=== PATIENT | male | born 1935 | race Caucasian/White ===

== ENCOUNTER → 2016-04-07 | Outpatient (CLI) | payer MEDICARE, OTHER ==
[~2016-04-07] MED LIST: AMIO200T50 PO; AMLO5TAB2 PO; ASCO500C14 PO; ASCO500T75 PO; ASP81CT; ASP81TEC PO; ASPI-983 PO; ASPI325T4; C250T; CALC-9 PO; CARV6.252 PO; CLOP75TA28 PO; CYAN100088 PO; DABI150C2 PO; DIGO125T PO; DILT180C PO; DILT240C53 PO; DOXA1TAB PO; ENOX100D4 SC; FOLI1TAB9 PO; GABA-486 PO; GLUC1CAP37 PO; GLUCO/CHON; HYDR-3583 PO; HYDR200T46 PO; HYDR25TA4 PO; IBP200T PO; IBUP-15 PO; IBUP1TAB9 PO; LYSI600T PO; LYSINE; MECL25TA56 PO; METOPROLOL; MTC10T; MTP25TSR; MULT-608 PO; MULT1TAB63; NFCORC1000; OM-31CAP3 PO; OMEP-10; OMEP20CA12 PO; OMG1KC; OMG1KC PO; OXB5T; PNT40TEC; PNT40TEC PO; PRED2.5T4 PO; PROP60CA17 PO; RIVA20TA; SMV10T; SULF1TAB38 PO; TERI202.4P SQ; TMSL.4C; TRAM50TA2 PO; WARF10TA PO
[2016-04-07 10:20] LABS: ALANINE AMINOTRANSFERASE 15 U/L (0-55); ALBUMIN 3.9 G/DL (3.2-4.5); ANION GAP 8 MMOL/L (5-14); ASPARTATE AMINO TRANSFERASE 17 U/L (5-34); BILIRUBIN,TOTAL 0.7 MG/DL (0.1-1.0); BLOOD UREA NITROGEN 21 MG/DL (7-18); BUN/CREATININE RATIO 20; CALCIUM 9.3 MG/DL (8.5-10.1); CARBON DIOXIDE 25 MMOL/L (21-32); CHLORIDE 103 MMOL/L (98-107); CREATININE SERUM 1.05 MG/DL (0.60-1.30); GFR ESTIMATED > 60; GLUCOSE 161 MG/DL (70-105); POTASSIUM 4.4 MMOL/L (3.6-5.0); SODIUM 136 MMOL/L (135-145)
[2016-04-07 10:30] LABS: DIGOXIN 0.37 NG/ML (0.80-2.00)
== END ==
LOC: CARD 09:34
PROVIDERS: ATTEND Nurse Practitioner Family
DX: I49.8 Other specified cardiac arrhythmias (principal)
CPT/HCPCS: 36415; 80053; 80162; 93005

== ENCOUNTER → 2016-04-21 | Outpatient (CLI) | payer MEDICARE, OTHER ==
--- OUTSIDE RECORDS SUMMARY | 2016-04-21 10:35 | XMS REPORT | Continuity of Care Document ---
Author Author [facility] Organization [facility] Address Unknown Phone Unavailable Allergies Active Description Code Type Severity Reaction Onset Reported/Identified Relationship to Patient Clinical Status Yes Beta-Blockers (Beta-Adrenergic Bloc [id number] Drug Allergy Unknown N/A 04/21/2012 Medications Problems Date Dx Coded Attending Type Code Diagnosis Diagnosed By 01/27/2011 Ot 250.00 DIAB CHRISTAL WO COMPL, TYPE II OR UNSPEC TY 01/27/2011 Ot 401.9 HYPERTENSION NOS 01/27/2011 Ot 412 OLD MYOCARDIAL INFARCT 01/27/2011 Ot 414.00 CORON ATHEROSCLER NOS TYPE VESSEL, NATIV 01/27/2011 Ot 427.31 ATRIAL FIBRILLATION 01/27/2011 Ot 785.1 PALPITATIONS 01/27/2011 Ot V45.82 PERCUTANEOUS TRANSLUM CORON ANGIOPLASTY 01/27/2011 Ot V58.65 LONG-TERM(CURRENT)USE OF STEROIDS 01/27/2011 Ot V58.66 LONG-TERM (CURRENT) USE OF ASPIRIN 01/27/2011 Ot V58.69 OTH MED,LT,CURRENT USE 02/03/2011 Ot 249.00 SEC DIABETES MELLITUS W/OUT MENTION COMP 02/03/2011 Ot 272.4 HYPERLIPIDEMIA NEC/NOS 02/03/2011 Ot 327.23 OBSTRUCTIVE SLEEP APNEA (ADULT) (PEDIATR 02/03/2011 Ot 401.9 HYPERTENSION NOS 02/03/2011 Ot 412 OLD MYOCARDIAL INFARCT 02/03/2011 Ot 414.01 CORONARY ATHEROSCLEROSIS OF [place] CORON 02/03/2011 Ot 427.31 ATRIAL FIBRILLATION 02/03/2011 Ot 496 CHR AIRWAY OBSTRUCT NEC 02/03/2011 Ot 715.90 OSTEOARTHROS NOS-UNSPEC 02/03/2011 Ot V45.82 PERCUTANEOUS TRANSLUM CORON ANGIOPLASTY 03/10/2011 Ot 785.6 ENLARGEMENT LYMPH NODES 03/10/2011 Ot V58.69 OTH MED,LT,CURRENT USE 04/25/2011 Ot 787.91 DIARRHEA 01/29/2012 Ot 427.31 ATRIAL FIBRILLATION 04/21/2012 Ot 682.6 CELLULITIS OF LEG 04/21/2012 Ot 729.81 SWELLING OF LIMB 04/21/2012 Ot 782.3 EDEMA 04/21/2012 Ot V12.51 HX-VENOUS THROMBOSIS EMBOLISM 04/21/2012 Ot V58.69 OTH MED,LT,CURRENT USE 06/11/2012 Ot 780.79 OTH MALAISE FATIGUE 06/11/2012 Ot 786.2 COUGH 06/11/2012 Ot 787.3 FLATUL/ERUCTAT/GAS PAIN 02/07/2014 Ot 785.6 02/07/2014 Ot 785.6 02/07/2014 Ot V58.69 02/07/2014 Ot V72.63 02/07/2014 Ot V74.8 02/07/2014 Ot 787.91 02/07/2014 Ot 786.7 02/07/2014 Ot 401.9 02/07/2014 Ot 427.31 02/07/2014 Ot 787.02 02/07/2014 Ot V58.69 02/07/2014 Ot 250.00 02/07/2014 Ot 272.4 02/07/2014 Ot 401.9 02/07/2014 Ot V58.69 02/07/2014 Ot 427.31 02/07/2014 Ot 289.89 02/07/2014 Ot 356.9 02/07/2014 Ot 787.20 02/07/2014 Ot 401.9 02/07/2014 Ot V58.69 02/07/2014 Ot 780.79 02/07/2014 Ot 786.2 02/07/2014 Ot 787.3 02/07/2014 NAVA WADDELL, RON Prieto Ot 250.00 02/07/2014 NAVA WADDELL, RON Prieto Ot 401.9 02/07/2014 NAVA WADEDLL, RON Prieto Ot V58.69 02/07/2014 NAVA WADDELL, RON Prieto Ot 356.9 02/07/2014 MAURO WADDELL, SENTHIL Shell Ot 433.10 03/11/2014 NAVA WADDELL, RON Prieto Ot 250.00 03/11/2014 NAVA WADDELL, RON Prieto Ot 272.4 03/11/2014 NAVA WADDELL, RON Prieto Ot 401.9 03/11/2014 NAVA WADDELL, RON Prieto Ot V58.69 03/11/2014 NAVA WADDELL, RON Prieto Ot V72.62 06/06/2014 Ot 733.00 07/10/2014 Ot 354.0 07/10/2014 Ot V72.81 07/10/2014 Ot V74.8 07/10/2014 Ot 787.4 07/10/2014 Ot 786.7 07/10/2014 Ot 530.81 07/10/2014 Ot 530.89 07/10/2014 Ot 785.6 07/10/2014 Ot 785.6 07/10/2014 Ot V58.69 07/10/2014 Ot V72.63 07/10/2014 Ot V74.8 07/10/2014 Ot 787.91 07/10/2014 Ot 786.7 07/10/2014 Ot 401.9 07/10/2014 Ot 427.31 07/10/2014 Ot 787.02 07/10/2014 Ot V58.69 07/10/2014 Ot 250.00 07/10/2014 Ot 272.4 07/10/2014 Ot 401.9 07/10/2014 Ot V58.69 07/10/2014 Ot 427.31 07/10/2014 Ot 289.89 07/10/2014 Ot 356.9 07/10/2014 Ot 787.20 07/10/2014 Ot 401.9 07/10/2014 Ot V58.69 07/10/2014 Ot 780.79 07/10/2014 Ot 786.2 07/10/2014 Ot 787.3 07/10/2014 NAVA WADDELL, RON A Ot 250.00 07/10/2014 NAVA WADDELL, RON A Ot 401.9 07/10/2014 NAVA WADDELL, RON A Ot V58.69 07/10/2014 NAVA WADDELL, RON A Ot 356.9 07/10/2014 NAVA WADDELL, RON A Ot 729.5 07/10/2014 MAURO WADDELL, SENTHIL R Ot 433.10 07/10/2014 NAVA WADDELL, RON Prieto Ot 780.4 07/10/2014 NAVA WADDELL, RON A Ot 250.00 07/10/2014 NAVA WADDELL, RON A Ot 272.4 07/10/2014 NAVA WADDELL, RON A Ot 401.9 07/10/2014 NAVA WADDELL, RON Prieto Ot V58.69 07/10/2014 NAVA WADDELL, RON Prieto Ot V72.62 07/10/2014 Ot 733.00 07/14/2014 MAURO WADDELL, SERENEOPHER R Ot 250.00 07/14/2014 MAURO WADDELL, SERENEOPHER R Ot 401.9 07/14/2014 MAURO WADDELL, SERENEOPHER R Ot 414.00 07/14/2014 MAURO WADDELL, CATHIER R Ot 427.31 07/14/2014 MAURO WADDELL, CATHIER R Ot 433.10 07/14/2014 MAURO WADDELL, SERENEOPHER R Ot 433.30 08/04/2014 MAURO WADDELL, SERENEOPHER R Ot 250.00 08/04/2014 MAURO WADDELL, CATHIER R Ot 401.9 08/04/2014 MAURO WADDELL, SERENEOPHER R Ot 414.00 08/04/2014 MAURO WADDELL, SERENEOPHER R Ot 427.31 08/04/2014 MAURO WADDELL, CATHIER R Ot 433.10 08/04/2014 MAURO WADDELL, CATHIER R Ot 433.30 09/01/2014 NAVA WADDELL, RON Prieto Ot 786.52 04/29/2015 Ot 733.00 05/18/2015 Ot 787.4 05/18/2015 Ot 786.7 05/18/2015 Ot 530.81 05/18/2015 Ot 530.89 05/18/2015 Ot 785.6 05/18/2015 Ot 785.6 05/18/2015 Ot V58.69 05/18/2015 Ot V72.63 05/18/2015 Ot V74.8 05/18/2015 Ot 787.91 05/18/2015 Ot 786.7 05/18/2015 Ot 401.9 05/18/2015 Ot 427.31 05/18/2015 Ot 787.02 05/18/2015 Ot V58.69 05/18/2015 Ot 250.00 05/18/2015 Ot 272.4 05/18/2015 Ot 401.9 05/18/2015 Ot V58.69 05/18/2015 Ot 427.31 05/18/2015 Ot 289.89 05/18/2015 Ot 356.9 05/18/2015 Ot 787.20 05/18/2015 Ot 401.9 05/18/2015 Ot V58.69 05/18/2015 Ot 780.79 05/18/2015 Ot 786.2 05/18/2015 Ot 787.3 05/18/2015 NAVA WADDELL, RON A Ot 250.00 05/18/2015 NAVA WADDELL, RON A Ot 401.9 05/18/2015 NAVA WADDELL, RON A Ot V58.69 05/18/2015 NAVA WADDELL, RON A Ot 356.9 05/18/2015 NAVA WADDELL, RON A Ot 729.5 05/18/2015 MAURO WADDELL, CHRISTOPHER R Ot 433.10 05/18/2015 NAVA WADDELL, RON A Ot 780.4 05/18/2015 NAVA WADDELL, RON A Ot 250.00 05/18/2015 NAVA WADDELL, RON A Ot 272.4 05/18/2015 ANVA WADDELL, RON A Ot 401.9 05/18/2015 NAVA WADDELL, RON A Ot V58.69 05/18/2015 NAVA WADDELL, RON A Ot V72.62 05/18/2015 Ot 733.00 05/18/2015 MAURO WADDELL, CHRISTOPHER R Ot 250.00 05/18/2015 MAURO WADDELL, CHRISTOPHER R Ot 401.9 05/18/2015 MAURO WADDELL, CHRISTOPHER R Ot 414.00 05/18/2015 MAURO WADDELL, CHRISTOPHER R Ot 427.31 05/18/2015 MAURO WADDELL, CHRISTOPHER R Ot 433.10 05/18/2015 MAURO WADDELL, CHRISTOPHER R Ot 433.30 05/18/2015 NAVA WADDELL, RON A Ot 786.52 05/22/2015 SHALOM ENG ROCK CRUSHER Ot M81.0 05/24/2015 SHALOM ENG ROCK CRUSHER Ot M81.0 06/09/2015 SHALOM ENG ROCK CRUSHER Ot M81.0 02/19/2016 Ot 530.81 ESOPHAGEAL REFLUX 02/19/2016 Ot 530.89 ESOPHAGUS DISORDERS NEC 02/19/2016 Ot 785.6 ENLARGEMENT LYMPH NODES 02/19/2016 Ot 785.6 ENLARGEMENT LYMPH NODES 02/19/2016 Ot V58.69 OT MED,LT,CURRENT USE 02/19/2016 Ot V72.63 PRE-PROCEDURAL LABORATORY EXAMINATION 02/19/2016 Ot V74.8 SCREEN-BACTERIAL DIS NEC 02/19/2016 Ot 787.91 DIARRHEA 02/19/2016 Ot 786.7 ABNORMAL CHEST SOUNDS 02/19/2016 Ot 401.9 HYPERTENSION NOS 02/19/2016 Ot 427.31 ATRIAL FIBRILLATION 02/19/2016 Ot 787.02 NAUSEA ALONE 02/19/2016 Ot V58.69 OTH MED,LT,CURRENT USE 02/19/2016 Ot 250.00 DIAB CHRISTAL WO COMPL, TYPE II OR UNSPEC TY 02/19/2016 Ot 272.4 HYPERLIPIDEMIA NEC/NOS 02/19/2016 Ot 401.9 HYPERTENSION NOS 02/19/2016 Ot V58.69 OTH MED,LT,CURRENT USE 02/19/2016 Ot 427.31 ATRIAL FIBRILLATION 02/19/2016 Ot 289.89 OTH SPECIFIED DIS OF BLOOD AND BLOOD-FOR 02/19/2016 Ot 356.9 IDIO PERIPH NEURPTHY NOS 02/19/2016 Ot 787.20 DYSPHAGIA, UNSPECIFIED 02/19/2016 Ot 401.9 HYPERTENSION NOS 02/19/2016 Ot V58.69 OTH MED,LT,CURRENT USE 02/19/2016 Ot 780.79 OTH MALAISE FATIGUE 02/19/2016 Ot 786.2 COUGH 02/19/2016 Ot 787.3 FLATUL/ERUCTAT/GAS PAIN 02/19/2016 RON VICK MD Ot 250.00 DIAB CHRISTAL WO COMPL, TYPE II OR UNSPEC TY 02/19/2016 RON VICK MD Ot 401.9 HYPERTENSION NOS 02/19/2016 RON VICK MD Ot V58.69 OTH MED,LT,CURRENT USE 02/19/2016 RON VICK MD Ot 356.9 IDIO PERIPH NEURPTHY NOS 02/19/2016 RON VICK MD Ot 729.5 PAIN IN LIMB 02/19/2016 MAURO WADDELL, SENTHIL Shell Ot 433.10 CAROTID ARTERY OCCLUSION W O CEREBRAL IN 02/19/2016 RON VICK MD Ot 780.4 DIZZINESS AND GIDDINESS 02/19/2016 RON VICK MD Ot 250.00 DIAB CHRISTAL WO COMPL, TYPE II OR UNSPEC TY 02/19/2016 RON VICK MD Ot 272.4 HYPERLIPIDEMIA NEC/NOS 02/19/2016 RON VICK MD Ot 401.9 HYPERTENSION NOS 02/19/2016 NAVA WADDELL, RON Prieto Ot V58.69 OTH MED,LT,CURRENT USE 02/19/2016 RON VICK MD Ot V72.62 LAB EXAM ORDERED PART OF A ROUTINE GE 02/19/2016 Ot 733.00 OSTEOPOROSIS NOS 02/19/2016 MAURO WADDELL, SENTHIL R Ot 250.00 DIAB CHRISTAL WO COMPL, TYPE II OR UNSPEC TY 02/19/2016 MAURO WADDELL, SENTHIL R Ot 401.9 HYPERTENSION NOS 02/19/2016 MAURO WADDELL, SENTHIL R Ot 414.00 CORON ATHEROSCLER NOS TYPE VESSEL, NATIV 02/19/2016 MAURO WADDELL, SENTHIL R Ot 427.31 ATRIAL FIBRILLATION 02/19/2016 MAURO WADDELL, SENTHIL Shell Ot 433.10 CAROTID ARTERY OCCLUSION W O CEREBRAL IN 02/19/2016 SENTHIL WADE MD Ot 433.30 MULT BILTRAL ARTERY OCCLUSION WO CEREBRA 02/19/2016 NAVA WADDELL, RON Prieto Ot 786.52 PAINFUL RESPIRATION 02/19/2016 SHALOM ENG APRN Ot M81.0 AGE-RELATED OSTEOPOROSIS W/O CURRENT PAT 03/14/2016 CARROL SAHU Ot I10 ESSENTIAL (PRIMARY) HYPERTENSION 03/14/2016 CARROL SAHU Ot I48.91 UNSPECIFIED ATRIAL FIBRILLATION 04/08/2016 SHALOM ENG APRN Ot I49.8 OTHER SPECIFIED CARDIAC ARRHYTHMIAS 04/08/2016 SHALOM ENG APRN Ot I49.8 OTHER SPECIFIED CARDIAC ARRHYTHMIAS Procedures Code Description Performed By Performed On 99.62 HEART COUNTERSHOCK [facility] 02/02/2011 Results Test Result Range Complete blood count (CBC) with automated white blood cell (WBC) differential - 02/19/16 11:24 Blood leukocytes automated count (number/volume) 9.4 10*3/ uL 4.3-11.0 Blood erythrocytes automated count (number/volume) 4.50 10*6 /uL 4.35-5.85 Venous blood hemoglobin measurement (mass/volume) 14.9 g/dL 13.3-17.7 Blood hematocrit (volume fraction) 45 % 40-54 Automated erythrocyte mean corpuscular volume 101 [foz_us] 80-99 Automated erythrocyte mean corpuscular hemoglobin (mass per erythrocyte) 33 pg 25-34 Automated erythrocyte mean corpuscular hemoglobin concentration measurement ( mass/volume) 33 g/dL 32-36 Automated erythrocyte distribution width ratio 12.5 % 10.0-14.5 Automated blood platelet count (count/volume) 221 10*3/uL 130-400 Automated blood platelet mean volume measurement 10.6 [foz_ us] 7.4-10.4 Automated blood neutrophils/100 leukocytes 64 % 42-75 Automated blood lymphocytes/100 leukocytes 19 % 12-44 Blood monocytes/100 leukocytes 12 % 0-12 Automated blood eosinophils/100 leukocytes 4 % 0-10 Automated blood basophils/100 leukocytes 1 % 0-10 Blood neutrophils automated count (number/volume) 6.0 10*3 1.8-7.8 Blood lymphocytes automated count (number/volume) 1.8 10*3 1.0-4.0 Blood monocytes automated count (number/volume) 1.2 10*3 0.0-1.0 Automated eosinophil count 0.4 10*3/uL 0.0-0.3 Automated blood basophil count (count/volume) 0.1 10*3/uL 0.0-0.1 Comprehensive metabolic panel - 02/19/16 11:24 Serum or plasma sodium measurement (moles/volume) 138 mmol/ L 135-145 Serum or plasma potassium measurement (moles/volume) 4.4 mmol/L 3.6-5.0 Serum or plasma chloride measurement (moles/volume) 104 mmol /L 98-107 Carbon dioxide 28 mmol/L 21-32 Serum or plasma anion gap determination (moles/volume) 6 mmol/L 5-14 Serum or plasma urea nitrogen measurement (mass/volume) 22 mg/dL 7-18 Serum or plasma creatinine measurement (mass/volume) 1.03 mg /dL 0.60-1.30 Serum or plasma urea nitrogen/creatinine mass ratio 21 NRG Serum or plasma creatinine measurement with calculation of estimated glomerular filtration rate > NRG Serum or plasma glucose measurement (mass/volume) 91 mg/dL 70-105 Serum or plasma calcium measurement (mass/volume) 9.6 mg/dL 8.5-10.1 Serum or plasma total bilirubin measurement (mass/volume) 0.5 mg/dL 0.1-1.0 Serum or plasma alkaline phosphatase measurement (enzymatic activity/volume) 48 U/L 40-136 Serum or plasma aspartate aminotransferase measurement (enzymatic activity/ volume) 20 U/L 5-34 Serum or plasma alanine aminotransferase measurement (enzymatic activity/volume ) 19 U/L 0-55 Serum or plasma protein measurement (mass/volume) 7.1 g/dL 6.4-8.2 Serum or plasma albumin measurement (mass/volume) 4.0 g/dL 3.2-4.5 Digoxin - 02/19/16 11:24 Digoxin 0.55 ng/mL 0.80-2.00 Comprehensive metabolic panel - 04/07/16 09:54 Serum or plasma sodium measurement (moles/volume) 136 mmol/ L 135-145 Serum or plasma potassium measurement (moles/volume) 4.4 mmol/L 3.6-5.0 Serum or plasma chloride measurement (moles/volume) 103 mmol /L 98-107 Carbon dioxide 25 mmol/L 21-32 Serum or plasma anion gap determination (moles/volume) 8 mmol/L 5-14 Serum or plasma urea nitrogen measurement (mass/volume) 21 mg/dL 7-18 Serum or plasma creatinine measurement (mass/volume) 1.05 mg /dL 0.60-1.30 Serum or plasma urea nitrogen/creatinine mass ratio 20 NRG Serum or plasma creatinine measurement with calculation of estimated glomerular filtration rate > NRG Serum or plasma glucose measurement (mass/volume) 161 mg/dL 70-105 Serum or plasma calcium measurement (mass/volume) 9.3 mg/dL 8.5-10.1 Serum or plasma total bilirubin measurement (mass/volume) 0.7 mg/dL 0.1-1.0 Serum or plasma alkaline phosphatase measurement (enzymatic activity/volume) 50 U/L 40-136 Serum or plasma aspartate aminotransferase measurement (enzymatic activity/ volume) 17 U/L 5-34 Serum or plasma alanine aminotransferase measurement (enzymatic activity/volume ) 15 U/L 0-55 Serum or plasma protein measurement (mass/volume) 7.0 g/dL 6.4-8.2 Serum or plasma albumin measurement (mass/volume) 3.9 g/dL 3.2-4.5 Digoxin - 04/07/16 09:54 Digoxin 0.37 ng/mL 0.80-2.00 Encounters ACCT No. Visit Date/Time Discharge Status Pt. Type Provider Facility Loc./Unit Complaint [id number] 08/13/2014 10:28:00 2014 23:59:59 CLS Outpatient RON VICK MD [facility] RAD CHEST WALL PAIN [id number] 07/10/2014 14:48:00 2014 23:59:59 CLS Outpatient SENTHIL WADE MD [facility] RAD CAD [id number] 02/07/2014 08:10:00 2013 23:59:59 CLS Outpatient RON VICK MD [facility] LAB HTN,HYPERLIPIDEMIA,POLITICAL SCIENCE RESEARCH ASSISTANT MED USE [id number] 05/02/2013 13:20:00 2013 23:59:59 CLS Outpatient RON VICK MD [facility] RAD VERTIGO [id number] 01/15/2013 08:28:00 2012 23:59:59 CLS Outpatient SENTHIL WADE MD [facility] RAD CAROTID STENOSIS [id number] 10/15/2012 14:42:00 2012 23:59:59 CLS Outpatient RON VICK MD [facility] RAD PAIN HEAD OF 5 METATASERL L [id number] 09/26/2012 08:15:00 2012 23:59:59 CLS Outpatient RON VICK MD [facility] LAB PERIPHERAL NEURYPATHY [id number] 07/17/2012 07:58:00 2012 23:59:59 CLS Outpatient RON VICK MD [facility] LAB HTN,NIDDM,ALF MED UASGE [id number] 04/07/2016 09:34:00 ACT Outpatient SHLAOM ENG APRN [facility] CARD ARRHYTHMIA [id number] 02/19/2016 10:58:00 ACT Outpatient CARROL SAHU [facility] LAB HTN,HX AFIB [id number] 05/18/2015 12:48:00 ACT Outpatient SHALOM ENG APRN [facility] SDC OSTEOPOROSIS [id number] 07/10/2014 14:48:00 Document Registration [id number] 07/10/2014 14:48:00 Document Registration [id number] 07/10/2014 14:48:00 Document Registration [id number] 07/10/2014 14:48:00 Document Registration [id number] 07/10/2014 14:48:00 Document Registration [id number] 07/10/2014 14:48:00 Document Registration [id number] 07/10/2014 14:48:00 Document Registration [id number] 05/15/2014 12:52:00 Document Registration [id number] 06/12/2012 00:00:00 Document Registration [id number] 04/30/2012 10:12:00 Document Registration [id number] 04/30/2012 10:05:00 Document Registration [id number] 04/21/2012 21:14:00 Document Registration [id number] 03/19/2012 13:54:00 Document Registration [id number] 03/14/2012 10:29:00 Document Registration [id number] 01/30/2012 08:30:00 Document Registration [id number] 11/24/2011 08:17:00 Document Registration [id number] 10/31/2011 08:45:00 Document Registration [id number] 07/22/2011 08:03:00 Document Registration [id number] 07/08/2011 08:52:00 Document Registration [id number] 04/26/2011 00:00:00 Document Registration [id number] 03/10/2011 05:43:00 Document Registration [id number] 03/08/2011 13:36:00 Document Registration [id number] 02/15/2011 10:21:00 Document Registration [id number] 01/31/2011 11:30:00 Document Registration [id number] 01/31/2011 07:33:00 Document Registration [id number] 01/27/2011 17:11:00 Document Registration
--- NOTE | 2016-04-25 10:30 | ECHOCARDIOGRAPHY REPORT ---
PROCEDURE PHYSICIAN: SP BISHOP DATE OF PROCEDURE: 04/21/2016 TWO DIMENSIONAL ECHOCARDIOGRAM REPORT PRIMARY PHYSICIAN: OTHER PHYSICIAN: REFERRING PHYSICIAN: Dr. Burkett ORDERING PHYSICIAN: INDICATION FOR THE PROCEDURE: 1. Atrial fibrillation. 2. Coronary artery disease. MEASUREMENTS DERIVED VALUES LV DIAMETER (LAX) NORMALS NORMALS Diastolic 4.9 (3.6-5.2) Eject. Fract. 60% (60%+/-6%) Systolic (2.3-3.9) Diastolic Vol. % Shortening (0.22-0.42) Systolic Vol. Aortic Root IVS THICKNESS Diastolic 1.3 (0.6-1.1) LVPW THICKNESS Diastolic 1.3 (0.6-1.1) LA DIAMETER Systolic 5.7 (2.1-3.7) FINDINGS: 1. Technical quality is good. 2. The left ventricle is normal in size with moderate to severe left ventricular hypertrophy noted diffusely. Systolic function appeared to be normal. The patient is in atrial fibrillation. Estimated ejection fraction 60%. 3. The left atrium is dilated. No clot or thrombus were seen within the left atrium. 4. The right atrium and right ventricle are prominent. No clot or thrombus were seen within the right heart chambers. 5. Mitral valve is calcified with mild mitral regurgitation noted by color Doppler flow. No mitral valve prolapse. No mitral valve stenosis. 6. Aortic valve is trileaflet with normal opening and closing pattern. No significant aortic valve stenosis was noted. Mild aortic regurgitation noted by color Doppler flow. 7. Tricuspid valve is normal in morphology with mild tricuspid regurgitation noted by color Doppler flow. Doppler across tricuspid valve estimated pulmonary artery pressure of 29+ right atrial pressure. 8. Pulmonic valve is functioning normally. 9. No pericardial effusion. IN CONCLUSION: 1. Moderate to severe left ventricular hypertrophy. Systolic function is normal. Estimated ejection fraction 60%. The patient is in atrial fibrillation. 2. Left atrial dilatation. 3. Prominent right heart chambers. 4. Mild mitral regurgitation. Mild tricuspid regurgitation. Mild aortic regurgitation. 5. Estimated pulmonary artery pressure of 35 mmHg. Job ID: [id number] Dictated Date: 04/25/2016 07:48:03 Roaster Helper Date: 04/25/2016 10:26:18 / tbreba
== END ==
LOC: CARD 10:30
PROVIDERS: ATTEND Internal Medicine Cardiovascular Disease
DX: I48.91 Unspecified atrial fibrillation (principal); I25.10 Atherosclerotic heart disease of native coronary artery without angina pectoris; I51.7 Cardiomegaly
CPT/HCPCS: 93306

== ENCOUNTER → 2016-05-16 | Outpatient (CLI) | payer MEDICARE, OTHER ==
[~2016-05-16] VITALS: Ht 172.7 cm; Wt 98.4 kg
[~2016-05-16] MED LIST changes: +CATHETER FLUSH 10 ML SYR IV PRN; +EPTIFIBATIDE BOLUS 20 ML IV ONE; +HEParin 1000 UNIT/ML (10ML VIAL) FOR BOLUS ONE; +REGADENOSON 0.4 MG/5 ML SYR (LEXISCAN) IV ONE
--- OUTSIDE RECORDS SUMMARY | 2016-05-16 07:15 | XMS REPORT | Continuity of Care Document ---
Author Author [facility] Organization [facility] Address Unknown Phone Unavailable Allergies Active Description Code Type Severity Reaction Onset Reported/Identified Relationship to Patient Clinical Status Yes Beta-Blockers (Beta-Adrenergic Bloc [id number] Drug Allergy Unknown N/A 04/21/2012 Medications Problems [...] INFARCT 02/03/2011 Ot 414.01 CORONARY ATHEROSCLEROSIS OF [place] CORON 02/03/2011 Ot 427.31 ATRIAL FIBRILLATION 02/03/2011 [...] WADDELL, RON Prieto Ot 401.9 02/07/2014 NAVA WADDELL, RON Prieto Ot V58.69 02/07/2014 NAVA WADDELL, RON Prieto Ot 356.9 02/07/2014 MAURO WADDELL, SETNHIL Shell Ot 433.10 03/11/2014 NAVA WADDELL, RON [...] NAVA WADDELL, RON A Ot 272.4 05/18/2015 NAVA WADDELL, RON A Ot 401.9 [...] RON A Ot 786.52 05/22/2015 SHALOM ENG DESIZING MACHINE OPERATOR HEAD END Ot M81.0 05/24/2015 SHALOM ENG DESIZING MACHINE OPERATOR HEAD END Ot M81.0 06/09/2015 SHALOM ENG DESIZING MACHINE OPERATOR HEAD END Ot M81.0 02/19/2016 Ot 530.81 ESOPHAGEAL REFLUX [...] 733.00 OSTEOPOROSIS NOS 02/19/2016 MAURO WADDELL, SENTHIL Shell Ot 250.00 DIAB CHRISTAL WO COMPL, TYPE II OR UNSPEC TY 02/19/2016 MAURO WADDELL, SENTHIL R Ot 401.9 HYPERTENSION NOS 02/19/2016 MAURO WADDELL, SENTHIL R Ot 414.00 CORON ATHEROSCLER NOS TYPE VESSEL, NATIV 02/19/2016 MAURO WADDELL, SENTHIL R Ot 427.31 ATRIAL FIBRILLATION 02/19/2016 SENTHIL WADE MD Ot 433.10 CAROTID ARTERY OCCLUSION W O [...] APRN Ot I49.8 OTHER SPECIFIED CARDIAC ARRHYTHMIAS 04/22/2016 SP BISHOP MD Ot I25.10 ATHSCL HEART DISEASE OF [place] CORONARY 04/22/2016 SP BISHOP MD Ot I48.91 UNSPECIFIED ATRIAL FIBRILLATION 04/22/2016 SP BISHOP MD Ot 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 Type Provider Facility Loc./Unit Complaint [id number] 08/13/2014 10:28:00 2014 23:59:59 CLS Outpatient RON VICK MD [facility] RAD CHEST WALL PAIN [id number] 07/10/2014 14:48:00 2014 23:59:59 CLS Outpatient SENTHIL WADE MD [facility] RAD CAD [id number] 02/07/2014 08:10:00 2013 23:59:59 CLS Outpatient RON VICK MD [facility] LAB HTN,HYPERLIPIDEMIA,GARLAND MAKER MED USE [id number] 05/02/2013 13:20:00 2013 23:59:59 CLS Outpatient RON VICK MD [facility] RAD VERTIGO [id number] 01/15/2013 08:28:00 2012 23:59:59 CLS Outpatient SENTHIL WADE MD [facility] RAD CAROTID STENOSIS [id number] 10/15/2012 14:42:00 2012 23:59:59 CLS Outpatient RON VICK MD [facility] RAD PAIN HEAD OF 5 METATASERL L [id number] 09/26/2012 08:15:00 2012 23:59:59 CLS Outpatient RON VICK MD [facility] LAB PERIPHERAL NEURYPATHY [id number] 07/17/2012 07:58:00 2012 23:59:59 CLS Outpatient RON VICK MD [facility] LAB HTN,NIDDM,GARLAND MAKER MED UASGE [id number] 05/16/2016 07:11:00 ACT Outpatient EDNA WADDELL, SP Dillon [facility] CARD AF,CAD,CAROTID ARTERY STENOSIS [id number] 04/21/2016 10:30:00 ACT Outpatient PS BISHOP MD [facility] CARD AF,CAD,CAROTID ARTERY STENOSIS [id number] 04/07/2016 09:34:00 ACT Outpatient SHALOM ENG APRN [facility] CARD ARRHYTHMIA [id number] 02/19/2016 10:58:00 ACT Outpatient CARROL SAHU [facility] LAB HTN,HX AFIB [id number] 05/18/2015 12:48:00 ACT Outpatient SHALOM ENG APRN [facility] SDC OSTEOPOROSIS [id number] 07/10/2014 14:48:00 Document Registration [id number] 07/10/2014 14:48:00 Document Registration [id number] 07/10/2014 14:48:00 Document Registration [id number] 07/10/2014 14:48:00 Document Registration [id number] 07/10/2014 14:48:00 Document Registration [id number] 07/10/2014 14:48:00 Document Registration [id number] 07/10/2014 14:48:00 Document Registration [id number] 05/15/2014 12:52:00 Document Registration [id number] 06/12/2012 00:00:00 Document Registration [id number] 04/30/2012 10:12:00 Document Registration [id number] 04/30/2012 10:05:00 Document Registration [id number] 04/21/2012 21:14:00 Document Registration [id number] 03/19/2012 13:54:00 Document Registration [id number] 03/14/2012 10:29:00 Document Registration [id number] 01/30/2012 08:30:00 Document Registration [id number] 11/24/2011 08:17:00 Document Registration [id number] 10/31/2011 08:45:00 Document Registration [id number] 07/22/2011 08:03:00 Document Registration [id number] 07/08/2011 08:52:00 Document Registration [id number] 04/26/2011 00:00:00 Document Registration [id number] 03/10/2011 05:43:00 Document Registration [id number] 03/08/2011 13:36:00 Document Registration [id number] 02/15/2011 10:21:00 Document Registration [id number] 01/31/2011 11:30:00 Document Registration [id number] 01/31/2011 07:33:00 Document Registration [id number] 01/27/2011 17:11:00 Document Registration
[2016-05-16 09:11] VITALS: BP 144/76
[2016-05-16 09:23] VITALS: BP 139/83
--- NOTE | 2016-05-17 11:17 | STRESS TEST ---
PROCEDURE PHYSICIAN: SP BISHOP DATE OF PROCEDURE: 05/16/2016 LEXISCAN MYOVIEW STRESS TEST REPORT: REFERRING PHYSICIAN: Dr. Burkett. INDICATION: Coronary artery disease. BASELINE HEART RATE: 86 BASELINE BLOOD PRESSURE: 139/81 BASELINE EKG: Atrial fibrillation with no ischemic changes. IN SUMMARY: The patient was injected with 10.78 mCi of technetium 99 Myoview and the resting images were obtained. Then the patient received 0.4 mg of Lexiscan followed by 28 mCi of technetium 99 Myoview. Throughout the test, there were no EKG changes. The resting and stress images were reviewed and compared in the short axis, horizontal long axis, and vertical long axis views. Review of the images showed diaphragmatic attenuation. There is mild decreased uptake at the anteroapical segment and anterolateral wall with mild reversibility. SSS is 6, SDS 5. TID value 1.01. On the gated images, the left ventricle appeared to be normal size with normal contractility. Calculated ejection fraction 59%. IN CONCLUSION: 1. The patient tolerated Lexiscan well. 2. Mild ischemia involving the anterior lateral wall and anteroapical segment of the left ventricle. 3. Normal left ventricular size with normal contractility. Calculated ejection fraction 59%, underlying rhythm is atrial fibrillation, which could affect at the evaluation of the left ventricular contractility. Job ID: [id number] Dictated Date: 05/16/2016 17:21:11 Wet Finisher Date: 05/17/2016 11:14:28 / [email or web address]
== END ==
LOC: CARD 07:11
PROVIDERS: ATTEND Internal Medicine Cardiovascular Disease
DX: I48.91 Unspecified atrial fibrillation (principal); I25.10 Atherosclerotic heart disease of native coronary artery without angina pectoris; I51.7 Cardiomegaly
CPT/HCPCS: 78452; 93017

== ENCOUNTER 2016-05-19 08:22 | Emergency (ER) | payer MEDICARE, OTHER ==
[~2016-05-19] VITALS: Ht 172.7 cm; Wt 98.4 kg
[~2016-05-19 08:22] MED LIST changes: -ASCO500T75 PO; -ASPI-983 PO; -CARV6.252 PO; -CATHETER FLUSH 10 ML SYR IV PRN; -CLOP75TA28 PO; -CYAN100088 PO; -DILT240C53 PO; -ENOX100D4 SC; -EPTIFIBATIDE BOLUS 20 ML IV ONE; -FOLI1TAB9 PO; -HEParin 1000 UNIT/ML (10ML VIAL) FOR BOLUS ONE; -HYDR25TA4 PO; -OM-31CAP3 PO; -OMEP20CA12 PO; -REGADENOSON 0.4 MG/5 ML SYR (LEXISCAN) IV ONE; -RIVA20TA; -TRAM50TA2 PO; -WARF10TA PO
--- OUTSIDE RECORDS SUMMARY | 2016-05-19 08:28 | XMS REPORT | Continuity of Care Document ---
Author Author [facility] Organization [facility] Address Unknown Phone Unavailable Allergies Active Description Code Type Severity Reaction Onset Reported/Identified Relationship to Patient Clinical Status Yes Beta-Blockers (Beta-Adrenergic Bloc [id number] Drug Allergy Unknown N/A 04/21/2012 Medications Problems [...] INFARCT 02/03/2011 Ot 414.01 CORONARY ATHEROSCLEROSIS OF [place] CORON 02/03/2011 Ot 427.31 ATRIAL FIBRILLATION 02/03/2011 [...] Prieto Ot V58.69 03/11/2014 NAVA WADDELL, RON Pireto Ot V72.62 06/06/2014 Ot 733.00 07/10/2014 Ot [...] RON A Ot 786.52 05/22/2015 SHALOM ENG MEDICAL LAB DIRECTOR Ot M81.0 05/24/2015 SHALOM ENG MEDICAL LAB DIRECTOR Ot M81.0 06/09/2015 SHALOM ENG MEDICAL LAB DIRECTOR Ot M81.0 02/19/2016 Ot 530.81 ESOPHAGEAL REFLUX [...] Ot 401.9 HYPERTENSION NOS 02/19/2016 MAURO WADDELL, CATHIER R Ot 414.00 CORON ATHEROSCLER NOS TYPE VESSEL, NATIV 02/19/2016 MAURO WADDELL, SENTHIL R Ot 427.31 ATRIAL FIBRILLATION 02/19/2016 MAURO WADDELL, SENTHIL R Ot 433.10 CAROTID ARTERY OCCLUSION W O CEREBRAL IN 02/19/2016 SENTHIL WADE MD Ot 433.30 MULT BILTRAL ARTERY OCCLUSION WO CEREBRA 02/19/2016 NAVA WADDELL, RON Prieto Ot 786.52 PAINFUL RESPIRATION 02/19/2016 SHALOM ENG MEDICAL LAB DIRECTOR Ot M81.0 AGE-RELATED OSTEOPOROSIS W/O CURRENT PAT 03/14/2016 CARROL SAHU EMBOSSER OPERATOR Ot I10 ESSENTIAL (PRIMARY) HYPERTENSION 03/14/2016 CARROL SAHU Ot I48.91 UNSPECIFIED ATRIAL FIBRILLATION 04/08/2016 SHALOM ENG APRN Ot I49.8 OTHER SPECIFIED CARDIAC ARRHYTHMIAS 04/08/2016 SHALOM ENG APRN Ot I49.8 OTHER SPECIFIED CARDIAC ARRHYTHMIAS 04/22/2016 SP BISHOP MD Ot I25.10 ATHSCL HEART DISEASE OF [place] CORONARY 04/22/2016 SP BISHOP MD Ot I48.91 UNSPECIFIED ATRIAL FIBRILLATION 04/22/2016 SP BISHOP MD Ot I51.7 CARDIOMEGALY 04/28/2016 SHALOM ENG APRN Ot I49.8 OTHER SPECIFIED CARDIAC ARRHYTHMIAS 05/16/2016 SP BISHOP MD Ot I48.91 UNSPECIFIED ATRIAL FIBRILLATION 05/17/2016 SP BISHOP MD Ot I25.10 ATHSCL HEART DISEASE OF [place] CORONARY 05/17/2016 SP BISHOP MD Ot I48.91 UNSPECIFIED ATRIAL FIBRILLATION 05/17/2016 EDNA WADDELL, SP Dillon Ot I51.7 CARDIOMEGALY Procedures Code Description Performed By Performed On 99.[address] [facility] 02/02/2011 Results Test Result Range Complete blood [...] mmol /L 98-107 Carbon dioxide 25 mmol/L -32 Serum or plasma anion gap determination (moles/volume) [...] Status Pt. Type Provider Facility Loc./Unit Complaint [id number] 08/13/2014 10:28:00 2014 23:59:59 CLS Outpatient RON VICK MD [facility] RAD CHEST WALL PAIN [id number] 07/10/2014 14:48:00 2014 23:59:59 CLS Outpatient SENTHIL WADE MD [facility] RAD CAD [id number] 02/07/2014 08:10:00 2013 23:59:59 CLS Outpatient RON VICK MD [facility] LAB HTN,HYPERLIPIDEMIA,CUSTODIAL MED USE [id number] 05/02/2013 13:20:00 2013 23:59:59 CLS Outpatient RON VICK MD [facility] RAD VERTIGO [id number] 01/15/2013 08:28:00 2012 23:59:59 CLS Outpatient SENTHIL WADE MD [facility] RAD CAROTID STENOSIS [id number] 10/15/2012 14:42:00 2012 23:59:59 CLS Outpatient RON VICK MD [facility] RAD PAIN HEAD OF 5 METATASERL L [id number] 09/26/2012 08:15:00 2012 23:59:59 CLS Outpatient RON VICK MD [facility] LAB PERIPHERAL NEURYPATHY [id number] 07/17/2012 07:58:00 2012 23:59:59 CLS Outpatient NAVA WADDELL, RON Prieto [facility] LAB HTN,NIDDM,CUSTODIAL MED UASGE [id number] 05/19/2016 08:24:00 ACT Emergency MOISES WADDELL , ELISA Gary [facility] ER LEFT ARM PAIN [id number] 05/16/2016 07:11:00 ACT Outpatient SP BISHOP MD [facility] CARD AF,CAD,CAROTID ARTERY STENOSIS [id number] 04/21/2016 10:30:00 ACT Outpatient SP BISHOP MD [facility] AF,CAD,CAROTID ARTERY STENOSIS [id number] 04/07/2016 09:34:00 ACT Outpatient SHALOM ENG APRN [facility] CARD ARRHYTHMIA [id number] 02/19/2016 10:58:00 ACT Outpatient CARROL SAHU [facility] LAB HTN,HX AFIB [id number] 05/18/2015 12:48:00 ACT Outpatient SHALOM ENG APRN [facility] SDC OSTEOPOROSIS [id number] 07/10/2014 14:48:00 Document Registration [id number] 07/10/2014 14:48:00 Document Registration [id number] 07/10/2014 14:48:00 Document Registration [id number] 07/10/2014 14:48:00 Document Registration [id number] 07/10/2014 14:48:00 Document Registration [id number] 07/10/2014 14:48:00 Document Registration [id number] 07/10/2014 14:48:00 Document Registration [id number] 05/15/2014 12:52:00 Document Registration [id number] 06/12/2012 00:00:00 Document Registration [id number] 04/30/2012 10:12:00 Document Registration [id number] 04/30/2012 10:05:00 Document Registration [id number] 04/21/2012 21:14:00 Document Registration [id number] 03/19/2012 13:54:00 Document Registration [id number] 03/14/2012 10:29:00 Document Registration [id number] 01/30/2012 08:30:00 Document Registration [id number] 11/24/2011 08:17:00 Document Registration [id number] 10/31/2011 08:45:00 Document Registration [id number] 07/22/2011 08:03:00 Document Registration [id number] 07/08/2011 08:52:00 Document Registration [id number] 04/26/2011 00:00:00 Document Registration [id number] 03/10/2011 05:43:00 Document Registration [id number] 03/08/2011 13:36:00 Document Registration [id number] 02/15/2011 10:21:00 Document Registration [id number] 01/31/2011 11:30:00 Document Registration [id number] 01/31/2011 07:33:00 Document Registration [id number] 01/27/2011 17:11:00 Document Registration
[2016-05-19 08:42] LABS: BASOPHILS % (AUTO) 0 % (0-10); EOSINOPHILS # (AUTO) 0.2 10^3/uL (0.0-0.3); EOSINOPHILS % (AUTO) 1 % (0-10); LYMPHOCYTES # (AUTO) 1.8 X 10^3 (1.0-4.0); LYMPHOCYTES % (AUTO) 13 % (12-44); MEAN CORPUSCULAR HEMOGLOBIN 33 PG (25-34); MEAN CORPUSCULAR HGB CONC 34 G/DL (32-36); MEAN CORPUSCULAR VOLUME 99 FL (80-99); MEAN PLATELET VOLUME 10.5 FL (7.4-10.4); MONOCYTES # (AUTO) 1.5 X 10^3 (0.0-1.0); MONOCYTES % (AUTO) 12 % (0-12); NEUTROPHILS # (AUTO) 9.9 X 10^3 (1.8-7.8); NEUTROPHILS % (AUTO) 74 % (42-75); PLATELET COUNT 250 10^3/uL (130-400); RED BLOOD COUNT 4.62 10^6/uL (4.35-5.85); RED CELL DISTRIBUTION WIDTH 12.8 % (10.0-14.5); WHITE BLOOD COUNT 13.4 10^3/uL (4.3-11.0)
[2016-05-19 08:53] LABS: PROTHROMBIN TIME PATIENT 22.3 SEC (12.2-14.7)
[2016-05-19 09:04] LABS: ALANINE AMINOTRANSFERASE 19 U/L (0-55); ALBUMIN 4.1 G/DL (3.2-4.5); ANION GAP 11 MMOL/L (5-14); ASPARTATE AMINO TRANSFERASE 18 U/L (5-34); BILIRUBIN,TOTAL 0.6 MG/DL (0.1-1.0); BLOOD UREA NITROGEN 21 MG/DL (7-18); BUN/CREATININE RATIO 18; CALCIUM 9.4 MG/DL (8.5-10.1); CARBON DIOXIDE 25 MMOL/L (21-32); CHLORIDE 102 MMOL/L (98-107); GFR ESTIMATED 58; GLUCOSE 162 MG/DL (70-105); MAGNESIUM 1.9 MG/DL (1.8-2.4); POTASSIUM 4.1 MMOL/L (3.6-5.0); SODIUM 138 MMOL/L (135-145); TOTAL PROTEIN 7.7 G/DL (6.4-8.2)
[2016-05-19 09:12] LABS: MYOGLOBIN SERUM 66.9 NG/ML (10.0-92.0)
--- NOTE | 2016-05-19 09:38 | Diagnostic Imaging Report ---
CLINICAL INDICATION: Patient with history of A-fib. Patient woke up with cold legs. Patient slept on left side and woke up with left arm and left shoulder pain. EXAM: Portable chest x-ray upright view. COMPARISONS: Chest x-ray dated 08/13/2014. FINDINGS: Lungs/pleura: Lungs are clear. There is no pneumothorax. There is no pleural effusion. Mediastinum: Unremarkable. Pulmonary vasculature: Unremarkable. Heart: Unremarkable. Bones/extrathoracic soft tissue: Stable old right rib bony deformities. There are hypertrophic spurs seen throughout the thoracic spine. IMPRESSION: Stable chest x-ray exam with no interval radiographic evidence of acute cardiopulmonary process. Dictated by: Dictated on workstation # [id number]
[2016-05-19] MEDS ORDERED: DILT240C53 PO (09:49)
[2016-05-19] MEDS ORDERED: RIVA20TA (09:49)
[2016-05-19] MEDS ORDERED: CYAN100088 PO (09:49)
[2016-05-19] MEDS ORDERED: HYDR25TA4 PO (09:49)
[2016-05-19] MEDS ORDERED: CARV6.252 PO (09:49)
[2016-05-19] MEDS ORDERED: OMEP20CA12 PO (09:49)
[2016-05-19 10:11] LABS: BILIRUBIN,URINE NEGATIVE (NEGATIVE); KETONES,URINE NEGATIVE (NEGATIVE); LEUKOCYTE ESTERASE ,URINE NEGATIVE (NEGATIVE); NITRITE,URINE NEGATIVE (NEGATIVE); PH,URINE 6 (5-9); PROTEIN,URINE 1+ (NEGATIVE); UROBILINOGEN,URINE 1 MG/DL (NORMAL)
[2016-05-19 10:25] LABS: SQUAMOUS EPITHELIAL CELL,UR RARE /HPF
--- NOTE | 2016-05-19 11:00 | ED Cardiac General ---
History of Present Illness General Chief Complaint: Cardiac/General Problems Stated Complaint: LEFT ARM PAIN Nursing Triage Note: HX OF AFIB. WOKE UP W/ COLD LEGS. SLEPT ON L-SIDE THEN WOKE UP W/ L-ARM ET SHOULDER PAIN. DENIES C/P. DR. DE LEON IN TO SEE PT. PT. APPEARS CALM. VISITORS AT [facility]. Source: patient, family, old records Exam Limitations: no limitations History of Present Illness Time seen by provider: 08:25 Initial Comments This 80-year-old gentleman presents to emergency room with complaints of irregular heart rate this morning that would not register on his monitor cuff at home. Had a stress test earlier this week which showed some possible mild ischemia. He has an appointment with Dr. Shine this afternoon. He also has some left arm pain that seems to be mechanical in nature as it worsens with movement of the shoulder. Symptoms started around 06:30 this morning. He also reports legs felt cool last night which was unusual for him. Patient does have a history of coronary artery disease with MS and cardiac stents. Patient has history of atrial fibrillation and is anticoagulated on Xarelto. Allergies and Home Medications Allergies Coded Allergies: Beta-Blockers (Beta-Adrenergic Bloc (Verified Allergy, Unknown, 04/21/12) Home Medications Ascorbic Acid 500 Mg Capsule.sa 500 MG PO DAILY (Reported) Carvedilol 6.25 Mg Tablet #180 (Reported) Cyanocobalamin (Vitamin B-12) 1,000 Mcg Tablet 1,000 MCG PO DAILY (Reported) Digoxin 125 Mcg Tablet 1 EACH PO DAILY (Reported) Diltiazem HCl 240 Mg Cap.er.24h #90 (Reported) Diltiazem Hcl 180 Mg Cap.sr.24h 1 EACH PO BID (Reported) Doxazosin Mesylate 1 Mg Tablet 1 EACH PO HS (Reported) Gabapentin 100 Mg Capsule 100 MG PO BID (Reported) Hydrochlorothiazide 25 Mg Tablet #30 (Reported) Hydroxychloroquine Sulfate 200 Mg Tab 200 MG PO DAILY (Reported) Multivitamins 1 Tab Tablet 1 TAB PO DAILY (Reported) [place] 3 Polyunsat Fatty Acids 1,000 Mg Cap 1,000 MG PO DAILY (Reported) Omeprazole 20 Mg Capsule.dr 20 MG PO DAILY (Reported) Propranolol Hcl 60 Mg Cap.sa.24h 60 MG PO (Reported) Rivaroxaban 20 Mg Tablet #30 (Reported) Review of Systems Constitutional: no symptoms reported EENTM: No Symptoms Reported Respiratory: No Symptoms Reported Cardiovascular: See HPI Gastrointestinal: No Symptoms Reported Genitourinary: No Symptoms Reported Musculoskeletal: see HPI Skin: no symptoms reported Psychiatric/Neurological: No Symptoms Reported Endocrine: No Symptoms Reported Hematologic/Lymphatic: No Symptoms Reported Past Bydsrnh-Ptnfev-Tttsgd Hx Patient Social History Alcohol Use: Denies Use Recreational Drug Use: No Smoking Status: Never a Smoker Recent Foreign Travel: No Contact w/Someone Who Travel: No Recent Infectious Disease Expo: No Recent Hopitalizations: No Immunizations Up To Date Date of Pneumonia Vaccine: Dec 04, 2008 Date of Influenza Vaccine: Nov 05, 2015 Surgeries HX Surgeries: Yes Surgeries: Coronary Stent, Orthopedic (sacral plasty) Respiratory Hx Respiratory Disorders: Yes Respiratory Disorders: Sleep Apnea Cardiovascular Hx Cardiac Disorders: Yes Cardiac Disorders: Atrial Fibrillation, Coronary Artery Disease, Hypertension Neurological Hx Neurological Disorders: No Reproductive System Hx Reproductive Disorders: No Sexually Transmitted Disease: No HIV/AIDS: No Genitourinary Hx Genitourinary Disorders: No Gastrointestinal Hx Gastrointestinal Disorders: Yes Gastrointestinal Disorders: Hiatal Hernia Musculoskeletal Hx Musculoskeletal Disorders: Yes (BACK SURGERY IN 2011) Musculoskeletal Disorders: Osteoporosis, Back Injury Endocrine Hx Endocrine Disorders: No HEENT HX ENT Disorders: Yes (CATARACTS REMOVED BILAT, DRY EYES) Cancer Hx Cancer: No Psychosocial Hx Psychiatric Problems: No Integumentary HX Skin/Integumentary Disorder: No Blood Transfusions Hx Blood Disorders: No Physical Exam Vital Signs Vital Sign - Last 12Hours 05/19/16 08:41 Temp 98.5 Pulse 86 Resp 20 Pulse Ox 95 O2 Delivery Room Air Capillary Refill : Less Than 3 Seconds General Appearance: No Apparent Distress WD/WN HEENT: PERRL/EOMI Normal ENT Inspection Pharynx Normal Neck: Normal Inspection Respiratory: Lungs Clear Normal Breath Sounds No Accessory Muscle Use No Respiratory Distress Cardiovascular: No Murmur Irregularly Irregular Other (mild to moderate lower extremity edema) Gastrointestinal: Normal Bowel Sounds Non Tender Soft Extremity: Swelling (all the moderate lower extremity edema equal bilaterally with no tenderness. 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 Norm as Tested Skin: Normal Color Warm/Dry Focused Exam Lactic Acid Level Laboratory Tests Test 05/19/16 08:32 Alanine Aminotransferase (ALT/SGPT) 19U/L (0-55) Albumin 4.1G/DL (3.2-4.5) Alkaline Phosphatase 61U/L (40-136) Anion Gap 11MMOL/L (5-14) Aspartate Amino Transf (AST/SGOT) 18U/L (5-34) BUN/Creatinine Ratio 18 Blood Urea Nitrogen 21MG/DL (7-18) H C-Reactive Protein High Sensitivity 2.71MG/DL (0.00-0.50) H Calcium Level 9.4MG/DL (8.5-10.1) Carbon Dioxide Level 25MMOL/L (21-32) Chloride Level 102MMOL/L (98-107) Creatinine 1.20MG/DL (0.60-1.30) Estimat Glomerular Filtration Rate 58 Glucose Level 162MG/DL (70-105) H Magnesium Level 1.9MG/DL (1.8-2.4) Myoglobin 66.9NG/ML (10.0-92.0) Potassium Level 4.1MMOL/L (3.6-5.0) Sodium Level 138MMOL/L (135-145) Total Bilirubin 0.6MG/DL (0.1-1.0) Total Protein 7.7G/DL (6.4-8.2) Troponin I < 0.30NG/ML (<0.30) Progress/Results/Core Measures Results/Orders Lab Results Laboratory Tests Test 05/19/16 08:32 05/19/16 10:05 Range/Units Activated Partial Thromboplast Time 43 H 24-35 SEC Alanine Aminotransferase (ALT/SGPT) 19 0-55 U/L Albumin 4.1 3.2-4.5 G/DL Alkaline Phosphatase 61 40-136 U/L Anion Gap 11 5-14 MMOL/L Aspartate Amino Transf (AST/SGOT) 18 5-34 U/L BUN/Creatinine Ratio 18 Basophils # (Auto) 0.0 0.0-0.1 10^3/uL Basophils (%) (Auto) 0 0-10 % Blood Urea Nitrogen 21 H 7-18 MG/DL C-Reactive Protein High Sensitivity 2.71 H 0.00-0.50 MG/DL Calcium Level 9.4 8.5-10.1 MG/DL Carbon Dioxide Level 25 21-32 MMOL/L Chloride Level 102 98-107 MMOL/L Creatinine 1.20 0.60-1.30 MG/DL Digoxin Level 0.51 L 0.80-2.00 NG/ML Eosinophils # (Auto) 0.2 0.0-0.3 10^3/uL Eosinophils (%) (Auto) 1 0-10 % Estimat Glomerular Filtration Rate 58 Glucose Level 162 H 70-105 MG/DL Hematocrit 46 40-54 % Hemoglobin 15.3 13.3-17.7 G/DL INR Comment 2.0 H 0.8-1.4 Lymphocytes # (Auto) 1.8 1.0-4.0 X 10^3 Lymphocytes (%) (Auto) 13 12-44 % Magnesium Level 1.9 1.8-2.4 MG/DL Mean Corpuscular Hemoglobin 33 25-34 PG Mean Corpuscular Hemoglobin Concent 34 32-36 G/DL Mean Corpuscular Volume 99 80-99 FL Mean Platelet Volume 10.5 H 7.4-10.4 FL Monocytes # (Auto) 1.5 H 0.0-1.0 X 10^3 Monocytes (%) (Auto) 12 0-12 % Myoglobin 66.9 10.0-92.0 NG/ML Neutrophils # (Auto) 9.9 H 1.8-7.8 X 10^3 Neutrophils (%) (Auto) 74 42-75 % Platelet Count 250 130-400 10^3/uL Potassium Level 4.1 3.6-5.0 MMOL/L Prothrombin Time 22.3 H 12.2-14.7 SEC Red Blood Count 4.62 4.35-5.85 10^6/uL Red Cell Distribution Width 12.8 10.0-14.5 % Sodium Level 138 135-145 MMOL/L Total Bilirubin 0.6 0.1-1.0 MG/DL Total Protein 7.7 6.4-8.2 G/DL Troponin I < 0.30 <0.30 NG/ML White Blood Count 13.4 H 4.3-11.0 10^3/uL Urine Bacteria NEGATIVE /HPF Urine Bilirubin NEGATIVE NEGATIVE Urine Casts NONE /LPF Urine Clarity CLEAR Urine Color YELLOW Urine Crystals NONE /LPF Urine Culture Indicated NO Urine Glucose (UA) NEGATIVE NEGATIVE Urine Ketones NEGATIVE NEGATIVE Urine Leukocyte Esterase NEGATIVE NEGATIVE Urine Mucus SMALL H /LPF Urine Nitrite NEGATIVE NEGATIVE Urine Protein 1+ H NEGATIVE Urine RBC NONE /HPF Urine RBC (Auto) NEGATIVE NEGATIVE Urine Specific [place] 1.020 1.016-1.022 Urine Squamous Epithelial Cells RARE /HPF Urine Urobilinogen 1 NORMAL MG/DL Urine WBC NONE /HPF Urine pH 6 5-9 My Orders Orders-ELISA DE LEON MD Cbc With Automated Diff (05/19/16 08:33) Magnesium (05/19/16 08:33) Chest 1 View, Ap/Pa Only (05/19/16 08:33) Ekg Tracing (05/19/16 08:33) Cardiac Profile 1 (05/19/16 08:33) Comprehensive Metabolic Panel (05/19/16 08:33) Myoglobin Serum (05/19/16 08:33) Protime With Inr (05/19/16 08:33) Partial Thromboplastin Time (05/19/16 08:33) O2 (05/19/16 08:33) Monitor-Rhythm Ecg Trace Only (05/19/16 08:33) Lipid Panel (05/20/16 06:00) Saline Lock/Iv-Start (05/19/16 08:33) Digoxin (05/19/16 08:35) Hs C Reactive Protein (05/19/16 10:01) Ua Culture If Indicated (05/19/16 10:01) Vital Signs/I&O Vital Sign - Last 12Hours 05/19/16 08:41 Temp 98.5 Pulse 86 Resp 20 B/P Pulse Ox 95 O2 Delivery Room Air Progress Note : Progress Note Cardiac workup is essentially unremarkable except for the chronic atrial fibrillation. Heart rate was 111 on EKG and has remained stable throughout his ER stay. Patient's left shoulder pain was felt to be mechanical as it worsened with movement of the arm. Leukocytosis was pursued with further workup including chest x-ray and UA. Both were negative. Case was reviewed with Dr. Shine who advised patient keep his scheduled appointment this afternoon. ECG Initial ECG Impression Date: May 19, 2016 Initial ECG Impression Time: 08:28 Initial ECG Rate: 111 Initial ECG Rhythm: A Fib/Flutter Comment Atrial fibrillation with no acute ST elevation or depression. No significant abnormal intervals or axis deviation. Diagnostic Imaging Diagonstic Imaging: Xray Plain Films/CT/US/NM/MRI: chest Comments Chest x-ray viewed by me and report reviewed. See report below: NAME: NABILA DINERO [facility] REC#: [id number] PT STATUS: REG ER : 1935 PHYSICIAN: ELSIA DE LEON MD ADMIT DATE: 05/19/16/ER Draft Date of Exam:05/19/16 CHEST 1 VIEW, AP/PA ONLY CLINICAL INDICATION: Patient with history of A-fib. Patient woke up with cold legs. Patient slept on left side and woke up with left arm and left shoulder pain. EXAM: Portable chest x-ray upright view. COMPARISONS: Chest x-ray dated 08/13/2014. FINDINGS: Lungs/pleura: Lungs are clear. There is no pneumothorax. There is no pleural effusion. Mediastinum: Unremarkable. Pulmonary vasculature: Unremarkable. Heart: Unremarkable. Bones/extrathoracic soft tissue: Stable old right rib bony deformities. There are hypertrophic spurs seen throughout the thoracic spine. IMPRESSION: Stable chest x-ray exam with no interval radiographic evidence of acute cardiopulmonary process. Dictated on workstation # [id number] Dict: 05/19/16 0932 Trans: 05/19/16 0937 [id number] Interpreted by: JASEN TAYLOR MD Departure Impression Impression: Primary Impression: Atrial fibrillation Qualified Code: I48.2 - Chronic atrial fibrillation Additional Impressions: Palpitations Left shoulder pain Qualified Code: M25.512 - Pain in left shoulder Leukocytosis Qualified Code: D72.829 - Elevated white blood cell count, unspecified Disposition: 01 HOME, SELF-CARE Condition: Improved Departure-Patient Inst. Decision time for Depature: 10:57 Referrals: RON VICK MD (PCP/Family) Primary Care Physician Patient Instructions: Atrial Fibrillation Add. Discharge Instructions: Keep your regularly scheduled appointment with Dr. Shine this afternoon. Continue your medications as previously prescribed. Return to the ER symptoms worsen. All discharge instructions reviewed with patient and/or family. Voiced understanding. Copy Copies To 1: RON VICK MD Copies To 2: SP SHINE MD, JOSHUA T MD May 19, 2016 11:00
[2016-05-19 11:05] VITALS: BP 134/86
[2016-05-20] MEDS ORDERED: OM-31CAP3 PO (13:24)
[2016-05-20] MEDS ORDERED: ASCO500T75 PO (13:24)
[2016-05-20] MEDS ORDERED: FOLI1TAB9 PO (13:24)
[2016-05-20] MEDS ORDERED: TRAM50TA2 PO (13:24)
[2016-05-20] MEDS ORDERED: GABA-486 PO (13:39)
== END 2016-05-19 11:05 | disposition home or self-care (01) ==
LOC: EDUNIT# 08:22 → ER 08:24
DX: M25.512 Pain in left shoulder (principal); I48.2 Chronic atrial fibrillation; R00.2 Palpitations; D72.829 Elevated white blood cell count, unspecified; I10 Essential (primary) hypertension; I25.10 Atherosclerotic heart disease of native coronary artery without angina pectoris; I25.2 Old myocardial infarction; Z79.01 Long term (current) use of anticoagulants; Z79.899 Other long term (current) drug therapy; Z95.5 Presence of coronary angioplasty implant and graft
CPT/HCPCS: 36415; 71010; 80053; 80162; 81000; 83735; 83874; 84484; 85025; 85610; 85730; 86141; 93005; 93041

== ENCOUNTER 2016-05-20 12:45 | Day surgery (SDC) | payer MEDICARE, OTHER ==
[2016-05-20] VITALS (14 sets, daily range): BP systolic 128–156; BP diastolic 71–95
[~2016-05-20] VITALS: Ht 172.7 cm; Wt 98.4 kg
[~2016-05-20 12:45] MED LIST changes: +CARV6.252 PO; +CYAN100088 PO; +DILT240C53 PO; +HYDR25TA4 PO; +OMEP20CA12 PO; +RIVA20TA
--- OUTSIDE RECORDS SUMMARY | 2016-05-20 12:51 | XMS REPORT | Continuity of Care Document ---
Author Author [facility] Organization [facility] Address Unknown Phone Unavailable Allergies Active Description Code Type Severity Reaction Onset Reported/Identified Relationship to Patient Clinical Status Yes Beta-Blockers (Beta-Adrenergic Bloc [id number] Drug Allergy Unknown N/A 04/21/2012 Medications Problems [...] INFARCT 02/03/2011 Ot 414.01 CORONARY ATHEROSCLEROSIS OF [place] CORON 02/03/2011 Ot 427.31 ATRIAL FIBRILLATION 02/03/2011 [...] Prieto Ot 401.9 03/11/2014 NAVA WADDELL, RON Priteo Ot V58.69 03/11/2014 NAVA WADDELL, RON Prieto [...] WADDELL, RON A Ot 250.00 07/10/2014 NAVA WADDLEL, RON A Ot 401.9 07/10/2014 NAVA WADDELL, [...] Prieto Ot V58.69 07/10/2014 NAVA WADDELL, RON Pireto Ot V72.62 07/10/2014 Ot 733.00 07/14/2014 MAURO [...] RON A Ot 786.52 05/22/2015 SHALOM ENG FRONT TENDER Ot M81.0 05/24/2015 SHALOM ENG FRONT TENDER Ot M81.0 06/09/2015 SHALOM ENG FRONT TENDER Ot M81.0 02/19/2016 Ot 530.81 ESOPHAGEAL REFLUX [...] Ot 786.52 PAINFUL RESPIRATION 02/19/2016 SHALOM ENG FRONT TENDER Ot M81.0 AGE-RELATED OSTEOPOROSIS W/O CURRENT PAT 03/14/2016 CARROL SAHU TIMBER TREATING TANK OPERATOR Ot I10 ESSENTIAL (PRIMARY) HYPERTENSION 03/14/2016 CARROL SAHU Ot I48.91 UNSPECIFIED ATRIAL FIBRILLATION 04/08/2016 SHALOM ENG APRN Ot I49.8 OTHER SPECIFIED CARDIAC ARRHYTHMIAS 04/08/2016 SHALOM ENG APRN Ot I49.8 OTHER SPECIFIED CARDIAC ARRHYTHMIAS 04/22/2016 SP BISHOP MD Ot I25.10 ATHSCL HEART DISEASE OF [place] CORONARY 04/22/2016 SP BISHOP MD Ot I48.91 UNSPECIFIED ATRIAL FIBRILLATION 04/22/2016 SP BISHOP MD Ot I51.7 CARDIOMEGALY 04/28/2016 SHALOM ENG APRN Ot I49.8 OTHER SPECIFIED CARDIAC ARRHYTHMIAS 05/16/2016 SP BISHOP MD Ot I48.91 UNSPECIFIED ATRIAL FIBRILLATION 05/17/2016 SP BISHOP MD Ot I25.10 ATHSCL HEART DISEASE OF [place] CORONARY 05/17/2016 SP BISHOP MD Ot I48.91 UNSPECIFIED ATRIAL FIBRILLATION 05/17/2016 EDNA WADDELL, SP Dillon Ot I51.7 CARDIOMEGALY 05/20/2016 ELISA DE LEON MD, Ot D72.829 ELEVATED WHITE BLOOD CELL COUNT, UNSPECI 05/20/2016 ELISA DE LEON MD, Ot I10 ESSENTIAL (PRIMARY) HYPERTENSION 05/20/2016 ELISA DE LEON MD, Ot I25.10 ATHSCL HEART DISEASE OF [place] CORONARY 05/20/2016 ELISA DE LEON MD, Ot I25.2 OLD MYOCARDIAL INFARCTION 05/20/2016 ELISA DE LEON MD, Ot I48.2 CHRONIC ATRIAL FIBRILLATION 05/20/2016 ELISA DE LEON MD, Ot M25.512 PAIN IN LEFT SHOULDER 05/20/2016 ELISA DE LEON MD, Ot R00.2 PALPITATIONS 05/20/2016 ELISA DE LEON MD, Ot Z79.01 [facility] (CURRENT) USE OF ANTICOAGULANT 05/20/2016 ELISA DE LEON MD, Ot Z79.899 OTHER HEAD OF CONSERVATION (CURRENT) DRUG THERAPY 05/20/2016 ELISA DE LEON MD, Ot Z95.5 PRESENCE OF CORONARY ANGIOPLASTY IMPLANT Procedures Code Description Performed By Performed On 99.62 HEART [facility] [place] 02/02/2011 Results Test Result Range Complete blood [...] - 04/07/16 09:54 Digoxin 0.37 ng/mL 0.80-2.00 Complete blood count (CBC) with automated white blood cell (WBC) differential - 05/19/16 08:32 Blood leukocytes automated count (number/volume) 13.4 10*3/ uL 4.3-11.0 Blood erythrocytes automated count (number/volume) 4.62 10*6 /uL 4.35-5.85 Venous blood hemoglobin measurement (mass/volume) 15.3 g/dL 13.3-17.7 Blood hematocrit (volume fraction) 46 % 40-54 Automated erythrocyte mean corpuscular volume 99 [foz_us] 80-99 Automated erythrocyte mean corpuscular hemoglobin (mass per erythrocyte) 33 pg 25-34 Automated erythrocyte mean corpuscular hemoglobin concentration measurement ( mass/volume) 34 g/dL 32-36 Automated erythrocyte distribution width ratio 12.8 % 10.0-14.5 Automated blood platelet count (count/volume) 250 10*3/uL 130-400 Automated blood platelet mean volume measurement 10.5 [foz_ us] 7.4-10.4 Automated blood neutrophils/100 leukocytes 74 % 42-75 Automated blood lymphocytes/100 leukocytes 13 % 12-44 Blood monocytes/100 leukocytes 12 % 0-12 Automated blood eosinophils/100 leukocytes 1 % 0-10 Automated blood basophils/100 leukocytes 0 % 0-10 Blood neutrophils automated count (number/volume) 9.9 10*3 1.8-7.8 Blood lymphocytes automated count (number/volume) 1.8 10*3 1.0-4.0 Blood monocytes automated count (number/volume) 1.5 10*3 0.0-1.0 Automated eosinophil count 0.2 10*3/uL 0.0-0.3 Automated blood basophil count (count/volume) 0.0 10*3/uL 0.0-0.1 PT panel in platelet poor plasma by coagulation assay - 05/19/16 08:32 Prothrombin time (PT) in platelet poor plasma by coagulation assay 22.3 s 12.2-14.7 INR in platelet poor plasma or blood by coagulation assay 2.0 0.8-1.4 Activated partial thromboplastin time (aPTT) in platelet poor plasma bycoagulation assay - 05/19/16 08:32 Activated partial thromboplastin time (aPTT) in platelet poor plasma bycoagulation assay 43 s 24-35 Comprehensive metabolic panel - 05/19/16 08:32 Serum or plasma sodium measurement (moles/volume) 138 mmol/ L 135-145 Serum or plasma potassium measurement (moles/volume) 4.1 mmol/L 3.6-5.0 Serum or plasma chloride measurement (moles/volume) 102 mmol /L 98-107 Carbon dioxide 25 mmol/L 21-32 Serum or plasma anion gap determination (moles/volume) 11 mmol/L 5-14 Serum or plasma urea nitrogen measurement (mass/volume) 21 mg/dL 7-18 Serum or plasma creatinine measurement (mass/volume) 1.20 mg /dL 0.60-1.30 Serum or plasma urea nitrogen/creatinine mass ratio 18 NRG Serum or plasma creatinine measurement with calculation of estimated glomerular filtration rate 58 NRG Serum or plasma glucose measurement (mass/volume) 162 mg/dL 70-105 Serum or plasma calcium measurement (mass/volume) 9.4 mg/dL 8.5-10.1 Serum or plasma total bilirubin measurement (mass/volume) 0.6 mg/dL 0.1-1.0 Serum or plasma alkaline phosphatase measurement (enzymatic activity/volume) 61 U/L 40-136 Serum or plasma aspartate aminotransferase measurement (enzymatic activity/ volume) 18 U/L 5-34 Serum or plasma alanine aminotransferase measurement (enzymatic activity/volume ) 19 U/L 0-55 Serum or plasma protein measurement (mass/volume) 7.7 g/dL 6.4-8.2 Serum or plasma albumin measurement (mass/volume) 4.1 g/dL 3.2-4.5 Magnesium - 05/19/16 08:32 Magnesium 1.9 mg/dL 1.8-2.4 Digoxin - 05/19/16 08:32 Digoxin 0.51 ng/mL 0.80-2.00 Serum or plasma troponin i.cardiac measurement (mass/volume) - 05/19/16 08:32 Serum or plasma troponin i.cardiac measurement (mass/volume) < ng/mL <0.30 Myoglobin, serum - 05/19/16 08:32 Myoglobin, serum 66.9 ng/mL 10.0-92.0 Serum or plasma C reactive protein measurement (mass/volume) - 05/19/16 08:32 Serum or plasma C reactive protein measurement (mass/volume) 2.71 mg/dL 0.00-0.50 Complete urinalysis with reflex to culture - 05/19/16 10:05 Urine color determination YELLOW NRG Urine clarity determination CLEAR NRG Urine pH measurement by test strip 6 5- 9 Specific gravity of urine by test strip 1.020 1.016-1.022 Urine protein assay by test strip, semi-quantitative 1+ NEGATIVE Urine glucose detection by automated test strip NEGATIVE NEGATIVE Erythrocytes detection in urine sediment by light microscopy NEGATIVE NEGATIVE Urine ketones detection by automated test strip NEGATIVE NEGATIVE Urine nitrite detection by test strip NEGATIVE NEGATIVE Urine total bilirubin detection by test strip NEGATIVE NEGATIVE Urine urobilinogen measurement by automated test strip (mass/volume) 1 mg/dL NORMAL Urine leukocyte esterase detection by dipstick NEGATIVE NEGATIVE Automated urine sediment erythrocyte count by microscopy (number/high power field) NONE NRG Automated urine sediment leukocyte count by microscopy (number/high power field ) NONE NRG Bacteria detection in urine sediment by light microscopy NEGATIVE NRG Squamous epithelial cells detection in urine sediment by light microscopy RARE NRG Crystals detection in urine sediment by light microscopy NONE NRG Casts detection in urine sediment by light microscopy NONE NRG Mucus detection in urine sediment by light microscopy SMALL NRG Complete urinalysis with reflex to culture NO NRG Encounters ACCT No. Visit Date/Time Discharge Status Pt. Type Provider Facility Loc./Unit Complaint [id number] 05/19/2016 08:24:00 2016 11:05:00 DIS Outpatient MOISES WADDELL, ELISA Gary [facility] ER LEFT ARM PAIN [id number] 08/13/2014 10:28:00 2014 23:59:59 CLS Outpatient RON VICK MD [facility] RAD CHEST WALL PAIN [id number] 07/10/2014 14:48:00 2014 23:59:59 CLS Outpatient SENTHIL WADE MD [facility] RAD CAD [id number] 02/07/2014 08:10:00 2013 23:59:59 CLS Outpatient RON VICK MD [facility] LAB HTN,HYPERLIPIDEMIA,HEAD OF CONSERVATION MED USE [id number] 05/02/2013 13:20:00 2013 23:59:59 CLS Outpatient RON VICK MD [facility] RAD VERTIGO [id number] 01/15/2013 08:28:00 2012 23:59:59 CLS Outpatient SENTHIL WADE MD [facility] RAD CAROTID STENOSIS [id number] 10/15/2012 14:42:00 2012 23:59:59 CLS Outpatient RON VICK MD [facility] RAD PAIN HEAD OF 5 METATASERL L [id number] 09/26/2012 08:15:00 2012 23:59:59 CLS Outpatient RON VICK MD [facility] LAB PERIPHERAL NEURYPATHY [id number] 07/17/2012 07:58:00 2012 23:59:59 CLS Outpatient RON VICK MD [facility] LAB HTN,NIDDM,HEAD OF CONSERVATION MED UASGE [id number] 05/20/2016 12:45:00 ACT Outpatient SP BISHOP MD [facility] CATH ABN STRESS TEST,AFIB,CAD,HTN [id number] 05/16/2016 07:11:00 ACT Outpatient SP BISHOP MD [facility] CARD AF,CAD,CAROTID ARTERY STENOSIS [id number] 04/21/2016 10:30:00 ACT Outpatient SP BISHOP MD [facility] CARD AF,CAD,CAROTID ARTERY STENOSIS [id number] 04/07/2016 09:34:00 ACT Outpatient SHALOM ENG APRN [facility] CARD ARRHYTHMIA [id number] 02/19/2016 10:58:00 ACT Outpatient CARROL SAHU [facility] LAB HTN,HX AFIB [id number] 05/18/2015 12:48:00 ACT Outpatient SHALOM ENG APRN [facility] SDC OSTEOPOROSIS [id number] 07/10/2014 14:48:00 Document Registration [id number] 07/10/2014 14:48:00 Document Registration [id number] 07/10/2014 14:48:00 Document Registration [id number] 07/10/2014 14:48:00 Document Registration [id number] 07/10/2014 14:48:00 Document Registration [id number] 07/10/2014 14:48:00 Document Registration [id number] 07/10/2014 14:48:00 Document Registration [id number] 05/15/2014 12:52:00 Document Registration [id number] 06/12/2012 00:00:00 Document Registration [id number] 04/30/2012 10:12:00 Document Registration [id number] 04/30/2012 10:05:00 Document Registration [id number] 04/21/2012 21:14:00 Document Registration [id number] 03/19/2012 13:54:00 Document Registration [id number] 03/14/2012 10:29:00 Document Registration [id number] 01/30/2012 08:30:00 Document Registration [id number] 11/24/2011 08:17:00 Document Registration [id number] 10/31/2011 08:45:00 Document Registration [id number] 07/22/2011 08:03:00 Document Registration [id number] 07/08/2011 08:52:00 Document Registration [id number] 04/26/2011 00:00:00 Document Registration [id number] 03/10/2011 05:43:00 Document Registration [id number] 03/08/2011 13:36:00 Document Registration [id number] 02/15/2011 10:21:00 Document Registration [id number] 01/31/2011 11:30:00 Document Registration [id number] 01/31/2011 07:33:00 Document Registration [id number] 01/27/2011 17:11:00 Document Registration
--- OUTSIDE RECORDS SUMMARY | 2016-05-20 12:52 | XMS REPORT | Continuity of Care Document ---
Author Author [facility] Organization [facility] Address Unknown Phone Unavailable Allergies Active Description Code Type Severity Reaction Onset Reported/Identified Relationship to Patient Clinical Status Yes Beta-Blockers (Beta-Adrenergic Bloc [id number] Drug Allergy Unknown N/A 04/21/2012 Medications Problems [...] INFARCT 02/03/2011 Ot 414.01 CORONARY ATHEROSCLEROSIS OF [place] CORON 02/03/2011 Ot 427.31 ATRIAL FIBRILLATION 02/03/2011 [...] RON A Ot 786.52 05/22/2015 SHALOM ENG PIER HAND Ot M81.0 05/24/2015 SHALOM ENG PIER HAND Ot M81.0 06/09/2015 SHALOM ENG PIER HAND Ot M81.0 02/19/2016 Ot 530.81 ESOPHAGEAL REFLUX [...] Ot 786.52 PAINFUL RESPIRATION 02/19/2016 SHALOM ENG PIER HAND Ot M81.0 AGE-RELATED OSTEOPOROSIS W/O CURRENT PAT 03/14/2016 CARROL SAHU [employer]ANCIAL INTERNSHIP Ot I10 ESSENTIAL (PRIMARY) HYPERTENSION 03/14/2016 CARROL SAHU Ot I48.91 UNSPECIFIED ATRIAL FIBRILLATION 04/08/2016 SHALOM ENG APRN Ot I49.8 OTHER SPECIFIED CARDIAC ARRHYTHMIAS 04/08/2016 SHALOM ENG APRN Ot I49.8 OTHER SPECIFIED CARDIAC ARRHYTHMIAS 04/22/2016 SP BISHOP MD Ot I25.10 ATHSCL HEART DISEASE OF [place] CORONARY 04/22/2016 SP BISHOP MD Ot I48.91 UNSPECIFIED ATRIAL FIBRILLATION 04/22/2016 SP BISHOP MD Ot I51.7 CARDIOMEGALY 04/28/2016 SHALOM NEG APRN Ot I49.8 OTHER SPECIFIED CARDIAC ARRHYTHMIAS 05/16/2016 SP BISHOP MD Ot I48.91 UNSPECIFIED ATRIAL FIBRILLATION 05/17/2016 SP BISHOP MD Ot I25.10 ATHSCL HEART DISEASE OF [place] CORONARY 05/17/2016 SP BISHOP MD Ot I48.91 UNSPECIFIED ATRIAL FIBRILLATION 05/17/2016 EDNA WADDELL, SP Dillon Ot I51.7 CARDIOMEGALY 05/20/2016 ELISA DE LEON MD, Ot D72.829 ELEVATED WHITE BLOOD CELL COUNT, UNSPECI 05/20/2016 ELISA DE LEON MD, Ot I10 ESSENTIAL (PRIMARY) HYPERTENSION 05/20/2016 ELISA DE LEON MD, Ot I25.10 ATHSCL HEART DISEASE OF [place] CORONARY 05/20/2016 ELISA DE LEON MD, Ot I25.2 OLD MYOCARDIAL INFARCTION 05/20/2016 ELISA DE LEON MD, Ot I48.2 CHRONIC ATRIAL FIBRILLATION 05/20/2016 ELISA DE LEON MD, Ot M25.512 PAIN IN LEFT SHOULDER 05/20/2016 ELISA DE LEON MD, Ot R00.2 PALPITATIONS 05/20/2016 ELISA DE LEON MD, Ot Z79.01 [facility] (CURRENT) USE OF ANTICOAGULANT 05/20/2016 ELISA DE LEON MD, Ot Z79.899 OTHER FILM ARCHIVIST (CURRENT) DRUG THERAPY 05/20/2016 ELISA DE LEON MD, Ot Z95.5 PRESENCE OF CORONARY ANGIOPLASTY IMPLANT Procedures Code Description Performed By Performed On 99.62 HEART [facility]SHOCK [facility] 02/02/2011 Results Test Result Range Complete [...] Status Pt. Type Provider Facility Loc./Unit Complaint [id number] 05/19/2016 08:24:00 2016 11:05:00 DIS Outpatient MOISES WADDELL, ELISA Gary [facility] ER LEFT ARM PAIN [id number] 08/13/2014 10:28:00 2014 23:59:59 CLS Outpatient RON VICK MD [facility] RAD CHEST WALL PAIN [id number] 07/10/2014 14:48:00 2014 23:59:59 CLS Outpatient SENTHIL WADE MD [facility] RAD CAD [id number] 02/07/2014 08:10:00 2013 23:59:59 CLS Outpatient RON VICK MD [facility] LAB HTN,HYPERLIPIDEMIA,FILM ARCHIVIST MED USE [id number] 05/02/2013 13:20:00 2013 23:59:59 CLS Outpatient RON VICK MD [facility] RAD VERTIGO [id number] 01/15/2013 08:28:00 2012 23:59:59 CLS Outpatient SENTHIL WADE MD [facility] RAD CAROTID STENOSIS [id number] 10/15/2012 14:42:00 2012 23:59:59 CLS Outpatient RON VICK MD [facility] RAD PAIN HEAD OF 5 METATASERL L [id number] 09/26/2012 08:15:00 2012 23:59:59 CLS Outpatient RON VICK MD [facility] LAB PERIPHERAL NEURYPATHY [id number] 07/17/2012 07:58:00 2012 23:59:59 CLS Outpatient RON VICK MD [facility] LAB HTN,NIDDM,FILM ARCHIVIST MED UASGE [id number] 05/20/2016 12:45:00 ACT Outpatient SP BISHOP MD [facility] CATH ABN STRESS TEST,AFIB,CAD,HTN [id number] 05/16/2016 07:11:00 ACT Outpatient SP BISHOP MD [facility] CARD AF,CAD,CAROTID ARTERY STENOSIS [id number] 04/21/2016 10:30:00 ACT Outpatient SP BISHOP MD [facility] CARD AF,CAD,CAROTID ARTERY STENOSIS [id number] 04/07/2016 09:34:00 ACT Outpatient SHALOM ENG APRN [facility] CARD ARRHYTHMIA [id number] 02/19/2016 10:58:00 ACT Outpatient CARROL SAHU [facility] LAB HTN,HX AFIB [id number] 05/18/2015 12:48:00 ACT Outpatient SHALOM ENG APRN [facility] SDC OSTEOPOROSIS [id number] 07/10/2014 14:48:00 Document Registration [id number] 07/10/2014 14:48:00 Document Registration [id number] 07/10/2014 14:48:00 Document Registration [id number] 07/10/2014 14:48:00 Document Registration [id number] 07/10/2014 14:48:00 Document Registration [id number] 07/10/2014 14:48:00 Document Registration [id number] 07/10/2014 14:48:00 Document Registration [id number] 05/15/2014 12:52:00 Document Registration [id number] 06/12/2012 00:00:00 Document Registration [id number] 04/30/2012 10:12:00 Document Registration [id number] 04/30/2012 10:05:00 Document Registration [id number] 04/21/2012 21:14:00 Document Registration [id number] 03/19/2012 13:54:00 Document Registration [id number] 03/14/2012 10:29:00 Document Registration [id number] 01/30/2012 08:30:00 Document Registration [id number] 11/24/2011 08:17:00 Document Registration [id number] 10/31/2011 08:45:00 Document Registration [id number] 07/22/2011 08:03:00 Document Registration [id number] 07/08/2011 08:52:00 Document Registration [id number] 04/26/2011 00:00:00 Document Registration [id number] 03/10/2011 05:43:00 Document Registration [id number] 03/08/2011 13:36:00 Document Registration [id number] 02/15/2011 10:21:00 Document Registration [id number] 01/31/2011 11:30:00 Document Registration [id number] 01/31/2011 07:33:00 Document Registration [id number] 01/27/2011 17:11:00 Document Registration
[2016-05-20] MEDS ORDERED: NS IV 1000 ML 1,000 ML ONE (12:53)
[2016-05-20] MEDS ORDERED: LIDOCAINE 1% INJ 20 ML (XYLOCAINE) VIAL ONE (12:53)
[2016-05-20] MEDS ORDERED: HEParin (CATH LAB) 2,000 ML IV ONE (12:53)
[2016-05-20] MEDS ORDERED: NS IV 1000 ML 1,000 ML IV SCH (13:02)
[2016-05-20] MEDS ORDERED: ASCO500T75 PO (13:24)
[2016-05-20] MEDS ORDERED: FOLI1TAB9 PO (13:24)
[2016-05-20] MEDS ORDERED: OM-31CAP3 PO (13:24)
[2016-05-20] MEDS ORDERED: TRAM50TA2 PO (13:24)
[2016-05-20 13:29] LABS: MEAN PLATELET VOLUME 10.3 FL (7.4-10.4); RED BLOOD COUNT 4.44 10^6/uL (4.35-5.85); RED CELL DISTRIBUTION WIDTH 12.8 % (10.0-14.5); WHITE BLOOD COUNT 13.8 10^3/uL (4.3-11.0)
[2016-05-20 13:39] LABS: INR 1.2 (0.8-1.4); PROTHROMBIN TIME PATIENT 14.4 SEC (12.2-14.7)
[2016-05-20] MEDS ORDERED: GABA-486 PO (13:39)
[2016-05-20 13:50] LABS: ALANINE AMINOTRANSFERASE 18 U/L (0-55); ALBUMIN 3.9 G/DL (3.2-4.5); ANION GAP 9 MMOL/L (5-14); ASPARTATE AMINO TRANSFERASE 15 U/L (5-34); BILIRUBIN,TOTAL 0.9 MG/DL (0.1-1.0); BLOOD UREA NITROGEN 16 MG/DL (7-18); BUN/CREATININE RATIO 16; CALCIUM 9.3 MG/DL (8.5-10.1); CARBON DIOXIDE 25 MMOL/L (21-32); CHLORIDE 102 MMOL/L (98-107); CHOLESTEROL 137 MG/DL (< 200); CREATININE SERUM 1.01 MG/DL (0.60-1.30); DIRECT LDL 73 MG/DL (1-129); GFR ESTIMATED > 60; GLUCOSE 103 MG/DL (70-105); POTASSIUM 3.8 MMOL/L (3.6-5.0); SODIUM 136 MMOL/L (135-145); TOTAL PROTEIN 7.2 G/DL (6.4-8.2); TRIGLYCERIDES 76 MG/DL (<150); VLDL CHOLESTEROL 15 MG/DL (5-40)
[2016-05-20] MEDS ORDERED: MIDAZOLAM 5 MG/5 ML (VERSED) VIAL ONE (14:29)
[2016-05-20] MEDS ORDERED: fentaNYL INJECTION 100 MCG/2 ML AMP ONE (14:30)
--- NOTE | 2016-05-20 14:53 | Cardiac Procedure Note-CS/ASA ---
Pre-Procedure Note Pre-Op Procedure Note H&P Reviewed The H&P was reviewed, patient examined and no changes noted. Date H&P Reviewed: May 20, 2016 Time H&P Reviewed: 14:53 Conscious Sedation Pre-Proced Time Reviewed: 14:53 ASA Class: 3 Airway Mallampati Classification: ([place] appropriate class) I. II. III, IV Lungs Heart ASA score ASA 1: a normal healthy patient ASA 2: a patient with a mild systemic disease (mid diabetes, controlled hypertension, obesity x ASA 3: a patient with a severe systemic disease that limits activity (angina , COPD, prior Myocardial infarction) ASA 4: a patient with an incapacitating disease that is a constant threat to life (CHF, renal failure) ASA 5: a moribund patient not expected to survive 24 hrs. (ruptured aneurysm) ASA 6: a declared brain patient whose organs are being harvested. For emergent operations, add the letter E after the classification Grade 3 Sedation Plan: Analgesia, Amnesia, Plan communicated to team members, Discussed options with patient/fam, Discussed risks with patient/fam Note The patient is an appropriate candidate to undergo the planned procedure, sedation, and anesthesia. The patient immediately re-assessed prior to indication. SP BISHOP MD May 20, 2016 14:53
[2016-05-20] MEDS ORDERED: NITROGLYCERIN DRIP 25 MG/D5W 250 ML IV ONE (15:25)
[2016-05-20] MEDS ORDERED: CLOPIDOGREL 300 MG (PLAVIX) TABLET PO ONE (15:30)
[2016-05-20] MEDS ORDERED: ASPIRIN 325 MG (5 GR) TABLET ONE (15:30)
[2016-05-20] MEDS: NS IV 1000 ML 1,000 ML IV SCH ×2 (15:38→19:22)
[2016-05-20] MEDS ORDERED: PATIENT MAY USE OWN MEDS, ALL PO SCH (15:45)
[2016-05-20] MEDS: DILTIAZEM 240 MG (CARDIZEM CD) CAP PO SCH (20:43)
[2016-05-20] MEDS: CARVEDILOL 6.25 MG (COREG) TAB PO SCH (20:44)
[2016-05-20] MEDS: GABAPENTIN 100 MG (NEURONTIN) CAP PO SCH (20:45)
[2016-05-20] MEDS ORDERED: GABAPENTIN 100 MG (NEURONTIN) CAP PO SCH (21:00)
[2016-05-20] MEDS ORDERED: THERA TEARS PO SCH (21:00)
[2016-05-20] MEDS ORDERED: OMEGA PO SCH (21:00)
[2016-05-20] MEDS ORDERED: ENOXAPARIN 100 MG/1 ML (LOVENOX) SYR SC NR (22:00)
[2016-05-21] VITALS (12 sets, daily range): BP systolic 107–133; BP diastolic 65–116
[2016-05-21] MEDS ORDERED: KETOROLAC 30 MG/ML VIAL ONE (00:01)
[2016-05-21] MEDS ORDERED: KETOROLAC 30 MG/ML VIAL IV ONE (00:15)
[2016-05-21 04:31] LABS: MEAN PLATELET VOLUME 10.8 FL (7.4-10.4); RED BLOOD COUNT 3.94 10^6/uL (4.35-5.85); RED CELL DISTRIBUTION WIDTH 12.6 % (10.0-14.5); WHITE BLOOD COUNT 9.7 10^3/uL (4.3-11.0)
[2016-05-21 04:51] LABS: ANION GAP 9 MMOL/L (5-14); BLOOD UREA NITROGEN 17 MG/DL (7-18); BUN/CREATININE RATIO 19; CALCIUM 8.3 MG/DL (8.5-10.1); CARBON DIOXIDE 22 MMOL/L (21-32); CHLORIDE 105 MMOL/L (98-107); GFR ESTIMATED > 60; GLUCOSE 108 MG/DL (70-105); POTASSIUM 4.4 MMOL/L (3.6-5.0); SODIUM 136 MMOL/L (135-145)
[2016-05-21] MEDS ORDERED: PANTOPRAZOLE 20 MG TABLET (PROTONIX) PO SCH (07:00)
[2016-05-21] MEDS: NS IV 1000 ML 1,000 ML IV SCH (07:36)
--- NOTE | 2016-05-21 07:45 | Diagnostic Imaging Report ---
INDICATION: Pain. Two views were obtained. FINDINGS: There are degenerative changes of the acromioclavicular joint and glenohumeral joint. There is no fracture or dislocation. Soft tissues are unremarkable. IMPRESSION: Degenerative changes, otherwise unremarkable. Dictated by: Dictated on workstation # [id number]
[2016-05-21] MEDS ORDERED: HYDROXYCHLOROQUINE 200 MG (PLAQUENIL) TAB PO SCH (08:00)
--- NOTE | 2016-05-21 08:05 | Cardiac Procedure Note-CS/ASA ---
Pre-Procedure Note Pre-Op Procedure Note H&P Reviewed The H&P was reviewed, patient examined and no changes noted. Date H&P Reviewed: May 21, 2016 Time H&P Reviewed: 08:05 Conscious Sedation Pre-Proced Time Reviewed: 08:05 ASA Class: 3 Airway Mallampati Classification: ([place] appropriate class) I. II. III, IV Lungs Heart ASA score ASA 1: a normal healthy patient ASA 2: a patient with a mild systemic disease (mid diabetes, controlled hypertension, obesity x ASA 3: a patient with a severe systemic disease that limits activity (angina , COPD, prior Myocardial infarction) ASA 4: a patient with an incapacitating disease that is a constant threat to life (CHF, renal failure) ASA 5: a moribund patient not expected to survive 24 hrs. (ruptured aneurysm) ASA 6: a declared brain patient whose organs are being harvested. For emergent operations, add the letter E after the classification Grade 3 Sedation Plan: Analgesia, Amnesia, Plan communicated to team members, Discussed options with patient/fam, Discussed risks with patient/fam Note The patient is an appropriate candidate to undergo the planned procedure, sedation, and anesthesia. The patient immediately re-assessed prior to indication. SP BISHOP MD May 21, 2016 08:05
--- NOTE | 2016-05-21 08:05 | Cardiology Progress Note ---
Subjective Subjective/Events-last exam patient is laying down in bed, feeling well, groin is healing well. Denied any chest pain. Review of Systems General: No Chills, No Night Sweats, No Fatigue, No Malaise, No Appetite, No Other HEENT: No Head Aches, No Visual Changes, No Eye Pain, No Ear Pain, No Dysphasia , No Sinus Congestion, No Post Nasal Drip, No Sore Throat, No Other Pulmonary: DyspneaNo Cough, No Pleuritic Chest Pain, No Other Cardiovascular: No: Chest Pain, Edema, Lt Headedness, Orthopnea, Other, Palpitations, Paroxysmal Noc. Dyspnea Objective-Cardiology Exam Last Set of Vital Signs Vital Signs 05/21/16 05/21/16 00:28 06:00 Temp 97.8 Pulse 117 Resp 10 B/P 132/109 Pulse Ox 95 O2 Delivery Room Air Capillary Refill : Less Than 3 Seconds I&O Intake and Output 05/21/16 00:00 Intake Total 1480 ml Output Total 700 ml Balance 780 ml Intake Oral 480 ml IV Total 1000 ml Output Urine Total 700 ml # Voids 2 General: Alert, Oriented X3, Cooperative HEENT: Atraumatic, PERRLA Neck: Supple, No JVD, No Thyromegaly Lungs: Clear to Auscultation, Normal Air Movement Heart: Normal S1, Normal S2, No Murmurs, Other (atrial fibrillation) Abdomen: Normal Bowel Sounds, Soft, No Tenderness, No Hepatosplenomegaly, No Masses Extremities: No Clubbing, No Cyanosis, No Edema, Normal Pulses, No Tenderness/ Swelling Skin: No Rashes, No Breakdown, No Significant Lesion Neuro: Normal Gait, Normal Speech, Strength at 5/5 X4 Ext, Normal Tone, Sensation Intact Psych/Mental Status: Mental Status NL, Mood NL Results Lab Laboratory Tests 05/20/16 13:23 05/21/16 03:55 A/P-Cardiology Admission Diagnosis coronary artery disease Paroxysmal atrial fibrillation Hypertension Hyperlipidemia Assessment/Plan coronary artery disease, status post complex intervention with stenting to the right coronary artery, patent stents in the circumflex artery, moderate disease in the OM and LAD. Continue on aspirin and Brilinta. Atrial fibrillation, paroxysmal, has been on Xarelto which was held for 2 days. I am planning to proceed with SARAH and electrical cardioversion, he was given Lovenox 100 mg last night. I will start on Coumadin in addition to the aspirin and Brilinta if needed. Hypertension, controlled, continue current medication. Hyperlipidemia, continue on current medication and monitor lipids SP BISHOP MD May 21, 2016 08:05
[2016-05-21] MEDS ORDERED: proPOfol 200 MG/20 ML (DIPRIVAN) VIAL IV ONE (08:45)
[2016-05-21] MEDS ORDERED: LIDOCAINE 2% VISCOUS 15 ML UDC ONE (08:56)
[2016-05-21] MEDS ORDERED: OMEPRAZOLE 20 MG (PriLOSEC) CAP NON-FORMULARY PO SCH (09:00)
[2016-05-21] MEDS ORDERED: HYDROCHLOROTHIAZIDE 25 MG (HCTZ) TAB PO SCH (09:00)
[2016-05-21] MEDS ORDERED: ASPIRIN E.C. 81 MG (ECOTRIN) TAB PO SCH (09:00)
[2016-05-21] MEDS ORDERED: CLOPIDOGREL 75 MG (PLAVIX) TABLET PO SCH (09:00)
[2016-05-21] MEDS ORDERED: DIGOXIN 0.125 MG (LANOXIN) TAB PO SCH (09:00)
[2016-05-21] MEDS ORDERED: meTOprolol 5 MG/5 ML (LOPRESSOR) VIAL IV ONE (09:45)
--- NOTE | 2016-05-21 09:45 | Anesthesia-Procedure Note ---
Procedure Start/Stop Time Date of Procedure: May 21, 2016 Start Time: 09:35 Stop Time: 09:42 Procedures/Interventions Procedures Asked to sedate patient for SARAH/Cardioversion. Chart was reviewed and discussed sedation with patient. A total of 90 mg propofol was given IV. Cardioversion was not performed. Patient tolerated well. Vital signs were monitored during procedure, see nurses notes. Patient was awake and stable. Care returned to MANAGER PAPER. MARLEEN BUREKTT CRNA May 21, 2016 09:45
[2016-05-21] MEDS ORDERED: WARF10TA PO (09:56)
[2016-05-21] MEDS ORDERED: CLOP75TA28 PO (09:56)
[2016-05-21] MEDS ORDERED: ASPI-983 PO (09:56)
[2016-05-21] MEDS ORDERED: ENOX100D4 SC (09:56)
--- NOTE | 2016-05-21 09:57 | Clinic Account Progress/Dx ---
Clinic Account Progress/Dx DIAGNOSIS: Diagnosis CAD Atrial Fibrillation HTN Hyperlipidemia SP BISHOP MD May 21, 2016 09:57
[2016-05-21] MEDS ORDERED: ENOXAPARIN 100 MG/1 ML (LOVENOX) SYR SC SCH (10:00)
--- NOTE | 2016-05-21 10:02 | Discharge Inst-Post CATH ---
Discharge Inst-CATH Post Cardiac Cath D/C Inst Follow Up/Plan Appointment with Dr Shine's office in 2-4 weeks CARDIAC CATH DISCHARGE INSTRUCTIONS *Hold Metformin for 48 hours post heart cath. ACTIVITY * Go Home directly and rest. * Limit activity of the leg (or wrist if it was used) for 7 days including aerobics, swimming, jogging, bicycling, etc. * Restrict stair-climbing for 7 days if possible, if not, climb up with your non -cath leg, then bring together on the same step. * Avoid lifting, pushing, pulling or excessive movement of the affected extremity for 7 days. * Customary sexual activity may be resumed after 2 days-use caution not to use a position that strains or causes pain to the affected extremity. * No driving for 24 hours. * NO SMOKING. * Avoid straining for bowel movements for 7 days. * Gentle walking on level ground is allowed. * Returning to work will depend on the type of procedure and the results. Your doctor will discuss this with you. CALL YOUR DOCTOR FOR ANY OF THE FOLLOWING: *If bleeding from the puncture site occurs- Apply gentle pressure to site with clean cloth and call your doctor or EMS. * If a knot or lump forms under the skin, increases in size, or causes pain. * If bruising appears to be worsening or moving further down your leg instead of disappearing. * Temperature above 101 F. CARE OF YOUR GROIN INCISION; * Bruising or purple discoloration of the skin near the puncture site is common. * You may shower only, no bathtub bathing for 5 days. Be careful to avoid slipping as your leg may feel stiff. * If a closure device was used on your femoral artery, please see the attached guide regarding care of the device and your leg. * REMOVE the dressing from your groin the next day after your procedure in the shower. CARE OF YOUR WRIST INCISION; * Bruising or purple discoloration of the skin near the puncture site is common. * You may shower. * DO NOT submerge wrist. * Remove dressing in 24 hours. SP SHINE MD May 21, 2016 10:02 am
[2016-05-21] MEDS: CARVEDILOL 6.25 MG (COREG) TAB PO SCH (10:52)
[2016-05-21] MEDS: DILTIAZEM 240 MG (CARDIZEM CD) CAP PO SCH (10:53)
[2016-05-21] MEDS: GABAPENTIN 100 MG (NEURONTIN) CAP PO SCH (10:53)
[2016-05-21] MEDS ORDERED: GABAPENTIN 100 MG (NEURONTIN) CAP PO SCH (12:00)
[2016-05-21] MEDS ORDERED: warFARin 10 MG (COUMADIN) TAB PO SCH (18:00)
--- NOTE | 2016-05-21 23:25 | TEE REPORT ---
DATE OF PROCEDURE: 05/21/2016 TRANSESOPHAGEAL ECHOCARDIOGRAPHY REPORT: BRIEF HISTORY: Mr. Moreno was admitted for cardiac catheterization, underwent procedure yesterday with a stent to the right coronary artery with excellent results. Overnight, he was monitored. He is in atrial fibrillation. I was planning to proceed with SARAH cardioversion today. PROCEDURE NOTE: After explaining the procedure to the patient, all pros and cons were explained. All questions were answered. The patient signed consent, then he was placed in the left lateral decubitus position. Oral pharynx was anesthetized using Cetacaine spray. Conscious sedation achieved with the assistance of anesthesia. Omniplane probe was introduced through the mouth to the esophagus and then into the stomach. Multiple views were obtained. At the end of the procedure, the probe was removed. No complication noted. FINDINGS: 1. The left ventricle is normal in size with moderate left ventricular hypertrophy. Systolic function is preserved. Estimated ejection fraction 45 to 50%. 2. The left atrium left atrial appendage are dilated. Smoke in the left atrium left atrial appendage with questionable small area of echogenic density suggestive of a small thrombus in the left atrial appendage. 3. The right atrium is dilated. Right ventricle is prominent. No clot or thrombus were seen. 4. Mitral valve is calcified with mild to moderate mitral regurgitation. No mitral valve prolapse or stenosis. 5. Aortic valve is trileaflet with normal opening and closing pattern. No significant aortic stenosis or regurgitation was seen. 6. Tricuspid valve and pulmonic valve are normal in morphology. Doppler across the left atrial appendage showed low velocity. 7. A portion of the descending aorta, aortic arch and descending aorta were evaluated and appeared normal except for some sessile plaques. IN CONCLUSION: 1. Enlarge left atrium left atrial appendage with low velocity by Doppler, smoke in the left atrium left atrial appendage with small echogenic density at the left atrial appendage with questionable thrombus. 2. Moderate left ventricular hypertrophy preserved systolic function. Estimated ejection fraction 45 to 50%. 3. Calcified mitral valve with mild to moderate mitral regurgitation. 4. Aortic valve sclerosis. No aortic stenosis. DISCUSSION AND RECOMMENDATION: I decided to abort the cardioversion due to questionable thrombus. The patient will be treated with Coumadin aspirin and Plavix. I will arrange for referral for electrophysiology evaluation. Job ID: [id number] Dictated Date: 05/21/2016 10:01:03 Pyrometer Temperature Regulator Date: 05/21/2016 23:20:34/tbk
--- NOTE | 2016-05-21 23:28 | DISCHARGE SUMMARY ---
BRIEF HISTORY: Mr. Moreno was admitted for cardiac catheterization, underwent procedure yesterday with a stent to the right coronary artery with excellent results. Overnight, he was monitored. He is in atrial fibrillation. I was planning to proceed with SARAH cardioversion today. PROCEDURE NOTE: After explaining the procedure to the patient, all pros and cons were explained. All questions were answered. The patient signed consent, then he was placed in the left lateral decubitus position. Oral pharynx was anesthetized using Cetacaine spray. Conscious sedation achieved with the assistance of anesthesia. Omniplane probe was introduced through the mouth to the esophagus and then into the stomach. Multiple views were obtained. At the end of the procedure, the probe was removed. No complication noted. FINDINGS: 1. The left ventricle is normal in size with moderate left ventricular hypertrophy. Systolic function is preserved. Estimated ejection fraction 45 to 50%. 2. The left atrium left atrial appendage are dilated. Smoke in the left atrium left atrial appendage with questionable small area of echogenic density suggestive of a small thrombus in the left atrial appendage. 3. The right atrium is dilated. Right ventricle is prominent. No clot or thrombus were seen. 4. Mitral valve is calcified with mild to moderate mitral regurgitation. No mitral valve prolapse or stenosis. 5. Aortic valve is trileaflet with normal opening and closing pattern. No significant aortic stenosis or regurgitation was seen. 6. Tricuspid valve and pulmonic valve are normal in morphology. Doppler across the left atrial appendage showed low velocity. 7. A portion of the descending aorta, aortic arch and descending aorta were evaluated and appeared normal except for some sessile plaques. IN CONCLUSION: 1. Enlarge left atrium left atrial appendage with low velocity by Doppler, smoke in the left atrium left atrial appendage with small echogenic density at the left atrial appendage with questionable thrombus. 2. Moderate left ventricular hypertrophy preserved systolic function. Estimated ejection fraction 45 to 50%. 3. Calcified mitral valve with mild to moderate mitral regurgitation. 4. Aortic valve sclerosis. No aortic stenosis. DISCUSSION AND RECOMMENDATION: I decided to abort the cardioversion due to questionable thrombus. The patient will be treated with Coumadin aspirin and Plavix. I will arrange for referral for electrophysiology evaluation. FINAL DIAGNOSES: 1. Coronary artery disease. 2. Paroxysmal atrial fibrillation. 3. Hypertension. 4. Hyperlipidemia. Job ID: [id number] Dictated Date: 05/21/2016 10:01:03 Extraction Supervisor Date: 05/21/2016 23:26:06/[email or web address]
--- NOTE | 2016-05-21 23:41 | CARDIAC CATHETERIZATION ---
PROCEDURE PHYSICIAN: SP BISHOP DATE OF PROCEDURE: 05/20/2016 CARDIAC CATHETERIZATION REPORT: REFERRING PHYSICIAN: Dr. Burkett BRIEF HISTORY: Mr. Moreno is a 80-year-old gentleman with history of coronary artery disease. He had a stent in 2000. He had an abnormal stress test. He was scheduled for left heart catheterization, possible PTCA. PROCEDURE NOTE: After explaining the procedure to the patient, all pros and cons were explained. All questions were answered. The patient signed consent and then he was placed on the cardiac catheterization laboratory. The right groin was prepped in a sterile fashion. Local anesthesia applied to right groin. 6-Occitan sheath was placed in the right femoral artery. Combination of right and left Baldomero catheters were used to access the right and left coronary system. Multiple views were obtained. Pigtail catheter advanced to the left ventricular cavity. Pressure was measured. Pullback LV to aorta was done. At the end of the procedure, I decided to proceed with intervention on the right coronary artery. The patient was noted to have 90% ostial right coronary artery stenosis 70 to 80% proximal stenosis. I gave the patient heparin and Integrilin boluses. FR guide was used to access the right coronary artery. I had difficulty placement of the guide against the ostium. We continued advancing the wire in the right coronary artery. After advancing the wire to the proximal right coronary artery, I was able to advance the tip of the balloon in the right coronary artery and I could not advance it beyond the proximal portion. I inflated the balloon in the proximal right coronary artery and advanced the wire while the balloon was inflated, was able to parked it distally, secure it. Reattempt to advance the balloon was unsuccessful. I just dilated the ostium of the right coronary artery with a 3-0 balloon. Then I proceeded with 3 x 23 Xience Alpine stent. I had difficulty advancing it but was able to advance it across the proximal portion and the ostium, expanded to 3.25. Angiogram showed excellent results, no residual stenosis. At the end of the procedure, sheath was removed. Mynx device deployed. Hemostasis achieved. FINDINGS: HEMODYNAMICS: LV pressure 122/15, end-diastolic pressure of 15. Aortic pressure 130/59, mean of 71. ANATOMY: 1. Left main coronary artery is bifurcating to left anterior descending and left circumflex artery with no obstructive disease. 2. Left anterior descending artery is moderate in size, has 50% stenosis at the midportion, nonobstructive disease. 3. Left circumflex artery has a patent stent proximally. First obtuse marginal branch has 50% stenosis at the ostium. 4. Right coronary artery is a dominant artery with 90% stenosis at the ostium. 70 to 80% stenosis proximally. Successful complex intervention with stent deployment involving the ostium of the right coronary artery using 3 x 23 mm Xience Alpine stent, expanded to 3.1 mm with excellent results. No residual stenosis. 5. Normal left ventricular end diastolic pressure. No left ventriculogram was done. IN CONCLUSION: 1. Severe ostial and proximal right coronary artery stenosis. Complex intervention with deployment of 3 x 23 mm Xience Alpine stent to the ostium and proximal right coronary artery with excellent result. No residual stenosis. Mild disease distally. 2. Patent stent in the proximal circumflex artery with 50% stenosis of the ostium of the first obtuse marginal branch. 3. Mild to moderate disease in the mid LAD, small vessel disease. 4. Normal left ventricular end-diastolic pressure. DISCUSSION AND RECOMMENDATION: I will continue maximizing medical therapy. Job ID: [id number] Dictated Date: 05/20/2016 15:48:32 Flight Attendant/Inflight Supervisor Date: 05/21/2016 23:31:05 / [email or web address]
== END 2016-05-21 12:10 | disposition home or self-care (01) ==
LOC: CATH 12:45 → ICU 16:00 → CATH 05-21 12:10
PROVIDERS: ATTEND Internal Medicine Cardiovascular Disease
DX: I48.0 Paroxysmal atrial fibrillation (principal); I34.0 Nonrheumatic mitral (valve) insufficiency; R94.39 Abnormal result of other cardiovascular function study; I10 Essential (primary) hypertension; E78.5 Hyperlipidemia, unspecified; I25.10 Atherosclerotic heart disease of native coronary artery without angina pectoris; Z95.5 Presence of coronary angioplasty implant and graft; J44.9 Chronic obstructive pulmonary disease, unspecified; G47.33 Obstructive sleep apnea (adult) (pediatric); M35.3 Polymyalgia rheumatica; Z79.01 Long term (current) use of anticoagulants; Z79.899 Other long term (current) drug therapy
CPT/HCPCS: 36415; 73030; 80048; 80053; 80061; 85027; 85347; 85610; 85730; 87081; 93005; 93458

== ENCOUNTER 2016-05-27 06:49 | Outpatient (RCR) | payer MEDICARE, OTHER ==
[~2016-05-27 06:49] MED LIST changes: +ASCO500T75 PO; +ASPI-983 PO; +CLOP75TA28 PO; +ENOX100D4 SC; +FOLI1TAB9 PO; +OM-31CAP3 PO; +TRAM50TA2 PO; +WARF10TA PO
[2016-05-27 07:13] LABS: INR 2.3 (0.8-1.4); PROTHROMBIN TIME PATIENT 24.8 SEC (12.2-14.7)
== END 2016-08-11 10:26 | disposition home or self-care (01) ==
LOC: LAB 06:49
PROVIDERS: ATTEND Internal Medicine Cardiovascular Disease
DX: Z51.81 Encounter for therapeutic drug level monitoring (principal); Z79.01 Long term (current) use of anticoagulants
CPT/HCPCS: 36415; 85610

== ENCOUNTER 2016-08-11 10:25 | Outpatient (RCR) | payer MEDICARE, OTHER ==
--- OUTSIDE RECORDS SUMMARY | 2016-05-23 10:35 | XMS REPORT | Continuity of Care Document ---
Author Author [facility] Organization [facility] Address Unknown Phone Unavailable Care Team Providers Care Roller Stainer Name Role Phone RON VICK MD PCP Insurance Providers Payer Name Policy Number Subscriber Name Relationship Wps [employer] [id number] Good Dinero 18 Self / Same As Patient Comm Crossover Enter Ins Name [id number] Good Dinero 18 Self / Same As Patient Advance Directives Directive Response Recorded Date/Time Advance Directives Yes 05/20/16 12:58pm Health Care Power of Roadway Engineer Daniel AXEL DINERO 05/20/16 12:58pm Organ Donor No 05/20/16 12:58pm Resuscitation Status Full Code 05/20/16 12:58pm Problems Active Problems Medical Problem Onset Date Status Atrial fibrillation Unknown Acute Left shoulder pain Unknown Acute Leukocytosis Unknown Acute Palpitations Unknown Acute Medications Current Home Medications Medication Dose Units Route Directions Days/Qty Instructions Start Date Digoxin (Lanoxin) 125 Mcg 125 Mcg Oral Daily 02/03/11 Hydroxychloroquine Sulfate 200 Mg 200 Mg Oral Daily 04/21/12 Gabapentin 100 Mg 200 Mg Oral Twice A Day TAKES 2 (100MG) CAPSULES 02/17 Hydrochlorothiazide 25 Mg 25 Mg Oral Daily 05/19/16 Carvedilol 6.25 Mg 6.25 Mg Oral Twice A Day 05/19/16 Diltiazem Hcl 240 Mg 240 Mg Oral Twice A Day 05/19/16 Omeprazole 20 Mg 20 Mg Oral Daily 05/19/16 Cyanocobalamin (Vitamin B-12) 1,000 Mcg 1,000 Mcg Oral Daily Ascorbic Acid 500 Mg 500 Mg Oral Daily 05/20/16 Om-3/Epa/Dha/Fish Oil/Flax/E 1 Each 3 Cap Oral Bedtime 05/20/16 Folic Acid/Mv,Fe,Other Min 1 Each 1 Tab.chew Oral Daily 05/20/16 Tramadol Hcl 50 Mg 50 Mg Oral Three Times A Day as needed for Pain 05/20/16 Gabapentin 100 Mg 100 Mg Oral 1200 05/20/16 Enoxaparin Sodium 100 Mg/1 Ml 100 Mg Subcutaneously Every 12 Hours 10 05/21/16 Warfarin Sodium 10 Mg 5 Mg Oral Daily@1800 60 Take 2 tabs daily for 3 days then take 1 tab daily 05/21/16 Aspirin 81 Mg 81 Mg Oral Daily 100 05/21/16 Clopidogrel Bisulfate 75 Mg 75 Mg Oral Daily 30 05/21/16 Past Home Medications Medication Directions Ordered Status Aspirin 81 Mg Chew, 12/13/07 Discontinued Fish Oil 1,000 Mg Cap, 12/13/07 Discontinued Multivitamins 1 Ea Tablet, 12/13/07 Discontinued Glucosamine/Chondroitin 1 Ea Tab, 12/13/07 Discontinued Ascorbic Acid 250 Mg Tab, 12/13/07 Discontinued Calcium 1,000 Mg Capsule, 12/13/07 Discontinued Oxybutynin Chloride 5 Mg Tab, 12/13/07 Discontinued Metoprolol Succinate (Metoprolol Er 25MG) 25 Mg Tab, 12/13/07 Discontinued Simvastatin 10 Mg Tab, 12/13/07 Discontinued Pantoprazole Sodium 40 Mg Tab, 12/13/07 Discontinued Omeprazole 20 Mg Capsule., 12/13/07 Discontinued Metoclopramide Hcl 10 Mg Tablet, 12/13/07 Discontinued Calcium Carbonate/Vitamin D3 1 Each Tablet, 600 Mg Oral Daily 05/12/09 Discontinued [Metoprolol] , 05/12/09 Discontinued Aspirin 325 Mg Tablet, 05/12/09 Discontinued Multivitamins 1 Tab Tablet, 1 Tab Oral Daily 05/12/09 Discontinued Glucosa Bear 2KCL/Chondroitin Bear 1 Each Capsule, 1 Tab Oral Daily 05/12/09 Discontinued Ascorbic Acid 500 Mg Capsule.sa, 500 Mg Oral Daily 05/12/09 Discontinued Fish Oil 1,000 Mg Cap, 3000 Mg Oral Bedtime 05/12/09 Discontinued [Lysine] , 01/27/11 Discontinued Aspirin 81 Mg Tabec, 81 Mg Oral Daily 01/27/11 Discontinued Amlodipine Besylate (Norvasc 5 Mg) 5 Mg Tablet, 5 Mg Oral Daily 01/27/11 Discontinued Prednisone 2.5 Mg Tablet, 2.5 Mg Oral Twice A Day 01/27/11 Discontinued Ibuprofen 200 Mg Tablet, 1 Each Oral Daily 01/31/11 Discontinued Ibuprofen 200 Mg Tab, 200 Mg Oral Daily At Noon 01/31/11 Discontinued Ibuprofen/Diphenhydramine 1 Each Tablet, 1 Each Oral Bedtime 01/31/11 Discontinued Diltiazem Hcl (Cardizem Cd) 180 Mg Cap.sr.24h, 1 Each Oral Twice A Day Discontinued Prednisone 2.5 Mg Tablet, 2.5 Mg Oral Daily 02/03/11 Discontinued Amiodarone Hcl 200 Mg Tab, 200 Mg Oral Daily 02/03/11 Discontinued Amiodarone Hcl 200 Mg Tab, 200 Mg Oral Daily 02/03/11 Discontinued Dabigatran Etexilate Mesylate 150 Mg Capsule, 150 Mg Oral Twice A Day Discontinued Pantoprazole Sodium 40 Mg Tablet.dr, 1 Tab Oral Daily 02/03/11 Discontinued Acetaminophen/Hydrocodone Bitart 1 Tab Tab, 1 - 2 Ea Oral Q4hr Prn 03/10/11 Discontinued Teriparatide 2.4 Ml Pen.injctr, 2.4 Ml Sub-Q 04/21/12 Discontinued Propranolol Hcl 60 Mg Cap.sa.24h, 60 Mg Oral 04/21/12 Discontinued Meclizine Hcl 25 Mg Tablet, 1 Each Oral Daily 04/21/12 Discontinued Trimethoprim/Sulfamethoxazole 1 Ea Tablet, 1 Ea Oral Twice A Day 04/21/12 Discontinued Doxazosin Mesylate 1 Mg Tablet, 1 Each Oral Bedtime 05/15/14 Discontinued Rivaroxaban 20 Mg Tablet, 05/19/16 Discontinued Social History Social History Problem Response Recorded Date/Time Alcohol Use Denies Use 04/21/2012 9:14pm Recreational Drug Use No 04/21/2012 9:14pm Recent Foreign Travel No 04/21/2012 9:14pm Recent Infectious Disease Exposure No 04/21/2012 9:14pm Hospitalization with Isolation Denies 04/21/2012 9:14pm Sexually Transmitted Disease No 05/19/2016 8:47am HIV/AIDS No 05/19/2016 8:47am Recent Hopitalizations No 05/19/2016 8:47am Sexually Transmitted Disease No 05/19/2016 8:47am Hospitalization with Isolation Denies 04/21/2012 9:14pm Hx Sexually Transmitted Disorders No 03/10/2011 8:46am Hospital Discharge Instructions Patient Instructions Physician Instructions Follow Up/Plan Appointment with Dr Shine's office in 2-4 weeks CARDIAC CATH DISCHARGE INSTRUCTIONS *Hold Metformin for 48 hours post heart cath. ACTIVITY * Go Home directly and rest. * Limit activity of the leg (or wrist if it was used) for 7 days including aerobics, swimming, jogging, bicycling, etc. * Restrict stair-climbing for 7 days if possible, if not, climb up with your non-cath leg, then bring together on the same step. * Avoid lifting, pushing, pulling or excessive movement of the affected extremity for 7 days. * Customary sexual activity may be resumed after 2 days-use caution not to use a position that strains or causes pain to the affected extremity. * No driving for 24 hours. * NO SMOKING. * Avoid straining for bowel movements for 7 days. * Gentle walking on level ground is allowed. * Returning to work will depend on the type of procedure and the results. Your doctor will discuss this with you. CALL YOUR DOCTOR FOR ANY OF THE FOLLOWING: *If bleeding from the puncture site occurs- Apply gentle pressure to site with clean cloth and call your doctor or EMS. * If a knot or lump forms under the skin, increases in size, or causes pain. * If bruising appears to be worsening or moving further down your leg instead of disappearing. * Temperature above 101 F. CARE OF YOUR GROIN INCISION; * Bruising or purple discoloration of the skin near the puncture site is common. * You may shower only, no bathtub bathing for 5 days. Be careful to avoid slipp ing as your leg may feel stiff. * If a closure device was used on your femoral artery, please see the attached guide regarding care of the device and your leg. * REMOVE the dressing from your groin the next day after your procedure in the shower. CARE OF YOUR WRIST INCISION; * Bruising or purple discoloration of the skin near the puncture site is common. * You may shower. * DO NOT submerge wrist. * Remove dressing in 24 hours. Plan of Care Discharge Date 05/21/16 12:10pm Instructions/Education Provided CARDIAC CATH DISCHARGE INSTRUC Prescriptions See Medication Section Follow-up Orders PT/INR-Series Functional Status Query Response Date Recorded Patient Orientation Person Place Time Situation May 21, 2016 12:40pm Comprehension Ability Understands Concepts May 21, 2016 9:41am Allergies, Adverse Reactions, Alerts Allergen Type Severity Reaction Status Last Updated Beta-Blockers (Beta-Adrenergic Blocking Agts) ([id number]) Allergy Unknown Active 04/21/12 Immunizations No immunization records. Vital Signs Acute Vital Signs Vital Response Date/Time Temperature (Fahrenheit) 99.0 degrees F (97.6 - 99.5) 05/21/2016 8:42am Temperature (Calculated Celsius) 37.67856 degrees C (36.4 - 37.5) 05/21/2016 8:42am Temperature Source Tympanic 05/21/2016 8:42am Pulse Rate (adult) 85 bpm (60 - 90) 05/21/2016 11:00am Respiratory Rate 10 bpm (12 - 24) 05/21/2016 11:00am O2 Sat by Pulse Oximetry 94 % (88 - 100) 05/21/2016 11:00am Blood Pressure 126/70 mm Hg 05/21/2016 11:00am Blood Pressure Mean 88 mm Hg 05/21/2016 11:00am Pain Numeric Pain Scale 7 05/21/2016 12:28am Height (Feet) 5 feet 05/20/2016 12:58pm Height (Inches) 8.00 inches 05/20/2016 12:58pm Height (Calculated Centimeters) 172.572615 cm 05/20/2016 12:58pm Weight (Pounds) 217 pounds 05/20/2016 12:58pm Weight (Ounces) 0.0 oz 05/20/2016 12:58pm Weight (Calculated Grams) 09741.55 gm 05/20/2016 12:58pm Weight (Calculated Kilograms) 98.253014 kilograms 05/20/2016 12:58pm Calculated BMI 33.0 05/20/2016 12:58pm Capillary Refill Capillary Refill Less Than 3 Seconds 05/20/2016 7:00pm Capillary Refill Capillary Refill Less Than 3 Seconds 05/20/2016 7:00pm Results Pending Laboratory Results Test Name Collection Date/Time Procedures Procedure Status Date Provider(s) Color Doppler echocardiography Active 04/21/16 PEE BREAUX Tracing only of electrocardiogram Completed 05/19/16 ELISA DE LEON MD Tracing only of electrocardiogram Active 05/21/16 SP SHINE MD Transesophageal echocardiography with contrast Active 05/21/16 SP SHINE MD Doppler echocardiography color flow mapping Active 05/21/16 SP SHINE MD Bidirectional continuous wave ultrasonic Doppler Active 05/21/16 SP SHINE MD Encounters Encounter Location Arrival/Admit Date Discharge/Depart Date Attending Provider Departed [facility] 05/20/16 12:45pm 05/21/16 12:10pm SP SHINE MD Departed Emergency Room [facility] 05/19/16 8:24am 05/19 11:05am ELISA DE LEON MD Registered Clinic [facility] 05/16/16 7:11am SP SHINE MD Registered Clinic [facility] 04/21/16 10:30am SP SHINE MD Recent Diagnosis Left shoulder pain
[2016-05-23 11:10] LABS: INR 1.4 (0.8-1.4); PROTHROMBIN TIME PATIENT 16.6 SEC (12.2-14.7)
[2016-05-24 12:05] LABS: INR 1.8 (0.8-1.4); PROTHROMBIN TIME PATIENT 20.4 SEC (12.2-14.7)
[2016-05-25 11:09] LABS: INR 2.1 (0.8-1.4); PROTHROMBIN TIME PATIENT 23.1 SEC (12.2-14.7)
[2016-06-01 10:49] LABS: INR 2.3 (0.8-1.4); PROTHROMBIN TIME PATIENT 25.2 SEC (12.2-14.7)
[2016-06-15 15:29] LABS: INR 2.8 (0.8-1.4); PROTHROMBIN TIME PATIENT 29.7 SEC (12.2-14.7)
[2016-07-14 09:17] LABS: INR 2.7 (0.8-1.4); PROTHROMBIN TIME PATIENT 28.8 SEC (12.2-14.7)
[2016-08-11 10:49] LABS: INR 2.5 (0.8-1.4)
== END 2016-08-21 | disposition home or self-care (01) ==
LOC: LAB 10:25
PROVIDERS: ATTEND Internal Medicine Cardiovascular Disease
DX: I48.91 Unspecified atrial fibrillation (principal)
CPT/HCPCS: 36415; 85610

== ENCOUNTER → 2016-09-15 | Outpatient (CLI) | payer MEDICARE, OTHER ==
[~2016-09-15] VITALS: Ht 172.7 cm; Wt 98.4 kg
[~2016-09-15] MED LIST changes: +DENOSUMAB 60 MG/1 ML (PROLIA) SQ ONE
[2016-09-15 13:00] VITALS: BP 124/63
[2016-09-15 13:35] VITALS: BP 124/63
== END ==
LOC: SDC 12:47
PROVIDERS: ATTEND Nurse Practitioner Family
DX: M81.0 Age-related osteoporosis without current pathological fracture (principal)
CPT/HCPCS: 96372

== ENCOUNTER 2016-12-01 14:32 | Outpatient (RCR) | payer MEDICARE, OTHER ==
[2016-09-08 10:43] LABS: INR 2.5 (0.8-1.4); PROTHROMBIN TIME PATIENT 26.9 SEC (12.2-14.7)
[2016-10-06 14:20] LABS: INR 2.6 (0.8-1.4); PROTHROMBIN TIME PATIENT 27.9 SEC (12.2-14.7)
[2016-11-03 11:01] LABS: INR 2.7 (0.8-1.4); PROTHROMBIN TIME PATIENT 28.3 SEC (12.2-14.7)
[~2016-12-01 14:32] MED LIST changes: -DENOSUMAB 60 MG/1 ML (PROLIA) SQ ONE
[2016-12-01 14:57] LABS: INR 2.6 (0.8-1.4); PROTHROMBIN TIME PATIENT 27.9 SEC (12.2-14.7)
== END 2016-12-03 | disposition home or self-care (01) ==
LOC: LAB 14:32
PROVIDERS: ATTEND Internal Medicine Cardiovascular Disease
DX: Z51.81 Encounter for therapeutic drug level monitoring; Z79.01 Long term (current) use of anticoagulants
CPT/HCPCS: 36415; 85610

== ENCOUNTER → 2017-01-24 | Outpatient (CLI) | payer MEDICARE, OTHER ==
[2017-01-24 12:24] LABS: BASOPHILS # (AUTO) 0.1 10^3/uL (0.0-0.1); BASOPHILS % (AUTO) 1 % (0-10); EOSINOPHILS # (AUTO) 0.2 10^3/uL (0.0-0.3); EOSINOPHILS % (AUTO) 3 % (0-10); LYMPHOCYTES # (AUTO) 1.6 X 10^3 (1.0-4.0); LYMPHOCYTES % (AUTO) 20 % (12-44); MEAN CORPUSCULAR HEMOGLOBIN 33 PG (25-34); MEAN CORPUSCULAR HGB CONC 34 G/DL (32-36); MEAN CORPUSCULAR VOLUME 99 FL (80-99); MEAN PLATELET VOLUME 10.6 FL (7.4-10.4); MONOCYTES # (AUTO) 1.1 X 10^3 (0.0-1.0); MONOCYTES % (AUTO) 14 % (0-12); NEUTROPHILS # (AUTO) 5.3 X 10^3 (1.8-7.8); NEUTROPHILS % (AUTO) 64 % (42-75); PLATELET COUNT 220 10^3/uL (130-400); RED BLOOD COUNT 4.65 10^6/uL (4.35-5.85); RED CELL DISTRIBUTION WIDTH 13.3 % (10.0-14.5); WHITE BLOOD COUNT 8.3 10^3/uL (4.3-11.0)
[2017-01-24 12:51] LABS: ALANINE AMINOTRANSFERASE 23 U/L (0-55); ANION GAP 9 MMOL/L (5-14); ASPARTATE AMINO TRANSFERASE 23 U/L (5-34); BILIRUBIN,TOTAL 0.7 MG/DL (0.1-1.0); BLOOD UREA NITROGEN 20 MG/DL (7-18); BUN/CREATININE RATIO 19; CALCIUM 9.4 MG/DL (8.5-10.1); CARBON DIOXIDE 26 MMOL/L (21-32); CHLORIDE 105 MMOL/L (98-107); CREATININE SERUM 1.06 MG/DL (0.60-1.30); GFR ESTIMATED > 60; GLUCOSE 115 MG/DL (70-105); POTASSIUM 4.1 MMOL/L (3.6-5.0); SODIUM 140 MMOL/L (135-145); TOTAL PROTEIN 7.6 GM/DL (6.4-8.2)
== END ==
LOC: LAB 12:07
PROVIDERS: ATTEND Family Medicine
DX: E11.9 Type 2 diabetes mellitus without complications (principal); G31.84 Mild cognitive impairment of uncertain or unknown etiology; I10 Essential (primary) hypertension
CPT/HCPCS: 36415; 80053; 83036; 85025

== ENCOUNTER 2017-03-16 12:13 | Outpatient (RCR) | payer MEDICARE, OTHER ==
[2016-12-29 10:48] LABS: INR 1.7 (0.8-1.4); PROTHROMBIN TIME PATIENT 20.2 SEC (12.2-14.7)
[2017-01-12 10:09] LABS: INR 2.1 (0.8-1.4); PROTHROMBIN TIME PATIENT 23.7 SEC (12.2-14.7)
[2017-02-16 09:41] LABS: INR 2.1 (0.8-1.4); PROTHROMBIN TIME PATIENT 23.2 SEC (12.2-14.7)
[~2017-03-16 12:13] MED LIST changes: -DENOSUMAB 60 MG/1 ML (PROLIA) SQ NR
[2017-03-16 12:39] LABS: INR 2.5 (0.8-1.4); PROTHROMBIN TIME PATIENT 27.1 SEC (12.2-14.7)
== END 2017-03-29 | disposition home or self-care (01) ==
LOC: LAB 12:13
PROVIDERS: ATTEND Internal Medicine Cardiovascular Disease
DX: Z51.81 Encounter for therapeutic drug level monitoring (principal); Z79.01 Long term (current) use of anticoagulants
CPT/HCPCS: 36415; 85610

== ENCOUNTER → 2017-03-16 | Outpatient (CLI) | payer MEDICARE, OTHER ==
[~2017-03-16] VITALS: Ht 172.7 cm; Wt 98.4 kg
[~2017-03-16] MED LIST changes: +DENOSUMAB 60 MG/1 ML (PROLIA) SQ NR
[2017-03-16 13:14] VITALS: BP 111/65
== END ==
LOC: SDC 12:30
PROVIDERS: ATTEND Nurse Practitioner Family
DX: M81.0 Age-related osteoporosis without current pathological fracture (principal)
CPT/HCPCS: 96372

== ENCOUNTER → 2017-06-08 | Outpatient (CLI) | payer MEDICARE, OTHER ==
[2017-06-08 10:14] LABS: BASOPHILS # (AUTO) 0.1 10^3/uL (0.0-0.1); BASOPHILS % (AUTO) 1 % (0-10); EOSINOPHILS # (AUTO) 0.6 10^3/uL (0.0-0.3); EOSINOPHILS % (AUTO) 6 % (0-10); HEMATOCRIT 46 % (40-54); HEMOGLOBIN 15.7 G/DL (13.3-17.7); LYMPHOCYTES # (AUTO) 1.8 X 10^3 (1.0-4.0); LYMPHOCYTES % (AUTO) 19 % (12-44); MEAN CORPUSCULAR HEMOGLOBIN 34 PG (25-34); MEAN CORPUSCULAR HGB CONC 34 G/DL (32-36); MEAN CORPUSCULAR VOLUME 99 FL (80-99); MEAN PLATELET VOLUME 10.5 FL (7.4-10.4); MONOCYTES # (AUTO) 1.2 X 10^3 (0.0-1.0); MONOCYTES % (AUTO) 13 % (0-12); NEUTROPHILS # (AUTO) 5.7 X 10^3 (1.8-7.8); NEUTROPHILS % (AUTO) 62 % (42-75); PLATELET COUNT 228 10^3/uL (130-400); RED BLOOD COUNT 4.67 10^6/uL (4.35-5.85); RED CELL DISTRIBUTION WIDTH 13.2 % (10.0-14.5); WHITE BLOOD COUNT 9.2 10^3/uL (4.3-11.0)
== END ==
LOC: LAB 09:54
PROVIDERS: ATTEND Podiatrist Foot & Ankle Surgery
DX: E11.42 Type 2 diabetes mellitus with diabetic polyneuropathy (principal)
CPT/HCPCS: 36415; 83036; 85025

== ENCOUNTER 2017-09-07 09:06 | Outpatient (RCR) | payer MEDICARE, OTHER ==
[2017-07-13 15:22] LABS: PROTHROMBIN TIME PATIENT 22.5 SEC (12.2-14.7)
[2017-08-10 10:02] LABS: INR 2.7 (0.8-1.4); PROTHROMBIN TIME PATIENT 29.2 SEC (12.2-14.7)
[2017-09-07 09:35] LABS: INR 2.8 (0.8-1.4); PROTHROMBIN TIME PATIENT 29.9 SEC (12.2-14.7)
[2017-10-05 09:34] LABS: INR 2.2 (0.8-1.4); PROTHROMBIN TIME PATIENT 24.4 SEC (12.2-14.7)
== END 2017-10-11 | disposition home or self-care (01) ==
LOC: LAB 09:06
PROVIDERS: ATTEND Internal Medicine Cardiovascular Disease
DX: I48.0 Paroxysmal atrial fibrillation (principal)
CPT/HCPCS: 36415; 85610

== ENCOUNTER → 2017-09-25 | Outpatient (CLI) | payer MEDICARE, OTHER ==
[~2017-09-25] VITALS: Ht 172.7 cm; Wt 98.4 kg
[~2017-09-25] MED LIST changes: +DENOSUMAB 60 MG/1 ML (PROLIA) SQ SCH
[2017-09-25 13:04] VITALS: BP 130/82
== END ==
LOC: SDC 09-21 12:57
PROVIDERS: ATTEND Nurse Practitioner Family
DX: M19.92 Post-traumatic osteoarthritis, unspecified site (principal)
CPT/HCPCS: 96372

== ENCOUNTER → 2017-11-10 | Outpatient (CLI) | payer MEDICARE, OTHER ==
[~2017-11-10] MED LIST changes: -DENOSUMAB 60 MG/1 ML (PROLIA) SQ SCH
[2017-11-10 09:14] LABS: BILIRUBIN,TOTAL 0.6 MG/DL (0.1-1.0); CALCIUM 9.6 MG/DL (8.5-10.1); CREATININE SERUM 1.25 MG/DL (0.60-1.30); POTASSIUM 3.8 MMOL/L (3.6-5.0); TOTAL PROTEIN 7.3 GM/DL (6.4-8.2)
== END ==
LOC: LAB 08:29
PROVIDERS: ATTEND Physician Assistant
DX: I10 Essential (primary) hypertension (principal); E78.2 Mixed hyperlipidemia
CPT/HCPCS: 36415; 80053; 80061

== ENCOUNTER 2017-11-29 12:26 | Outpatient (RCR) | payer MEDICARE, OTHER ==
[2017-11-09 14:28] LABS: INR 3.4 (0.8-1.4); PROTHROMBIN TIME PATIENT 34.4 SEC (12.2-14.7)
[2017-11-29 12:45] LABS: INR 3.6 (0.8-1.4); PROTHROMBIN TIME PATIENT 35.8 SEC (12.2-14.7)
== END 2017-12-03 | disposition home or self-care (01) ==
LOC: LAB 12:26
PROVIDERS: ATTEND Internal Medicine Cardiovascular Disease
DX: I48.91 Unspecified atrial fibrillation (principal)
CPT/HCPCS: 36415; 85610

== ENCOUNTER → 2017-11-29 | Outpatient (CLI) | payer MEDICARE, OTHER | LOC: LAB 11:44 | PROVIDERS: ATTEND Family Medicine | DX: Z12.5 Encounter for screening for malignant neoplasm of prostate (principal); E11.9 Type 2 diabetes mellitus without complications; Z79.01 Long term (current) use of anticoagulants | CPT/HCPCS: 36415; 83036; 84153; 85610 ==

== ENCOUNTER → 2017-11-29 | Outpatient (CLI) | payer MEDICARE, OTHER | LOC: CARD 11:39 | PROVIDERS: ATTEND Physician Assistant | DX: I48.91 Unspecified atrial fibrillation (principal); I11.9 Hypertensive heart disease without heart failure; I08.3 Combined rheumatic disorders of mitral, aortic and tricuspid valves | CPT/HCPCS: 93306 ==

== ENCOUNTER → 2017-12-04 | Outpatient (CLI) | payer MEDICARE, OTHER ==
[~2017-12-04] VITALS: Ht 172.7 cm; Wt 102.1 kg
[~2017-12-04] MED LIST changes: +CATHETER FLUSH 10 ML SYR IV PRN; +REGADENOSON 0.4 MG/5 ML SYR (LEXISCAN) IV ONE
[2017-12-04 09:05] VITALS: BP 150/71
[2017-12-04 09:12] VITALS: BP 129/57
--- NOTE | 2017-12-04 13:07 | STRESS TEST ---
DATE OF SERVICE: 12/04/2017 LEXISCAN MYOVIEW STRESS TEST REPORT REFERRING PHYSICIAN: Selene Burkett MD. Baseline heart rate is 76. Baseline blood pressure is 150/70. Baseline EKG is atrial fibrillation with no ischemic changes. In summary, the patient was injected with 10.37 mCi of technetium-99 Myoview and the resting images were obtained. Then, the patient received 0.4 mg of Lexiscan followed by 27.7 mCi of technetium-99 Myoview. Throughout the test, there were no EKG changes. The resting and stress images were reviewed and compared in the short axis, horizontal long axis, and vertical long axis views. Review of the images showed diaphragmatic attenuation with mild decreased uptake at the mid to apical inferolateral wall with subtle reversibility, no significant ischemia or infarction. SSS is 4, SDS 2, TID value 1.06. On the gated images, the left ventricle appeared to be in normal size with normal contractility. Calculated ejection fraction is 60%. CONCLUSION: 1. The patient tolerated Lexiscan well. 2. Baseline atrial fibrillation persisted throughout test. 3. Diaphragmatic attenuation with typical male pattern. No ischemia or infarction on SPECT images. 4. Normal left ventricular size with normal contractility, calculated ejection fraction 60%, gated images are unreliable due to underlying atrial fibrillation. Job ID: [id number] DocumentID: [id number] Dictated Date: 12/04/2017 11:39:59 Clay Temperer Date: 12/04/2017 13:06:55 Dictated By: SP BISHOP MD
== END ==
LOC: CARD 07:40
PROVIDERS: ATTEND Physician Assistant
DX: I48.0 Paroxysmal atrial fibrillation (principal); I10 Essential (primary) hypertension; I34.0 Nonrheumatic mitral (valve) insufficiency
CPT/HCPCS: 78452; 93017

== ENCOUNTER 2018-03-01 14:34 | Outpatient (RCR) | payer MEDICARE, OTHER ==
[2017-12-25 09:47] LABS: INR 1.9 (0.8-1.4); PROTHROMBIN TIME PATIENT 21.5 SEC (12.2-14.7)
[2018-01-08 11:20] LABS: INR 1.6 (0.8-1.4); PROTHROMBIN TIME PATIENT 19.5 SEC (12.2-14.7)
[2018-01-18 09:05] LABS: INR 2.2 (0.8-1.4); PROTHROMBIN TIME PATIENT 24.6 SEC (12.2-14.7)
[~2018-03-01 14:34] MED LIST changes: -CATHETER FLUSH 10 ML SYR IV PRN; -REGADENOSON 0.4 MG/5 ML SYR (LEXISCAN) IV ONE
[2018-03-01 14:59] LABS: INR 3.1 (0.8-1.4)
== END 2018-03-25 | disposition home or self-care (01) ==
LOC: LAB 14:34
PROVIDERS: ATTEND Internal Medicine Cardiovascular Disease
DX: I48.91 Unspecified atrial fibrillation (principal)
CPT/HCPCS: 36415; 85610

== ENCOUNTER → 2018-03-29 | Outpatient (CLI) | payer MEDICARE, OTHER ==
[~2018-03-29] MED LIST changes: +CENTRUM CHEWAB1 EACH PO; -FOLI1TAB9 PO
[2018-03-29 10:10] LABS: ALANINE AMINOTRANSFERASE 24 U/L (0-55); ALBUMIN 4.1 GM/DL (3.2-4.5); ALKALINE PHOSPHATASE 51 U/L (40-136); BILIRUBIN,TOTAL 0.9 MG/DL (0.1-1.0); BUN/CREATININE RATIO 21; CALCIUM 9.9 MG/DL (8.5-10.1); CARBON DIOXIDE 25 MMOL/L (21-32); CREATININE SERUM 1.12 MG/DL (0.60-1.30); GFR ESTIMATED > 60; GLUCOSE 140 MG/DL (70-105); TOTAL PROTEIN 7.6 GM/DL (6.4-8.2)
[2018-03-29 10:35] LABS: CHLORIDE 104 MMOL/L (98-107); POTASSIUM 4.2 MMOL/L (3.6-5.0); SODIUM 139 MMOL/L (135-145)
== END ==
LOC: LAB 09:28
PROVIDERS: ATTEND Family Medicine
DX: E11.9 Type 2 diabetes mellitus without complications (principal); E78.5 Hyperlipidemia, unspecified; Z79.899 Other long term (current) drug therapy
CPT/HCPCS: 36415; 80053; 83036

== ENCOUNTER → 2018-03-29 | Outpatient (CLI) | payer MEDICARE, OTHER ==
[2018-03-29 10:02] LABS: INR 2.1 (0.8-1.4)
== END ==
LOC: LAB 09:31
PROVIDERS: ATTEND Internal Medicine Cardiovascular Disease
DX: I48.0 Paroxysmal atrial fibrillation (principal)
CPT/HCPCS: 36415; 85610

== ENCOUNTER → 2018-04-02 | Outpatient (CLI) | payer MEDICARE, OTHER ==
[~2018-04-02] VITALS: Ht 172.7 cm; Wt 102.1 kg
[~2018-04-02] MED LIST changes: +DENOSUMAB 60 MG/1 ML (PROLIA) SQ ONE
[2018-04-02 13:26] VITALS: BP 145/72
== END ==
LOC: SDC 12:59
PROVIDERS: ATTEND Nurse Practitioner Family
DX: M81.0 Age-related osteoporosis without current pathological fracture (principal); M19.92 Post-traumatic osteoarthritis, unspecified site
CPT/HCPCS: 96372

== ENCOUNTER → 2018-05-08 | Outpatient (CLI) | payer MEDICARE, OTHER ==
[~2018-05-08] MED LIST changes: -DENOSUMAB 60 MG/1 ML (PROLIA) SQ ONE
--- NOTE | 2018-05-08 12:24 | Diagnostic Imaging Report ---
INDICATION: 82-year-old male with history of osteoporosis, on Prolia. History of vertebral body fractures. COMPARISON: None. FINDINGS: AP Spine L1-L4: [BMD (g/cm2): 1.22] [T-Score: -0.2] [Z-Score: -0.2] [BMD Previous: N/A] [BMD % Change: N/A] LT Hip Neck: [BMD (g/cm2): 0.807] [T-Score: -2.0] [Z-Score: -0.9] LT Hip Total: [BMD (g/cm2):0.855] [T-Score:-1.7] [Z-Score: -1.0] [BMD Previous: N/A] [BMD % Change: N/A] RT Hip Neck: [BMD (g/cm2):0.893] [T-Score:-1.4] [Z-Score:-0.3] RT Hip Total: [BMD (g/cm2):0.897] [T-score:-1.4] [Z-Score:-0.7] [BMD Previous:N/A] [BMD % Change:N/A] *Indicates significant change from prior examination based on 95% confidence level. World Health Organization criteria for BMD interpretation classify patients as Normal (T-score at or above -1.0), Osteopenic (T-score between -1.0 and -2.5) or Osteoporotic (T-score at or below -2.5). LIMITATIONS AND MODIFICATION: Marked degenerative changes in the lumbar spine likely falsely elevate bone density. FRACTURE RISK (FRAX SCORE): Not applicable due to current therapy for osteoporosis. IMPRESSION: 1. Osteopenia (Low bone mass). 2. Baseline examination. 3. See below National Osteoporosis Foundation guidelines on when to potentially initiate pharmacologic therapy. Based on the National Osteoporosis Foundation Guidelines, pharmacologic treatment should be initiated in any of the following, unless clinical conditions suggest otherwise: * Any patient with prior fragility fracture of the hip or vertebrae. A spine fracture indicates 5X risk for subsequent spine fracture and 2X risk for subsequent hip fracture. * Osteoporosis (T-score <-2.5). * Postmenopausal women and men age 50 and older with low bone mass/osteopenia (T-score between -1.0 and -2.5) by DXA and 10-year major osteoporotic fracture greater than 20% or a 10-year probability of hip fracture greater than 3%. These fracture risks are supplied above in the FRAX score, if applicable. * Clinician judgment and/or patient preferences may indicate treatment for people with 10-year fracture probabilities above or below these levels. Dictated by: Dictated on workstation # [id number]
== END ==
LOC: RAD 08:51
PROVIDERS: ATTEND Nurse Practitioner Family
DX: M85.88 Other specified disorders of bone density and structure, other site (principal); M81.0 Age-related osteoporosis without current pathological fracture; Z87.81 Personal history of (healed) traumatic fracture
CPT/HCPCS: 77080

== ENCOUNTER 2018-09-03 12:35 | Outpatient (RCR) | payer MEDICARE, OTHER ==
[~2018-09-03 12:35] MED LIST changes: -OMEP20CA12 PO; +OMEP20CA13 PO
[2018-09-03 12:49] LABS: PROTHROMBIN TIME PATIENT 23.1 SEC (12.2-14.7)
== END 2018-12-02 | disposition home or self-care (01) ==
LOC: LAB 12:35
PROVIDERS: ATTEND Internal Medicine Cardiovascular Disease
DX: I48.0 Paroxysmal atrial fibrillation (principal)
CPT/HCPCS: 36415; 85610

== ENCOUNTER → 2018-09-03 | Outpatient (CLI) | payer MEDICARE, OTHER ==
[~2018-09-03] MED LIST changes: -RIVA20TA; +RIVA20TA2
--- NOTE | 2018-09-03 12:48 | Diagnostic Imaging Report ---
PATIENT HISTORY: Neck pain. Fall in shower two weeks ago. TECHNIQUE: Three views of the cervical spine. COMPARISON: CT from 02/15/2011. FINDINGS: There is mild left convex curvature of the cervical spine. The C1-C2 alignment appears normal. There is trace anterolisthesis at C3-C4 and trace retrolisthesis at C4-C5. There are advanced degenerative changes at C3-C4, C4-C5, C5-C6, and mild degenerative changes elsewhere. Prevertebral soft tissues are unremarkable. No acute fracture is seen. Vertebral body heights are generally preserved. No significant atherosclerosis is seen. IMPRESSION: 1. Advanced degenerative changes seen in the cervical spine with no acute osseous abnormality seen. Dictated by: Dictated on workstation # [id number]
== END ==
LOC: RAD 11:58
PROVIDERS: ATTEND Nurse Practitioner Family
DX: M47.812 Spondylosis without myelopathy or radiculopathy, cervical region (principal); W18.2XXA Fall in (into) shower or empty bathtub, initial encounter; R05 Cough
CPT/HCPCS: 72040

== ENCOUNTER → 2018-09-25 | Outpatient (CLI) | payer MEDICARE, OTHER ==
[~2018-09-25] MED LIST changes: +OMEP20CA12 PO; -OMEP20CA13 PO
--- NOTE | 2018-09-25 14:31 | Diagnostic Imaging Report ---
EXAMINATION: Lumbar spine at 01:33 p.m. INDICATION: Back pain. AP, lateral and spot lateral views were obtained. COMPARISON: There are no prior studies available for comparison. FINDINGS: The lateral view shows the vertebral body heights and alignment to be generally within normal limits. There is perhaps slight anterior translation of L5 with respect to S1. The intervertebral spaces are fairly well-maintained. There are bridging osteophytes bilaterally at the L1-L2 level. There is no fracture or acute bony abnormality appreciated. There is no sign of a paraspinal mass. As noted on the sacroiliac exam performed in conjunction with the study there has been a prior bilateral sacroplasty procedure. IMPRESSION: 1. There is no evidence for an acute bony abnormality. 2. If clinical concern regarding an acute abnormality persists, then MRI would be recommend for further study. Dictated by: Dictated on workstation # [id number]
--- NOTE | 2018-09-25 16:06 | Diagnostic Imaging Report ---
Sacroiliac joints. Indication: Back pain 3 views were obtained. As noted on the prior exam of 03/13/2012 there has been a prior sacroplasty procedure of the each side of the sacrum. There is no fracture, dislocation or acute bony abnormality. There is mild symmetrical sclerosis of the sacroiliac joints. The sacroiliac joints seem similar to the prior study. The soft tissues are unremarkable. Impression: There are post sacroplasty changes evident. There is no sign of an acute bony abnormality. Dictated by: Dictated on workstation # [id number]
== END ==
LOC: RAD 13:20
PROVIDERS: ATTEND Family Medicine
DX: M54.5 Low back pain (principal); M53.3 Sacrococcygeal disorders, not elsewhere classified; Z98.890 Other specified postprocedural states
CPT/HCPCS: 72100; 72202

== ENCOUNTER → 2018-10-01 | Outpatient (CLI) | payer MEDICARE, OTHER ==
[~2018-10-01] VITALS: Ht 172.7 cm; Wt 102.5 kg
[~2018-10-01] MED LIST changes: +DENOSUMAB 60 MG/1 ML (PROLIA) SQ ONE
[2018-10-01 12:40] VITALS: BP 130/68
== END ==
LOC: SDC 12:14
PROVIDERS: ATTEND Nurse Practitioner Family
DX: M19.92 Post-traumatic osteoarthritis, unspecified site (principal)
CPT/HCPCS: 96372

== ENCOUNTER → 2018-11-27 | Outpatient (CLI) | payer MEDICARE, OTHER ==
[~2018-11-27] MED LIST changes: -DENOSUMAB 60 MG/1 ML (PROLIA) SQ ONE; -OMEP20CA12 PO; +OMEP20CA13 PO
[2018-11-27 10:15] LABS: ALANINE AMINOTRANSFERASE 20 U/L (0-55); ALBUMIN 3.9 GM/DL (3.2-4.5); ALKALINE PHOSPHATASE 67 U/L (40-136); BILIRUBIN,TOTAL 0.6 MG/DL (0.1-1.0); BUN/CREATININE RATIO 21; CALCIUM 9.9 MG/DL (8.5-10.1); CARBON DIOXIDE 27 MMOL/L (21-32); CHLORIDE 104 MMOL/L (98-107); GFR ESTIMATED > 60; GLUCOSE 163 MG/DL (70-105); MAGNESIUM 1.9 MG/DL (1.6-2.4); POTASSIUM 4.3 MMOL/L (3.6-5.0); SODIUM 139 MMOL/L (135-145); TOTAL PROTEIN 7.6 GM/DL (6.4-8.2)
== END ==
LOC: LAB 09:32
PROVIDERS: ATTEND Family Medicine
DX: E11.9 Type 2 diabetes mellitus without complications (principal); I10 Essential (primary) hypertension; R60.0 Localized edema
CPT/HCPCS: 36415; 80053; 83036; 83735

== ENCOUNTER 2018-12-17 14:04 | Outpatient (RCR) | payer MEDICARE, OTHER ==
[2018-10-01 12:37] LABS: INR 2.5 (0.8-1.4); PROTHROMBIN TIME PATIENT 28.1 SEC (12.2-14.7)
[2018-10-29 11:38] LABS: INR 2.9 (0.8-1.4); PROTHROMBIN TIME PATIENT 31.3 SEC (12.2-14.7)
[2018-12-03 10:45] LABS: INR 3.5 (0.8-1.4); PROTHROMBIN TIME PATIENT 36.6 SEC (12.2-14.7)
[2018-12-17 14:32] LABS: PROTHROMBIN TIME PATIENT 23.7 SEC (12.2-14.7)
== END 2018-12-30 | disposition home or self-care (01) ==
LOC: LAB 14:04
PROVIDERS: ATTEND Internal Medicine Cardiovascular Disease
DX: I48.91 Unspecified atrial fibrillation (principal)
CPT/HCPCS: 36415; 85610

== ENCOUNTER 2019-04-01 11:57 | Outpatient (RCR) | payer MEDICARE, OTHER ==
[2019-01-21 12:07] LABS: INR 2.5 (0.8-1.4); PROTHROMBIN TIME PATIENT 28.4 SEC (12.2-14.7)
[2019-02-25 11:05] LABS: INR 2.4 (0.8-1.4)
[~2019-04-01 11:57] MED LIST changes: -DENOSUMAB 60 MG/1 ML (PROLIA) SQ SCH
[2019-04-01 12:15] LABS: INR 2.3 (0.8-1.4); PROTHROMBIN TIME PATIENT 26.5 SEC (12.2-14.7)
== END 2019-04-21 | disposition home or self-care (01) ==
LOC: LAB 11:57
PROVIDERS: ATTEND Internal Medicine Cardiovascular Disease
DX: I48.91 Unspecified atrial fibrillation (principal)
CPT/HCPCS: 36415; 85610

== ENCOUNTER → 2019-04-01 | Outpatient (CLI) | payer MEDICARE, OTHER ==
[~2019-04-01] VITALS: Ht 172.7 cm; Wt 102.5 kg
[~2019-04-01] MED LIST changes: +DENOSUMAB 60 MG/1 ML (PROLIA) SQ SCH; +OMEP-280 PO; -OMEP20CA13 PO; -TRAM50TA2 PO; +TRM50T PO
[2019-04-01 13:55] VITALS: BP 131/57
== END ==
LOC: SDC 12:55
PROVIDERS: ATTEND Nurse Practitioner Family
DX: M19.92 Post-traumatic osteoarthritis, unspecified site (principal)
CPT/HCPCS: 96372

== ENCOUNTER 2019-05-07 15:40 | Outpatient (RCR) | payer MEDICARE, OTHER ==
[~2019-05-07 15:40] MED LIST changes: -OMEP-280 PO; +OMEP20CA18 PO
== END 2019-05-09 14:26 | disposition home or self-care (01) ==
PROVIDERS: ATTEND Family Medicine
DX: I89.0 Lymphedema, not elsewhere classified (principal)

== ENCOUNTER 2019-07-15 11:20 | Outpatient (RCR) | payer MEDICARE, OTHER ==
[2019-05-13 14:26] LABS: INR 2.4 (0.8-1.4); PROTHROMBIN TIME PATIENT 27.2 SEC (12.2-14.7)
[2019-06-17 14:43] LABS: PROTHROMBIN TIME PATIENT 32.6 SEC (12.2-14.7)
[2019-07-15 11:46] LABS: INR 2.5 (0.8-1.4); PROTHROMBIN TIME PATIENT 28.3 SEC (12.2-14.7)
== END 2019-08-11 | disposition home or self-care (01) ==
LOC: LAB 11:20
PROVIDERS: ATTEND Internal Medicine Cardiovascular Disease
DX: Z51.81 Encounter for therapeutic drug level monitoring (principal); I48.0 Paroxysmal atrial fibrillation; Z79.899 Other long term (current) drug therapy
CPT/HCPCS: 36415; 85610

== ENCOUNTER → 2019-08-19 | Outpatient (CLI) | payer MEDICARE, OTHER ==
[~2019-08-19] VITALS: Ht 172 cm; Wt 98.0 kg
[~2019-08-19] MED LIST changes: +CATHETER FLUSH 10 ML SYR IV PRN; +REGADENOSON 0.4 MG/5 ML SYR (LEXISCAN) IV ONE
[2019-08-19 09:16] VITALS: BP 123/80
--- NOTE | 2019-08-19 12:14 | Cardiology Stress Test Report ---
Stress Test Report Date of Procedure/Referring: Date of Procedure: Aug 19, 2019 PCP Sp Shine MD Admitting Physician Selene Burkett MD Indications: Hypertension, atrial fibrillation Baseline Heart Rate: 79 Baseline Blood Pressure: Blood Pressure Systolic: 123 Blood Pressure Diastolic: 80 Baseline EKG: Baseline EKG: atrial fibrillation Summary: Patient received 0.4 mg Lexiscan for stress test, ECG, heart rate and blood pressure were monitored continuously. Resting and stress dose of radio tracer were injected, imaging was acquired and reviewed in short axis, horizontal long axis and vertical long axis views. TID 0.99 SSS 4 SDS 4 EF 54% Conclusion: 1. Patient tolerated Lexiscan well 2. Baseline atrial fibrillation persisted throughout test 3. Diaphragmatic attenuation with mild decrease uptake at the basal to mid inferolateral wall, no significant ischemia noted 4. Normal left ventricular size, EF 54 percent, gated images are unreliable due to underlying atrial fibrillation SP SHINE MD Aug 19, 2019 12:14
== END ==
LOC: CARD 07:15
PROVIDERS: ATTEND Internal Medicine Cardiovascular Disease
DX: I48.91 Unspecified atrial fibrillation (principal); I34.0 Nonrheumatic mitral (valve) insufficiency; I25.10 Atherosclerotic heart disease of native coronary artery without angina pectoris; J98.6 Disorders of diaphragm; I10 Essential (primary) hypertension; I65.23 Occlusion and stenosis of bilateral carotid arteries
CPT/HCPCS: 78452; 93017; A9502

== ENCOUNTER → 2019-08-20 | Outpatient (CLI) | payer MEDICARE, OTHER ==
[~2019-08-20] MED LIST changes: -CATHETER FLUSH 10 ML SYR IV PRN; -REGADENOSON 0.4 MG/5 ML SYR (LEXISCAN) IV ONE
== END ==
LOC: CARD 11:08
PROVIDERS: ATTEND Internal Medicine Cardiovascular Disease
DX: I08.0 Rheumatic disorders of both mitral and aortic valves (principal); I65.23 Occlusion and stenosis of bilateral carotid arteries; I25.10 Atherosclerotic heart disease of native coronary artery without angina pectoris; I11.9 Hypertensive heart disease without heart failure
CPT/HCPCS: 93306

== ENCOUNTER → 2019-09-30 | Outpatient (CLI) | payer MEDICARE, OTHER ==
[~2019-09-30] MED LIST changes: +DENOSUMAB 60 MG/1 ML (PROLIA) SQ ONE
[2019-09-30 13:03] VITALS: BP 116/85
== END ==
LOC: SDC 12:44
PROVIDERS: ATTEND Nurse Practitioner Family
DX: M81.0 Age-related osteoporosis without current pathological fracture (principal)
CPT/HCPCS: 96372

== ENCOUNTER 2019-10-21 14:35 | Outpatient (RCR) | payer MEDICARE, OTHER ==
[2019-08-12 10:27] LABS: INR 1.9 (0.8-1.4); PROTHROMBIN TIME PATIENT 22.7 SEC (12.2-14.7)
[2019-08-27 11:06] LABS: INR 2.3 (0.8-1.4); PROTHROMBIN TIME PATIENT 26.7 SEC (12.2-14.7)
[2019-09-23 10:23] LABS: INR 2.3 (0.8-1.4); PROTHROMBIN TIME PATIENT 25.5 SEC (12.2-14.7)
[~2019-10-21 14:35] MED LIST changes: +ASPI-1238 PO; -ASPI-983 PO; -DENOSUMAB 60 MG/1 ML (PROLIA) SQ ONE
[2019-10-21 15:07] LABS: INR 2.8 (0.8-1.4); PROTHROMBIN TIME PATIENT 29.6 SEC (12.2-14.7)
== END 2019-11-10 | disposition home or self-care (01) ==
LOC: LAB 14:35
PROVIDERS: ATTEND Internal Medicine Cardiovascular Disease
DX: Z51.81 Encounter for therapeutic drug level monitoring (principal); I48.0 Paroxysmal atrial fibrillation; Z79.899 Other long term (current) drug therapy
CPT/HCPCS: 36415; 85610

== ENCOUNTER 2019-12-16 11:10 | Outpatient (RCR) | payer MEDICARE, OTHER ==
[2019-11-18 10:25] LABS: INR 2.4 (0.8-1.4); PROTHROMBIN TIME PATIENT 26.7 SEC (12.2-14.7)
[2019-12-16 11:34] LABS: INR 2.3 (0.8-1.4); PROTHROMBIN TIME PATIENT 25.8 SEC (12.2-14.7)
[2019-12-30] MEDS ORDERED: PANT40TA52 PO (16:43)
[2019-12-30] MEDS ORDERED: CARV6.252 PO (16:43)
[2019-12-30] MEDS ORDERED: MULT-1067 PO (16:43)
[2019-12-30] MEDS ORDERED: GABA-486 PO (16:43)
[2019-12-30] MEDS ORDERED: FURO20TA4 PO (16:43)
[2019-12-30] MEDS ORDERED: ASCO-262 PO (16:43)
[2019-12-30] MEDS ORDERED: HYDR200T46 PO (16:43)
[2019-12-30] MEDS ORDERED: POTA10TA PO (16:43)
[2019-12-30] MEDS ORDERED: ALOG25TA2 PO (16:43)
[2019-12-30] MEDS ORDERED: HYDR25TA4 PO (16:43)
[2019-12-30] MEDS ORDERED: WARF-48 PO (16:43)
[2019-12-30] MEDS ORDERED: FLAX1CAP6 PO (16:43)
[2019-12-30] MEDS ORDERED: ASPI-1238 PO (16:43)
[2019-12-30] MEDS ORDERED: MEMA10TA57 PO (16:43)
[2019-12-30] MEDS ORDERED: DILT240C87 PO (16:50)
[2020-01-13 11:34] LABS: INR 3.4 (0.8-1.4); PROTHROMBIN TIME PATIENT 34.8 SEC (12.2-14.7)
== END 2020-02-16 | disposition home or self-care (01) ==
LOC: LAB 11:10
PROVIDERS: ATTEND Internal Medicine Cardiovascular Disease
DX: Z51.81 Encounter for therapeutic drug level monitoring (principal); I48.0 Paroxysmal atrial fibrillation
CPT/HCPCS: 36415; 85610

== ENCOUNTER 2019-12-29 19:15 | Inpatient (IN) | payer MEDICARE, OTHER ==
[2019-12-29] VITALS: BP 136/70
[~2019-12-29] VITALS: Ht 172 cm; Wt 95.3 kg
[2019-12-29 19:42] LABS: BASOPHILS % (AUTO) 0 % (0-10); EOSINOPHILS % (AUTO) 0 % (0-10); HEMATOCRIT 42 % (40-54); LYMPHOCYTES # (AUTO) 0.9 10^3/uL (1.0-4.0); LYMPHOCYTES % (AUTO) 8 % (12-44); MEAN CORPUSCULAR HEMOGLOBIN 33 pg (25-34); MEAN CORPUSCULAR HGB CONC 34 g/dL (32-36); MEAN CORPUSCULAR VOLUME 97 fL (80-99); MEAN PLATELET VOLUME 10.8 fL (9.0-12.2); MONOCYTES # (AUTO) 0.9 10^3/uL (0.0-1.0); MONOCYTES % (AUTO) 8 % (0-12); NEUTROPHILS # (AUTO) 9.9 10^3/uL (1.8-7.8); NEUTROPHILS % (AUTO) 83 % (42-75); PLATELET COUNT 229 10^3/uL (130-400); WHITE BLOOD COUNT 11.9 10^3/uL (4.3-11.0)
[2019-12-29 19:54] LABS: ALBUMIN 3.4 GM/DL (3.2-4.5); POTASSIUM 3.6 MMOL/L (3.6-5.0)
[2019-12-29 19:56] LABS: CALCIUM 8.5 MG/DL (8.5-10.1)
[2019-12-29 19:57] LABS: TOTAL PROTEIN 6.9 GM/DL (6.4-8.2)
[2019-12-29 19:58] LABS: FIBRIN DEGRADATION PRODUCTS 0.52 UG/ML (0.00-0.49); INR 2.4 (0.8-1.4); PROTHROMBIN TIME PATIENT 26.9 SEC (12.2-14.7)
[2019-12-29 19:59] LABS: BILIRUBIN,TOTAL 1.3 MG/DL (0.1-1.0)
[2019-12-29] MEDS ORDERED: dexAMETHasone 6 MG TAB (DECADRON) PO SCH (20:00)
[2019-12-29 20:01] LABS: CREATININE SERUM 1.45 MG/DL (0.60-1.30)
--- NOTE | 2019-12-29 20:30 | ED General ---
General Chief Complaint: Respiratory Problems Stated Complaint: SOB Nursing Triage Note: PT TO ED W/ C/O SOB, CHILLS ONSET YESTERDAY, WORSE TODAY. PT'S SPOUSE REPORTS PT RECENTLY DX W/ COVID AT [facility] IN [place] YESTERDAY ET WAS DISCHARGED HOME FROM THE ED W/ O2. PT ET REPORT HAD DIFFICULTY W/ O2 CONCENTRATOR ET ALSO PT'S SPO2 DROPPED INTO THE MID 70'S WHILE SLEEPING. NO OTHER C/O VOICED. Nursing Sepsis Screen: No Definite Risk Source of Information: Patient Exam Limitations: No Limitations History of Present Illness Date Seen by Provider: Dec 29, 2019 Time Seen by Provider: 19:20 Initial Comments Here from home with report of shortness of breath, chills, increasing oxygen requirements and is noted to be COVID-19 positive after testing at [facility] in [place], [place] yesterday. Onset of more notable symptoms 4 days ago with incontinence that was not feeling well a few days before that potentially. His is known to be COVID positive although has recovered. Was noted initially to have difficulty with urination not found to have a urinary tract yesterday but was found to be dehydrated and COVID positive. He is diabetic and does have history of A. fib and is on warfarin that apparently has been therapeutic for quite some time. He noted yesterday nausea without vomiting although has history of fundoplication. Here today because of increasing oxygen requirement. He was sent home on oxygen with concentrator yesterday although that has not worked. He is noting that he has significant desaturations at nighttime into the 70s even on his CPAP. O2 sats mid 80s on arrival and responded well to a few liters of oxygen. Timing/Duration: 4-5 Days, Getting Worse Severity: Moderate Associated Systoms: Cough, Fever/Chills, Nausea/Vomiting, Shortness of Air, Weakness Allergies and Home Medications Allergies Coded Allergies: Beta-Blockers (Beta-Adrenergic Bloc (Verified Allergy, Unknown, 04/21/12) Home Medications Ascorbic Acid 500 Mg Tablet, 500 MG PO DAILY, (Reported) Aspirin 81 Mg Tablet.dr, 81 MG PO DAILY Prescribed by: SP BISHOP on 05/21/16 0956 Carvedilol 6.25 Mg Tablet, 6.25 MG PO BID, (Reported) Clopidogrel Bisulfate 75 Mg Tablet, 75 MG PO DAILY Prescribed by: SP BISHOP on 05/21/16955 Cyanocobalamin (Vitamin B-12) 1,000 Mcg Tablet, 1,000 MCG PO DAILY, (Reported) Digoxin 125 Mcg Tablet, 125 MCG PO DAILY, (Reported) Diltiazem HCl 240 Mg Cap.er.24h, 240 MG PO BID, (Reported) Folic Acid/Mv,Fe,Other Min 1 Each Tab.chew, 1 TAB.CHEW PO DAILY, (Reported) Gabapentin 100 Mg Capsule, 200 MG PO BID, (Reported) TAKES 2 (100MG) CAPSULES Gabapentin 100 Mg Capsule, 100 MG PO 1200, (Reported) Hydrochlorothiazide 25 Mg Tablet, 25 MG PO DAILY, (Reported) Hydroxychloroquine Sulfate 200 Mg Tab, 200 MG PO DAILY, (Reported) Om-3/Epa/Dha/Fish Oil/Flax/E 1 Each Capsule, 3 CAP PO HS, (Reported) Omeprazole 20 Mg Capsule.dr, 20 MG PO DAILY, (Reported) Tramadol HCl 50 Mg Tablet, 50 MG PO TID PRN for PAIN, (Reported) Warfarin Sodium 10 Mg Tablet, 5 MG PO DAILY@1800 Take 2 tabs daily for 3 days then take 1 tab daily Prescribed by: SP BISHOP on 05/21/16955 Patient Home Medication List Home Medication List Reviewed: Yes Review of Systems Review of Systems Constitutional: see HPI EENTM: No nose congestion, No throat pain Respiratory: cough, short of breath Cardiovascular: see HPI Gastrointestinal: No abdominal pain; nausea; No vomiting Genitourinary: dysuria, incontinence Musculoskeletal: see HPI, muscle weakness Skin: no symptoms reported All Other Systems Reviewed Negative Unless Noted: Yes Past Arvgjoc-Pzympp-Jhwkki Hx Past Med/Social Hx: Reviewed Nursing Past Med/Soc Hx Patient Social History Alcohol Use: Rarely Uses Recreational Drug Use: No Smoking Status: Never a Smoker Recent Foreign Travel: No Contact w/Someone Who Travel: No Recent Infectious Disease Expo: No Recent Hopitalizations: No Physical Abuse: No Sexual Abuse: No Mistreated: No Fear: No Immunizations Up To Date Date of Pneumonia Vaccine: May 20, 2012 Date of Influenza Vaccine: Nov 20, 2016 Past Medical History Surgeries: Yes (top rib removed r side 32 yrs ago) Coronary Stent, Orthopedic Respiratory: Yes Sleep Apnea Cardiac: Yes Atrial Fibrillation, Coronary Artery Disease, Hypertension Neurological: No Reproductive Disorders: No Sexually Transmitted Disease: No HIV/AIDS: No Gastrointestinal: Yes Hiatal Hernia Musculoskeletal: Yes (BACK SURGERY IN 2012) Osteoporosis, Back Injury Endocrine: No Cancer: No Psychosocial: No Integumentary: No Blood Disorders: No Family Medical History Reviewed Nursing Family Hx Physical Exam-Suspected Sepsis Physical Exam Vital Signs Vital Signs - First Documented 12/29/19 19:16 Temp 37.3 Pulse 88 Resp 20 B/P (MAP) 123/64 (83) Pulse Ox 88 O2 Delivery Nasal Cannula O2 Flow Rate 2.00 Capillary Refill : Less Than 3 Seconds Blood Pressure Mean: 83 Height, Weight, BMI Height: 5'8.00" Weight: 226lbs. 0.0oz. 102.912186kx; 32.00 BMI Method:Stated General Appearance: No Apparent Distress, WD/WN HEENT: PERRL/EOMI, Pharynx Normal Neck: Non Tender, Supple Respiratory: No Respiratory Distress, Crackles (bilateral bases) Cardiovascular: No Murmur, Irregularly Irregular Gastrointestinal: Non Tender, Soft Back: Normal Inspection, No CVA Tenderness, No Vertebral Tenderness Extremity: Normal Range of Motion, Non Tender Neurologic/Psychiatric: Alert, Oriented x3 Skin: normal color, warm/dry Focused Exam Lactate Level 12/29/19 19:26: Lactic Acid Level 1.38 Lactic Acid Level Laboratory Tests Test 12/29/19 19:26 Lactic Acid Level 1.38 MMOL/L (0.50-2.00) Progress/Results/Core Measures Suspected Sepsis Recent Fever Within 48 Hours: Yes Infection Criteria Present: None New/Unexplained Altered Menta: No Sepsis Screen: No Definite Risk SIRS Temperature: Pulse: 88 Respiratory Rate: 20 Laboratory Tests 12/29/19 19:26: White Blood Count 11.9H Blood Pressure 123 /64 Mean: 83 12/29/19 19:26: Lactic Acid Level 1.38 Laboratory Tests 12/29/19 19:26: Creatinine 1.45H, INR Comment 2.4H, Platelet Count 229, Total Bilirubin 1.3H Results/Orders Lab Results Laboratory Tests Test 12/29/19 19:26 Range/Units White Blood Count 11.9 H 4.3-11.0 10^3/uL Red Blood Count 4.26 L 4.30-5.52 10^6/uL Hemoglobin 14.0 13.3-17.7 g/dL Hematocrit 42 40-54 % Mean Corpuscular Volume 97 80-99 fL Mean Corpuscular Hemoglobin 33 25-34 pg Mean Corpuscular Hemoglobin Concent 34 32-36 g/dL Red Cell Distribution Width 12.4 10.0-14.5 % Platelet Count 229 130-400 10^3/uL Mean Platelet Volume 10.8 9.0-12.2 fL Immature Granulocyte % (Auto) 1 % Neutrophils (%) (Auto) 83 H 42-75 % Lymphocytes (%) (Auto) 8 L 12-44 % Monocytes (%) (Auto) 8 0-12 % Eosinophils (%) (Auto) 0 0-10 % Basophils (%) (Auto) 0 0-10 % Neutrophils # (Auto) 9.9 H 1.8-7.8 10^3/uL Lymphocytes # (Auto) 0.9 L 1.0-4.0 10^3/uL Monocytes # (Auto) 0.9 0.0-1.0 10^3/uL Eosinophils # (Auto) 0.0 0.0-0.3 10^3/uL Basophils # (Auto) 0.0 0.0-0.1 10^3/uL Immature Granulocyte # (Auto) 0.1 0.0-0.1 10^3/uL Prothrombin Time 26.9 H 12.2-14.7 SEC INR Comment 2.4 H 0.8-1.4 Activated Partial Thromboplast Time 52 H 24-35 SEC D-Dimer 0.52 H 0.00-0.49 UG/ML Sodium Level 134 L 135-145 MMOL/L Potassium Level 3.6 3.6-5.0 MMOL/L Chloride Level 98 98-107 MMOL/L Carbon Dioxide Level 24 21-32 MMOL/L Anion Gap 12 5-14 MMOL/L Blood Urea Nitrogen 29 H 7-18 MG/DL Creatinine 1.45 H 0.60-1.30 MG/DL Estimat Glomerular Filtration Rate 46 BUN/Creatinine Ratio 20 Glucose Level 153 H 70-105 MG/DL Lactic Acid Level 1.38 0.50-2.00 MMOL/L Calcium Level 8.5 8.5-10.1 MG/DL Corrected Calcium 9.0 8.5-10.1 MG/DL Total Bilirubin 1.3 H 0.1-1.0 MG/DL Aspartate Amino Transf (AST/SGOT) 108 H 5-34 U/L Alanine Aminotransferase (ALT/SGPT) 45 0-55 U/L Alkaline Phosphatase 39 L 40-136 U/L C-Reactive Protein High Sensitivity 11.14 H 0.00-0.50 MG/DL B-Type Natriuretic Peptide 443.1 H <100.0 PG/ML Total Protein 6.9 6.4-8.2 GM/DL Albumin 3.4 3.2-4.5 GM/DL Procalcitonin 0.15 H <0.10 NG/ML My Orders Orders - MARQUISE GOMEZ MD Cbc With Automated Diff (12/29/19 19:17) Comprehensive Metabolic Panel (12/29/19 19:17) Blood Culture (12/29/19 19:17) Sputum Culture (12/29/19:17) Urinalysis (12/29/19:17) Urine Culture (12/29/19 19:17) Protime With Inr (12/29/19 19:17) Partial Thromboplastin Time (12/29/19 19:17) Chest 1 View, Ap/Pa Only (12/29/19 19:17) Ed Iv/Invasive Line Start (12/29/19 19:17) Vital Signs Adult Sepsis Patie Q15M (12/29/19 19:17) O2 (12/29/19 19:17) Remove Rings In Anticipation O (12/29/19 19:17) Lactic Acid Analyzer (12/29/19 19:17) Fibrin Degradation Products (12/29/19 19:17) Procalcitonin (Pct) (12/29/19 19:17) Hs C Reactive Protein (12/29/19 19:17) Dexamethasone Tablet (Decadron Tablet) (12/29/19 20:00) Ekg Tracing (12/29/19 19:51) BNP (12/29/19 19:52) Convalescent Plasma (12/29/19 20:44) Abo Rh Type (12/29/19 20:44) Vital Signs/I&O 12/29/19 12/29/19 19:16 19:16 Temp 37.3 Pulse 88 Resp 20 B/P (MAP) 123/64 (83) Pulse Ox 88 88 O2 Delivery Nasal Cannula Room Air O2 Flow Rate 2.00 Capillary Refill : Less Than 3 Seconds Blood Pressure Mean: 83 Progress Note : Progress Note Seen and evaluated. Sepsis protocol initiated. We have asked for x-ray from [facility] in [place], [place] via cloud. Decadron 6 mg by mouth ordered. We will get EKG due to atrial fibrillation history. He is on Coumadin and I do expect that he will be therapeutic. Placed on 2 L O2 via nasal cannula which did improve his oxygen saturation to mid 90s. Monitor patient. ECG Initial ECG Impression Date: Dec 29, 2019 Initial ECG Impression Time: 19:33 Initial ECG Rate: 89 Initial ECG Rhythm: A Fib/Flutter Initial ECG Comparisson: Unchanged Comment Atrial fibrillation with left axis deviation. No evidence of ST elevation TN. Similar to previous of 05/20/16 except rate is improved. Interpreted by me. Diagnostic Imaging Diagonstic Imaging: Xray Plain Films/CT/US/NM/MRI: chest Comments [facility], [place] NAME: NABILA DINERO [facility] REC#: [id number] PT STATUS: REG ER : 1935 PHYSICIAN: MARQUISE GOMEZ MD ADMIT DATE: 12/29/19/ER Draft Date of Exam:12/29/19 CHEST 1 VIEW, AP/PA ONLY EXAM: Chest 1 view, AP/PA only. INDICATION: Sepsis. COMPARISON: Chest radiograph 05/19/2016. FINDINGS: Cardiomegaly. Normal central pulmonary vascularity. Calcified aorta. Increasing interstitial and airspace opacities in the right midlung and left lung base. No pleural effusion or pneumothorax. No acute osseous finding. IMPRESSION: Increasing interstitial and airspace opacities in the right midlung and left lung base suspicious for pneumonitis. Dictated on workstation # [id number] Dict: 12/29/192026 Trans: 12/29/192036 [facility] [id number] Interpreted by: RUBI SHEEHAN MD Electronically signed by: Reviewed: Reviewed by Me Departure Communication (Admissions) Time/Spoke to Admitting Phy: 20:39 Impression Primary Impression: Pneumonia due to COVID-19 virus Additional Impression: Hypoxia Disposition: ADMITTED INPATIENT Condition: Stable Admissions Decision to Admit Reason: Admit from ER (General) Decision to Admit/Date: Dec 29, 2019 Time/Decision to Admit Time: 20:39 Departure-Patient Inst. Referrals: RON VICK MD (PCP/Family) Primary Care Physician MARQUISE GOMEZ MD Dec 29, 2019 20:30
--- NOTE | 2019-12-29 20:38 | Diagnostic Imaging Report ---
EXAM: Chest 1 view, AP/PA only. INDICATION: Sepsis. COMPARISON: Chest radiograph 05/19/2016. FINDINGS: Cardiomegaly. Normal central pulmonary vascularity. Calcified aorta. Increasing interstitial and airspace opacities in the right midlung and left lung base. No pleural effusion or pneumothorax. No acute osseous finding. IMPRESSION: Increasing interstitial and airspace opacities in the right midlung and left lung base suspicious for pneumonitis. Dictated by: Dictated on workstation # [id number]
--- NOTE | 2019-12-29 20:53 | NUR ---
CONSENT FOR REMDISIVIR ET CONVALESCENT PLASMA SIGNED BY PT. RISKS ET BENEFITS DISCUSSED. PT ET VOICED UNDERSTANDING
--- NOTE | 2019-12-29 20:56 | NUR ---
PT ET UPDATED TO WAIT. BOTH VOICED CONCERN OVER WAIT. UNDERSTANDING VOICED. THIS RN DID REASSURE PT ET THAT STAFF WAS WORKING ON A BED AT THIS TIME. UNDERSTANDING VOICED.
[2019-12-29 21:53] LABS: BILIRUBIN,URINE NEGATIVE (NEGATIVE); CLARITY,URINE CLEAR; COLOR,URINE DARK YELLOW; GLUCOSE, URINE (UA) NEGATIVE (NEGATIVE); KETONES,URINE NEGATIVE (NEGATIVE); LEUKOCYTE ESTERASE ,URINE NEGATIVE (NEGATIVE); NITRITE,URINE NEGATIVE (NEGATIVE); PH,URINE 5.5 (5-9); PROTEIN,URINE TRACE (NEGATIVE)
[2019-12-29 22:03] LABS: BACTERIA,URINE TRACE /HPF; RBC,URINE 0-2 /HPF; SQUAMOUS EPITHELIAL CELL,UR RARE /HPF; WBC,URINE 0-2 /HPF
--- NOTE | 2019-12-29 22:28 | NUR ---
PT TO FLOOR PER BED W/ O2 AT THIS TIME.
--- NOTE | 2019-12-29 22:40 | NUR ---
NABILA DINERO admitted to room 422-1, with an admitting diagnosis of covid-19 and PNA, on 12/29/19 from [facility] ED via bed/cart, accompanied by staff.NABILA DINERO introduced to surroundings, call light, bed controls, phone, TV, temperature control, lights, meal times, smoking policy, visitor policy, side rail policy, bathrooms and showers. Patient Rights given to patient in the handbook. NABILA DINERO verbalizes understanding that [facility] is not responsible for the loss or damage to any personal effects or valuables that are kept in the patients posession during their hospitalization. NABILA DINERO verbalizes understanding of Interdisciplinary Patient Education.
[2019-12-29 22:41] VITALS: BP 136/70
[2019-12-29] MEDS ORDERED: ACETAMINOPHEN 500 MG TAB (TYLENOL) PO PRN (23:00)
[2019-12-29] MEDS ORDERED: NS IV 1000 ML 1,000 ML IV SCH (23:00)
[2019-12-29] MEDS ORDERED: ONDANSETRON 4 MG/2 ML (SDV) Z0FRAN IVP PRN (23:00)
[2019-12-29] MEDS ORDERED: ONDANSETRON 4 MG (ZOFRAN) ORAL DISSOLVE TAB PO PRN (23:00)
[2019-12-30] VITALS (10 sets, daily range): BP systolic 109–142; BP diastolic 67–79
--- NOTE | 2019-12-30 02:38 | NUR ---
CONVALESCENT PLASMA FINISHED AT THIS TIME. NO ADVERSE REACTIONS NOTED. PT RECEIVED THE WHOLE BAG OF 202MLS, AT AN INITIAL RATE OF 75ML/HR, AND THEN INCREASED TO 125ML/HR AFTER THE INITIAL 15MINUTES OF STARTING THE BLOOD PRODUCT. WILL CONTINUE TO MONITOR PATIENT FOR CHANGES IN CONDITION.
[2019-12-30 06:07] LABS: BASOPHILS % (AUTO) 0 % (0-10); EOSINOPHILS % (AUTO) 0 % (0-10); HEMATOCRIT 43 % (40-54); HEMOGLOBIN 14.2 g/dL (13.3-17.7); LYMPHOCYTES # (AUTO) 0.5 10^3/uL (1.0-4.0); LYMPHOCYTES % (AUTO) 5 % (12-44); MEAN CORPUSCULAR HEMOGLOBIN 33 pg (25-34); MEAN CORPUSCULAR HGB CONC 33 g/dL (32-36); MEAN CORPUSCULAR VOLUME 97 fL (80-99); MONOCYTES # (AUTO) 0.4 10^3/uL (0.0-1.0); MONOCYTES % (AUTO) 4 % (0-12); NEUTROPHILS # (AUTO) 9.1 10^3/uL (1.8-7.8); NEUTROPHILS % (AUTO) 89 % (42-75); PLATELET COUNT 233 10^3/uL (130-400); WHITE BLOOD COUNT 10.2 10^3/uL (4.3-11.0)
[2019-12-30 06:18] LABS: ALBUMIN 3.4 GM/DL (3.2-4.5); CHLORIDE 97 MMOL/L (98-107); POTASSIUM 3.4 MMOL/L (3.6-5.0); SODIUM 136 MMOL/L (135-145)
[2019-12-30 06:19] LABS: CALCIUM 8.6 MG/DL (8.5-10.1)
[2019-12-30 06:20] LABS: GLUCOSE 164 MG/DL (70-105); TOTAL PROTEIN 6.9 GM/DL (6.4-8.2)
[2019-12-30 06:22] LABS: BILIRUBIN,TOTAL 1.4 MG/DL (0.1-1.0); CARBON DIOXIDE 25 MMOL/L (21-32)
[2019-12-30] MEDS: inSUlin ASPART (NovoLOG) 1 UNIT/0.01 ML (CHARGE PER UNIT) SC SCH ×8 (06:22→20:56)
[2019-12-30 06:24] LABS: ALKALINE PHOSPHATASE 44 U/L (40-136); GFR ESTIMATED > 60
[2019-12-30 06:25] LABS: BUN/CREATININE RATIO 23
[2019-12-30 06:27] LABS: ALANINE AMINOTRANSFERASE 44 U/L (0-55)
[2019-12-30] MEDS: dexAMETHasone 6 MG TAB (DECADRON) PO SCH (06:37)
[2019-12-30] MEDS ORDERED: REMDESIVIR INJ 200 MG in NS (IVPB) 210 ML IV NR (07:17)
[2019-12-30] MEDS ORDERED: PANTOPRAZOLE 40 MG (PROTONIX) TAB PO NR (10:30)
--- NOTE | 2019-12-30 10:34 | History & Physical-Hospitalist ---
History of Present Illness HPI/Chief Complaint Good Moreno (Chuck) is an 84 year old male with PMH HTN, T2DM, AFib on coumadin, who presented with shortness of breath. He reports that he started feeling bad about a week ago. He reports malaise. He was dehydrated. He thought he had a UTI. His has been sick with COVID-19, but they have been within their home. He went to the ER on Monday and did not have a UTI, but was COVID positive. He is not having any fevers, but reports having them recently. Source: patient Date Seen 12/30/19 Time Seen by a Provider: 09:55 Attending Physician Sherry Biggs MD PCP Selene Burkett MD Referring Physician Date of Admission Dec 29, 2019 at 21:35 Home Medications & Allergies Home Medications Reviewed patient Home Medication Reconciliation performed by pharmacy medication reconciliations telecom field technician and/or nursing. Patients Allergies have been reviewed. Allergies Allergies Coded Allergies Beta-Blockers (Beta-Adrenergic Bloc (Verified Allergy, Unknown, 04/21/12) gluten (Verified Allergy, Unknown, Rash, 12/30/19) Past Apdvtyy-Riqymo-Nckzae Hx Past Med/Social Hx: Reviewed Nursing Past Med/Soc Hx Patient Social History Alcohol Use: Rarely Uses Recreational Drug Use: No Smoking Status: Never a Smoker Recent Foreign Travel: No Contact w/other who traveled: No Recent Hopitalizations: No Recent Infectious Disease Expo: Yes Immunizations Up To Date Date of Pneumonia Vaccine: May 20, 2012 Date of Influenza Vaccine: Nov 28, 2018 Past Medical History Surgeries: Coronary Stent, Orthopedic Cardiac: Atrial Fibrillation, Coronary Artery Disease, Hypertension Reproductive: No Sexually Transmitted Disease: No HIV/AIDS: No Gastrointestinal: Hiatal Hernia Musculoskeletal: Osteoporosis, Back Injury History of Blood Disorders: No Family History Reviewed Nursing Family Hx Review of Systems Constitutional: fever, malaise, weakness EENTM: no symptoms reported Respiratory: cough, short of breath Cardiovascular: no symptoms reported Gastrointestinal: constipation Genitourinary: decreased output Musculoskeletal: no symptoms reported Skin: no symptoms reported Psychiatric/Neurological: No Symptoms Reported Physical Exam Physical Exam Vital Signs Vital Signs - First Documented 12/29/19 00:00 Temp 37.1 Pulse 107 Resp 20 B/P (MAP) 136/70 (92) Pulse Ox 93 Capillary Refill : Less Than 3 Seconds Height, Weight, BMI Height: 5'8.00" Weight: 226lbs. 0.0oz. 102.351314oe; 32.21 BMI Method:Stated General Appearance: No Apparent Distress, WD/WN HEENT: PERRL/EOMI, Pharynx Normal Neck: Normal Inspection, Supple Respiratory: Lungs Clear, Normal Breath Sounds, No Respiratory Distress Cardiovascular: Regular Rate, Rhythm, No Edema, No Murmur Gastrointestinal: Normal Bowel Sounds, Non Tender, Soft Extremity: Normal Inspection, Non Tender, No Pedal Edema Neurologic/Psychiatric: Alert, Oriented x3, No Motor/Sensory Deficits, Normal Mood/Affect Skin: Normal Color, Warm/Dry Results Results/Procedures Labs Laboratory Tests 12/29/19 19:26 12/30/19 05:09 Patient resulted labs reviewed. Imaging: Reviewed Imaging Report Assessment/Plan Admission Diagnosis Acute respiratory failure due to COVID-19 Admission Status: Inpatient Order (span 2 midnights) Reason for Inpatient Admission: COVID requiring supplemental O2 Assessment and Plan Acute respiratory failure due to COVID-19 Decadron Remdesivir 2/5 Convalescent plasma ordered, discussed risks/benefits/EUA use, patient agrees Supplemental oxygen as needed No antibiotics, procalcitonin within normal limits Paroxysmal atrial fibrillation Continue coumadin Add therapeutic Lovenox as plasma will reverse INR Monitor INR T2DM SSI HTN GERD Resume home meds after med rec completed DVT Prophylaxis: already receiving therapeutic anticoagulation Diagnosis/Problems Diagnosis/Problems (1) Acute respiratory failure due to COVID-19 Status: Acute Clinical Quality Measures DVT/VTE Risk/Contraindication: Risk Factor Score Per Nursin RFS Level Per Nursing on Admit: 4+=Very High SHERRY BIGGS MD Dec 30, 2019 10:34
[2019-12-30] MEDS ORDERED: ONDANSETRON 4 MG/2 ML (SDV) Z0FRAN IV PRN (10:45)
[2019-12-30] MEDS ORDERED: diphenhydrAMINE 25 MG TAB (BENADRYL) PO PRN (10:45)
[2019-12-30] MEDS ORDERED: ONDANSETRON 4 MG (ZOFRAN) ORAL DISSOLVE TAB PO PRN (10:45)
[2019-12-30] MEDS ORDERED: MELATONIN 3 MG TABLET PO PRN (10:45)
[2019-12-30] MEDS ORDERED: ANTACID SUSP 30 ML UDC (MYLANTA) PO PRN (10:45)
[2019-12-30] MEDS ORDERED: BISACODYL 10 MG SUPP (DULCOLAX) PR PRN (10:45)
[2019-12-30] MEDS ORDERED: polyethylene glycoL POWDER 17 GM (MIRALAX) PACK PO PRN (10:45)
[2019-12-30] MEDS ORDERED: ACETAMINOPHEN 325 MG TABLET PO PRN (10:45)
[2019-12-30] MEDS ORDERED: PANTOPRAZOLE 40 MG (PROTONIX) TAB PO ONE (11:12)
[2019-12-30] MEDS: ENOXAPARIN 100 MG/1 ML (LOVENOX) SYR SC SCH ×2 (11:14→22:26)
[2019-12-30] MEDS ORDERED: HYDR200T46 PO (16:43)
[2019-12-30] MEDS ORDERED: GABA-486 PO (16:43)
[2019-12-30] MEDS ORDERED: FURO20TA4 PO (16:43)
[2019-12-30] MEDS ORDERED: ASCO-262 PO (16:43)
[2019-12-30] MEDS ORDERED: MEMA10TA57 PO (16:43)
[2019-12-30] MEDS ORDERED: PANT40TA52 PO (16:43)
[2019-12-30] MEDS ORDERED: ASPI-1238 PO (16:43)
[2019-12-30] MEDS ORDERED: ALOG25TA2 PO (16:43)
[2019-12-30] MEDS ORDERED: POTA10TA PO (16:43)
[2019-12-30] MEDS ORDERED: HYDR25TA4 PO (16:43)
[2019-12-30] MEDS ORDERED: MULT-1067 PO (16:43)
[2019-12-30] MEDS ORDERED: WARF-48 PO (16:43)
[2019-12-30] MEDS ORDERED: CARV6.252 PO (16:43)
[2019-12-30] MEDS ORDERED: FLAX1CAP6 PO (16:43)
[2019-12-30] MEDS ORDERED: DILT240C87 PO (16:50)
--- NOTE | 2019-12-30 16:51 | NUR ---
I SPOKE WITH THE PATIENT, PATIENT'S , BELLA SANTANA, WENT THROUGH THE EXTERNAL MED HISTORY AND WENT THROUGH THE PATIENT'S MED LIST FROM HOME TO COMPLETE THIS MED REC. [facility]2019 DILTIAZEM 240MG #180/90DS 12/11/2019 HYDROXYCHLOROQUINE 200MG #30/30DS 12/11/2019 ALOGIPTIN 25MG #90/90DS OTC: ASPIRIN CENTRUM FISH OIL WITH FLAX SEED Addendum: 12/31/19 at 1012 by KARINA FRIEDMAN audiology technician PT HAD A MED LIST IN HIS ROOM, THE MED REC WAS ABLE TO GET A PICTURE OF IT TO ALSO HELP WITH THE MED REC. ON THE MED LIST IT HAD DILTIAZEM 240MG AM AND 120MG PM. WHEN [facility] THEY [facility] ONLY DISPENSED THE ER 240MG CAPS. I CALLED THE PTS ([facility]) AND DOUBLE CHECKED AND SHE SAID THE [facility] IS CORRECT AND THE DOSE THAT IS ON HIS HOME MED LIST MUST BE INCORRECT.
[2019-12-30] MEDS: DOCUSATE SODIUM 100 MG (COLACE) CAP PO SCH (20:49)
[2019-12-30] MEDS: SENNOSIDES 8.6 MG (SENOKOT) TAB PO SCH (20:49)
[2019-12-31] VITALS (7 sets, daily range): BP systolic 119–170; BP diastolic 65–84
[2019-12-31 06:31] LABS: ALANINE AMINOTRANSFERASE 42 U/L (0-55); ALBUMIN 3.1 GM/DL (3.2-4.5); ALKALINE PHOSPHATASE 43 U/L (40-136); BILIRUBIN,TOTAL 0.8 MG/DL (0.1-1.0); BUN/CREATININE RATIO 34; CALCIUM 8.4 MG/DL (8.5-10.1); CARBON DIOXIDE 22 MMOL/L (21-32); CHLORIDE 102 MMOL/L (98-107); CREATININE SERUM 0.93 MG/DL (0.60-1.30); GFR ESTIMATED > 60; GLUCOSE 178 MG/DL (70-105); POTASSIUM 3.4 MMOL/L (3.6-5.0); SODIUM 137 MMOL/L (135-145); TOTAL PROTEIN 6.6 GM/DL (6.4-8.2)
[2019-12-31] MEDS: inSUlin ASPART (NovoLOG) 1 UNIT/0.01 ML (CHARGE PER UNIT) SC SCH ×5 (06:37→20:44)
[2019-12-31] MEDS: dexAMETHasone 6 MG TAB (DECADRON) PO SCH (06:46)
[2019-12-31 08:00] LABS: INR 2.2 (0.8-1.4); PROTHROMBIN TIME PATIENT 24.7 SEC (12.2-14.7)
[2019-12-31] MEDS ORDERED: KCL 20 MEQ TAB (K-DUR) PO ONE (08:00)
[2019-12-31] MEDS: MAGNESIUM 1 GM/100 ML IVPB 100 ML IV SCH (08:21)
[2019-12-31] MEDS: POTASSIUM CL 10MEQ/50ML IVPB 50 ML IV SCH (08:22)
[2019-12-31] MEDS: KCL 20 MEQ TAB (K-DUR) PO SCH (08:22)
[2019-12-31] MEDS: DOCUSATE SODIUM 100 MG (COLACE) CAP PO SCH ×2 (09:00→20:42)
[2019-12-31] MEDS: SENNOSIDES 8.6 MG (SENOKOT) TAB PO SCH ×2 (09:00→20:42)
[2019-12-31] MEDS: REMDESIVIR INJ 100 MG in NS (IVPB) 230 ML IV SCH (09:18)
[2019-12-31] MEDS: PANTOPRAZOLE 40 MG (PROTONIX) TAB PO SCH (09:19)
[2019-12-31] MEDS: ENOXAPARIN 100 MG/1 ML (LOVENOX) SYR SC SCH (10:59)
--- NOTE | 2019-12-31 11:02 | Physician Query Clarification ---
PQ-Conflicting Diagnosis Admission/Discharge Admission Date: Dec 29, 2019 at 21:35 Discharge Date: Dr. Biggs, The medical record reflects the following clinical scenario: History/Risk Factors: COVID 19 Acute Respiratory Failure Clinical Findings:12/28 chest xray impression: Increasing interstitial and airspace opacities in the right mid lung and left lung base suspicious for pneumonitis. Treatment:6mg Decadron, IV Remdesivir 200mg, Question: Do you agree with the impression of Pneumonia due to COVID [address] Bermudez? Please document a response in Progress Note or Discharge Summary. 1. Yes 2. No 3. Other, with explanation of clinical findings 4. Clinically undetermined, no explanation for clinical findings. PHYSICIAN RESPONSE Do you agree w/Consulting Dx?: Yes Please remember a lack of response to the above will prompt a phone page by [facility] staff. In responding to this query, please exercise your independent professional judgment. The purpose of this communication is to more accurately reflect the complexity of your patients condition. The fact that a question is asked does not imply that any particular answer is desired or expected. Thank you for your timely response to this clarification. Requestors name: Isabella Hebert [facility] Phone # ext [phone] or [phone] THIS PHYSICIAN QUERY FORM IS A PERMANENT PART OF THE MEDICAL RECORD ISABELLA HEBERT Dec 31, 2019 11:02 SHERRY BIGGS MD Dec 31, 2019 11:36
--- NOTE | 2019-12-31 12:03 | Progress Note - Hospitalist ---
Subjective HPI/CC On Admission Date Seen by Provider: Dec 31, 2019 Time Seen by Provider: 10:30 Good Moreno (Chuck) is an 84 year old male with PMH HTN, T2DM, AFib on coumadin, who presented with shortness of breath. He reports that he started feeling bad about a week ago. He reports malaise. He was dehydrated. He thought he had a UTI. His has been sick with COVID-19, but they have been within their home. He went to the ER on Monday and did not have a UTI, but was COVID positive. He is not having any fevers, but reports having them recently. Subjective/Events-last exam He is feeling better today. He denies any shortness of breath. He is not having any fevers. He has been eating and drinking. He has no other complaints or concerns. Focused Exam Lactate Level 12/29/19 19:26: Lactic Acid Level 1.38 Objective Exam Vital Signs Vital Signs Date Time Temp Pulse Resp B/P (MAP) Pulse Ox O2 Delivery O2 Flow Rate FiO2 12/31/19 11:06 36.2 95 20 119/78 (92) 97 Nasal Cannula 1.50 Capillary Refill : Less Than 3 Seconds General Appearance: No Apparent Distress, Obese Respiratory: Lungs Clear, Normal Breath Sounds, No Respiratory Distress Cardiovascular: Regular Rate, Rhythm, No Edema, No Murmur Gastrointestinal: Normal Bowel Sounds, Non Tender, Soft Extremity: Normal Inspection, Non Tender, No Pedal Edema Neurologic/Psychiatric: Alert, Oriented x3, No Motor/Sensory Deficits, Normal Mood/Affect Skin: Normal Color, Warm/Dry Results/Procedures Lab Laboratory Tests 12/31/19 05:22 Patient resulted labs reviewed. Imaging: Reviewed Imaging Report Assessment/Plan Assessment and Plan Assess & Plan/Chief Complaint Acute respiratory failure due to COVID-19 Pneumonia due to COVID-19 Decadron Remdesivir day 3/5 s/p convalescent plasma x2 Supplemental oxygen as needed No antibiotics, procalcitonin within normal limits Paroxysmal atrial fibrillation Continue coumadin INR 2.2 T2DM SSI HTN GERD Continue home meds DVT Prophylaxis: already receiving therapeutic anticoagulation Diagnosis/Problems Diagnosis/Problems (1) Acute respiratory failure due to COVID-19 Status: Acute (2) Pneumonia due to COVID-19 virus Status: Acute Clinical Quality Measures DVT/VTE Risk/Contraindication: Risk Factor Score Per Nursin RFS Level Per Nursing on Admit: 4+=Very High SHERRY BIGGS MD Dec 31, 2019 12:03
[2019-12-31] MEDS: warFARin 5 MG (COUMADIN) TAB PO SCH (17:23)
[2019-12-31] MEDS: MEMANTINE 10 MG (NAMENDA) TABLET PO SCH (20:42)
[2019-12-31] MEDS: CARVEDILOL 6.25 MG (COREG) TAB PO SCH (20:42)
[2019-12-31] MEDS: GABAPENTIN 100 MG (NEURONTIN) CAP PO SCH (20:42)
[2019-12-31] MEDS ORDERED: NON-FORMULARY MEDICATION 1 EA EA (Diltiazem HCl (Diltiazem ER) 240 MG) PO SCH (21:00)
[2020-01-01 04:03] VITALS: BP 134/89
[2020-01-01 06:00] LABS: INR 2.1 (0.8-1.4); PROTHROMBIN TIME PATIENT 24.1 SEC (12.2-14.7)
[2020-01-01 06:33] LABS: ALANINE AMINOTRANSFERASE 44 U/L (0-55); ALKALINE PHOSPHATASE 47 U/L (40-136); BILIRUBIN,TOTAL 0.7 MG/DL (0.1-1.0); BUN/CREATININE RATIO 38; CALCIUM 8.3 MG/DL (8.5-10.1); CARBON DIOXIDE 23 MMOL/L (21-32); CHLORIDE 102 MMOL/L (98-107); CREATININE SERUM 0.82 MG/DL (0.60-1.30); GFR ESTIMATED > 60; GLUCOSE 176 MG/DL (70-105); MAGNESIUM 2.3 MG/DL (1.6-2.4); POTASSIUM 4.2 MMOL/L (3.6-5.0); SODIUM 136 MMOL/L (135-145)
[2020-01-01 06:34] LABS: ALBUMIN 3.2 GM/DL (3.2-4.5); TOTAL PROTEIN 6.7 GM/DL (6.4-8.2)
[2020-01-01] MEDS: inSUlin ASPART (NovoLOG) 1 UNIT/0.01 ML (CHARGE PER UNIT) SC SCH ×4 (06:37→21:19)
[2020-01-01] MEDS: MAGNESIUM 1 GM/100 ML IVPB 100 ML IV SCH (06:38)
[2020-01-01] MEDS: POTASSIUM CL 10MEQ/50ML IVPB 50 ML IV SCH (06:38)
[2020-01-01] MEDS: KCL 20 MEQ TAB (K-DUR) PO SCH (06:38)
[2020-01-01] MEDS: dexAMETHasone 6 MG TAB (DECADRON) PO SCH (06:51)
[2020-01-01 07:54] VITALS: BP 117/62
[2020-01-01] MEDS: REMDESIVIR INJ 100 MG in NS (IVPB) 230 ML IV SCH (08:26)
[2020-01-01] MEDS: CARVEDILOL 6.25 MG (COREG) TAB PO SCH ×2 (08:26→21:18)
[2020-01-01] MEDS: GABAPENTIN 100 MG (NEURONTIN) CAP PO SCH ×2 (08:26→21:18)
[2020-01-01] MEDS: ASPIRIN E.C. 81 MG (ECOTRIN) TAB PO SCH (08:26)
[2020-01-01] MEDS: MEMANTINE 10 MG (NAMENDA) TABLET PO SCH ×2 (08:26→21:18)
[2020-01-01] MEDS: PANTOPRAZOLE 40 MG (PROTONIX) TAB PO SCH ×2 (08:26→09:00)
[2020-01-01] MEDS: DOCUSATE SODIUM 100 MG (COLACE) CAP PO SCH ×2 (09:00→21:20)
[2020-01-01] MEDS: SENNOSIDES 8.6 MG (SENOKOT) TAB PO SCH ×2 (09:00→21:21)
[2020-01-01 11:30] VITALS: BP 138/54
--- NOTE | 2020-01-01 11:41 | NUR ---
patient didn't need oxygen at this time Addendum: 01/01/20 at 1141 by HERMILA CORTÉS RT Amended: Links added.
[2020-01-01 12:00] VITALS: BP 138/54
--- NOTE | 2020-01-01 13:19 | Progress Note - Hospitalist ---
Subjective HPI/CC On Admission Date Seen by Provider: Jan 01, 2020 Time Seen by Provider: 10:20 Good Moreno (Chuck) is an 84 year old male with PMH HTN, T2DM, AFib on coumadin, who presented with shortness of breath. He reports that he started feeling bad about a week ago. He reports malaise. He was dehydrated. He thought he had a UTI. His has been sick with COVID-19, but they have been within their home. He went to the ER on Monday and did not have a UTI, but was COVID positive. He is not having any fevers, but reports having them recently. Subjective/Events-last exam He Is feeling better today. He denies any shortness of breath. He has been up and moving around. He has been eating and drinking. He has no other complaints or concerns. Focused Exam Lactate Level 12/29/19 19:26: Lactic Acid Level 1.38 Objective Exam Vital Signs Vital Signs Date Time Temp Pulse Resp B/P (MAP) Pulse Ox O2 Delivery O2 Flow Rate FiO2 01/01/20 12:00 36.0 67 20 138/54 (82) 97 NIV CPAP 1.50 1.50 Capillary Refill : Less Than 3 Seconds General Appearance: No Apparent Distress, WD/WN Respiratory: Lungs Clear, Normal Breath Sounds, No Respiratory Distress Cardiovascular: Regular Rate, Rhythm, No Edema, No Murmur Gastrointestinal: Normal Bowel Sounds, Non Tender, Soft Extremity: Normal Inspection, Non Tender, No Pedal Edema Neurologic/Psychiatric: Alert, Oriented x3, No Motor/Sensory Deficits, Normal Mood/Affect Skin: Normal Color, Warm/Dry Results/Procedures Lab Laboratory Tests 01/01/20 05:17 Patient resulted labs reviewed. Imaging: Reviewed Imaging Report Assessment/Plan Assessment and Plan Assess & Plan/Chief Complaint Acute respiratory failure due to COVID-19 Pneumonia due to COVID-19 Decadron Remdesivir day 3/5 s/p convalescent plasma x2 RT oxygen evaluation revealed no O2 need Paroxysmal atrial fibrillation Continue coumadin INR 2.1 T2DM SSI HTN GERD Continue home meds DVT Prophylaxis: already receiving therapeutic anticoagulation Diagnosis/Problems Diagnosis/Problems (1) Acute respiratory failure due to COVID-19 Status: Acute (2) Pneumonia due to COVID-19 virus Status: Acute Clinical Quality Measures DVT/VTE Risk/Contraindication: Risk Factor Score Per Nursin RFS Level Per Nursing on Admit: 4+=Very High SHERRY BIGGS MD Jan 01, 2020 13:18
[2020-01-01 16:00] VITALS: BP 123/58
[2020-01-01] MEDS: warFARin 5 MG (COUMADIN) TAB PO SCH (17:57)
[2020-01-01 20:00] VITALS: BP 149/67
[2020-01-02 00:30] VITALS: BP 139/75
[2020-01-02 03:55] VITALS: BP 125/60
[2020-01-02 06:10] LABS: INR 2.4 (0.8-1.4); PROTHROMBIN TIME PATIENT 26.7 SEC (12.2-14.7)
[2020-01-02 06:16] LABS: ALBUMIN 3.2 GM/DL (3.2-4.5)
[2020-01-02 06:17] LABS: CHLORIDE 101 MMOL/L (98-107); POTASSIUM 4.4 MMOL/L (3.6-5.0); SODIUM 134 MMOL/L (135-145)
[2020-01-02 06:18] LABS: CALCIUM 8.1 MG/DL (8.5-10.1)
[2020-01-02] MEDS: KCL 20 MEQ TAB (K-DUR) PO SCH (06:18)
[2020-01-02] MEDS: POTASSIUM CL 10MEQ/50ML IVPB 50 ML IV SCH (06:18)
[2020-01-02 06:19] LABS: GLUCOSE 195 MG/DL (70-105); TOTAL PROTEIN 6.3 GM/DL (6.4-8.2)
[2020-01-02 06:20] LABS: CARBON DIOXIDE 23 MMOL/L (21-32)
[2020-01-02 06:21] LABS: BILIRUBIN,TOTAL 0.8 MG/DL (0.1-1.0)
[2020-01-02 06:22] LABS: ALKALINE PHOSPHATASE 58 U/L (40-136)
[2020-01-02 06:23] LABS: CREATININE SERUM 0.84 MG/DL (0.60-1.30); GFR ESTIMATED > 60
[2020-01-02 06:24] LABS: BUN/CREATININE RATIO 33
[2020-01-02 06:25] LABS: ALANINE AMINOTRANSFERASE 51 U/L (0-55)
[2020-01-02 06:26] LABS: MAGNESIUM 2.2 MG/DL (1.6-2.4)
[2020-01-02] MEDS: MAGNESIUM 1 GM/100 ML IVPB 100 ML IV SCH (06:27)
[2020-01-02] MEDS: dexAMETHasone 6 MG TAB (DECADRON) PO SCH (06:40)
[2020-01-02] MEDS: inSUlin ASPART (NovoLOG) 1 UNIT/0.01 ML (CHARGE PER UNIT) SC SCH ×2 (06:40→10:15)
[2020-01-02 07:31] VITALS: BP 127/63
[2020-01-02] MEDS: PANTOPRAZOLE 40 MG (PROTONIX) TAB PO SCH ×2 (08:12→09:56)
[2020-01-02] MEDS: DOCUSATE SODIUM 100 MG (COLACE) CAP PO SCH (09:00)
[2020-01-02] MEDS: SENNOSIDES 8.6 MG (SENOKOT) TAB PO SCH (09:00)
[2020-01-02] MEDS: GABAPENTIN 100 MG (NEURONTIN) CAP PO SCH (09:56)
[2020-01-02] MEDS: CARVEDILOL 6.25 MG (COREG) TAB PO SCH (09:56)
[2020-01-02] MEDS: ASPIRIN E.C. 81 MG (ECOTRIN) TAB PO SCH (09:56)
[2020-01-02] MEDS: REMDESIVIR INJ 100 MG in NS (IVPB) 230 ML IV SCH (09:57)
[2020-01-02] MEDS: MEMANTINE 10 MG (NAMENDA) TABLET PO SCH (10:04)
[2020-01-02 11:09] VITALS: BP 122/74
[2020-01-02 12:40] VITALS: BP 122/74
--- NOTE | 2020-01-02 13:00 | Discharge Summary ---
Discharge Summary Hospital Course Problems/Dx: (1) Acute respiratory failure due to COVID-19 Status: Acute (2) Pneumonia due to COVID-19 virus Status: Acute Hospital Course Date of Admission: Dec 29, 2019 at 21:35 Admission Diagnosis : Acute respiratory failure due to COVID-19 Family Physician/Provider: Ron Burkett MD Date of Discharge: 01/02/20 Discharge Diagnosis: Acute respiratory failure due to COVID-19 Hospital Course: Good Moreno is an 84-year-old male who was admitted with acute respiratory failure due to COVID-19. He was treated with Decadron, Remdesivir, and received two units of convalescent plasma. His oxygen requirement improved and he was not requiring any supplemental oxygen at the time of discharge. He will need to remain in isolation for 72 hours after discharge. The health department should be in contact with him for further recommendations. He should follow-up with Dr. Burkett in a couple weeks. Labs and Pending Lab Test: Laboratory Tests 01/01/20 16:32: Glucometer 262H 01/01/20 20:11: Glucometer 220H 01/02/20 05:17: Prothrombin Time 26.7H, INR Comment 2.4H 01/02/20 05:19: Sodium Level 134L, Potassium Level 4.4, Chloride Level 101, Carbon Dioxide Level 23, Anion Gap 10, Blood Urea Nitrogen 28H, Creatinine 0.84, Estimat Glomerular Filtration Rate > 60, BUN/Creatinine Ratio 33, Glucose Level 195H, Calcium Level 8.1L, Corrected Calcium 8.7, Magnesium Level 2.2, Total Bilirubin 0.8, Aspartate Amino Transf (AST/SGOT) 46H, Alanine Aminotransferase (ALT/SGPT) 51, Alkaline Phosphatase 58, Total Protein 6.3L, Albumin 3.2 01/02/20 10:13: Glucometer 304H Microbiology 12/29/19 Urine Culture - Final, Complete NO GROWTH 12/29/19 Blood Culture - Preliminary, Resulted No growth Home Meds Active Reported Diltiazem ER (Diltiazem HCl) 240 Mg Capsule.er 240 Mg PO BID Sv Flaxseed Oil 1,300 mg Sftgl (Flaxseed Oil/[place] 3,6,9) 1 Each Capsule 1 Each PO HS Warfarin Sodium 5 Mg Tablet 5 Mg PO DAILY Alogliptin (Alogliptin Benzoate) 25 Mg Tablet 25 Mg PO DAILY LAST FILLED 12/11/2019 #90/90DS Vitamin C (Ascorbate Calcium) 500 Mg Tablet 500 Mg PO HS Furosemide 20 Mg Tablet 20 Mg PO 1600 Memantine HCl 10 Mg Tablet 10 Mg PO BID Pantoprazole Sodium 40 Mg Tablet.dr 40 Mg PO DAILY Gabapentin 100 Mg Capsule 200 Mg PO BID TAKES 2 (100MG) CAPSULES Hydrochlorothiazide 25 Mg Tablet 25 Mg PO DAILY Carvedilol 6.25 Mg Tablet 6.25 Mg PO BID K-Tab ER (Potassium Chloride) 10 Meq Tablet.er 10 Meq PO DAILY Centrum Adults Tablet (Multivitamin/Iron/Folic Acid) 1 Each Tablet 1 Each PO DAILY Aspirin EC (Aspirin) 81 Mg Tablet.dr 81 Mg PO DAILY Assessment/Pt Instructions Take medications as prescribed. Follow up with your primary care physician. You will need to quarantine for 72 hours. The health department should be in contact with you. Return with worsening shortness of breath or if you feel like you are getting worse. Discharge Planning: <30 minutes discharge planning Discharge Instructions Discharge Diet: No Restrictions Activity as Tolerated: Yes Pneumonia Vaccine Order Indica: Yes Discharge Physical Examination Vital Signs Vital Signs Date Time Temp Pulse Resp B/P (MAP) Pulse Ox O2 Delivery O2 Flow Rate FiO2 01/02/20 11:09 34.9 78 16 122/74 (90) 94 Room Air 01/01/20 16:00 1.50 General Appearance: No Apparent Distress, WD/WN HEENT: PERRL/EOMI, Pharynx Normal Respiratory: Lungs Clear, Normal Breath Sounds, No Respiratory Distress Cardiovascular: Regular Rate, Rhythm, No Edema, No Murmur Gastrointestinal: Normal Bowel Sounds, Non Tender, Soft Extremity: Normal Inspection, Non Tender, No Pedal Edema Skin: Normal Color, Warm/Dry Neurologic/Psychiatric: Alert, Oriented x3, No Motor/Sensory Deficits, Normal Mood/Affect Allergies: Coded Allergies: Beta-Blockers (Beta-Adrenergic Bloc (Verified Allergy, Unknown, 04/21/12) gluten (Verified Allergy, Unknown, Rash, 12/30/19) Copy Copies To 1: RON BURKETT MD Discharge Summary Date of Admission Dec 29, 2019 at 21:35 Date of Discharge Discharge Date: Jan 02, 2020 Discharge Time: 12:58 Admission Diagnosis Acute respiratory failure due to COVID-19 Discharge Diagnosis Acute respiratory failure due to COVID-19 (1) Acute respiratory failure due to COVID-19 Status: Acute (2) Pneumonia due to COVID-19 virus Status: Acute Clinical Quality Measures DVT/VTE Risk/Contraindication: Risk Factor Score Per Nursin RFS Level Per Nursing on Admit: 4+=Very High SHERRY BIGGS MD Jan 02, 2020 12:57
== END 2020-01-02 11:10 | disposition home or self-care (01) | DRG 177 ==
LOC: EDUNIT# 19:15 → ER 19:16 → 4TH 21:35
PROVIDERS: ADMIT Family Medicine; ATTEND Internal Medicine
PROC: XW033E5 Introduction of Remdesivir Anti-infective into Peripheral Vein, Percutaneous Approach, New Technology Group 5 (ICD-10-PCS; principal; 2019-12-30)
PROC: XW13325 Transfusion of Convalescent Plasma (Nonautologous) into Peripheral Vein, Percutaneous Approach, New Technology Group 5 (ICD-10-PCS; 2019-12-30)
DX: U07.1 COVID-19 (principal); J96.01 Acute respiratory failure with hypoxia; J12.89 Other viral pneumonia; I48.0 Paroxysmal atrial fibrillation; I10 Essential (primary) hypertension; I25.10 Atherosclerotic heart disease of native coronary artery without angina pectoris; E11.9 Type 2 diabetes mellitus without complications; G47.30 Sleep apnea, unspecified; K21.9 Gastro-esophageal reflux disease without esophagitis; R32 Unspecified urinary incontinence; R30.0 Dysuria; M81.0 Age-related osteoporosis without current pathological fracture; K59.00 Constipation, unspecified; Z95.5 Presence of coronary angioplasty implant and graft; Z79.01 Long term (current) use of anticoagulants
CPT/HCPCS: 36415; 71045; 80053; 81000; 82962; 83605; 83735; 83880; 84145; 85025; 85379; 85610; 85730; 86141; 86900; 86901; 87040; 87088; 93005; 94760; 94761

== ENCOUNTER → 2020-02-12 | Outpatient (CLI) | payer MEDICARE, OTHER ==
[~2020-02-12] MED LIST changes: +ALOG25TA2 PO; +ASCO-262 PO; +DILT240C87 PO; +FLAX1CAP6 PO; +FURO20TA4 PO; +MEMA10TA57 PO; +MULT-1067 PO; +PANT40TA52 PO; +POTA10TA PO; +WARF-48 PO
== END ==
LOC: LABNPT 05:30
PROVIDERS: ATTEND Internal Medicine Gastroenterology
DX: Z01.812 Encounter for preprocedural laboratory examination (principal); Z20.828 Contact with and (suspected) exposure to other viral communicable diseases
CPT/HCPCS: 87635

== ENCOUNTER 2020-04-28 12:57 | Outpatient (CLI) | payer MEDICARE, OTHER ==
[~2020-04-28] VITALS: Ht 170.2 cm; Wt 95.3 kg
[2020-04-28] MEDS ORDERED: DENOSUMAB 60 MG/1 ML (PROLIA) SQ ONE (13:15)
[2020-04-28 13:20] VITALS: BP 120/75
== END 2020-04-28 13:20 | disposition home or self-care (01) ==
LOC: SDC 12:57
PROVIDERS: ATTEND Nurse Practitioner Family
DX: M81.0 Age-related osteoporosis without current pathological fracture (principal)
CPT/HCPCS: 96372

== ENCOUNTER → 2020-06-10 | Outpatient (CLI) | payer MEDICARE, OTHER ==
[~2020-06-10] VITALS: Ht 172 cm; Wt 93.0 kg
[~2020-06-10] MED LIST changes: +CATHETER FLUSH 10 ML SYR IV PRN; +REGADENOSON 0.4 MG/5 ML SYR (LEXISCAN) IV ONE
[2020-06-10 09:31] VITALS: BP 156/85
[2020-06-10 09:33] VITALS: BP 130/72
[2020-06-10 09:35] VITALS: BP 136/68
--- NOTE | 2020-06-10 17:39 | Cardiology Stress Test Report ---
Stress Test Report Date of Procedure/Referring: Date of Procedure: Jun 10, 2020 Nancy Reyes Admitting Physician Selene Burkett MD Indications: CAD Baseline Heart Rate: 84 Baseline Blood Pressure: Blood Pressure Systolic: 136 Blood Pressure Diastolic: 68 Baseline Vitals Vital Signs Date Time Temp Pulse Resp B/P (MAP) Pulse Ox O2 Delivery O2 Flow Rate FiO2 06/10/20 09:31 90 156/85 (108) 98 Room Air Baseline EKG: Baseline EKG: A fib Summary After explaining the procedure to the patient, he signed a consent and then brought to the stress nuclear laboratory. Patient received 0.4 mg Lexiscan for stress test, ECG, heart rate and blood pressure were monitored continuously. Resting and stress dose of radio tracer were injected, imaging was acquired and reviewed in short axis, horizontal long axis and vertical long axis views. TID: 1.05 SSS: 0 SDS: 0 EF: 54 1. Patient tolerated Lexiscan well 2. Baseline atrial fibrillation persisted during test 3. No significant ischemia or infarction on SPECT images 4. Normal left ventricular size, EF 54%, gated images are unreliable due to underlying atrial fibrillation SP BISHOP MD Jun 10, 2020 17:39
== END ==
LOC: CARD 08:15
PROVIDERS: ATTEND Physician Assistant
DX: I25.10 Atherosclerotic heart disease of native coronary artery without angina pectoris (principal)
CPT/HCPCS: 78452; 93017; A9502

== ENCOUNTER 2020-07-26 10:27 | Emergency (ER) | payer MEDICARE, OTHER ==
[~2020-07-26] VITALS: Ht 172.2 cm; Wt 92.9 kg
[~2020-07-26 10:27] MED LIST changes: -CATHETER FLUSH 10 ML SYR IV PRN; -REGADENOSON 0.4 MG/5 ML SYR (LEXISCAN) IV ONE
[2020-07-26 11:35] LABS: POTASSIUM 4.3 MMOL/L (3.6-5.0)
[2020-07-26 11:36] LABS: CALCIUM 9.4 MG/DL (8.5-10.1)
[2020-07-26 11:40] LABS: BASOPHILS # (AUTO) 0.1 10^3/uL (0.0-0.1); BASOPHILS % (AUTO) 0 % (0-10); EOSINOPHILS % (AUTO) 0 % (0-10); HEMATOCRIT 46 % (40-54); HEMOGLOBIN 15.5 g/dL (13.3-17.7); LYMPHOCYTES # (AUTO) 1.2 10^3/uL (1.0-4.0); LYMPHOCYTES % (AUTO) 6 % (12-44); MEAN CORPUSCULAR HEMOGLOBIN 34 pg (25-34); MEAN CORPUSCULAR HGB CONC 34 g/dL (32-36); MEAN CORPUSCULAR VOLUME 101 fL (80-99); MEAN PLATELET VOLUME 11.3 fL (9.0-12.2); MONOCYTES # (AUTO) 2.1 10^3/uL (0.0-1.0); MONOCYTES % (AUTO) 10 % (0-12); NEUTROPHILS # (AUTO) 17.4 10^3/uL (1.8-7.8); NEUTROPHILS % (AUTO) 83 % (42-75); PLATELET COUNT 245 10^3/uL (130-400); WHITE BLOOD COUNT 21.1 10^3/uL (4.3-11.0)
[2020-07-26 11:41] LABS: CREATININE SERUM 1.33 MG/DL (0.60-1.30)
[2020-07-26 11:46] LABS: INR 2.1 (0.8-1.4); PROTHROMBIN TIME PATIENT 23.9 SEC (12.2-14.7)
--- NOTE | 2020-07-26 11:47 | Diagnostic Imaging Report ---
INDICATION: Weakness. Portable chest compared to prior study from December 29, 2019. FINDINGS: Enlargement of the cardiac silhouette unchanged. There are advanced atherosclerotic calcifications within the aortic arch. There are chronic interstitial changes within the lungs. There is no new alveolar infiltrate or consolidation evident. There is no large effusion or findings of a pneumothorax. IMPRESSION: 1. Enlarged cardiac silhouette without evidence of current failure. 2. Chronic interstitial changes without evidence of persistent or recurrent interstitial or alveolar infiltrates. 3. Pulmonary vascularity appears appropriate. Dictated by: Dictated on workstation # [id number]
[2020-07-26 12:04] LABS: BAND NEUTROPHILS 1 %; BASOPHILS % (MANUAL) 0 %; EOSINOPHILS % (MANUAL) 0 %; LYMPHOCYTES % (MANUAL) 6 %; MONOCYTES % (MANUAL) 6 %; NEUTROPHILS % (MANUAL) 87 %; RBC MORPH NORMAL
--- NOTE | 2020-07-26 12:44 | ED General ---
General Chief Complaint: Neurological Problems Stated Complaint: WEAKNESS Nursing Triage Note: Pt ambulatory to ED with cane. Pt reports profound weakness this morning. Pt reports being in back yard with dogs and pt became so weak on the back porch that pt's leg gave out and pt lowered self to porch. Pt's was not home and pt layed on porch for approximately two hours. Pt denies pain or injury. Nursing Sepsis Screen: No Definite Risk Source of Information: Patient Exam Limitations: No Limitations History of Present Illness Date Seen by Provider: July 26, 2020 Time Seen by Provider: 11:25 Initial Comments Patient is an 84-year-old male who presents to the emergency department today with a chief complaint of generalized weakness. Patient states that he went out side this morning to clean up in the yard and he was out there for about 45 minutes. Patient states that he came back to the porch and had to go up 4 steps to get into the house when he became so weak that he lowered himself to the floor of the porch. Patient states he was unable to get up secondary to his weakness. He laid there for approximately 2 hours. He denies any chest pain or shortness of breath. He denies any recent illnesses such as fevers, chills, cough or congestion. No nausea vomiting or diarrhea. No problems with urination. He states he thinks that he just "overdid it". Patient states that he is feeling a little bit better laying here in the bed. Of note the patient is in A. fib with a rapid ventricular response at 130 this morning. Blood pressure is good. His is concerned because she states that he has had acute coronary syndrome with 2 prior episodes on presentation similar to this. The patient adamantly denies chest pain or shortness of breath again. His states that he has had a "deep wet" sounding cough for about a week and a half. The patient does not seem to bothered by this. All other review of systems reviewed and negative except as stated above. Associated Systoms: Malaise Allergies and Home Medications Allergies Coded Allergies: Beta-Blockers (Beta-Adrenergic Bloc (Verified Allergy, Unknown, 04/21/12) gluten (Verified Allergy, Unknown, Rash, 12/30/19) Home Medications Alogliptin Benzoate 25 Mg Tablet, 25 MG PO DAILY, (Reported) LAST FILLED 12/11/2019 #90/90DS Ascorbate Calcium 500 Mg Tablet, 500 MG PO HS, (Reported) Aspirin 81 Mg Tablet.dr, 81 MG PO DAILY, (Reported) Carvedilol 6.25 Mg Tablet, 6.25 MG PO BID, (Reported) Diltiazem HCl 240 Mg Capsule.er, 240 MG PO BID, (Reported) Flaxseed Oil/Salix 3,6,9 1 Each Capsule, 1 EACH PO HS, (Reported) Furosemide 20 Mg Tablet, 20 MG PO 1600, (Reported) Gabapentin 100 Mg Capsule, 200 MG PO BID, (Reported) TAKES 2 (100MG) CAPSULES Hydrochlorothiazide 25 Mg Tablet, 25 MG PO DAILY, (Reported) Memantine HCl 10 Mg Tablet, 10 MG PO BID, (Reported) Multivitamin/Iron/Folic Acid 1 Each Tablet, 1 EACH PO DAILY, (Reported) Pantoprazole Sodium 40 Mg Tablet.dr, 40 MG PO DAILY, (Reported) Potassium Chloride 10 Meq Tablet.er, 10 MEQ PO DAILY, (Reported) Warfarin Sodium 5 Mg Tablet, 5 MG PO DAILY, (Reported) Patient Home Medication List Home Medication List Reviewed: Yes Review of Systems Review of Systems Constitutional: see HPI EENTM: no symptoms reported Respiratory: no symptoms reported Cardiovascular: no symptoms reported Gastrointestinal: no symptoms reported Genitourinary: no symptoms reported Musculoskeletal: muscle weakness Skin: no symptoms reported Psychiatric/Neurological: Weakness All Other Systems Reviewed Negative Unless Noted: Yes Past Itbqjji-Gizsbf-Bfyacq Hx Patient Social History Alcohol Use: Rarely Uses 2nd Hand Smoke Exposure: No Recent Infectious Disease Expo: No Recent Hopitalizations: No Immunizations Up To Date Date of Pneumonia Vaccine: May 20, 2012 Date of Influenza Vaccine: Nov 28, 2018 Past Medical History Surgeries: Yes (top rib removed r side 32 yrs ago) Coronary Stent, Orthopedic Respiratory: Yes (COVID) Sleep Apnea Cardiac: Yes Atrial Fibrillation, Coronary Artery Disease, Hypertension Neurological: No Reproductive Disorders: No Sexually Transmitted Disease: No HIV/AIDS: No Gastrointestinal: Yes Hiatal Hernia Musculoskeletal: Yes (BACK SURGERY IN 2011) Osteoporosis, Back Injury Endocrine: No Cancer: No Psychosocial: No Integumentary: No Blood Disorders: No Physical Exam Vital Signs Vital Signs - First Documented 07/26/20 11:02 Temp 36.4 Pulse 131 Resp 24 Pulse Ox 95 O2 Delivery Room Air Capillary Refill : Less Than 3 Seconds Height, Weight, BMI Height: 5'8.00" Weight: 226lbs. 0.0oz. 102.891174pv; 31.00 BMI Method:Stated General Appearance: No Apparent Distress, WD/WN Eyes: Bilateral Eye Normal Inspection, Bilateral Eye PERRL, Bilateral Eye EOMI HEENT: PERRL/EOMI Neck: Normal Inspection Respiratory: Lungs Clear, Normal Breath Sounds, No Accessory Muscle Use, No Respiratory Distress Cardiovascular: Normal Peripheral Pulses, Irregularly Irregular, Tachycardia Gastrointestinal: Normal Bowel Sounds, Non Tender, Soft Extremity: Normal Capillary Refill, Normal Inspection, Non Tender, No Calf Tenderness Neurologic/Psychiatric: Alert, Oriented x3, No Motor/Sensory Deficits Focused Exam Lactate Level 07/26/20 13:05: Lactic Acid Level 1.23 Lactic Acid Level Laboratory Tests Test 07/26/20 13:05 Lactic Acid Level 1.23 MMOL/L (0.50-2.00) Progress/Results/Core Measures Suspected Sepsis Recent Fever Within 48 Hours: No Infection Criteria Present: None New/Unexplained Altered Menta: No Sepsis Screen: No Definite Risk SIRS Temperature: Pulse: 131 Respiratory Rate: 24 Laboratory Tests 07/26/20 11:20: White Blood Count 21.1H Blood Pressure / Mean: 07/26/20 13:05: Lactic Acid Level 1.23 Laboratory Tests 07/26/20 11:20: Creatinine 1.33H, INR Comment 2.1H, Platelet Count 245 Results/Orders Lab Results Laboratory Tests Test 07/26/20 11:20 07/26/20 12:30 07/26/20 13:05 Range/Units White Blood Count 21.1 H 4.3-11.0 10^3/uL Red Blood Count 4.59 4.30-5.52 10^6/uL Hemoglobin 15.5 13.3-17.7 g/dL Hematocrit 46 40-54 % Mean Corpuscular Volume 101 H 80-99 fL Mean Corpuscular Hemoglobin 34 25-34 pg Mean Corpuscular Hemoglobin Concent 34 32-36 g/dL Red Cell Distribution Width 14.0 10.0-14.5 % Platelet Count 245 130-400 10^3/uL Mean Platelet Volume 11.3 9.0-12.2 fL Immature Granulocyte % (Auto) 1 % Neutrophils (%) (Auto) 83 H 42-75 % Lymphocytes (%) (Auto) 6 L 12-44 % Monocytes (%) (Auto) 10 0-12 % Eosinophils (%) (Auto) 0 0-10 % Basophils (%) (Auto) 0 0-10 % Neutrophils # (Auto) 17.4 H 1.8-7.8 10^3/uL Lymphocytes # (Auto) 1.2 1.0-4.0 10^3/uL Monocytes # (Auto) 2.1 H 0.0-1.0 10^3/uL Eosinophils # (Auto) 0.0 0.0-0.3 10^3/uL Basophils # (Auto) 0.1 0.0-0.1 10^3/uL Immature Granulocyte # (Auto) 0.3 H 0.0-0.1 10^3/uL Neutrophils % (Manual) 87 % Lymphocytes % (Manual) 6 % Monocytes % (Manual) 6 % Eosinophils % (Manual) 0 % Basophils % (Manual) 0 % Band Neutrophils 1 % Blood Morphology Comment NORMAL Prothrombin Time 23.9 H 12.2-14.7 SEC INR Comment 2.1 H 0.8-1.4 Sodium Level 139 135-145 MMOL/L Potassium Level 4.3 3.6-5.0 MMOL/L Chloride Level 101 98-107 MMOL/L Carbon Dioxide Level 28 21-32 MMOL/L Anion Gap 10 5-14 MMOL/L Blood Urea Nitrogen 23 H 7-18 MG/DL Creatinine 1.33 H 0.60-1.30 MG/DL Estimat Glomerular Filtration Rate 51 BUN/Creatinine Ratio 17 Glucose Level 148 H 70-105 MG/DL Calcium Level 9.4 8.5-10.1 MG/DL Troponin I < 0.028 <0.028 NG/ML C-Reactive Protein High Sensitivity 2.78 H 0.00-0.50 MG/DL Urine Color YELLOW Urine Clarity CLEAR Urine pH 6.0 5-9 Urine Specific [place] 1.010 L 1.016-1.022 Urine Protein NEGATIVE NEGATIVE Urine Glucose (UA) NEGATIVE NEGATIVE Urine Ketones NEGATIVE NEGATIVE Urine Nitrite NEGATIVE NEGATIVE Urine Bilirubin NEGATIVE NEGATIVE Urine Urobilinogen 0.2 < = 1.0 MG/DL Urine Leukocyte Esterase NEGATIVE NEGATIVE Urine RBC (Auto) TRACE-I NEGATIVE Urine RBC RARE /HPF Urine WBC NONE /HPF Urine Squamous Epithelial Cells RARE /HPF Urine Crystals NONE /LPF Urine Bacteria NEGATIVE /HPF Urine Casts PRESENT /LPF Urine Hyaline Casts 2-5 H /LPF Urine Mucus NEGATIVE /LPF Urine Culture Indicated NO Lactic Acid Level 1.23 0.50-2.00 MMOL/L My Orders Orders - MAURICIO GARZA MD Ed Iv/Invasive Line Start (07/26/20 11:27) Cbc With Automated Diff (07/26/20 11:27) Basic Metabolic Panel (07/26/20 11:27) Protime With Inr (07/26/20 11:27) Chest 1 View, Ap/Pa Only (07/26/20 11:27) Ekg Tracing (07/26/20 11:27) Manual Differential (07/26/20 11:20) Ns Iv 500 Ml (Sodium Chloride 0.9%) (07/26/20 12:45) Hs C Reactive Protein (07/26/20 12:53) Lactic Acid Analyzer (07/26/20 12:53) Ua Culture If Indicated (07/26/20 12:57) Troponin I (07/26/20 13:50) Vital Signs/I&O 07/26/20 11:02 Temp 36.4 Pulse 131 Resp 24 B/P (MAP) Pulse Ox 95 O2 Delivery Room Air Capillary Refill : Less Than 3 Seconds Progress Note : Time: 14:39 Progress Note Patient continues to look and feel well. His heart rate is down into the 70s A. fib controlled ventricular response. Labs have been reviewed and are unremarkable. Troponin delayed from admission is undetectable. He has no clinical or objective findings to warrant further studies from the emergency department. Chest x-ray is clear, urinalysis is clear. CRP is very minimally bumped lactic acid is negative. I think this leukocytosis is a response from his episode where he was lying outside for a couple of hours. I think this is just demargination and not really an indication of infection/sepsis. Patient and family are made aware of his lab results. He is comfortable with discharge. All questions were sought and answered. ECG Initial ECG Impression Date: July 26, 2020 Initial ECG Impression Time: 11:20 Initial ECG Rate: 129 Initial ECG Rhythm: A Fib/Flutter Initial ECG Impression: Nonspecific Changes, Atrial Fibrillation w/RVR Diagnostic Imaging Diagonstic Imaging: Xray Plain Films/CT/US/NM/MRI: chest Comments [facility] [place], [place] NAME: NABILA DINERO [facility] REC#: [id number] PT STATUS: REG ER : 1935 PHYSICIAN: MAURICIO GARZA MD ADMIT DATE: 07/26/20/ER Draft Date of Exam:07/26/20 CHEST 1 VIEW, AP/PA ONLY INDICATION: Weakness. Portable chest compared to prior study from December 29, 2019. FINDINGS: Enlargement of the cardiac silhouette unchanged. There are advanced atherosclerotic calcifications within the aortic arch. There are chronic interstitial changes within the lungs. There is no new alveolar infiltrate or consolidation evident. There is no large effusion or findings of a pneumothorax. IMPRESSION: 1. Enlarged cardiac silhouette without evidence of current failure. 2. Chronic interstitial changes without evidence of persistent or recurrent interstitial or alveolar infiltrates. 3. Pulmonary vascularity appears appropriate. Dictated on workstation # [id number] Dict: 07/26/20 1143 Trans: 07/26/20 1147 [id number] Interpreted by: MORIS PARKER MD Electronically signed by: Departure Impression Primary Impression: Generalized weakness Additional Impressions: Chronic atrial fibrillation with rapid ventricular response Leukocytosis Qualified Codes: D72.829 - Elevated white blood cell count, unspecified Disposition: 01 HOME, SELF-CARE Condition: Stable Departure-Patient Inst. Decision time for Depature: 14:41 Referrals: RON BURKETT MD (PCP/Family) Primary Care Physician Patient Instructions: Generalized Weakness (DC) Add. Discharge Instructions: Drink plenty of fluids to stay well-hydrated. Follow-up with Dr. Burkett this week. Return to the emergency room for any return of or worsening symptoms, or new emergent concerns. Copy Copies To 1: RON BURKETT MD, KATHRYN M MD July 26, 2020 12:44
[2020-07-26] MEDS ORDERED: NS IV 500 ML 500 ML IV SCH (12:45)
[2020-07-26 13:01] LABS: BILIRUBIN,URINE NEGATIVE (NEGATIVE); CLARITY,URINE CLEAR; COLOR,URINE YELLOW; GLUCOSE, URINE (UA) NEGATIVE (NEGATIVE); KETONES,URINE NEGATIVE (NEGATIVE); LEUKOCYTE ESTERASE ,URINE NEGATIVE (NEGATIVE); NITRITE,URINE NEGATIVE (NEGATIVE); PROTEIN,URINE NEGATIVE (NEGATIVE)
[2020-07-26 13:16] LABS: BACTERIA,URINE NEGATIVE /HPF; RBC,URINE RARE /HPF; SQUAMOUS EPITHELIAL CELL,UR RARE /HPF
[2020-07-26 14:45] VITALS: BP 132/89
== END 2020-07-26 14:45 | disposition home or self-care (01) ==
LOC: EDUNIT# 10:27 → ER 10:29
DX: R53.1 Weakness (principal); D72.829 Elevated white blood cell count, unspecified; I48.20 Chronic atrial fibrillation, unspecified; I10 Essential (primary) hypertension; I25.10 Atherosclerotic heart disease of native coronary artery without angina pectoris; M81.0 Age-related osteoporosis without current pathological fracture; Z95.5 Presence of coronary angioplasty implant and graft; Z86.16 Personal history of COVID-19; Z79.82 Long term (current) use of aspirin; Z79.01 Long term (current) use of anticoagulants; Z79.899 Other long term (current) drug therapy
CPT/HCPCS: 36415; 71045; 80048; 81000; 83605; 84484; 85007; 85027; 85610; 86141; 93005

== ENCOUNTER 2020-08-20 14:00 | Outpatient (RCR) | payer MEDICARE, OTHER | END 2020-08-20 15:05 | disposition home or self-care (01) | PROVIDERS: ATTEND Family Medicine | DX: R13.10 Dysphagia, unspecified (principal); R53.1 Weakness ==

== ENCOUNTER → 2020-08-24 | Outpatient (CLI) | payer MEDICARE, OTHER ==
[~2020-08-24] MED LIST changes: +GADOBUTROL 10 MMOL/10 ML (GADAVIST) VIAL IV ONE
--- NOTE | 2020-08-24 12:46 | Diagnostic Imaging Report ---
PROCEDURE: MR imaging of the brain with and without contrast. TECHNIQUE: Multiplanar, multisequence MR imaging of the brain was performed with and without contrast. INDICATION: Gait instability. Comparison is made with prior MRI of the brain from 05/02/2013. Ventricles and sulci are prominent consistent with the patient's age. Periventricular and subcortical white matter changes are again noted consistent with chronic microvascular ischemia. This appears to be slightly more advanced when compared with study from 2013. No diffusion abnormality is seen to suggest acute ischemia. The normal expected flow-voids within the carotid siphons are seen. No abnormal enhancement following contrast administration is identified. The corpus callosum is unremarkable. The sella and parasellar structures are unremarkable. No acute intra-axial or extra-axial hemorrhage is detected. IMPRESSION: Cerebral atrophy with progression of changes of chronic microvascular ischemia when compared with exam from 05/02/2013. No acute intracranial process is detected. Dictated by: Dictated on workstation # [id number]
== END ==
LOC: RAD 11:00
PROVIDERS: ATTEND Family Medicine
DX: G31.9 Degenerative disease of nervous system, unspecified (principal); I67.82 Cerebral ischemia
CPT/HCPCS: 70553

== ENCOUNTER → 2021-05-21 | Outpatient (CLI) | payer MEDICARE, OTHER ==
[~2021-05-21] MED LIST changes: -GADOBUTROL 10 MMOL/10 ML (GADAVIST) VIAL IV ONE
== END ==
LOC: CARD 14:30
PROVIDERS: ATTEND Internal Medicine Cardiovascular Disease
DX: I11.9 Hypertensive heart disease without heart failure (principal); I08.3 Combined rheumatic disorders of mitral, aortic and tricuspid valves
CPT/HCPCS: 93306

== ENCOUNTER → 2021-06-01 | Outpatient (CLI) | payer MEDICARE, OTHER ==
[~2021-06-01] VITALS: Ht 172 cm; Wt 92.9 kg
[~2021-06-01] MED LIST changes: +DENOSUMAB 60 MG/1 ML (PROLIA) SQ ONE
[2021-06-01 12:47] VITALS: BP 120/65
== END ==
LOC: SDC 12:29
PROVIDERS: ATTEND Nurse Practitioner Family
DX: M81.0 Age-related osteoporosis without current pathological fracture (principal)
CPT/HCPCS: 96372

== ENCOUNTER → 2021-06-16 | Outpatient (CLI) | payer MEDICARE, OTHER ==
[~2021-06-16] MED LIST changes: +CATHETER FLUSH 10 ML SYR IVP PRN; -DENOSUMAB 60 MG/1 ML (PROLIA) SQ ONE; +REGADENOSON 0.4 MG/5 ML SYR (LEXISCAN) IV ONE
[2021-06-16 09:29] VITALS: BP 145/80
--- NOTE | 2021-06-16 14:00 | Cardiology Stress Test Report ---
Stress Test Report Date of Procedure/Referring: Date of Procedure: Jun 16, 2021 Nancy Reyes Admitting Physician John Hagan MD Indications: atrial fibrillation Baseline Heart Rate: 101 Baseline Blood Pressure: Blood Pressure Systolic: 145 Blood Pressure Diastolic: 80 Baseline Vitals Vital Signs Date Time Temp Pulse Resp B/P (MAP) Pulse Ox O2 Delivery O2 Flow Rate FiO2 06/16/21 09:29 117 19 145/80 (101) 98 Baseline EKG: Baseline EKG: a fib Summary After explaining the procedure to the patient, he signed a consent and then brought to the stress nuclear laboratory. Patient received 0.4 mg Lexiscan for stress test, ECG, heart rate and blood pressure were monitored continuously. Resting and stress dose of radio tracer were injected, imaging was acquired and reviewed in short axis, horizontal long axis and vertical long axis views. TID: 1.06 SSS: 0 SDS: 0 EF: 38 1. Patient tolerated Lexiscan well 2. Baseline atrial fibrillation persisted during test 3. No significant ischemia or infarction noted on SPECT images 4. Normal left ventricular size, reduced systolic function with ejection fraction 38%, gated images are unreliable due to underlying atrial fibrillation, echo on May 25, 2019 to estimate ejection fraction 55% SP BISHOP MD Jun 16, 2021 14:00
== END ==
LOC: CARD 08:15
PROVIDERS: ATTEND Physician Assistant
DX: I48.0 Paroxysmal atrial fibrillation (principal)
CPT/HCPCS: 78452; 93017; A9502

== ENCOUNTER 2021-06-17 08:30 | Outpatient (RCR) | payer MEDICARE, OTHER ==
[~2021-06-17 08:30] MED LIST changes: -CATHETER FLUSH 10 ML SYR IVP PRN; -REGADENOSON 0.4 MG/5 ML SYR (LEXISCAN) IV ONE
[2021-06-20] MEDS ORDERED: HYDR200T46 PO (18:36)
[2021-06-21] MEDS ORDERED: CARV12.53 PO (10:57)
[2021-06-21] MEDS ORDERED: WARF-48 PO (10:57)
[2021-06-21] MEDS ORDERED: MULT-1112 PO (10:57)
[2021-06-21] MEDS ORDERED: POTA-51 PO (11:12)
[2021-06-27] MEDS ORDERED: DILT180C85 PO (10:50)
[2021-06-27] MEDS ORDERED: DIGO125T18 PO (10:50)
[2021-06-27] MEDS ORDERED: CARV3.122 PO (10:50)
[2021-06-27] MEDS ORDERED: POTA-51 PO (10:51)
[2021-06-27] MEDS ORDERED: AMOX1TAB12 PO (11:00)
== END 2021-07-03 | disposition home or self-care (01) ==
PROVIDERS: ATTEND Orthopaedic Surgery Orthopaedic Surgery of the Spine
DX: M54.50 Low back pain, unspecified (principal); G89.29 Other chronic pain; E11.9 Type 2 diabetes mellitus without complications

== ENCOUNTER → 2021-06-18 | Outpatient (CLI) | payer MEDICARE, OTHER ==
[~2021-06-18] MED LIST changes: +CARV12.53 PO; +MULT-1112 PO; +POTA-51 PO
--- NOTE | 2021-06-18 09:37 | Diagnostic Imaging Report ---
CLINICAL INDICATION: Patient having increased low back pain and history of fractured sacrum by doing heavy lifting and digging years ago. EXAM: MRI of the lumbar spine without contrast. Sequences include sagittal T2, sagittal T1, sagittal T2 fat-sat, and axial T2. COMPARISON: X-ray of the lumbar spine dated 09/25/2018. FINDINGS: There is no acute lumbar spine fracture. There is low signal involving the bilateral sacral wing regions consistent with vertebroplasty changes which is noted on the prior x-ray. There is small amount of Modic type I degenerative signal changes involving the right superior aspect of L5 vertebra. There are small spurs involving lumbar spine. There is hypertrophic spur involving the L5-S1 level. There is lower lumbar spine facet arthropathy. The visualized portions of the distal thoracic spinal cord, conus medullaris, and cauda equina nerve roots are unremarkable. The conus medullaris tip is seen at the upper L1 vertebral body level. There is no significant paraspinal soft tissue abnormality. T12-L1: There is a small annular tear involving the posterior aspect of this. There is no significant disk bulge. No significant central canal or neural foramen narrowing. L1-L2: There is subtle grade 1 retrolisthesis of L1 on L2. There is mild diffuse disk bulge. There is mild to moderate facet arthropathy with hypertrophic changes on left side. There is no significant central canal stenosis. There is mild right neural foramen narrowing. There is no significant left neural foramen narrowing. L2-L3: There is moderate bilateral facet arthropathy and ligamentum flavum buckling. There is a diffuse disk bulge with disk spurs extending into the bilateral subarticular regions. There is mild central canal stenosis. There is mild to moderate right neural foramen narrowing. There is no significant left neural foramen narrowing. L3-L4: There is moderate bilateral facet arthropathy. There is no significant left neural foramen narrowing. There is mild to moderate right neural foramen narrowing. There is no significant central canal stenosis. L4-L5: There is subtle grade 1 anterolisthesis of L4 on L5. There is severe bilateral facet arthropathy/hypertrophy with degenerative facet effusions. There is a mild diffuse disk bulge with disk bulging into the foraminal regions bilaterally. There is mild to moderate right neural foramen narrowing and moderate left neural foramen narrowing. There is moderate central canal stenosis. There is prominence of posterior epidural fat. L5-S1: There is grade 1 anterolisthesis of L5 on S1. There is a diffuse disk bulge with partial calcification involving the posterior aspect of the disc. There is severe right facet arthropathy/hypertrophy. There is mild to moderate left facet arthropathy. There is no significant central canal stenosis. There is mild left neural foramen narrowing and moderate to severe right neural foramen narrowing. IMPRESSION: 1: There is no acute lumbar spine fracture. 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 Dictated by: Dictated on workstation # [id number]
== END ==
LOC: RAD 08:00
PROVIDERS: ATTEND Orthopaedic Surgery Orthopaedic Surgery of the Spine
DX: M47.816 Spondylosis without myelopathy or radiculopathy, lumbar region (principal); M47.817 Spondylosis without myelopathy or radiculopathy, lumbosacral region; M51.26 Other intervertebral disc displacement, lumbar region; M51.27 Other intervertebral disc displacement, lumbosacral region; M48.061 Spinal stenosis, lumbar region without neurogenic claudication; M48.02 Spinal stenosis, cervical region; M43.16 Spondylolisthesis, lumbar region; M43.17 Spondylolisthesis, lumbosacral region; Z98.1 Arthrodesis status
CPT/HCPCS: 72148

== ENCOUNTER 2021-06-20 11:29 | Inpatient (IN) | payer MEDICARE, OTHER ==
[~2021-06-20] VITALS: Ht 170.2 cm; Wt 88.1 kg
[~2021-06-20 11:29] MED LIST changes: -CARV12.53 PO; -MULT-1112 PO; -POTA-51 PO
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
[2021-06-20] MEDS ORDERED: LACTATED RINGERS 1,000 ML IV ONE (12:00)
[2021-06-20 12:03] LABS: BASOPHILS % (AUTO) 0 % (0-10); EOSINOPHILS % (AUTO) 0 % (0-10); HEMATOCRIT 47 % (40-54); HEMOGLOBIN 15.3 g/dL (13.3-17.7); LYMPHOCYTES # (AUTO) 1.1 10^3/uL (1.0-4.0); LYMPHOCYTES % (AUTO) 6 % (12-44); MEAN CORPUSCULAR HEMOGLOBIN 34 pg (25-34); MEAN CORPUSCULAR HGB CONC 33 g/dL (32-36); MEAN CORPUSCULAR VOLUME 104 fL (80-99); MEAN PLATELET VOLUME 10.6 fL (9.0-12.2); MONOCYTES # (AUTO) 1.5 10^3/uL (0.0-1.0); MONOCYTES % (AUTO) 8 % (0-12); NEUTROPHILS # (AUTO) 15.7 10^3/uL (1.8-7.8); NEUTROPHILS % (AUTO) 85 % (42-75); PLATELET COUNT 201 10^3/uL (130-400); WHITE BLOOD COUNT 18.5 10^3/uL (4.3-11.0)
[2021-06-20 12:12] LABS: POTASSIUM 4.9 MMOL/L (3.6-5.0)
[2021-06-20 12:13] LABS: CALCIUM 9.6 MG/DL (8.5-10.1)
[2021-06-20 12:15] LABS: TOTAL PROTEIN 7.4 GM/DL (6.4-8.2)
[2021-06-20 12:16] LABS: BILIRUBIN,TOTAL 1.1 MG/DL (0.1-1.0)
[2021-06-20 12:18] LABS: CREATININE SERUM 1.2 MG/DL (0.60-1.30)
[2021-06-20 12:28] LABS: BASOPHILS % (MANUAL) 1 %; EOSINOPHILS % (MANUAL) 1 %; LYMPHOCYTES % (MANUAL) 9 %; MONOCYTES % (MANUAL) 10 %; NEUTROPHILS % (MANUAL) 79 %; RBC MORPH NORMAL
[2021-06-20 13:28] LABS: BILIRUBIN,URINE NEGATIVE (NEGATIVE); CLARITY,URINE CLOUDY; COLOR,URINE YELLOW; GLUCOSE, URINE (UA) NEGATIVE (NEGATIVE); KETONES,URINE NEGATIVE (NEGATIVE); LEUKOCYTE ESTERASE ,URINE 3+ (NEGATIVE); NITRITE,URINE NEGATIVE (NEGATIVE); PROTEIN,URINE NEGATIVE (NEGATIVE)
[2021-06-20 13:45] LABS: BACTERIA,URINE FEW /HPF; RBC,URINE >100 /HPF; WBC,URINE 50-100 /HPF
[2021-06-20] MEDS ORDERED: cefTRIAXone 1 GM PRE-MIX 50 ML IV ONE (14:15)
[2021-06-20] MEDS ORDERED: NS IV 1000 ML 1,000 ML IV SCH (14:15)
[2021-06-20 14:48] LABS: INR 1.7 (0.8-1.4); PROTHROMBIN TIME PATIENT 20.7 SEC (12.2-14.7)
--- NOTE | 2021-06-20 14:51 | Diagnostic Imaging Report ---
EXAM: CHEST 1 VIEW, AP/PA ONLY INDICATION: Generalized weakness. COMPARISON: 07/26/2020. FINDINGS: Stable cardiomegaly with mild pulmonary vascular congestion. Bibasilar atelectasis with no new focal pulmonary opacity. No pleural effusion or pneumothorax. No acute osseous findings. Chronic right rib fractures. IMPRESSION: Stable exam including cardiomegaly, mild pulmonary vascular congestion and bibasilar atelectasis, less likely infiltrate. Dictated by: Dictated on workstation # [id number]
[2021-06-20] MEDS ORDERED: DIGOXIN 0.25 MG/ML (LANOXIN) 2 ML AMP IV ONE (15:45)
--- NOTE | 2021-06-20 15:45 | Tele-ICU Consult ---
History of Present Illness History of Present Illness Date Seen by Provider: Jun 20, 2021 Time Seen by Provider: 15:44 History of Present Illness Is a 85-year-old male with past medical history of chronic atrial fibrillation who underwent a stress test recently and found no evidence of any ischemic defects. However he came to the emergency room accompanied by his significant other complaining of feeling weak and has some diarrheal symptoms. His significant other had few days ago similar symptoms and resolved. Today he is developing frequent urination and hesitancy at times. In the emergency room he is found to be hypotensive and has atrial fibrillation with rapid ventricular rate. He is given a fluid bolus and subsequently admitted to the intensive care unit where I have a video visit and he came and discussed with the RADIOGRAPHER and the patient. I have ordered IV digoxin to control his rate while he is receiving IV fluid bolus. IV antibiotics have been written as there is a concern for regulatory infection and sepsis. His lactic acid however is normal. Allergies and Home Medications Allergies Coded Allergies: Beta-Blockers (Beta-Adrenergic Bloc (Verified Allergy, Unknown, 04/21/12) gluten (Verified Allergy, Unknown, Rash, 12/30/19) Home Medications Alogliptin Benzoate 25 Mg Tablet, 25 MG PO DAILY, (Reported) LAST FILLED 12/11/2019 #90/90DS Ascorbate Calcium 500 Mg Tablet, 500 MG PO HS, (Reported) Aspirin 81 Mg Tablet.dr, 81 MG PO DAILY, (Reported) Carvedilol 6.25 Mg Tablet, 6.25 MG PO BID, (Reported) Diltiazem HCl 240 Mg Capsule.er, 240 MG PO BID, (Reported) Flaxseed Oil/[place] 3,6,9 1 Each Capsule, 1 EACH PO HS, (Reported) Furosemide 20 Mg Tablet, 20 MG PO 1600, (Reported) Gabapentin 100 Mg Capsule, 200 MG PO BID, (Reported) TAKES 2 (100MG) CAPSULES Hydrochlorothiazide 25 Mg Tablet, 25 MG PO DAILY, (Reported) Memantine HCl 10 Mg Tablet, 10 MG PO BID, (Reported) Multivitamin/Iron/Folic Acid 1 Each Tablet, 1 EACH PO DAILY, (Reported) Pantoprazole Sodium 40 Mg Tablet.dr, 40 MG PO DAILY, (Reported) Potassium Chloride 10 Meq Tablet.er, 10 MEQ PO DAILY, (Reported) Warfarin Sodium 5 Mg Tablet, 5 MG PO DAILY, (Reported) Past Medical/Social/Family Hx Patient Social History Tobacco Use?: No Substance use?: No Alcohol Use?: No Immunizations Up To Date Second COVID19 Vaccination Yousuf: 06/2020 Date of Pneumonia Vaccine: May 20, 2012 Current Status Advance Directives: No Primary Language: Macedonian Preferred Spoken Language: Macedonian Review of Systems Constitutional: see HPI Other ROS PER RN Focused Exam Lactate Level 06/20/21 14:20: Lactic Acid Level 1.63 Height, Weight, BMI Height: 5'8.00" Weight: 226lbs. 0.0oz. 102.973863ks; 32.00 BMI Method:Stated Lactic Acid Level Laboratory Tests Test 06/20/21 14:20 Lactic Acid Level 1.63 MMOL/L (0.50-2.00) Exam Exam Patient acknowledged, consented, and participated in this virtual visit which was conducted using real time audio/video Vital Signs Date Time Temp Pulse Resp B/P (MAP) Pulse Ox O2 Delivery O2 Flow Rate FiO2 06/20/21 15:28 134 06/20/21 11:35 36.2 101 22 134/86 (102) 96 Room Air Height & Weight Height: 5'8.00" Weight: 226lbs. 0.0oz. 102.939539rj; 32.00 BMI Method:Stated General Appearance: Anxious Capillary Refill: Less Than 3 Seconds Peripheral Pulses: 2+ Radial Pulses (R), 2+ Radial Pulses (L) Gastrointestinal: normal bowel sounds (Active bowel sounds), non tender, soft Other comments PE PER RN Results Lab Laboratory Tests 06/20/21 11:55 Assessment/Plan Assessment/Plan 1. Urinary tract infection 2. Severe sepsis possibly due to UTI 3. Atrial fibrillation with rapid ventricular rate 4. Hypotension probably due to sepsis. Recommendations 1. Continue IV fluid bolus 2. If his blood pressure does not improve start on a Levophed 3. IV antibiotics per primary care 4. We will give IV digoxin 0.5 mg IV x1 and see if he responds. 5. Suggest cardiology consultation for management of atrial fibrillation. 6. Anticoagulant therapy has been started.. 7. Further treatment plan depends upon his hospital course Critical Care: Critically Ill Patient Time spent with patient (mins): 30 LÓPEZ ANDERSEN MD Jun 20, 2021 15:45
[2021-06-20] MEDS ORDERED: ONDANSETRON 4 MG/2 ML (SDV) Z0FRAN IV PRN (16:00)
[2021-06-20] MEDS: NS IV 1000 ML 1,000 ML IV SCH ×2 (16:12→22:21)
[2021-06-20] MEDS: ACETAMINOPHEN 325 MG TABLET PO PRN (16:12)
[2021-06-20] MEDS: inSUlin ASPART (NovoLOG) 1 UNIT/0.01 ML (CHARGE PER UNIT) SC SCH ×2 (16:22→20:10)
[2021-06-20] MEDS ORDERED: warFARin 5 MG (COUMADIN) TAB PO SCH (18:00)
[2021-06-20] MEDS ORDERED: HYDR200T46 PO (18:36)
[2021-06-21] MEDS: ACETAMINOPHEN 325 MG TABLET PO PRN ×2 (00:04→17:33)
[2021-06-21 04:34] LABS: BASOPHILS # (AUTO) 0.1 10^3/uL (0.0-0.1); BASOPHILS % (AUTO) 0 % (0-10); EOSINOPHILS % (AUTO) 0 % (0-10); HEMATOCRIT 43 % (40-54); LYMPHOCYTES % (AUTO) 12 % (12-44); MEAN CORPUSCULAR HEMOGLOBIN 34 pg (25-34); MEAN CORPUSCULAR HGB CONC 33 g/dL (32-36); MEAN CORPUSCULAR VOLUME 103 fL (80-99); MEAN PLATELET VOLUME 10.7 fL (9.0-12.2); MONOCYTES # (AUTO) 1.7 10^3/uL (0.0-1.0); MONOCYTES % (AUTO) 10 % (0-12); NEUTROPHILS # (AUTO) 13.2 10^3/uL (1.8-7.8); NEUTROPHILS % (AUTO) 77 % (42-75); PLATELET COUNT 178 10^3/uL (130-400); WHITE BLOOD COUNT 17.2 10^3/uL (4.3-11.0)
[2021-06-21 04:47] LABS: PROTHROMBIN TIME PATIENT 23.5 SEC (12.2-14.7)
[2021-06-21 04:55] LABS: POTASSIUM 3.8 MMOL/L (3.6-5.0)
[2021-06-21 04:56] LABS: CALCIUM 8.7 MG/DL (8.5-10.1)
[2021-06-21 05:01] LABS: CREATININE SERUM 0.84 MG/DL (0.60-1.30)
[2021-06-21] MEDS: NS IV 1000 ML 1,000 ML IV SCH ×2 (05:30→11:54)
[2021-06-21] MEDS: inSUlin ASPART (NovoLOG) 1 UNIT/0.01 ML (CHARGE PER UNIT) SC SCH ×4 (06:00→20:59)
[2021-06-21] MEDS: cefTRIAXone 1 GM/50 ML (PRE-MIX) IV SCH (08:26)
--- NOTE | 2021-06-21 08:39 | History & Physical ---
History of Present Illness History of Present Illness Reason for visit/HPI PT IS AN 85 Y/O MALE WHO IS KNOWN TO ME FROM CLINIC. HIS REPORTS THAT THE FAMILY HAS HAD SPREAD OF A GI ILLNESS THAT IS ASSOCIATED WITH NAUSEA, DIARRHEA, UPSET STOMACH, HE HAD THIS SEVERAL DAYS AGO, RECOVERED FAIRLY QUICKLY AND THEN ON MONDAY CAME OUT OF HIS BEDROOM LOOKING EXTREMELY FATIGUED. SHE REPORTS THAT HE INSISTED THAT HE WANTED TO GO TO [facility], SHE TOLD HIM TO SIT DOWN, EAT BREAKFAST AND THEN THEY WOULD SEE, HOWEVER AFTER BREAKFAST, HE WAS SO EXHAUSTED THAT HE WENT BACK TO BED. SHE THEN DECIDED THAT THIS WAS EXTREMELY UNUSUAL FOR OFELIA AND INSISTED ON HIM BEING EVALUATED IN THE ER. HE WAS FOUND TO BE SEPTIC IN THE ER, WITH ACUTELY UNCONTROLLED CHRONIC ATRIAL FIBRILLATION. THIS MORNING, HE REPORTS THAT HE FEELS BETTER TODAY. Date of Admission Jun 20, 2021 at 14:21 Date Seen by a Provider: Jun 21, 2021 Time Seen by a Provider: 08:20 I consulted on this patient on 06/21/21 08:39 Attending Physician Ron Burkett MD Admitting Physician Ron Burkett MD Consult CARDIOLOGY, EICU Allergies and Home Medications Allergies Coded Allergies: Beta-Blockers (Beta-Adrenergic Bloc (Verified Allergy, Unknown, 04/21/12) gluten (Verified Allergy, Unknown, Rash, 12/30/19) Patient Home Medication List Home Medication List Reviewed: Yes Alogliptin Benzoate (Alogliptin) 25 Mg Tablet, 25 MG PO DAILY, (Reported) Entered as Reported by: NICANOR DALY on 12/30/193 Last Action: Converted Aspirin (Aspirin EC) 81 Mg Tablet.dr, 81 MG PO DAILY, (Reported) Entered as Reported by: NICANOR DALY on 12/30/19 164 Last Action: Continued Carvedilol (Carvedilol) 12.5 Mg Tablet, 6.25 MG PO BID, (Reported) Entered as Reported by: KARINA FRIEDMAN on 06/21/21 1057 Last Action: Reviewed Diltiazem HCl (Diltiazem ER) 240 Mg Capsule.er, 240 MG PO BID, (Reported) Entered as Reported by: NICANOR DALY on 12/30/19 1650 Last Action: Reviewed Furosemide (Furosemide) 20 Mg Tablet, 20 MG PO 1600, (Reported) Entered as Reported by: NICANOR DALY on 12/30/191642 Last Action: Held Gabapentin (Gabapentin) 100 Mg Capsule, 200 MG PO TID, (Reported) Entered as Reported by: NICANOR DALY on 12/30/191642 Last Action: Reviewed Hydrochlorothiazide (Hydrochlorothiazide) 25 Mg Tablet, 25 MG PO DAILY, (Reported) Entered as Reported by: NICANOR DALY on 12/30/191642 Last Action: Held Hydroxychloroquine Sulfate (Hydroxychloroquine Sulfate) 200 Mg Tablet, 200 MG PO DAILY, (Reported) Entered as Reported by: BHASKAR SOLIS on 06/20/211835 Last Action: Continued Memantine HCl (Memantine HCl) 10 Mg Tablet, 10 MG PO BID, (Reported) Entered as Reported by: NICANOR DALY on 12/30/191642 Last Action: Held Multivit-Min/Iron/Folic/Vit K1 (Centrum Chewables Adults Tab) 1 Each Tab.chew, 1 EACH PO DAILY, (Reported) Entered as Reported by: KARINA FRIEDMAN on 06/21/211056 Last Action: Held Pantoprazole Sodium (Pantoprazole Sodium) 40 Mg Tablet.dr, 40 MG PO DAILY, (Reported) Entered as Reported by: NICANOR DALY on 12/30/191642 Last Action: Reviewed Potassium Chloride (Potassium Chloride) 20 Meq Tablet.er, 10 MEQ PO DAILY, (Reported) Entered as Reported by: KARINA FRIEDMAN on 06/21/21 111 Last Action: Held Warfarin Sodium (Warfarin Sodium) 5 Mg Tablet, 5 MG PO GUAJARDO,TU,TH,SAT @HS, (Reported) Entered as Reported by: NICANOR DALY on 12/30/191642 Last Action: Reviewed Warfarin Sodium (Warfarin Sodium) 5 Mg Tablet, 2.5 MG PO MO,WE,FR @HS, (Reported) Entered as Reported by: KARINA FRIEDMAN on 06/21/211056 Last Action: Reviewed Discontinued Medications Carvedilol (Carvedilol) 6.25 Mg Tablet, 6.25 MG PO BID, (Reported) Discontinued Reason: Prescription changed Entered as Reported by: NICANOR DALY on 12/30/191642 Last Action: Last Taken Edited Flaxseed Oil/[place]land 3,6,9 (Sv Flaxseed Oil 1,300 mg Sftgl) 1 Each Capsule, 1 EACH PO HS, (Reported) Discontinued Reason: No Longer Taking Entered as Reported by: NICANOR DALY on 12/30/191642 Last Action: Discontinued Multivitamin/Iron/Folic Acid (Centrum Adults Tablet) 1 Each Tablet, 1 EACH PO DAILY, (Reported) Discontinued Reason: Prescription changed Entered as Reported by: NICANOR DALY on 12/30/191642 Last Action: Last Taken Edited Potassium Chloride (K-Tab ER) 10 Meq Tablet.er, 10 MEQ PO DAILY, (Reported) Discontinued Reason: Prescription changed Entered as Reported by: NICANOR DALY on 12/30/191642 Last Action: Reviewed Past Ccihfcs-Yjcxza-Asliaa Hx Patient Social History Marrital Status: Living Status: LIVES AT HOME WITH SPOUSE Employed/Student: retired Tobacco Use?: No Smoking Status: Never a Smoker Use of E-Cig and/or Vaping dev: No Substance use?: No Alcohol Use?: No Pt feels they are or have been: No Immunizations Up To Date Date of Influenza Vaccine: Nov 28, 2018 Second COVID19 Vaccination Yousuf: 06/2020 Tetanus Booster (TDap): More Than 5 Years Date of Pneumonia Vaccine: May 20, 2012 Current Status Advance Directives: Yes Advance Directive Location: Unable to obtain copy Communicates: Verbally Primary Language: [place] Preferred Spoken Language: [place] Is interpretation needed?: No Sensory deficits: Vision impairment, Hearing impairment Implanted or Applied Medical D: Orthopedic hardware, Stents Past Medical History Surgeries: Abdominal (fundoplication 2007), Coronary Stent, Orthopedic Sleep Apnea Atrial Fibrillation, Coronary Artery Disease, Hypertension Sexually Transmitted Disease: No HIV/AIDS: No Prostate Problems Hiatal Hernia Osteoporosis, Back Injury Diabetes, Non-Insulin dep Loss of Vision: Denies Hearing Impairment: Hard of Hearing Blood Disorders: No Family Medical History Reviewed and Corrections made Hypertension Review of Systems Constitutional: No chills; fever, malaise, weakness EENTM: No hoarseness, No throat pain Respiratory: No cough; dyspnea on exertion, short of breath Cardiovascular: No chest pain; edema, Hx of Intervention, palpitations Gastrointestinal: No abdominal pain, No constipation, No diarrhea (RESOLVED); nausea; No vomiting Genitourinary: frequency, incontinence Musculoskeletal: No joint swelling, No muscle pain, No muscle stiffness; muscle weakness Skin: no symptoms reported Psychiatric/Neurological: Denies Anxiety, Denies Depressed; Weakness All Other Systems Reviewed Negative Unless Noted: Yes Physical Exam Vital Signs Vital Signs - First Documented 06/20/21 11:35 Temp 36.2 Pulse 101 Resp 22 B/P (MAP) 134/86 (102) Pulse Ox 96 O2 Delivery Room Air Capillary Refill : Less Than 3 Seconds Height, Weight, BMI Height: 5'8.00" Weight: 226lbs. 0.0oz. 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 UNCONTROLLED ATRIAL FIBRILLATION - PT ON CARDIZEM IV, MONITOR RESPONSE - DEFER TO CARDIOLOGY CHRONIC ANTICOAGULATION USE - COUMADIN (WARFARIN) - SERIAL INR'S CHRONIC HYPERTENSION - PT ON CARDIZEM - MONITOR BP RESPONSE - PT USUALLY ON BETA REGAN THERAPY (COREG) OUTPATIENT. CHRONIC DIABETES MELLITUS -CHECK FSBS, HOLD HOME MEDICATION FOR NOW. ESOPHAGEAL REFLUX - RESTART PPI THERAPY (PROTONIX 40MG DAILY) HX OF HIATAL HERNIA REPAIR CHRONIC ARTHRITIS - PT ON PLAQUENIL OUTPATIENT - WILL RESTART TOMORROW OSTEOPOROSIS GENERALIZED WEAKNESS - START PHYSICAL THERAPY TODAY. DVT PROPHYLAXIS WITH COUMADIN AND SCD'S GI PROPHYLAXIS WITH PPI THERAPY Admission Diagnosis SEPSIS URINARY TRACT INFECTION UNCONTROLLED ATRIAL FIBRILLATION LEUKOCYTOSIS CHRONIC ANTICOAGULATION USE - COUMADIN (WARFARIN) CHRONIC HYPERTENSION CHRONIC DIABETES MELLITUS ESOPHAGEAL REFLUX HX OF HIATAL HERNIA REPAIR CHRONIC ARTHRITIS OSTEOPOROSIS GENERALIZED WEAKNESS Admission Status: Inpatient Order (span 2 midnights) Reason for Inpatient Admission: INPT ADMISSION FOR SEPSIS AND UNCONTROLLED AFIB - WILL REQUIRE 2 - 3 MIDNIGHTS IN HOSPITAL - RON BURKETT MD Jun 21, 2021 08:39
--- NOTE | 2021-06-21 09:40 | Tele-ICU Progress Note ---
Subjective Date Seen by a Provider: Jun 21, 2021 Time Seen by a Provider: 09:39 Subjective/Events-last exam (Tele-ICU Physician , Progress Note ) Available chart/ vitals / labs / Images reviewed Video assessment done using teleICU camera, rest of exam as per RN Discussed with RN , EXAM PER RN Events overnight : Afebrile FiO2 - ra I/O = Drips: Pressors: , hemodynamically stable Consultants: javier Hospital course: (06/20) 85 y/o with c/o of feeling week, confusion, diarrheal symptoms and urina ry DX: UTI, Acute cystitis with hematuria., Afib RVR A/P UTI -ABX- ceftriaxone Severe sepsis possibly due to UTI - improved - stop IVF with good BP and good PO intake A fib RVR dig IV given , cardizem po -AC with warfarin Lines : (Central Line Necessity Reviewed) Saini: + OG: Nutrition: po Analgesia: Anxiety/ delirium VTE Prophylaxis: INR 2 . 0 on coumadin Stress Ulcer Prophylaxis: ppi Plans in collaboration with bedside consultants and IM MDs. Discussed with RN to reach out if any questions or concerns A total of 31 minutes of critical care time was devoted to this patient today, required to treat and/or prevent further deterioration of critical care condition ( as above) . Sepsis Event Evaluation Height, Weight, BMI Height: 5'8.00" Weight: 226lbs. 0.0oz. 102.146215bi; 33.24 BMI Method:Stated Focused Exam Lactate Level 06/20/21 14:20: Lactic Acid Level 1.63 06/20/21 15:45: Lactic Acid Level 1.23 Exam Exam Patient acknowledged, consented, and participated in this virtual visit which was conducted using real time audio/video Vital Signs Date Time Temp Pulse Resp B/P (MAP) Pulse Ox O2 Delivery O2 Flow Rate FiO2 06/21/21 09:08 Room Air 06/21/21 09:00 107 19 130/79 95 Room Air 06/21/21 08:00 98 Room Air 06/21/21 08:00 87 20 136/99 96 NIV CPAP 06/21/21 07:49 36.8 06/21/21 07:00 87 17 125/82 93 NIV CPAP 06/21/21 07:00 95 06/21/21 06:00 84 10 135/67 95 NIV CPAP 06/21/21 05:45 96 14 136/90 96 06/21/21 05:30 91 9 131/74 97 06/21/21 05:15 91 15 124/76 95 06/21/21 05:00 79 16 122/69 96 NIV CPAP 06/21/21 04:45 89 15 127/69 95 06/21/21 04:39 36.5 06/21/21 04:30 116 17 128/67 90 06/21/21 04:15 99 9 127/84 95 06/21/21 04:00 98 Room Air 06/21/21 04:00 92 16 125/65 95 NIV CPAP 06/21/21 03:45 103 15 120/79 93 06/21/21 03:30 96 15 149/65 96 06/21/21 03:15 97 14 116/85 92 06/21/21 03:00 106 16 119/54 91 NIV CPAP 06/21/21 02:45 92 13 121/68 90 06/21/21 02:30 84 8 120/60 97 06/21/21 02:15 87 16 130/63 94 06/21/21 02:00 102 14 111/60 92 NIV CPAP 06/21/21 01:45 118 16 120/76 94 06/21/21 01:30 94 15 117/71 92 06/21/21 01:15 101 12 115/75 94 06/21/21 01:00 109 13 126/59 93 NIV CPAP 06/21/21 01:00 109 06/21/21 00:45 109 11 124/63 95 06/21/21 00:34 36.9 06/21/21 00:30 103 17 126/70 95 06/21/21 00:17 37.9 06/21/21 00:15 112 19 137/71 93 06/21/21 00:04 37.9 06/21/21 00:00 117 19 130/83 96 NIV CPAP 06/20/21 23:59 98 Room Air 06/20/21 23:45 116 19 127/100 95 06/20/21 23:30 130 13 130/86 95 06/20/21 23:15 111 16 123/73 97 06/20/21 23:00 128 20 122/85 96 NIV CPAP 06/20/21 22:45 151 95 06/20/21 22:30 133 15 116/79 91 06/20/21 22:15 111 22 137/61 94 06/20/21 22:00 108 18 117/77 96 NIV CPAP 06/20/21 21:45 149 20 140/104 96 06/20/21 21:30 137 20 113/99 96 06/20/21 21:15 137 21 119/93 96 06/20/21 21:00 128 20 102/72 95 NIV CPAP 06/20/21 20:45 154 22 110/91 93 06/20/21 20:30 130 23 123/82 94 NIV CPAP 06/20/21 20:25 37.6 06/20/21 20:15 126 20 134/107 94 06/20/21 20:00 98 Room Air 06/20/21 20:00 130 23 117/81 94 Room Air 06/20/21 19:45 134 22 141/85 95 06/20/21 19:30 130 18 146/90 96 06/20/21 19:15 137 20 143/95 93 06/20/21 19:00 128 16 126/99 92 Room Air 06/20/21 19:00 128 06/20/21 18:00 133 21 130/77 96 Room Air 06/20/21 17:00 151 18 109/72 98 Room Air 06/20/21 16:42 36.4 06/20/21 16:21 38.4 06/20/21 16:12 138 23 130/94 96 Room Air 06/20/21 16:12 38.4 06/20/21 16:00 98 Room Air 06/20/21 15:28 134 06/20/21 15:15 36.2 101 22 134/86 96 Room Air 06/20/21 15:15 98 Room Air 06/20/21 11:35 36.2 101 22 134/86 (102) 96 Room Air I & O 06/21/21 07:00 Intake Total 1750 ml Output Total 3125 ml Balance -1375 ml Height & Weight Height: 5'8.00" Weight: 226lbs. 0.0oz. 102.295168nz; 33.24 BMI Method:Stated General Appearance: Anxious Capillary Refill: Less Than 3 Seconds Peripheral Pulses: 2+ Radial Pulses (R), 2+ Radial Pulses (L) Gastrointestinal: normal bowel sounds (Active bowel sounds), non tender, soft Results Lab Laboratory Tests 06/20/21 11:55 06/21/21 04:24 Assessment/Plan Assessment/Plan ` MOUSTAPHA LOU MD Jun 21, 2021 09:40
[2021-06-21] MEDS: GABAPENTIN 100 MG (NEURONTIN) CAP PO SCH ×2 (09:56→21:00)
[2021-06-21] MEDS ORDERED: MULT-1112 PO (10:57)
[2021-06-21] MEDS ORDERED: CARV12.53 PO (10:57)
[2021-06-21] MEDS ORDERED: WARF-48 PO (10:57)
[2021-06-21] MEDS ORDERED: POTA-51 PO (11:12)
[2021-06-21] MEDS: PANTOPRAZOLE 40 MG (PROTONIX) TAB PO SCH (11:13)
--- NOTE | 2021-06-21 11:42 | Physical Therapy Evaluation ---
PT Evaluation-General Medical Diagnosis Admission Date Jun 20, 2021 at 14:21 Medical Diagnosis: UTI/sepsis/A-fib Onset Date: Jun 20, 2021 Therapy Diagnosis Therapy Diagnosis: debility/weakness Height/Weight Height (Feet): 5 Height (Inches): 8.00 Weight (Pounds): 226 Weight (Ounces): 0.0 Precautions Precautions/Isolations: Fall Prevention, Standard Precautions Referral Physician: Madelaine Reason for Referral: Evaluation/Treatment Medical History Pertinent Medical History: Atrial Fib, CAD, HTN Additional Medical History Covid/multiple fractures Current History ER secondary to weakness and GI issues Reviewed History: Yes Social History Home: Single Level Current Living Status: Spouse Entry Into Home: Stairs With Railing PT Steps Into Home: 3 Prior Prior Level of Function SCALE: Activities may be completed with or without assistive devices. 3-Xxpioctnxw-lovtreq completes the activity by him/herself with no assistance from a helper. 5-Set-up or Clean-up Assistance-helper sets up or cleans up; patient completes activity. Merkel assists only prior to or following the activity. 4-Supervision or Touching Assistance-helper provides verbal cues and/or touching/steadying and/or contact guard assistance as patient completes activity. Assistance may be provided throughout the activity or intermittently. 3-Partial/Moderate Assistance-helper does LESS THAN HALF the effort. Merkel lifts, holds or supports trunk or limbs, but provides less than half the effort. 2-Substantial/Maximal Assistance-helper does MORE THAN HALF the effort. Merkel lifts or holds trunk or limbs and provides more than half the effort. 2-Mpxmigemo-gazfpg does ALL the effort. Patient does none of the effort to complete the activity. Or, the assistance of 2 or more helpers is required for the patient to complete the activity. If activity was not attempted, code reason: 7-Patient Refused. 9-Not Applicable-not attempted and the patient did not perform the activity before the current illness, exacerbation or injury. 10-Not Attempted due to Environmental Limitations-(lack of equipment, weather restraints, etc.). 88-Not Attempted due to Medical Conditions or Safety Concerns. Bed Mobility: 6 Transfers (B,C,W/C): 6 Gait: 6 Stairs: 6 Indoor Mobility (Ambulation): Independent Stairs: Independent Prior Device Use: "walking stick" PT Evaluation-Current Subjective Patient and family agree to PT. Objective Patient Orientation: Normal For Age Attachments: Saini Catheter ROM/Strength ROM Lower Extremities bilateral LE WFL Strength Lower Extremities 4/5 grossly bilateral LE Integumentary/Posture Bowel Incontinence: No Bladder Incontinence: Saini Cath Posture WFL Neuromuscular (Tone, Coordination, Reflexes) grossly intact Sensory Vision: Functional Hearing: Functional Transfers Lying to Sitting/Side of Bed(Q: 3 Sit to Stand (QC): 4 Chair/Tbu-di-Ljwos Xfer(QC): 4 Gait Does the Patient Walk?: Yes Mode of Locomotion: Walk Anticipated Mode of Locomotion: Walk Walk 10 feet (QC): 4 Walk 50 ft with 2 Turns(QC): 4 Walk 150 ft (QC): 4 Distance: 225' Gait Assistive Device: FWW Comments/Gait Description SBA for safety/safe and functional with no deviation Balance Sitting Static: Normal Sitting Dynamic: Normal Standing Static: Normal Standing Dynamic: Normal Assessment/Needs 85 y.o. male, will benefit from short term skilled PT to address functional strength and mobility to improve current LOF to safely return to home with spouse at maximum LOF. Rehab Potential: Fair PT Interior Design Director Goals Mcfp Goals PT Interior Design Director Goals Time Frame: Jul 03, 2021 Roll Left & Right (QC): 6 Sit to Lying (QC): 6 Lying-Sitting on Side/Bed(QC): 6 Sit to Stand (QC): 6 Chair/Myj-bb-Sbsbi Xfer(QC): 6 Toilet Transfer (QC): 6 Walk 10 feet (QC): 6 Walk 50ft with 2 Turns (QC): 6 Walk 150 ft (QC): 6 PT Plan Problem List Problem List: Activity Tolerance, Functional Strength, Bed Mobility Treatment/Plan Treatment Plan: Continue Plan of Care Treatment Plan: Bed Mobility, Education, Functional Activity Tara, Functional Strength, Gait, Safety, Therapeutic Exercise, Transfers Treatment Duration: Jul 03, 2021 Frequency: 6 times per week Estimated Hrs Per Day: .25 hour per day Time/GCodes Time In: 1115 Time Out: 1131 Total Billed Treatment Time: 16 Total Billed Treatment 1 visit EVModC 16 min CHARLEY ZUNIGA PT Jun 21, 2021 11:42
[2021-06-21] MEDS: warFARin 5 MG (COUMADIN) TAB PO SCH (17:33)
[2021-06-21] MEDS: dilTIAZem DRIP PRE-MIX 125 ML IV SCH (18:25)
--- NOTE | 2021-06-21 19:31 | Consultation-Cardiology ---
HPI-Cardiology Cardiology Consultation: Date of Consultation 06/21/21 Date of Admission 06/20/21 Attending Physician Selene Burkett MD Admitting Physician Selene Burkett MD Consulting Physician MALLORY VILLANUEVA JR, MD HPI: Time Seen by a Provider: 19:24 Chief Complaint: Reason for consultation: Atrial fibrillation. I had the pleasure of seeing Good in the intensive care unit at [facility] in [place], [place] today. He has a history of permanent atrial fibrillation as well as coronary artery disease and hypertension. He normally follows with one of my partners, Dr. Shine. Yesterday he was having some dysuria and felt as though he may have a bladder or kidney infection. He became concerned and came to the emergency room for further evaluation. While he was being evaluated in the emergency room, he was found to have atrial fibrillation with a rapid ventricular rate. He was admitted to the intensive care unit for treatment of urinary tract infection with possible sepsis. He denies any chest discomfort. He denies palpitations. He gets some occasional dyspnea on ex ertion but denies any paroxysmal nocturnal dyspnea or orthopnea. He has occasional lightheaded spells but denies syncope. He has chronic ankle edema and wears compression stockings which help. The edema has been unchanged. Because of the atrial fibrillation, a cardiology consultation was requested. Certain portions of this document may have been dictated utilizing voice WiN MS ition technology. Inherent to this technology, typographical and grammatical errors may exist. As much as I am diligent to identify and correct these mistakes, some errors may remain in the document. Review of Systems-Cardiology Review of Systems Other comments Review of 10 organ systems is as per the history of present illness, otherwise negative. All Other Systems Reviewed Negative Unless Noted: Yes DVC-[id number] Hx Patient Social History Smoking Status: Never a Smoker 2nd Hand Smoke Exposure: No Have you traveled recently?: No Alcohol Use?: No Pt feels they are or have been: No Immunizations Up To Date Date of Pneumonia Vaccine: May 20, 2012 Date of Influenza Vaccine: Nov 28, 2018 Past Medical History PMH As described under Assessment. Family Medical History Family Medical History: He does not report a family history of premature coronary disease in first-degree relatives. Allergies and Home Medications Allergies Coded Allergies: Beta-Blockers (Beta-Adrenergic Bloc (Verified Allergy, Unknown, 04/21/12) gluten (Verified Allergy, Unknown, Rash, 12/30/19) Patient Home Medication List Home Medication List Reviewed: Yes Alogliptin Benzoate (Alogliptin) 25 Mg Tablet, 25 MG PO DAILY, (Reported) Entered as Reported by: NICANOR DALY on 12/30/191642 Last Action: Reviewed Aspirin (Aspirin EC) 81 Mg Tablet.dr, 81 MG PO DAILY, (Reported) Entered as Reported by: NICANOR DALY on 12/30/191642 Last Action: Reviewed Carvedilol (Carvedilol) 12.5 Mg Tablet, 6.25 MG PO BID, (Reported) Entered as Reported by: KARINA FRIEDMAN on 06/21/211056 Last Action: Reviewed Diltiazem HCl (Diltiazem ER) 240 Mg Capsule.er, 240 MG PO BID, (Reported) Entered as Reported by: NICANOR DALY on 12/30/191649 Last Action: Reviewed Furosemide (Furosemide) 20 Mg Tablet, 20 MG PO 1600, (Reported) Entered as Reported by: NICANOR DALY on 12/30/191642 Last Action: Reviewed Gabapentin (Gabapentin) 100 Mg Capsule, 200 MG PO TID, (Reported) Entered as Reported by: NICANOR DALY on 12/30/191642 Last Action: Reviewed Hydrochlorothiazide (Hydrochlorothiazide) 25 Mg Tablet, 25 MG PO DAILY, (Reported) Entered as Reported by: NICANOR DALY on 12/30/191642 Last Action: Reviewed Hydroxychloroquine Sulfate (Hydroxychloroquine Sulfate) 200 Mg Tablet, 200 MG PO DAILY, (Reported) Entered as Reported by: BHASKAR SOLIS on 06/20/21 183 Last Action: Reviewed Memantine HCl (Memantine HCl) 10 Mg Tablet, 10 MG PO BID, (Reported) Entered as Reported by: NICANOR DALY on 12/30/191642 Last Action: Reviewed Multivit-Min/Iron/Folic/Vit K1 (Centrum Chewables Adults Tab) 1 Each Tab.chew, 1 EACH PO DAILY, (Reported) Entered as Reported by: KARINA FRIEDMAN on 06/21/211056 Last Action: Reviewed Pantoprazole Sodium (Pantoprazole Sodium) 40 Mg Tablet.dr, 40 MG PO DAILY, (Reported) Entered as Reported by: NICANRO DALY on 12/30/191642 Last Action: Reviewed Potassium Chloride (Potassium Chloride) 20 Meq Tablet.er, 10 MEQ PO DAILY, (Reported) Entered as Reported by: KARINA FRIEDMAN on 06/21/21 1112 Last Action: Reviewed Warfarin Sodium (Warfarin Sodium) 5 Mg Tablet, 5 MG PO GUAJARDO,TU,TH,SAT @HS, (Reported) Entered as Reported by: NICANOR DALY on 12/30/191642 Last Action: Reviewed Warfarin Sodium (Warfarin Sodium) 5 Mg Tablet, 2.5 MG PO MO,WE,FR @HS, (Reported) Entered as Reported by: KARINA FRIEDMAN on 06/21/21 1057 Last Action: Reviewed Discontinued Medications Carvedilol (Carvedilol) 6.25 Mg Tablet, 6.25 MG PO BID, (Reported) Discontinued Reason: Prescription changed Entered as Reported by: NICANOR DALY on 12/30/191642 Last Action: Last Taken Edited Flaxseed Oil/[place] 3,6,9 (Sv Flaxseed Oil 1,300 mg Sftgl) 1 Each Capsule, 1 EACH PO HS, (Reported) Discontinued Reason: No Longer Taking Entered as Reported by: NICANOR DALY on 12/30/191642 Last Action: Discontinued Multivitamin/Iron/Folic Acid (Centrum Adults Tablet) 1 Each Tablet, 1 EACH PO DAILY, (Reported) Discontinued Reason: Prescription changed Entered as Reported by: NICANOR DALY on 12/30/191642 Last Action: Last Taken Edited Potassium Chloride (K-Tab ER) 10 Meq Tablet.er, 10 MEQ PO DAILY, (Reported) Discontinued Reason: Prescription changed Entered as Reported by: NICANOR DALY on 12/30/191642 Last Action: Reviewed Exam Vital Signs Vital Signs Date Time Temp Pulse Resp B/P (MAP) Pulse Ox O2 Delivery O2 Flow Rate FiO2 06/21/21 18:33 38.0 06/21/21 18:00 163 21 138/103 91 Room Air Physical Exam General: Alert. No acute distress. Well nourished and appears stated age. He is obese. Eye: Extraocular movements are intact. Conjunctivae are clear. There are no xanthelasma. HENT: Normocephalic. Atraumatic. Carotid pulsations 2/2 without bruits. Neck: Jugular venous pressure does not appear elevated. No thyromegaly appreciated. Respiratory: Lungs are clear to auscultation. Respirations are non-labored. Breath sounds are equal. Symmetrical chest wall expansion. Cardiovascular: Normal rate. Irregular rhythm. Distant S1/S2. No murmur. No gallop. Point of maximal impulse is not appear displaced. Good pulses equal in all extremities. 1+ bilateral pretibial edema with compression stockings in place. Gastrointestinal: Soft. Normal bowel sounds. Skin: Skin turgor is normal. There is no pallor. Musculoskeletal: No kyphosis or scoliosis appreciated. Neurologic: Alert and oriented to person, place, time. Cranial nerves 3-12 appear grossly intact. The patient has good motor tone strength in the upper and lower extremities bilaterally. Psychiatric: Cooperative. Appropriate mood & affect. Labs Laboratory Tests Test 06/20/21 20:07 06/21/21 04:24 06/21/21 15:42 Range/Units Glucometer 113 H 87 70-110 MG/DL White Blood Count 17.2 H 4.3-11.0 10^3/uL Red Blood Count 4.12 L 4.30-5.52 10^6/uL Hemoglobin 14.0 13.3-17.7 g/dL Hematocrit 43 40-54 % Mean Corpuscular Volume 103 H 80-99 fL Mean Corpuscular Hemoglobin 34 25-34 pg Mean Corpuscular Hemoglobin Concent 33 32-36 g/dL Red Cell Distribution Width 13.6 10.0-14.5 % Platelet Count 178 130-400 10^3/uL Mean Platelet Volume 10.7 9.0-12.2 fL Immature Granulocyte % (Auto) 1 % Neutrophils (%) (Auto) 77 H 42-75 % Lymphocytes (%) (Auto) 12 12-44 % Monocytes (%) (Auto) 10 0-12 % Eosinophils (%) (Auto) 0 0-10 % Basophils (%) (Auto) 0 0-10 % Neutrophils # (Auto) 13.2 H 1.8-7.8 10^3/uL Lymphocytes # (Auto) 2.0 1.0-4.0 10^3/uL Monocytes # (Auto) 1.7 H 0.0-1.0 10^3/uL Eosinophils # (Auto) 0.0 0.0-0.3 10^3/uL Basophils # (Auto) 0.1 0.0-0.1 10^3/uL Immature Granulocyte # (Auto) 0.2 H 0.0-0.1 10^3/uL Prothrombin Time 23.5 H 12.2-14.7 SEC INR Comment 2.0 H 0.8-1.4 Sodium Level 139 135-145 MMOL/L Potassium Level 3.8 3.6-5.0 MMOL/L Chloride Level 105 98-107 MMOL/L Carbon Dioxide Level 22 21-32 MMOL/L Anion Gap 12 5-14 MMOL/L Blood Urea Nitrogen 16 7-18 MG/DL Creatinine 0.84 0.60-1.30 MG/DL Estimat Glomerular Filtration Rate 86 BUN/Creatinine Ratio 19 Glucose Level 135 H 70-105 MG/DL Calcium Level 8.7 8.5-10.1 MG/DL ECG Impression ECG Comment Electrocardiogram from the emergency room shows atrial fibrillation with a rapid ventricular rate with borderline left axis deviation, early transition and diffuse nonspecific ST-T wave changes. Diagnosis/Problems Diagnosis/Problems (1) Permanent atrial fibrillation Assessment & Plan: I suspect the tachycardia was brought on by a urinary tract infection with sepsis. It was placed on intravenous diltiazem and his heart rates have improved. I have ordered his normal oral dose of diltiazem CD to be restarted in the morning. He should continue on warfarin for stroke prophylaxis. (2) Coronary artery disease without angina pectoris Assessment & Plan: He is not having any angina at this point in time. I will resume diltiazem. I have ordered a lipid panel for the morning. Given his age, he would probably not be a good candidate for taking aspirin in addition to warfarin. (3) Primary hypertension Assessment & Plan: His diltiazem was on hold due to hypotension from the poss ible sepsis. His blood pressures are now starting to improve. I will resume diltiazem in the morning. MALLORY VILLANUEVA JR, MD Jun 21, 2021 19:31
[2021-06-22 04:49] LABS: HEMATOCRIT 44 % (40-54); HEMOGLOBIN 14.7 g/dL (13.3-17.7); MEAN CORPUSCULAR HEMOGLOBIN 34 pg (25-34); MEAN CORPUSCULAR HGB CONC 33 g/dL (32-36); MEAN CORPUSCULAR VOLUME 103 fL (80-99); MEAN PLATELET VOLUME 10.7 fL (9.0-12.2); PLATELET COUNT 174 10^3/uL (130-400); WHITE BLOOD COUNT 16.9 10^3/uL (4.3-11.0)
[2021-06-22 04:59] LABS: CALCIUM 8.9 MG/DL (8.5-10.1); PROTHROMBIN TIME PATIENT 22.8 SEC (12.2-14.7)
[2021-06-22 05:03] LABS: PHOSPHORUS 1.8 MG/DL (2.3-4.7)
[2021-06-22 05:04] LABS: CREATININE SERUM 0.84 MG/DL (0.60-1.30)
[2021-06-22 05:06] LABS: MAGNESIUM 1.7 MG/DL (1.6-2.4)
[2021-06-22] MEDS: inSUlin ASPART (NovoLOG) 1 UNIT/0.01 ML (CHARGE PER UNIT) SC SCH ×4 (05:21→21:03)
[2021-06-22] MEDS: dilTIAZem DRIP PRE-MIX 125 ML IV SCH ×2 (06:12→14:19)
[2021-06-22] MEDS: MAGNESIUM 1 GM/100 ML IVPB 100 ML IV SCH ×3 (06:12→07:10)
[2021-06-22] MEDS: POTASSIUM CL 10MEQ/50ML IVPB 50 ML IV SCH (06:17)
[2021-06-22] MEDS: KCL 20 MEQ TAB (K-DUR) PO SCH (06:17)
[2021-06-22] MEDS: PANTOPRAZOLE 40 MG (PROTONIX) TAB PO SCH (09:20)
[2021-06-22] MEDS: GABAPENTIN 100 MG (NEURONTIN) CAP PO SCH ×2 (09:20→21:03)
[2021-06-22] MEDS: cefTRIAXone 1 GM/50 ML (PRE-MIX) IV SCH (09:21)
--- NOTE | 2021-06-22 09:23 | Progress Note ---
Subjective Subjective Date Seen by Provider: Jun 22, 2021 Time Seen by Provider: 08:20 PT APPEARS TO FEEL UNWELL TODAY. HE REPORTS THAT HE WAS STUCK 7 TIMES TO GET AN IV REPLACED LAST NIGHT. HE STATES THAT HE DID NOT GET MUCH SLEEP, THEN HE WAS DOZING OFF, THERAPY CAME IN, WAS WALKING HIM AND HE GOT VERY NAUSEATED. HE DENIES CHEST PAIN OR SHORTNESS OF BREATH TODAY. HE NOTES THAT HIS COMPRESSION SOCKS WERE NOT REMOVED LAST NIGHT AND HE COULD NOT DO IT HIMSELF. Review of Systems General: No Chills; Fatigue, Malaise, Appetite (DECREASED) HEENT: No Dysphasia, No Sore Throat Pulmonary: No Dyspnea, No Cough Cardiovascular: No: Chest Pain, Palpitations Gastrointestinal: Nausea; No: Vomiting, Abdominal Pain Genitourinary: Other (NIELSEN IN PLACE) Musculoskeletal: back pain Neurological: Weakness; No: Confusion All Other Systems Reviewed All Other Systems Reviewed: Yes Objective Exam Vital Signs Vital Signs Date Time Temp Pulse Resp B/P (MAP) Pulse Ox O2 Delivery O2 Flow Rate FiO2 06/22/21 07:46 37.4 06/22/21 07:00 94 19 154/72 95 NIV CPAP 06/22/21 07:00 85 06/22/21 06:45 107 20 153/77 95 06/22/21 06:30 96 25 157/75 96 06/22/21 06:15 104 10 149/98 96 06/22/21 06:00 90 20 147/80 97 NIV CPAP 06/22/21 05:45 108 19 165/71 93 06/22/21 05:30 96 19 158/79 93 06/22/21 05:15 112 20 166/73 94 06/22/21 05:00 111 19 163/116 94 NIV CPAP 06/22/21 04:45 106 15 151/90 94 06/22/21 04:30 111 18 148/94 95 06/22/21 04:15 111 14 155/84 93 06/22/21 04:07 37.1 06/22/21 04:00 96 Room Air 06/22/21 04:00 105 21 138/89 95 NIV CPAP 06/22/21 03:45 103 20 142/77 95 06/22/21 03:30 115 18 145/100 94 06/22/21 03:15 137 20 135/87 96 06/22/21 03:00 121 18 133/96 97 NIV CPAP 06/22/21 02:58 131 34 147/115 96 06/22/21 02:00 108 12 142/109 95 NIV CPAP 06/22/21 01:45 115 15 155/103 97 06/22/21 01:30 8 149/81 96 06/22/21 01:15 124 18 139/75 96 06/22/21 01:00 90 12 143/82 97 NIV CPAP 06/22/21 01:00 90 06/22/21 00:45 19 149/78 96 06/22/21 00:30 93 8 165/79 97 06/22/21 00:15 96 15 155/87 95 06/22/21 00:00 93 22 133/73 95 NIV CPAP 06/21/21 23:45 113 18 130/75 94 06/21/21 23:37 97 Room Air 06/21/21 23:36 36.7 06/21/21 23:30 98 15 144/91 97 06/21/21 23:15 97 17 140/71 95 06/21/21 23:05 106 131/76 94 NIV CPAP 06/21/21 22:45 98 20 145/73 94 06/21/21 22:30 89 14 144/73 95 06/21/21 22:15 92 14 129/64 93 06/21/21 22:00 98 19 134/80 96 NIV CPAP 06/21/21 21:45 85 21 129/77 95 06/21/21 21:30 100 17 137/67 96 06/21/21 21:20 NIV CPAP 06/21/21 21:15 107 19 135/89 95 06/21/21 21:00 110 31 139/94 92 Room Air 06/21/21 20:45 105 20 128/111 94 06/21/21 20:30 95 19 127/74 95 06/21/21 20:15 104 20 133/71 94 06/21/21 20:00 96 Room Air 06/21/21 20:00 125 15 142/69 94 Room Air 06/21/21 19:45 117 21 124/69 94 06/21/21 19:30 121 21 125/74 88 06/21/21 19:29 37.2 06/21/21 19:15 125 16 102/86 93 06/21/21 19:00 151 06/21/21 19:00 151 19 156/95 94 Room Air 06/21/21 18:33 38.0 06/21/21 18:00 163 21 138/103 91 Room Air 06/21/21 17:33 37.9 06/21/21 17:00 125 19 137/80 94 Room Air 06/21/21 16:21 Room Air 06/21/21 16:01 37.0 06/21/21 16:00 118 19 135/86 95 Room Air 06/21/21 15:00 97 13 159/93 97 Room Air 06/21/21 14:00 92 24 149/99 96 Room Air 06/21/21 13:00 85 06/21/21 13:00 85 22 137/68 95 Room Air 06/21/21 13:00 106 06/21/21 12:15 Room Air 06/21/21 12:00 101 12 138/77 96 Room Air 06/21/21 11:56 36.9 06/21/21 11:00 92 10 133/72 93 Room Air 06/21/21 10:00 92 12 126/62 95 Room Air I & O 06/22/21 07:00 Intake Total 1800 ml Output Total 2650 ml Balance -850 ml General Appearance: WD/WN, Mild Distress (APPEARS TO FEEL UNWELL TODAY) HEENT: PERRL/EOMI Neck: Full Range of Motion, Non Tender, Supple Respiratory: Chest Non Tender, No Accessory Muscle Use, No Respiratory Distress, Decreased Breath Sounds (IN BASES) Cardiovascular: Irregularly Irregular, Tachycardia Gastrointestinal: Normal Bowel Sounds, Non Tender, Soft Rectal: Deferred Extremity: Non Tender, Pedal Edema (CHRONIC) Neurologic/Psychiatric: Alert, Oriented x3, No Motor/Sensory Deficits, Normal Mood/Affect, 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 Norm as Tested Skin: Normal Color, Warm/Dry Lymphatic: No Adenopathy Results Lab Laboratory Tests 06/21/21 15:42: Glucometer 87 06/21/21 20:20: Glucometer 196H 06/22/21 04:41: White Blood Count 16.9H, Red Blood Count 4.31, Hemoglobin 14.7, Hematocrit 44, Mean Corpuscular Volume 103H, Mean Corpuscular Hemoglobin 34, Mean Corpuscular Hemoglobin Concent 33, Red Cell Distribution Width 13.3, Platelet Count 174, Mean Platelet Volume 10.7, Prothrombin Time 22.8H, INR Comment 2.0H, Sodium Level 137, Potassium Level 4.0, Chloride Level 102, Carbon Dioxide Level 21, Anion Gap 14, Blood Urea Nitrogen 18, Creatinine 0.84, Estimat Glomerular Filtration Rate 86, BUN/Creatinine Ratio 21, Glucose Level 152H, Calcium Level 8.9, Phosphorus Level 1.8L, Magnesium Level 1.7, Digoxin Level 0.32L Microbiology 06/20/21 MRSA Screen - Final, Complete MRSA not isolated 06/20/21 Blood Culture - Preliminary, Resulted No growth 06/20/21 Urine Culture - Preliminary, Resulted Escherichia coli Mixed Bacterial Saumya Assessment/Plan Assessment/Plan Admission Dx SEPSIS URINARY TRACT INFECTION UNCONTROLLED ATRIAL FIBRILLATION LEUKOCYTOSIS CHRONIC ANTICOAGULATION USE - COUMADIN (WARFARIN) CHRONIC HYPERTENSION CHRONIC DIABETES MELLITUS ESOPHAGEAL REFLUX HX OF HIATAL HERNIA REPAIR CHRONIC ARTHRITIS OSTEOPOROSIS GENERALIZED WEAKNESS Assessment and Plan SEPSIS URINARY TRACT INFECTION UNCONTROLLED ATRIAL FIBRILLATION LEUKOCYTOSIS CHRONIC ANTICOAGULATION USE - COUMADIN (WARFARIN) CHRONIC HYPERTENSION CHRONIC DIABETES MELLITUS ESOPHAGEAL REFLUX HX OF HIATAL HERNIA REPAIR CHRONIC ARTHRITIS OSTEOPOROSIS GENERALIZED WEAKNESS HX OF BPH SEPSIS WITH LEUKOCYTOSIS DUE TO URINARY TRACT INFECTION - PT ON IV ROCEPHIN, WHITE COUNT ONLY DECREASED SLIGHTLY - CONTINUE TO MONITOR CULTURE REPORT, WILL ADJUST MEDICATION NEEDED BASED ON SENSITIVITY REPORT FROM CULTURE. (REVIEW OF HOSPITAL PAST CULTURES DID NOT REVEAL ANY OTHER URINE SPECIMENS, WILL LOOK THROUGH OUTPATIENT CULTURES) UNCONTROLLED ATRIAL FIBRILLATION - PT ON CARDIZEM IV, AND DIGOXIN DRIP STARTED LAST NIGHT - MONITOR RESPONSE - DEFER TO CARDIOLOGY CHRONIC ANTICOAGULATION USE - COUMADIN (WARFARIN) - SERIAL INR'S CHRONIC HYPERTENSION - PT ON CARDIZEM - MONITOR BP RESPONSE - PT USUALLY ON BETA REGAN THERAPY ([facility]) OUTPATIENT. CHRONIC DIABETES MELLITUS -CHECK FSBS, RESTART HOME MEDS TODAY OR TOMORROW ESOPHAGEAL REFLUX - RESTARTED PPI THERAPY (PROTONIX 40MG DAILY) HX OF HIATAL HERNIA REPAIR CHRONIC ARTHRITIS - PT ON PLAQUENIL OUTPATIENT - RESTART TODAY OSTEOPOROSIS BPH - PT TO BE STARTED ON FLOMAX TODAY- HX OF ISSUES WITH PROSTATE AFTER NIELSEN REMOVED. GENERALIZED WEAKNESS - STARTED PHYSICAL THERAPY - PT NAUSEATED AFTER THERAPY TODAY - MONITOR - GIVE ZOFRAN TODAY DVT PROPHYLAXIS WITH COUMADIN AND SCD'S GI PROPHYLAXIS WITH PPI THERAPY Admission Dx SEPSIS URINARY TRACT INFECTION UNCONTROLLED ATRIAL FIBRILLATION LEUKOCYTOSIS CHRONIC ANTICOAGULATION USE - COUMADIN (WARFARIN) CHRONIC HYPERTENSION CHRONIC DIABETES MELLITUS ESOPHAGEAL REFLUX HX OF HIATAL HERNIA REPAIR CHRONIC ARTHRITIS OSTEOPOROSIS GENERALIZED WEAKNESS Clinical Quality Measures Admission Status Admission Dx SEPSIS URINARY TRACT INFECTION UNCONTROLLED ATRIAL FIBRILLATION LEUKOCYTOSIS CHRONIC ANTICOAGULATION USE - COUMADIN (WARFARIN) CHRONIC HYPERTENSION CHRONIC DIABETES MELLITUS ESOPHAGEAL REFLUX HX OF HIATAL HERNIA REPAIR CHRONIC ARTHRITIS OSTEOPOROSIS GENERALIZED WEAKNESS RON VICK MD Jun 22, 2021 09:23
--- NOTE | 2021-06-22 09:32 | Physical Therapy Daily Note ---
PT Daily Note-Current Subjective Patient reports he is tired today. Agrees to PT. Mental Status Patient Orientation: Person, Time, Situation Attachments: Saini Catheter, IV Transfers SCALE: Activities may be completed with or without assistive devices. 2-Sxzmenpaog-pjyiaod completes the activity by him/herself with no assistance from a helper. 5-Set-up or Clean-up Assistance-helper sets up or cleans up; patient completes activity. Amoret assists only prior to or following the activity. 4-Supervision or Touching Assistance-helper provides verbal cues and/or touching/steadying and/or contact guard assistance as patient completes act ivity. Assistance may be provided throughout the activity or intermittently. 3-Partial/Moderate Assistance-helper does LESS THAN HALF the effort. Amoret lifts, holds or supports trunk or limbs, but provides less than half the effort. 2-Substantial/Maximal Assistance-helper does MORE THAN HALF the effort. Amoret lifts or holds trunk or limbs and provides more than half the effort. 1-Tzbqajtbk-hohtfo does ALL the effort. Patient does none of the effort to complete the activity. Or, the assistance of 2 or more helpers is required for the patient to complete the activity. If activity was not attempted, code reason: 7-Patient Refused. 9-Not Applicable-not attempted and the patient did not perform the activity before the current illness, exacerbation or injury. 10-Not Attempted due to Environmental Limitations-(lack of equipment, weather restraints, etc.). 88-Not Attempted due to Medical Conditions or Safety Concerns. Lying to Sitting/Side of Bed(Q: 2 Sit to Stand (QC): 3 Chair/Vrs-lh-Wpmkj Xfer(QC): 3 Gait Training Distance: 200' Walk 10 feet (QC): 3 Walk 50 ft with 2 Turns(QC): 3 Walk 150 ft (QC): 3 Gait Assistive Device: FWW VC's for shuffle gait sequence for patient to increase step length Treatments Patient had episode of nausea requiring RN to issue nausea medication. Patient required session to cease due to this. Assessment Patient tolerated minimal activity on this date and required more assistance on this date. PT to increase activity as tolerated by patient. Patient up in recliner with needs met. Spouse present. PT Correction Goals Correction Goals PT Correction Goals Time Frame: Jul 03, 2021 Roll Left & Right (QC): 6 Sit to Lying (QC): 6 Lying-Sitting on Side/Bed(QC): 6 Sit to Stand (QC): 6 Chair/Ivg-eg-Rynwa Xfer(QC): 6 Toilet Transfer (QC): 6 Walk 10 feet (QC): 6 Walk 50ft with 2 Turns (QC): 6 Walk 150 ft (QC): 6 PT Plan Treatment/Plan Treatment Plan: Continue Plan of Care Treatment Plan: Bed Mobility, Education, Functional Activity Tara, Functional Strength, Gait, Safety, Therapeutic Exercise, Transfers Treatment Duration: Jul 03, 2021 Frequency: 6 times per week Estimated Hrs Per Day: .25 hour per day Time/GCodes Time In: 746 Time Out: 815 Total Billed Treatment Time: 29 Total Billed Treatment 1 visit GT 17 min FA 12 min CHARLEY ZUNIGA PT Jun 22, 2021 09:32
--- NOTE | 2021-06-22 11:30 | Tele-ICU Progress Note ---
Subjective Date Seen by a Provider: Jun 22, 2021 Time Seen by a Provider: 11:30 Subjective/Events-last exam (Tele-ICU Physician , Progress Note ) Available chart/ vitals / labs / Images reviewed Video assessment done using teleICU camera, rest of exam as per RN Discussed with RN , EXAM PER RN Events overnight : Afebrile FiO2 - ra I/O = Drips: cardizem 15 Pressors: , hemodynamically stable Consultants: javier Hospital course: (06/20) 85 y/o with c/o of feeling week, confusion, diarrheal symptoms and urinary DX: UTI, Acute cystitis with hematuria., Afib RVR A/P UTI - E coli -ABX- ceftriaxonem cx pending Severe sepsis possibly due to UTI - improved - stop IVF with good BP and good PO intake A fib RVR dig IV given , cardizem gtt -AC with warfarin Lines : (Central Line Necessity Reviewed) Saini: + OG: Nutrition: po Analgesia: Anxiety/ delirium VTE Prophylaxis: INR 2 . 0 on coumadin Stress Ulcer Prophylaxis: ppi Plans in collaboration with bedside consultants and IM MDs. Discussed with RN to reach out if any questions or concerns A total of 31 minutes of critical care time was devoted to this patient today, required to treat and/or prevent further deterioration of critical care condition ( as above) . Sepsis Event Evaluation Height, Weight, BMI Height: 5'8.00" Weight: 226lbs. 0.0oz. 102.185444rg; 33.24 BMI Method:Stated Focused Exam Lactate Level 06/20/21 14:20: Lactic Acid Level 1.63 06/20/21 15:45: Lactic Acid Level 1.23 Exam Exam Patient acknowledged, consented, and participated in this virtual visit which was conducted using real time audio/video Vital Signs Date Time Temp Pulse Resp B/P (MAP) Pulse Ox O2 Delivery O2 Flow Rate FiO2 06/22/21 10:00 92 20 127/101 91 06/22/21 09:00 115 22 134/68 94 06/22/21 08:30 131 23 115/87 95 06/22/21 08:00 135 14 92 06/22/21 07:46 37.4 06/22/21 07:00 94 19 154/72 95 NIV CPAP 06/22/21 07:00 85 06/22/21 06:45 107 20 153/77 95 06/22/21 06:30 96 25 157/75 96 06/22/21 06:15 104 10 149/98 96 06/22/21 06:00 90 20 147/80 97 NIV CPAP 06/22/21 05:45 108 19 165/71 93 06/22/21 05:30 96 19 158/79 93 06/22/21 05:15 112 20 166/73 94 06/22/21 05:00 111 19 163/116 94 NIV CPAP 06/22/21 04:45 106 15 151/90 94 06/22/21 04:30 111 18 148/94 95 06/22/21 04:15 111 14 155/84 93 06/22/21 04:07 37.1 06/22/21 04:00 96 Room Air 06/22/21 04:00 105 21 138/89 95 NIV CPAP 06/22/21 03:45 103 20 142/77 95 06/22/21 03:30 115 18 145/100 94 06/22/21 03:15 137 20 135/87 96 06/22/21 03:00 121 18 133/96 97 NIV CPAP 06/22/21 02:58 131 34 147/115 96 06/22/21 02:00 108 12 142/109 95 NIV CPAP 06/22/21 01:45 115 15 155/103 97 06/22/21 01:30 8 149/81 96 06/22/21 01:15 124 18 139/75 96 06/22/21 01:00 90 12 143/82 97 NIV CPAP 06/22/21 01:00 90 06/22/21 00:45 19 149/78 96 06/22/21 00:30 93 8 165/79 97 06/22/21 00:15 96 15 155/87 95 06/22/21 00:00 93 22 133/73 95 NIV CPAP 06/21/21 23:45 113 18 130/75 94 06/21/21 23:37 97 Room Air 06/21/21 23:36 36.7 06/21/21 23:30 98 15 144/91 97 06/21/21 23:15 97 17 140/71 95 06/21/21 23:05 106 131/76 94 NIV CPAP 06/21/21 22:45 98 20 145/73 94 06/21/21 22:30 89 14 144/73 95 06/21/21 22:15 92 14 129/64 93 06/21/21 22:00 98 19 134/80 96 NIV CPAP 06/21/21 21:45 85 21 129/77 95 06/21/21 21:30 100 17 137/67 96 06/21/21 21:20 NIV CPAP 06/21/21 21:15 107 19 135/89 95 06/21/21 21:00 110 31 139/94 92 Room Air 06/21/21 20:45 105 20 128/111 94 06/21/21 20:30 95 19 127/74 95 06/21/21 20:15 104 20 133/71 94 06/21/21 20:00 96 Room Air 06/21/21 20:00 125 15 142/69 94 Room Air 06/21/21 19:45 117 21 124/69 94 06/21/21 19:30 121 21 125/74 88 06/21/21 19:29 37.2 06/21/21 19:15 125 16 102/86 93 06/21/21 19:00 151 06/21/21 19:00 151 19 156/95 94 Room Air 06/21/21 18:33 38.0 06/21/21 18:00 163 21 138/103 91 Room Air 06/21/21 17:33 37.9 06/21/21 17:00 125 19 137/80 94 Room Air 06/21/21 16:21 Room Air 06/21/21 16:01 37.0 06/21/21 16:00 118 19 135/86 95 Room Air 06/21/21 15:00 97 13 159/93 97 Room Air 06/21/21 14:00 92 24 149/99 96 Room Air 06/21/21 13:00 85 06/21/21 13:00 85 22 137/68 95 Room Air 06/21/21 13:00 106 06/21/21 12:15 Room Air 06/21/21 12:00 101 12 138/77 96 Room Air 06/21/21 11:56 36.9 I & O 06/22/21 06:59 Intake Total 1800 ml Output Total 2650 ml Balance -850 ml Height & Weight Height: 5'8.00" Weight: 226lbs. 0.0oz. 102.697033py; 33.24 BMI Method:Stated General Appearance: WD/WN, Mild Distress (APPEARS TO FEEL UNWELL TODAY) HEENT: PERRL/EOMI Neck: Full Range of Motion, Non Tender, Supple Respiratory: Chest Non Tender, No Accessory Muscle Use, No Respiratory Distress, Decreased Breath Sounds (IN BASES) Cardiovascular: Irregularly Irregular, Tachycardia Capillary Refill: Less Than 3 Seconds Peripheral Pulses: 2+ Radial Pulses (R), 2+ Radial Pulses (L) Gastrointestinal: normal bowel sounds (Active bowel sounds), non tender, soft Extremity: Non Tender, Pedal Edema (CHRONIC) Neurologic/Psychiatric: Alert, Oriented x3, No Motor/Sensory Deficits, Normal Mood/Affect, compensation and benefits advisor II-XII Norm as Tested Skin: Normal Color, Warm/Dry Lymphatic: No Adenopathy Results Lab Laboratory Tests 06/20/21 11:55 06/21/21 04:24 06/22/21 04:41 Assessment/Plan Assessment/Plan ` MOUSTAPHA LOU MD Jun 22, 2021 11:30
--- NOTE | 2021-06-22 12:20 | Cardiology Progress Note ---
Subjective Date Seen by Provider: Jun 22, 2021 Time Seen by Provider: 12:15 Subjective/Events-last exam Patient was seen at bedside sitting comfortably, borderline tachycardia. Feeling better. No chest pain was reported Review of Systems General: No Chills, No Night Sweats; Fatigue, Malaise; No Appetite, No Other HEENT: No Head Aches, No Visual Changes, No Eye Pain, No Ear Pain, No Dysphasia, No Sinus Congestion, No Post Nasal Drip, No Sore Throat, No Other Pulmonary: Dyspnea; No Cough, No Pleuritic Chest Pain, No Other Cardiovascular: No: Chest Pain, Palpitations, Orthopnea, Paroxysmal Noc. Dyspnea, Edema, Lt Headedness, Other Focused Exam Lactate Level 06/20/21 14:20: Lactic Acid Level 1.63 06/20/21 15:45: Lactic Acid Level 1.23 Objective-Cardiology Exam Last Set of Vital Signs Vital Signs 06/22/21 06/22/21 07:46 11:00 Temp 37.4 Pulse 101 Resp 19 B/P (MAP) 130/70 Pulse Ox 92 I&O Intake and Output 06/22/21 00:00 Intake Total 2000 ml Output Total 2925 ml Balance -925 ml Intake Oral 1450 ml IV Total 550 ml Output Urine Total 2925 ml General: Alert, Oriented X3, Cooperative HEENT: Atraumatic, PERRLA Neck: Supple, No JVD, No Thyromegaly Lungs: Clear to Auscultation, Normal Air Movement Heart: Normal S1, Normal S2, No Murmurs, Other (Atrial fibrillation) Abdomen: Normal Bowel Sounds, Soft, No Tenderness, No Hepatosplenomegaly, No Masses Extremities: No Clubbing, No Cyanosis, No Edema, Normal Pulses, No Tenderness/Swelling Skin: No Rashes, No Breakdown, No Significant Lesion Neuro: Normal Gait, Normal Speech, Strength at 5/5 X4 Ext, Normal Tone, Sensation Intact Psych/Mental Status: Mental Status NL, Mood NL Results Lab Laboratory Tests 06/22/21 04:41 A/P-Cardiology Admission Diagnosis UTI Sepsis Atrial fibrillation Tachycardia Assessment/Plan UTI, sepsis, receiving antibiotic and managed by primary care physician Atrial fibrillation with rapid ventricular response, History of persistent atrial fibrillation, has been maintained on aspirin and Coumadin with therapeutic INR. He was seen and evaluated by Dr. Lopez at [facility] I recommended rate controlling with accepting atrial fibrillation as a permanent He is maintained on Cardizem drip, adding metoprolol and evaluate tolerance and response Coronary artery disease, History of triple stents in the past, Cardiac catheterization was done in May 20, 2016 which showed severe ostial and proximal right coronary artery stenosis, underwent complex intervention with deployment of 323 mm Xience Alpine stent to the ostium of the right coronary artery with good results, patent stent in the proximal circumflex artery with 50 percent stenosis at the ostium of the first obtuse marginal branch, mild to moderate disease in the mid LAD, small vessel disease. Maintained on ASA. Lexiscan stress test done on June 10, 2020 showing baseline atrial fibrillation, no significant ischemia or infarction, EF 55%. Continue to monitor Generalized fatigue, slight improvement compared to initial complaint, still having fatigue and loss of energy. Echocardiogram done in August 2019 showing ejection fraction 40 to 45%, left atrium 6.42 cm, prominent right atrium, moderate MR, moderate AR, PA pressure 35 to 40 mmHg. Continue to monitor [id number] score is 3, yearly risk of stroke without oral anticoagulation is 3.2 percent, was on Xarelto and it was switched to Coumadin due to the fact that he needed aspirin and Plavix. Currently maintained on Coumadin and aspirin and tolerating it well Moderate carotid stenosis on the right, mild on the left, last ultrasound was done in November 2018, repeat carotid ultrasound in May 2020 showed mild bilateral disease nonobstructive disease. Hypertension, controlled on current medication, continue to monitor Hyperlipidemia, last lipid profile was done in October 2020 showing total cholesterol 158, triglyceride 102, HDL 49, LDL 89. Continue to monitor Lower extremity swelling and weakness, ORA was nondiagnostic bilaterally, TBI was mildly reduced bilaterally, waveforms are acceptable, no significant change compared to the study of 2019. 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 Polymyalgia rheumatica. Low back pain, significant deterioration recently, now using cane. Reports weakness in his legs. Referred in the past to Dr. DAILEY Peripheral edema, better at this time, still having mild edema. Increasing memory loss, I will defer the management to the primary care physician SP BISHOP MD Jun 22, 2021 12:20
[2021-06-22] MEDS: ACETAMINOPHEN 325 MG TABLET PO PRN (16:31)
[2021-06-22] MEDS: warFARin 5 MG (COUMADIN) TAB PO SCH (17:54)
[2021-06-22] MEDS: TAMSULOSIN 0.4 MG (FLOMAX) CAP PO SCH (17:54)
[2021-06-23 05:19] LABS: BASOPHILS # (AUTO) 0.1 10^3/uL (0.0-0.1); BASOPHILS % (AUTO) 1 % (0-10); EOSINOPHILS # (AUTO) 0.1 10^3/uL (0.0-0.3); EOSINOPHILS % (AUTO) 1 % (0-10); HEMATOCRIT 42 % (40-54); HEMOGLOBIN 13.7 g/dL (13.3-17.7); LYMPHOCYTES # (AUTO) 1.1 10^3/uL (1.0-4.0); LYMPHOCYTES % (AUTO) 10 % (12-44); MEAN CORPUSCULAR HEMOGLOBIN 33 pg (25-34); MEAN CORPUSCULAR HGB CONC 33 g/dL (32-36); MEAN CORPUSCULAR VOLUME 102 fL (80-99); MEAN PLATELET VOLUME 11.5 fL (9.0-12.2); MONOCYTES # (AUTO) 1.5 10^3/uL (0.0-1.0); MONOCYTES % (AUTO) 13 % (0-12); NEUTROPHILS # (AUTO) 7.9 10^3/uL (1.8-7.8); NEUTROPHILS % (AUTO) 72 % (42-75); PLATELET COUNT 163 10^3/uL (130-400); WHITE BLOOD COUNT 10.9 10^3/uL (4.3-11.0)
[2021-06-23 05:28] LABS: INR 1.8 (0.8-1.4); PROTHROMBIN TIME PATIENT 21.4 SEC (12.2-14.7)
[2021-06-23 05:34] LABS: ALBUMIN 3.1 GM/DL (3.2-4.5)
[2021-06-23 05:35] LABS: POTASSIUM 4.3 MMOL/L (3.6-5.0)
[2021-06-23 05:36] LABS: CALCIUM 8.7 MG/DL (8.5-10.1)
[2021-06-23 05:37] LABS: TOTAL PROTEIN 6.1 GM/DL (6.4-8.2)
[2021-06-23 05:39] LABS: BILIRUBIN,TOTAL 0.6 MG/DL (0.1-1.0)
[2021-06-23 05:40] LABS: PHOSPHORUS 2.5 MG/DL (2.3-4.7)
[2021-06-23 05:41] LABS: CREATININE SERUM 0.93 MG/DL (0.60-1.30)
[2021-06-23 05:44] LABS: MAGNESIUM 2.1 MG/DL (1.6-2.4)
[2021-06-23] MEDS: inSUlin ASPART (NovoLOG) 1 UNIT/0.01 ML (CHARGE PER UNIT) SC SCH ×4 (05:51→21:42)
[2021-06-23] MEDS: MAGNESIUM 1 GM/100 ML IVPB 100 ML IV SCH (05:51)
[2021-06-23] MEDS: KCL 20 MEQ TAB (K-DUR) PO SCH (05:51)
[2021-06-23] MEDS: POTASSIUM CL 10MEQ/50ML IVPB 50 ML IV SCH (05:51)
[2021-06-23] MEDS: dilTIAZem DRIP PRE-MIX 125 ML IV SCH (07:46)
[2021-06-23] MEDS: cefTRIAXone 1 GM/50 ML (PRE-MIX) IV SCH (08:31)
--- NOTE | 2021-06-23 08:36 | Progress Note ---
Subjective Subjective Date Seen by Provider: Jun 23, 2021 Time Seen by Provider: 08:20 PT SEEN TODAY IN THE ICU PT REPORTS THAT HE IS FEELING A LITTLE BETTER, BUT HAS NOT ATTEMPTED TO GET UP AND MOVE ABOUT THE ROOM. THE FAMILY IS WONDERING ABOUT GETTING HIM OFF OF THE IV'S - HOW QUICKLY HE WILL BE ABLE TO GET TO A REGIMEN TO TREAT HIS AFIB WITH ORAL MEDICATIONS. - AND STEP-DTR IN THE ROOM. PT'S AND STEP-DTR REILLY ARE WORRIED ABOU Cookie GILBERT GOING HOME ON DC, THEY FEEL THAT HE IS TOO WEAK TO SAFELY BE TRANSITIONED TO HOME AND ARE WONDERING ABOUT GOING TO INPT REHAB VERSUS ALF FOR A SHORT STAY. Review of Systems General: No Chills, No Night Sweats; Fatigue, Malaise; No Appetite, No Other HEENT: No Head Aches, No Visual Changes, No Eye Pain, No Ear Pain, No Dysphasia, No Sinus Congestion, No Post Nasal Drip, No Sore Throat, No Other Pulmonary: Dyspnea; No Cough, No Pleuritic Chest Pain, No Other Cardiovascular: No: Chest Pain, Palpitations, Orthopnea, Paroxysmal Noc. Dyspnea, Edema, Lt Headedness, Other Gastrointestinal: No: Nausea, Vomiting, Abdominal Pain, Diarrhea, Melena Genitourinary: Other (NIELSEN IN PLACE) Musculoskeletal: back pain Neurological: Weakness; No: Confusion All Other Systems Reviewed All Other Systems Reviewed: Yes Objective Exam Vital Signs Vital Signs Date Time Temp Pulse Resp B/P (MAP) Pulse Ox O2 Delivery O2 Flow Rate FiO2 06/23/21 07:42 36.4 06/23/21 07:00 91 06/23/21 07:00 96 25 135/52 90 Room Air 06/23/21 06:00 96 19 124/60 95 Room Air 06/23/21 05:00 96 17 151/55 92 Room Air 06/23/21 04:00 100 17 131/75 93 Room Air 06/23/21 03:20 36.9 Room Air 06/23/21 03:10 95 NIV CPAP 06/23/21 03:00 106 18 129/78 92 NIV CPAP 06/23/21 02:00 87 14 131/69 94 NIV CPAP 06/23/21 01:00 98 16 135/65 96 NIV CPAP 06/23/21 01:00 98 06/23/21 00:00 75 16 135/77 92 NIV CPAP 06/22/21 23:20 36.9 16 93 NIV CPAP 06/22/21 23:05 92 NIV CPAP 06/22/21 23:00 87 16 128/57 89 NIV CPAP 06/22/21 22:14 NIV CPAP 06/22/21 22:00 86 127/70 91 Room Air 06/22/21 21:00 93 19 108/65 92 Room Air 06/22/21 20:00 84 18 116/82 Room Air 06/22/21 19:20 92 Room Air 06/22/21 19:00 37.3 78 17 117/64 92 Room Air 06/22/21 19:00 80 06/22/21 18:00 98 12 130/69 94 06/22/21 17:05 37.1 06/22/21 17:00 92 18 162/84 91 06/22/21 16:31 38.2 06/22/21 16:00 38.2 06/22/21 16:00 97 Room Air 06/22/21 15:00 112/76 06/22/21 14:00 89 19 123/71 93 06/22/21 13:00 116 06/22/21 13:00 111 17 122/69 92 06/22/21 12:00 94 Room Air 06/22/21 12:00 111 108/87 06/22/21 12:00 37.2 06/22/21 11:00 101 19 130/70 92 06/22/21 10:00 92 20 127/101 91 06/22/21 09:00 115 22 134/68 94 I & O 06/23/21 07:00 Intake Total 1690 ml Output Total 1075 ml Balance 615 ml General Appearance: No Apparent Distress, WD/WN HEENT: PERRL/EOMI Neck: Full Range of Motion, Non Tender, Supple Respiratory: Chest Non Tender, No Accessory Muscle Use, No Respiratory Distress, Decreased Breath Sounds (IN BASES) Cardiovascular: Irregularly Irregular Gastrointestinal: Normal Bowel Sounds, Non Tender, Soft Rectal: Deferred Extremity: Non Tender, Pedal Edema (CHRONIC) Neurologic/Psychiatric: Alert, Oriented x3, No Motor/Sensory Deficits, Normal Mood/Affect, director of special services II-XII Norm as Tested Skin: Normal Color, Warm/Dry Lymphatic: No Adenopathy Results Lab Laboratory Tests 06/22/21 16:02: Glucometer 162H 06/22/21 20:57: Glucometer 191H 06/23/21 04:47: White Blood Count 10.9, Red Blood Count 4.10L, Hemoglobin 13.7, Hematocrit 42, Mean Corpuscular Volume 102H, Mean Corpuscular Hemoglobin 33, Mean Corpuscular Hemoglobin Concent 33, Red Cell Distribution Width 13.3, Platelet Count 163, Mean Platelet Volume 11.5, Immature Granulocyte % (Auto) 3, Neutrophils (%) (Auto) 72, Lymphocytes (%) (Auto) 10L, Monocytes (%) (Auto) 13H, Eosinophils (%) (Auto) 1, Basophils (%) (Auto) 1, Neutrophils # (Auto) 7.9H, Lymphocytes # (Auto) 1.1, Monocytes # (Auto) 1.5H, Eosinophils # (Auto) 0.1, Basophils # (Auto) 0.1, Immature Granulocyte # (Auto) 0.4H, Prothrombin Time 21.4H, INR Comment 1.8H, Sodium Level 133L, Potassium Level 4.3, Chloride Level 99, Carbon Dioxide Level 22, Anion Gap 12, Blood Urea Nitrogen 20H, Creatinine 0.93, Estimat Glomerular Filtration Rate 81, BUN/Creatinine Ratio 22, Glucose Level 149H, Calcium Level 8.7, Corrected Calcium 9.4, Phosphorus Level 2.5, Magnesium Level 2.1, Total Bilirubin 0.6, Aspartate Amino Transf (AST/SGOT) 20, Alanine Aminotransferase (ALT/SGPT) 25, Alkaline Phosphatase 59, Total Protein 6.1L, Albumin 3.1L Microbiology 06/20/21 MRSA Screen - Final, Complete MRSA not isolated 06/20/21 Blood Culture - Preliminary, Resulted No growth 06/20/21 Urine Culture - Final, Complete Escherichia coli Mixed Bacterial Saumya Assessment/Plan Assessment/Plan Admission Dx SEPSIS URINARY TRACT INFECTION UNCONTROLLED ATRIAL FIBRILLATION LEUKOCYTOSIS CHRONIC ANTICOAGULATION USE - COUMADIN (WARFARIN) CHRONIC HYPERTENSION CHRONIC DIABETES MELLITUS ESOPHAGEAL REFLUX HX OF HIATAL HERNIA REPAIR CHRONIC ARTHRITIS OSTEOPOROSIS GENERALIZED WEAKNESS Assessment and Plan SEPSIS URINARY TRACT INFECTION - ECOLI UNCONTROLLED ATRIAL FIBRILLATION LEUKOCYTOSIS CHRONIC ANTICOAGULATION USE - COUMADIN (WARFARIN) CHRONIC HYPERTENSION CHRONIC DIABETES MELLITUS ESOPHAGEAL REFLUX HX OF HIATAL HERNIA REPAIR CHRONIC ARTHRITIS OSTEOPOROSIS GENERALIZED WEAKNESS HX OF BPH SEPSIS WITH LEUKOCYTOSIS DUE TO URINARY TRACT INFECTION - ECOLI - PT ON IV ROCEPHIN, - WBC'S IMPROVED TODAY - ECOLI IS CAMPOS-SENSITIVE PER CULTURE REPORT - WILL BE ABLE TO TRANSITION TO ORAL ANTIBIOTICS IN THE NEXT FEW DAYS ONCE HIS WHITE COUNT IS REPEATED AND TRULY STABILIZED. UNCONTROLLED ATRIAL FIBRILLATION - PT ON CARDIZEM IV, - DISCUSSED WITH CARDIOLOGY - PLANNING ON PATIENT BEING WEANED OFF OF CARDIZEM DRIP, PLACED ON HIGHER DOSE OF ORAL CARDIZEM (UP FROM 240 TO 360) AND WILL MONITOR RATE IN ICU TODAY. CHRONIC ANTICOAGULATION USE - COUMADIN (WARFARIN) - SERIAL INR'S CHRONIC HYPERTENSION - PT ON CARDIZEM - MONITOR BP RESPONSE (PT ON METOPROLOL) CHRONIC DIABETES MELLITUS -CHECK FSBS, RESTART HOME MEDS TODAY OR TOMORROW ESOPHAGEAL REFLUX - RESTARTED PPI THERAPY (PROTONIX 40MG DAILY) HX OF HIATAL HERNIA REPAIR CHRONIC ARTHRITIS - PT ON PLAQUENIL OUTPATIENT - RESTART TODAY OSTEOPOROSIS BPH - PT TO BE STARTED ON FLOMAX TODAY- HX OF ISSUES WITH PROSTATE AFTER NIELSEN REMOVED. GENERALIZED WEAKNESS - STARTED PHYSICAL THERAPY - WILL REQUEST ARU EVAL FOR INPT REHAB DVT PROPHYLAXIS WITH COUMADIN AND SCD'S GI PROPHYLAXIS WITH PPI THERAPY Admission Dx SEPSIS URINARY TRACT INFECTION UNCONTROLLED ATRIAL FIBRILLATION LEUKOCYTOSIS CHRONIC ANTICOAGULATION USE - COUMADIN (WARFARIN) CHRONIC HYPERTENSION CHRONIC DIABETES MELLITUS ESOPHAGEAL REFLUX HX OF HIATAL HERNIA REPAIR CHRONIC ARTHRITIS OSTEOPOROSIS GENERALIZED WEAKNESS Clinical Quality Measures Admission Status Admission Dx SEPSIS URINARY TRACT INFECTION UNCONTROLLED ATRIAL FIBRILLATION LEUKOCYTOSIS CHRONIC ANTICOAGULATION USE - COUMADIN (WARFARIN) CHRONIC HYPERTENSION CHRONIC DIABETES MELLITUS ESOPHAGEAL REFLUX HX OF HIATAL HERNIA REPAIR CHRONIC ARTHRITIS OSTEOPOROSIS GENERALIZED WEAKNESS RON VICK MD Jun 23, 2021 08:36
[2021-06-23] MEDS: ASPIRIN E.C. 81 MG (ECOTRIN) TAB PO SCH (09:09)
[2021-06-23] MEDS: HYDROXYCHLOROQUINE 200 MG (PLAQUENIL) TAB PO SCH (09:09)
[2021-06-23] MEDS: PANTOPRAZOLE 40 MG (PROTONIX) TAB PO SCH (09:09)
[2021-06-23] MEDS: GABAPENTIN 100 MG (NEURONTIN) CAP PO SCH ×2 (09:09→20:00)
[2021-06-23] MEDS: meTOprolol TARTRATE 25 MG (LOPRESSOR) TABLET PO SCH ×2 (09:50→19:54)
[2021-06-23] MEDS ORDERED: PATIENT MAY USE OWN MED,SINGLE MED PO SCH (10:00)
--- NOTE | 2021-06-23 10:15 | Tele-ICU Progress Note ---
Subjective Date Seen by a Provider: Jun 23, 2021 Time Seen by a Provider: 10:14 Sepsis Event Evaluation Height, Weight, BMI Height: 5'8.00" Weight: 226lbs. 0.0oz. 102.659204sw; 34.14 BMI Method:Stated Focused Exam Lactate Level 06/20/21 14:20: Lactic Acid Level 1.63 06/20/21 15:45: Lactic Acid Level 1.23 Exam Exam Patient acknowledged, consented, and participated in this virtual visit which was conducted using real time audio/video Vital Signs Date Time Temp Pulse Resp B/P (MAP) Pulse Ox O2 Delivery O2 Flow Rate FiO2 06/23/21 08:00 93 Room Air 06/23/21 07:42 36.4 06/23/21 07:00 91 06/23/21 07:00 96 25 135/52 90 Room Air 06/23/21 06:00 96 19 124/60 95 Room Air 06/23/21 05:00 96 17 151/55 92 Room Air 06/23/21 04:00 100 17 131/75 93 Room Air 06/23/21 03:20 36.9 Room Air 06/23/21 03:10 95 NIV CPAP 06/23/21 03:00 106 18 129/78 92 NIV CPAP 06/23/21 02:00 87 14 131/69 94 NIV CPAP 06/23/21 01:00 98 16 135/65 96 NIV CPAP 06/23/21 01:00 98 06/23/21 00:00 75 16 135/77 92 NIV CPAP 06/22/21 23:20 36.9 16 93 NIV CPAP 06/22/21 23:05 92 NIV CPAP 06/22/21 23:00 87 16 128/57 89 NIV CPAP 06/22/21 22:14 NIV CPAP 06/22/21 22:00 86 127/70 91 Room Air 06/22/21 21:00 93 19 108/65 92 Room Air 06/22/21 20:00 84 18 116/82 Room Air 06/22/21 19:20 92 Room Air 06/22/21 19:00 37.3 78 17 117/64 92 Room Air 06/22/21 19:00 80 06/22/21 18:00 98 12 130/69 94 06/22/21 17:05 37.1 06/22/21 17:00 92 18 162/84 91 06/22/21 16:31 38.2 06/22/21 16:00 38.2 06/22/21 16:00 97 Room Air 06/22/21 15:00 112/76 06/22/21 14:00 89 19 123/71 93 06/22/21 13:00 116 06/22/21 13:00 111 17 122/69 92 06/22/21 12:00 94 Room Air 06/22/21 12:00 111 108/87 06/22/21 12:00 37.2 06/22/21 11:00 101 19 130/70 92 I & O 06/23/21 07:00 Intake Total 1690 ml Output Total 1075 ml Balance 615 ml Height & Weight Height: 5'8.00" Weight: 226lbs. 0.0oz. 102.755185zl; 34.14 BMI Method:Stated General Appearance: WD/WN, Mild Distress (APPEARS TO FEEL UNWELL TODAY) HEENT: PERRL/EOMI Neck: Full Range of Motion, Non Tender, Supple Respiratory: Chest Non Tender, No Accessory Muscle Use, No Respiratory Distress, Decreased Breath Sounds (IN BASES) Cardiovascular: Irregularly Irregular, Tachycardia Capillary Refill: Less Than 3 Seconds Peripheral Pulses: 2+ Radial Pulses (R), 2+ Radial Pulses (L) Gastrointestinal: normal bowel sounds (Active bowel sounds), non tender, soft Extremity: Non Tender, Pedal Edema (CHRONIC) Neurologic/Psychiatric: Alert, Oriented x3, No Motor/Sensory Deficits, Normal Mood/Affect, global regulatory lead II-XII Norm as Tested Skin: Normal Color, Warm/Dry Lymphatic: No Adenopathy Results Lab Laboratory Tests 06/22/21 04:41 06/23/21 04:47 Assessment/Plan Assessment/Plan Tele-ICU Physician , Progress Note ) Available chart/ vitals / labs / Images reviewed Video assessment done using teleICU camera, rest of exam as per RN Discussed with RN , EXAM PER RN Events overnight : Afebrile FiO2 - ra I/O = Drips: cardizem 15--> 5 Pressors: , hemodynamically stable Consultants: javier Hospital course: (06/20) 85 y/o with c/o of feeling week, confusion, diarrheal symptoms and urinary DX: UTI, Acute cystitis with hematuria., Afib RVR A/P UTI - E coli -ABX- ceftriaxon Severe sepsis possibly due to UTI - improved - stop IVF with good BP and good PO intake A fib RVR dig IV given , cardizem gtt -AC with warfarin - to be adjusted Lines : (Central Line Necessity Reviewed) Saini: + - ? to be removed soon OG: Nutrition: po Analgesia: Anxiety/ delirium VTE Prophylaxis: INR 1.8 on coumadin Stress Ulcer Prophylaxis: ppi Plans in collaboration with bedside consultants and IM MDs. Discussed with RN to reach out if any questions or concerns A total of 31 minutes of critical care time was devoted to this patient today, required to treat and/or prevent further deterioration of critical care condition ( as above) . MOUSTAPHA LOU MD Jun 23, 2021 10:15
[2021-06-23] MEDS: ALOGLIPTIN BENZOATE 25 MG PO SCH (10:16)
--- NOTE | 2021-06-23 11:06 | Physical Therapy Daily Note ---
PT Daily Note-Current Subjective Patient lying supine in bed upon PT arrival, agreeable to treatment. Patient reports 0/10 pain currently. Mental Status Patient Orientation: Person, Place, Time, Situation Attachments: Saini Catheter, IV Transfers SCALE: Activities may be completed with or without assistive devices. 9-Hpyrwxoowp-txnkxty completes the activity by him/herself with no assistance from a helper. 5-Set-up or Clean-up Assistance-helper sets up or cleans up; patient completes activity. Hope assists only prior to or following the activity. 4-Supervision or Touching Assistance-helper provides verbal cues and/or touching/steadying and/or contact guard assistance as patient completes activity. Assistance may be provided throughout the activity or intermittently. 3-Partial/Moderate Assistance-helper does LESS THAN HALF the effort. Hope lifts, holds or supports trunk or limbs, but provides less than half the effort. 2-Substantial/Maximal Assistance-helper does MORE THAN HALF the effort. Hope lifts or holds trunk or limbs and provides more than half the effort. 8-Xruwiddct-mydleb does ALL the effort. Patient does none of the effort to complete the activity. Or, the assistance of 2 or more helpers is required for the patient to complete the activity. If activity was not attempted, code reason: 7-Patient Refused. 9-Not Applicable-not attempted and the patient did not perform the activity before the current illness, exacerbation or injury. 10-Not Attempted due to Environmental Limitations-(lack of equipment, weather restraints, etc.). 88-Not Attempted due to Medical Conditions or Safety Concerns. Roll Left & Right (QC): 3 Sit to Lying (QC): 3 Lying to Sitting/Side of Bed(Q: 3 Sit to Stand (QC): 3 Chair/Bkg-nl-Cqigc Xfer(QC): 4 Gait Training Does the Patient Walk?: Yes Distance: 250 feet Walk 10 feet (QC): 4 Walk 50 ft with 2 Turns(QC): 4 Walk 150 ft (QC): 3 Gait Persons Needed: 1 Gait Assistive Device: FWW Assessment Current Status: Good Progress Patient tolerated treatment well. Patient performs all observed bed mobility and transfers with min/SBA. He ambulates 250 feet slowly, with FWW, with min a towards the end for control of FWW. Patient requires verbal cues for safety, progression, balance, tolerance to activity, posture. Patient in chair post treatment with all needs met, nursing notified, TERMINOLOGIST in the room, family in the room and call light in hand. PT Residential Goals Superintendent Maintenance Goals PT Superintendent Maintenance Goals Time Frame: Jul 03, 2021 Roll Left & Right (QC): 6 Sit to Lying (QC): 6 Lying-Sitting on Side/Bed(QC): 6 Sit to Stand (QC): 6 Chair/Cnj-mu-Zpxqw Xfer(QC): 6 Toilet Transfer (QC): 6 Walk 10 feet (QC): 6 Walk 50ft with 2 Turns (QC): 6 Walk 150 ft (QC): 6 PT Plan Treatment/Plan Treatment Plan: Continue Plan of Care Treatment Plan: Bed Mobility, Education, Functional Activity Tara, Functional Strength, Gait, Safety, Therapeutic Exercise, Transfers Treatment Duration: Jul 03, 2021 Frequency: 6 times per week Estimated Hrs Per Day: .25 hour per day Patient and/or Family Agrees t: Yes Safety Risks/Education Patient Education: Gait Training Teaching Recipient: Patient Teaching Methods: Demonstration, Discussion Response to Teaching: Verbalize Understanding, Return Demonstration Time/GCodes Time In: 937 Time Out: 1001 Total Billed Treatment Time: 24 Total Billed Treatment Visit, Gait (2) ELAINE KAPOOR PT Jun 23, 2021 11:06
--- NOTE | 2021-06-23 11:46 | Cardiology Progress Note ---
Subjective Date Seen by Provider: Jun 23, 2021 Time Seen by Provider: 11:05 Subjective/Events-last exam Patient is sitting up in bed, denies chest pain. Complaining of some mild dyspnea on exertion. Review of Systems General: No Chills, No Night Sweats; Fatigue, Malaise; No Appetite, No Other HEENT: No Head Aches, No Visual Changes, No Eye Pain, No Ear Pain, No Dysp hasia, No Sinus Congestion, No Post Nasal Drip, No Sore Throat, No Other Pulmonary: No Dyspnea, No Cough, No Pleuritic Chest Pain, No Other Cardiovascular: No: Chest Pain, Palpitations, Orthopnea, Paroxysmal Noc. Dyspnea, Edema, Lt Headedness, Other Focused Exam Lactate Level 06/20/21 15:45: Lactic Acid Level 1.23 Objective-Cardiology Exam Last Set of Vital Signs Vital Signs I&O Intake and Output 06/23/21 00:00 Intake Total 1440 ml Output Total 1575 ml Balance -135 ml Intake Oral 1065 ml IV Total 375 ml Output Urine Total 1575 ml General: Alert, Oriented X3, Cooperative HEENT: Atraumatic, PERRLA Neck: Supple, No JVD, No Thyromegaly Lungs: Clear to Auscultation, Normal Air Movement Heart: Normal S1, Normal S2, No Murmurs, Other (Atrial fibrillation) Abdomen: Normal Bowel Sounds, Soft, No Tenderness, No Hepatosplenomegaly, No Masses Extremities: No Clubbing, No Cyanosis, No Edema, Normal Pulses, No Tenderness/S welling Skin: No Rashes, No Breakdown, No Significant Lesion Neuro: Normal Gait, Normal Speech, Strength at 5/5 X4 Ext, Normal Tone, Sensation Intact Psych/Mental Status: Mental Status NL, Mood NL Results Lab Laboratory Tests 06/23/21 04:47 A/P-Cardiology Admission Diagnosis UTI Sepsis Atrial fibrillation Tachycardia Assessment/Plan UTI, sepsis, receiving antibiotic and managed by primary care physician Atrial fibrillation with rapid ventricular response, History of persistent atrial fibrillation, has been maintained on aspirin and Coumadin with therapeutic INR. He was seen and evaluated by Dr. Lopez at [facility] recommended rate controlling with accepting atrial fibrillation as a permanent He is maintained on Cardizem drip, will try to titrate off today. Increase PO Cardizem to 360mg daily. I gave him 120 mg of Cardizem today and will increase the dose to 360 daily. Coronary artery disease, History of triple stents in the past, Cardiac catheterization was done in May 20, 2016 which showed severe ostial and proximal right coronary artery stenosis, underwent complex intervention with deployment of 323 mm Xience Alpine stent to the ostium of the right coronary artery with good results, patent stent in the proximal circumflex artery with 50 percent stenosis at the ostium of the first obtuse marginal branch, mild to moderate disease in the mid LAD, small vessel disease. Maintained on ASA. Lexiscan stress test done on June 10, 2020 showing baseline atrial fibrillation, no significant ischemia or infarction, EF 55%. Continue to monitor Generalized fatigue, slight improvement compared to initial complaint, still having fatigue and loss of energy. Echocardiogram done in August 2019 showing ejection fraction 40 to 45%, left atrium 6.42 cm, prominent right atrium, moderate MR, moderate AR, PA pressure 35 to 40 mmHg. Continue to monitor [id number] score is 3, yearly risk of stroke without oral anticoagulation is 3.2 percent, was on Xarelto and it was switched to Coumadin due to the fact that he needed aspirin and Plavix. Currently maintained on Coumadin and aspirin and tolerating it well Moderate carotid stenosis on the right, mild on the left, repeat carotid ultrasound in May 2020 showed mild bilateral disease nonobstructive disease. Hypertension, controlled on current medication, continue to monitor Hyperlipidemia, last lipid profile was done in October 2020 showing total cholesterol 158, triglyceride 102, HDL 49, LDL 89. Continue to monitor Lower extremity swelling and weakness, ORA was nondiagnostic bilaterally, TBI was mildly reduced bilaterally, waveforms are acceptable, no significant change compared to the study of 2019. 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 Polymyalgia rheumatica. Low back pain, significant deterioration recently, now using cane. Reports weakness in his legs. Currently undergoing workup with Dr. Hagan Peripheral edema, better at this time, still having mild edema. Increasing memory loss, I will defer the management to the primary care physician Supervisory-Addendum Brief Supervisory Addendum Participated in pt care: history, MDM, physical Personally performed: exam, history, MDM Care discussed with: JOHN Results interpretation: Verified all documentation Notes: Patient was seen and evaluated with Nancy, examination performed, management plan was discussed, agree with the current scribed note, I made few changes to the note using Italic font Patient was seen at bedside, laying down comfortably Heart rate is better controlled, currently off the Cardizem drip I will give him additional Cardizem CD 120 today and increase his daily dosing to Cardizem CD 360 daily Patient is unable to tolerate beta-blockers. Monitor blood pressure and heart rate. Okay to transfer to telemetry NANCY BREAUX Jun 23, 2021 11:46 SP BISHOP MD Jun 23, 2021 14:32
[2021-06-23] MEDS ORDERED: dilTIAZem120 MG (CARDIZEM CD) CAP PO NR (13:45)
[2021-06-23] MEDS: TAMSULOSIN 0.4 MG (FLOMAX) CAP PO SCH (18:14)
[2021-06-23] MEDS: warFARin 5 MG (COUMADIN) TAB PO SCH (18:15)
[2021-06-24 05:21] LABS: BASOPHILS # (AUTO) 0.1 10^3/uL (0.0-0.1); BASOPHILS % (AUTO) 1 % (0-10); EOSINOPHILS # (AUTO) 0.2 10^3/uL (0.0-0.3); EOSINOPHILS % (AUTO) 2 % (0-10); HEMATOCRIT 42 % (40-54); LYMPHOCYTES # (AUTO) 1.4 10^3/uL (1.0-4.0); LYMPHOCYTES % (AUTO) 14 % (12-44); MEAN CORPUSCULAR HEMOGLOBIN 34 pg (25-34); MEAN CORPUSCULAR HGB CONC 33 g/dL (32-36); MEAN CORPUSCULAR VOLUME 102 fL (80-99); MEAN PLATELET VOLUME 10.9 fL (9.0-12.2); MONOCYTES # (AUTO) 1.9 10^3/uL (0.0-1.0); MONOCYTES % (AUTO) 19 % (0-12); NEUTROPHILS # (AUTO) 6.1 10^3/uL (1.8-7.8); NEUTROPHILS % (AUTO) 60 % (42-75); PLATELET COUNT 189 10^3/uL (130-400); WHITE BLOOD COUNT 10.2 10^3/uL (4.3-11.0)
[2021-06-24 05:32] LABS: INR 1.7 (0.8-1.4); PROTHROMBIN TIME PATIENT 20.5 SEC (12.2-14.7)
[2021-06-24 05:34] LABS: ALBUMIN 3.1 GM/DL (3.2-4.5); POTASSIUM 4.7 MMOL/L (3.6-5.0)
[2021-06-24 05:36] LABS: CALCIUM 8.8 MG/DL (8.5-10.1)
[2021-06-24 05:37] LABS: TOTAL PROTEIN 6.1 GM/DL (6.4-8.2)
[2021-06-24] MEDS: POTASSIUM CL 10MEQ/50ML IVPB 50 ML IV SCH (05:37)
[2021-06-24] MEDS: inSUlin ASPART (NovoLOG) 1 UNIT/0.01 ML (CHARGE PER UNIT) SC SCH ×4 (05:38→20:30)
[2021-06-24] MEDS: KCL 20 MEQ TAB (K-DUR) PO SCH (05:38)
[2021-06-24 05:39] LABS: BILIRUBIN,TOTAL 0.5 MG/DL (0.1-1.0)
[2021-06-24 05:40] LABS: CREATININE SERUM 0.86 MG/DL (0.60-1.30)
[2021-06-24 05:42] LABS: BAND NEUTROPHILS 0 %; LYMPHOCYTES % (MANUAL) 22 %; NEUTROPHILS % (MANUAL) 58 %
[2021-06-24 05:43] LABS: BASOPHILS % (MANUAL) 0 %; EOSINOPHILS % (MANUAL) 0 %; MONOCYTES % (MANUAL) 18 %; RBC MORPH NORMAL; REACTIVE LYMPHOCYTES 2 %
[2021-06-24 05:44] LABS: MAGNESIUM 2.1 MG/DL (1.6-2.4)
[2021-06-24] MEDS: MAGNESIUM 1 GM/100 ML IVPB 100 ML IV SCH (05:47)
[2021-06-24] MEDS ORDERED: DIGOXIN 0.25 MG/ML (LANOXIN) 2 ML AMP IV ONE (07:00)
[2021-06-24] MEDS: meTOprolol TARTRATE 25 MG (LOPRESSOR) TABLET PO SCH (07:28)
--- NOTE | 2021-06-24 08:28 | Progress Note ---
Subjective Subjective Date Seen by Provider: Jun 24, 2021 Time Seen by Provider: 08:20 PT REPORTS THAT HE IS FEELING BETTER FAMILY IN ROOM TODAY - HIS AND TWO OF HIS DTRS. PT WAS IRRITABLE WITH HIS YESTERDAY AND SHE IS UPSET/EMOTIONAL ABOUT HIS HEALTH AND SHE IS WORRIED ABOUT HOW HIS FAMILY PERCEIVES HER CARE OF OFELIA. PT'S DTRS WERE REASSURING TO AXEL THAT THEY VALUE HER CARE FOR THEIR DAD AND ARE APPRECIATIVE OF HOW MUCH SHE HAS DONE FOR THEIR DAD. Review of Systems General: No Chills, No Night Sweats; Fatigue, Malaise; No Appetite, No Other HEENT: No Head Aches, No Visual Changes, No Eye Pain, No Ear Pain, No Dysphasia, No Sinus Congestion, No Post Nasal Drip, No Sore Throat, No Other Pulmonary: Dyspnea; No Cough, No Pleuritic Chest Pain, No Other Cardiovascular: Palpitations, Edema; No: Chest Pain, Orthopnea, Paroxysmal Noc. Dyspnea, Lt Headedness, Other Gastrointestinal: Constipation; No: Nausea, Vomiting, Abdominal Pain, Diarrhea, Melena Genitourinary: Other (NIELSEN IN PLACE) Musculoskeletal: back pain Neurological: Weakness; No: Confusion All Other Systems Reviewed All Other Systems Reviewed: Yes Objective Exam Vital Signs Vital Signs Date Time Temp Pulse Resp B/P (MAP) Pulse Ox O2 Delivery O2 Flow Rate FiO2 06/24/21 08:11 Room Air 06/24/21 07:58 128 06/24/21 06:00 130 19 161/82 93 Room Air 06/24/21 05:00 123 16 164/76 93 Room Air 06/24/21 04:00 125 21 172/100 95 Room Air 06/24/21 04:00 36.6 06/24/21 04:00 94 NIV CPAP 06/24/21 03:00 112 18 161/103 95 Room Air 06/24/21 02:00 120 18 111/62 94 Room Air 06/24/21 01:00 130 06/24/21 01:00 98 17 127/68 96 Room Air 06/24/21 00:00 147 21 136/68 94 Room Air 06/24/21 00:00 36.7 06/23/21 23:59 94 NIV CPAP 06/23/21 23:00 87 16 142/59 93 Room Air 06/23/21 22:00 122 20 128/64 91 Room Air 06/23/21 21:00 138 15 139/118 94 Room Air 06/23/21 20:00 149 19 102/84 94 Room Air 06/23/21 20:00 37.5 06/23/21 20:00 93 Room Air 06/23/21 19:00 126 21 125/91 93 Room Air 06/23/21 19:00 126 06/23/21 18:16 128 06/23/21 18:00 158 17 162/98 94 Room Air 06/23/21 17:00 112 16 94 Room Air 06/23/21 16:45 97 9 158/79 95 Room Air 06/23/21 16:00 105 21 143/106 95 Room Air 06/23/21 16:00 92 Room Air 06/23/21 15:51 37.7 06/23/21 15:00 105 21 142/72 93 Room Air 06/23/21 14:00 101 21 163/71 94 Room Air 06/23/21 13:00 98 19 140/75 96 Room Air 06/23/21 13:00 88 06/23/21 12:00 37.4 06/23/21 12:00 124 28 135/83 97 Room Air 06/23/21 12:00 92 Room Air 06/23/21 11:00 98 22 141/69 93 Room Air 06/23/21 10:00 116 16 129/86 95 Room Air 06/23/21 09:00 90 24 114/63 93 Room Air I & O 06/24/21 06:59 Intake Total 1850 ml Output Total 2300 ml Balance -450 ml General Appearance: No Apparent Distress, WD/WN HEENT: PERRL/EOMI Neck: Full Range of Motion, Non Tender, Supple Respiratory: Chest Non Tender, No Accessory Muscle Use, No Respiratory Distress, Decreased Breath Sounds (IN BASES) Cardiovascular: Irregularly Irregular, Tachycardia Gastrointestinal: Normal Bowel Sounds, Non Tender, Soft Rectal: Deferred Extremity: Non Tender, Pedal Edema (CHRONIC) Neurologic/Psychiatric: Alert, Oriented x3, No Motor/Sensory Deficits, Normal Mood/Affect, publishing director II-XII Norm as Tested Skin: Normal Color, Warm/Dry Lymphatic: No Adenopathy Results Lab Laboratory Tests 06/23/21 21:00: Glucometer 197H 06/24/21 05:07: White Blood Count 10.2, Red Blood Count 4.14L, Hemoglobin 14.0, Hematocrit 42, Mean Corpuscular Volume 102H, Mean Corpuscular Hemoglobin 34, Mean Corpuscular Hemoglobin Concent 33, Red Cell Distribution Width 13.3, Platelet Count 189, Mean Platelet Volume 10.9, Immature Granulocyte % (Auto) 5, Neutrophils (%) (Auto) 60, Lymphocytes (%) (Auto) 14, Monocytes (%) (Auto) 19H, Eosinophils (%) (Auto) 2, Basophils (%) (Auto) 1, Neutrophils # (Auto) 6.1, Lymphocytes # (Auto) 1.4, Monocytes # (Auto) 1.9H, Eosinophils # (Auto) 0.2, Basophils # (Auto) 0.1, Immature Granulocyte # (Auto) 0.5H, Neutrophils % (Manual) 58, Lymphocytes % (Manual) 22, Monocytes % (Manual) 18, Eosinophils % (Manual) 0, Basophils % (Manual) 0, Band Neutrophils 0, Reactive Lymphocytes 2, Blood Morphology Comment NORMAL, Prothrombin Time 20.5H, INR Comment 1.7H, Sodium Level 135, Potassium Level 4.7, Chloride Level 100, Carbon Dioxide Level 22, Anion Gap 13, Blood Urea Nitrogen 20H, Creatinine 0.86, Estimat Glomerular Filtration Rate 85, BUN/Creatinine Ratio 23, Glucose Level 159H, Calcium Level 8.8, Corrected Calcium 9.5, Phosphorus Level 3.0, Magnesium Level 2.1, Total Bilirubin 0.5, A spartate Amino Transf (AST/SGOT) 29, Alanine Aminotransferase (ALT/SGPT) 35, Alkaline Phosphatase 55, Total Protein 6.1L, Albumin 3.1L Microbiology 06/20/21 MRSA Screen - Final, Complete MRSA not isolated 06/20/21 Blood Culture - Preliminary, Resulted No growth 06/20/21 Urine Culture - Final, Complete Escherichia coli Mixed Bacterial Saumya Assessment/Plan Assessment/Plan Admission Dx SEPSIS URINARY TRACT INFECTION UNCONTROLLED ATRIAL FIBRILLATION LEUKOCYTOSIS CHRONIC ANTICOAGULATION USE - COUMADIN (WARFARIN) CHRONIC HYPERTENSION CHRONIC DIABETES MELLITUS ESOPHAGEAL REFLUX HX OF HIATAL HERNIA REPAIR CHRONIC ARTHRITIS OSTEOPOROSIS GENERALIZED WEAKNESS Assessment and Plan SEPSIS URINARY TRACT INFECTION - ECOLI UNCONTROLLED ATRIAL FIBRILLATION LEUKOCYTOSIS CHRONIC ANTICOAGULATION USE - COUMADIN (WARFARIN) CHRONIC HYPERTENSION CHRONIC DIABETES MELLITUS ESOPHAGEAL REFLUX HX OF HIATAL HERNIA REPAIR CHRONIC ARTHRITIS OSTEOPOROSIS GENERALIZED WEAKNESS HX OF BPH SEPSIS WITH LEUKOCYTOSIS DUE TO URINARY TRACT INFECTION - ECOLI - PT ON IV ROCEPHIN, - WBC'S IMPROVED TODAY - ECOLI IS CAMPOS-SENSITIVE PER CULTURE REPORT - WILL BE ABLE TO TRANSITION TO ORAL ANTIBIOTICS IN THE NEXT FEW DAYS UNCONTROLLED ATRIAL FIBRILLATION - PT ON CARDIZEM IV, - DISCUSSED WITH CARDIOLOGY - PLANNING ON PATIENT BEING WEANED OFF OF CARDIZEM DRIP, PLACED ON HIGHER DOSE OF ORAL CARDIZEM (UP FROM 240 TO 360) AND TODAY ADDED ORAL DIGOXIN. - MONITOR PT IN ICU FOR ANOTHER 24 HOURS. CHRONIC ANTICOAGULATION USE - COUMADIN (WARFARIN) - SERIAL INR'S = GAVE EXTRA DOSE OF COUMADIN TODAY - 1MG THIS MORNING IN ADDITION TO HIS USUAL DOSE THIS EVENING - REPEAT INR IN MORNING CHRONIC HYPERTENSION - PT ON CARDIZEM - MONITOR BP RESPONSE (PT ON METOPROLOL) CHRONIC DIABETES MELLITUS -CHECK FSBS, RESTART HOME MEDS TODAY OR TOMORROW ESOPHAGEAL REFLUX - RESTARTED PPI THERAPY (PROTONIX 40MG DAILY) HX OF HIATAL HERNIA REPAIR CHRONIC ARTHRITIS - PT ON PLAQUENIL OUTPATIENT - RESTART TODAY OSTEOPOROSIS BPH - PT TO BE STARTED ON FLOMAX TODAY- HX OF ISSUES WITH PROSTATE AFTER NIELSEN REMOVED. GENERALIZED WEAKNESS - STARTED PHYSICAL THERAPY - WILL REQUEST ARU EVAL FOR INPT REHAB - PT TOO GOOD FOR ARU DUE TO HIS IMPROVED PHYSICAL STATUS AND AMBULATION AROUND THE ICU POD X 2-3 TIMES THIS MORNING. WILL REQUEST HOME HEALTH EVAL. DVT PROPHYLAXIS WITH COUMADIN AND SCD'S GI PROPHYLAXIS WITH PPI THERAPY Admission Dx SEPSIS URINARY TRACT INFECTION UNCONTROLLED ATRIAL FIBRILLATION LEUKOCYTOSIS CHRONIC ANTICOAGULATION USE - COUMADIN (WARFARIN) CHRONIC HYPERTENSION CHRONIC DIABETES MELLITUS ESOPHAGEAL REFLUX HX OF HIATAL HERNIA REPAIR CHRONIC ARTHRITIS OSTEOPOROSIS GENERALIZED WEAKNESS Clinical Quality Measures Admission Status Admission Dx SEPSIS URINARY TRACT INFECTION UNCONTROLLED ATRIAL FIBRILLATION LEUKOCYTOSIS CHRONIC ANTICOAGULATION USE - COUMADIN (WARFARIN) CHRONIC HYPERTENSION CHRONIC DIABETES MELLITUS ESOPHAGEAL REFLUX HX OF HIATAL HERNIA REPAIR CHRONIC ARTHRITIS OSTEOPOROSIS GENERALIZED WEAKNESS RON VICK MD Jun 24, 2021 08:28
[2021-06-24] MEDS ORDERED: warFARin 1 MG (COUMADIN) TAB PO ONE (08:30)
--- NOTE | 2021-06-24 09:15 | Tele-ICU Progress Note ---
Subjective Date Seen by a Provider: Jun 24, 2021 Time Seen by a Provider: 09:16 Subjective/Events-last exam Tele-ICU Physician , Progress Note Available chart/ vitals / labs / Images reviewed Video assessment done using teleICU camera, rest of exam as per RN Discussed with RN , EXAM PER RN 85 y/o M admitted with confusion, diarrhea, admitted for severe sepsis (source likely UTI). Hospital course c/b afibr with RVR No major events overnight. Currently on RA. WBC continues to trend down. cultures pansusceptible Ecoli Drips: cardizem Pressors: , hemodynamically stable Consultants: javier Sepsis Event Evaluation Sepsis Stage: Severe Sepsis Height, Weight, BMI Height: 5'8.00" Weight: 226lbs. 0.0oz. 102.738537do; 34.14 BMI Method:Stated Exam Exam Patient acknowledged, consented, and participated in this virtual visit which was conducted using real time audio/video Vital Signs Date Time Temp Pulse Resp B/P (MAP) Pulse Ox O2 Delivery O2 Flow Rate FiO2 06/24/21 08:11 Room Air 06/24/21 08:00 37.5 06/24/21 07:58 128 06/24/21 07:00 117 19 168/107 93 Room Air 06/24/21 06:00 130 19 161/82 93 Room Air 06/24/21 05:00 123 16 164/76 93 Room Air 06/24/21 04:00 125 21 172/100 95 Room Air 06/24/21 04:00 36.6 06/24/21 04:00 94 NIV CPAP 06/24/21 03:00 112 18 161/103 95 Room Air 06/24/21 02:00 120 18 111/62 94 Room Air 06/24/21 01:00 130 06/24/21 01:00 98 17 127/68 96 Room Air 06/24/21 00:00 147 21 136/68 94 Room Air 06/24/21 00:00 36.7 06/23/21 23:59 94 NIV CPAP 06/23/21 23:00 87 16 142/59 93 Room Air 06/23/21 22:00 122 20 128/64 91 Room Air 06/23/21 21:00 138 15 139/118 94 Room Air 06/23/21 20:00 149 19 102/84 94 Room Air 06/23/21 20:00 37.5 06/23/21 20:00 93 Room Air 06/23/21 19:00 126 21 125/91 93 Room Air 06/23/21 19:00 126 06/23/21 18:16 128 06/23/21 18:00 158 17 162/98 94 Room Air 06/23/21 17:00 112 16 94 Room Air 06/23/21 16:45 97 9 158/79 95 Room Air 06/23/21 16:00 105 21 143/106 95 Room Air 06/23/21 16:00 92 Room Air 06/23/21 15:51 37.7 06/23/21 15:00 105 21 142/72 93 Room Air 06/23/21 14:00 101 21 163/71 94 Room Air 06/23/21 13:00 98 19 140/75 96 Room Air 06/23/21 13:00 88 06/23/21 12:00 37.4 06/23/21 12:00 124 28 135/83 97 Room Air 06/23/21 12:00 92 Room Air 06/23/21 11:00 98 22 141/69 93 Room Air 06/23/21 10:00 116 16 129/86 95 Room Air I & O 06/24/21 07:00 Intake Total 1850 ml Output Total 2300 ml Balance -450 ml Height & Weight Height: 5'8.00" Weight: 226lbs. 0.0oz. 102.843658mj; 34.14 BMI Method:Stated General Appearance: No Apparent Distress, WD/WN HEENT: PERRL/EOMI Neck: Full Range of Motion, Non Tender, Supple Respiratory: Chest Non Tender, No Accessory Muscle Use, No Respiratory Distress, Decreased Breath Sounds (IN BASES) Cardiovascular: Irregularly Irregular Capillary Refill: Less Than 3 Seconds Peripheral Pulses: 2+ Radial Pulses (R), 2+ Radial Pulses (L) Gastrointestinal: normal bowel sounds (Active bowel sounds), non tender, soft Extremity: Non Tender, Pedal Edema (CHRONIC) Neurologic/Psychiatric: Alert, Oriented x3, No Motor/Sensory Deficits, Normal Mood/Affect, product info specialist II-XII Norm as Tested Skin: Normal Color, Warm/Dry Lymphatic: No Adenopathy Results Lab Laboratory Tests 06/23/21 04:47 06/24/21 05:07 Assessment/Plan Assessment/Plan A/P: 85 y/o M admitted with confusion, diarrhea, admitted for severe sepsis (source likely Ecoli-UTI). Severe sepsis possibly due to UTI- Improved. VSS. -Currently on Ceftriaxone for richardson susceptible Ecoli. Ok to transition to PO for completion of 5 day course. A fib RVR- Currently remains in Afib on cardizem gtt . -Would obtain formal Cards consult to transition to PO cardizem -Consider f/u TTE. -Cont AC with coumadin HTN- Cont cardizem Endo: Hx of DM, Start home meds Lines : (Central Line Necessity Reviewed) Saini: + - ? to be removed soon OG: Nutrition: po Analgesia: Anxiety/ delirium VTE Prophylaxis: on coumadin Stress Ulcer Prophylaxis: ppi Plans in collaboration with bedside consultants and IM MDs. Discussed with RN to reach out if any questions or concerns A total of 35 minutes of critical care time was devoted to this patient today, required to treat and/or prevent further deterioration of critical care condition ( as above). TAYO SAUCEDA MD Jun 24, 2021 09:15
[2021-06-24] MEDS: PANTOPRAZOLE 40 MG (PROTONIX) TAB PO SCH (09:22)
[2021-06-24] MEDS: GABAPENTIN 100 MG (NEURONTIN) CAP PO SCH ×2 (09:22→20:30)
[2021-06-24] MEDS: ASPIRIN E.C. 81 MG (ECOTRIN) TAB PO SCH (09:22)
[2021-06-24] MEDS: HYDROXYCHLOROQUINE 200 MG (PLAQUENIL) TAB PO SCH (09:23)
[2021-06-24] MEDS: ALOGLIPTIN BENZOATE 25 MG PO SCH (09:24)
[2021-06-24] MEDS: cefTRIAXone 1 GM/50 ML (PRE-MIX) IV SCH (09:24)
--- NOTE | 2021-06-24 09:29 | Cardiology Progress Note ---
Subjective Date Seen by Provider: Jun 24, 2021 Time Seen by Provider: 09:27 Subjective/Events-last exam Patient was seen at bedside, sitting comfortably, still tachycardic. Denied any chest pain. Review of Systems General: No Chills, No Night Sweats; Fatigue, Malaise; No Appetite, No Other HEENT: No Head Aches, No Visual Changes, No Eye Pain, No Ear Pain, No Dyspha jose david, No Sinus Congestion, No Post Nasal Drip, No Sore Throat, No Other Pulmonary: No Dyspnea, No Cough, No Pleuritic Chest Pain, No Other Cardiovascular: No: Chest Pain, Palpitations, Orthopnea, Paroxysmal Noc. Dyspnea, Edema, Lt Headedness, Other Objective-Cardiology Exam Last Set of Vital Signs Vital Signs 06/24/21 06/24/21 06/24/21 06/24/21 07:00 07:58 08:00 08:11 Temp 37.5 Pulse 128 Resp 19 B/P (MAP) 168/107 Pulse Ox 93 O2 Delivery Room Air I&O Intake and Output 06/23/21 23:59 Intake Total 1900 ml Output Total 1800 ml Balance 100 ml Intake Oral 1850 ml IV Total 50 ml Output Urine Total 1800 ml General: Alert, Oriented X3, Cooperative HEENT: Atraumatic, PERRLA Neck: Supple, No JVD, No Thyromegaly Lungs: Clear to Auscultation, Normal Air Movement Heart: Normal S1, Normal S2, No Murmurs, Other (Atrial fibrillation) Abdomen: Normal Bowel Sounds, Soft, No Tenderness, No Hepatosplenomegaly, No Masses Extremities: No Clubbing, No Cyanosis, No Edema, Normal Pulses, No Tenderness/Swelling Skin: No Rashes, No Breakdown, No Significant Lesion Neuro: Normal Gait, Normal Speech, Strength at 5/5 X4 Ext, Normal Tone, Sensation Intact Psych/Mental Status: Mental Status NL, Mood NL Results Lab Laboratory Tests 06/24/21 05:07 A/P-Cardiology Admission Diagnosis UTI Sepsis Atrial fibrillation Tachycardia Assessment/Plan UTI, sepsis, receiving antibiotic and managed by primary care physician Atrial fibrillation with rapid ventricular response, History of persistent atrial fibrillation, has been maintained on aspirin and Coumadin with therapeutic INR. He was seen and evaluated by Dr. Lopez at [facility] recommended rate controlling with accepting atrial fibrillation as a permanent I have increased Cardizem to 360 mg daily and added digoxin today. Still b orderline tachycardic, I will evaluate tolerance and response Coronary artery disease, History of triple stents in the past, Cardiac catheterization was done in May 20, 2016 which showed severe ostial and proximal right coronary artery stenosis, underwent complex intervention with deployment of 323 mm Xience Alpine stent to the ostium of the right coronary artery with good results, patent stent in the proximal circumflex artery with 50 percent stenosis at the ostium of the first obtuse marginal branch, mild to moderate disease in the mid LAD, small vessel disease. Maintained on ASA. Lexiscan stress test done on June 10, 2020 showing baseline atrial fibrillation, no significant ischemia or infarction, EF 55%. Continue to monitor Generalized fatigue, slight improvement compared to initial complaint, still having fatigue and loss of energy. Echocardiogram done in August 2019 showing ejection fraction 40 to 45%, left atrium 6.42 cm, prominent right atrium, moderate MR, moderate AR, PA pressure 35 to 40 mmHg. Continue to monitor [id number] score is 3, yearly risk of stroke without oral anticoagulation is 3.2 percent, was on Xarelto and it was switched to Coumadin due to the fact that he needed aspirin and Plavix. Currently maintained on Coumadin and aspirin and tolerating it well, Monitor INR after adding Coumadin, today's INR is 1.7 Moderate carotid stenosis on the right, mild on the left, repeat carotid ultrasound in May 2020 showed mild bilateral disease nonobstructive disease. Hypertension, controlled on current medication, continue to monitor Hyperlipidemia, last lipid profile was done in October 2020 showing total cholesterol 158, triglyceride 102, HDL 49, LDL 89. Continue to monitor Lower extremity swelling and weakness, ORA was nondiagnostic bilaterally, TBI was mildly reduced bilaterally, waveforms are acceptable, no significant change compared to the study of 2020. 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 Polymyalgia rheumatica. Low back pain, significant deterioration recently, now using cane. Reports weakness in his legs. Currently undergoing workup with Dr. Hagan Peripheral edema, better at this time, still having mild edema. Increasing memory loss, I will defer the management to the primary care SP Maya MD Jun 24, 2021 09:29
--- NOTE | 2021-06-24 10:35 | Physical Therapy Daily Note ---
PT Daily Note-Current Subjective Patient reports he was able to sleep and feels better today. Agrees to PT. Pain Numeric Pain Scale: 0-No Pain Mental Status Patient Orientation: Normal For Age Transfers SCALE: Activities may be completed with or without assistive devices. 7-Wevruycgeb-doduhdh completes the activity by him/herself with no assistance from a helper. 5-Set-up or Clean-up Assistance-helper sets up or cleans up; patient completes activity. [place] assists only prior to or following the activity. 4-Supervision or Touching Assistance-helper provides verbal cues and/or touching/steadying and/or contact guard assistance as patient completes activity. Assistance may be provided throughout the activity or intermittently. 3-Partial/Moderate Assistance-helper does LESS THAN HALF the effort. [place] lifts, holds or supports trunk or limbs, but provides less than half the effort. 2-Substantial/Maximal Assistance-helper does MORE THAN HALF the effort. [place] lifts or holds trunk or limbs and provides more than half the effort. 0-Unjpvjrwm-xthcbv does ALL the effort. Patient does none of the effort to c omplete the activity. Or, the assistance of 2 or more helpers is required for the patient to complete the activity. If activity was not attempted, code reason: 7-Patient Refused. 9-Not Applicable-not attempted and the patient did not perform the activity before the current illness, exacerbation or injury. 10-Not Attempted due to Environmental Limitations-(lack of equipment, weather restraints, etc.). 88-Not Attempted due to Medical Conditions or Safety Concerns. Lying to Sitting/Side of Bed(Q: 4 Sit to Stand (QC): 4 Chair/Lsi-xt-Skihx Xfer(QC): 4 SBA for all mobility on this date Gait Training Distance: 500' Walk 10 feet (QC): 4 Walk 50 ft with 2 Turns(QC): 4 Walk 150 ft (QC): 4 Gait Assistive Device: FWW SBA/improved gait sequence with reciprocal pattern and improved odette Assessment Patient requires time to complete all functional tasks and is much improved on this date. Increase activity as tolerated by patient. Spouse present. PT Shelter Goals Web Architect Goals PT Web Architect Goals Time Frame: Jul 03, 2021 Roll Left & Right (QC): 6 Sit to Lying (QC): 6 Lying-Sitting on Side/Bed(QC): 6 Sit to Stand (QC): 6 Chair/Hba-xb-Yfdfg Xfer(QC): 6 Toilet Transfer (QC): 6 Walk 10 feet (QC): 6 Walk 50ft with 2 Turns (QC): 6 Walk 150 ft (QC): 6 PT Plan Treatment/Plan Treatment Plan: Continue Plan of Care Treatment Plan: Bed Mobility, Education, Functional Activity Tara, Functional Strength, Gait, Safety, Therapeutic Exercise, Transfers Treatment Duration: Jul 03, 2021 Frequency: 6 times per week Estimated Hrs Per Day: .25 hour per day Patient and/or Family Agrees t: Yes Time/GCodes Time In: 750 Time Out: 813 Total Billed Treatment Time: 23 Total Billed Treatment 1 visit FA x 2 23 min CHARLEY ZUNIGA PT Jun 24, 2021 10:34
--- NOTE | 2021-06-24 11:44 | Occupational Therapy Eval ---
OT Evaluation-General/PLF Medical Diagnosis Admission Date Jun 20, 2021 at 14:21 Medical Diagnosis: UTI/sepsis/A-fib Onset Date: Jun 20, 2021 Therapy Diagnosis Therapy Diagnosis: reduced endurance Height/Weight Height (Feet): 5 Height (Inches): 8.00 Weight (Pounds): 226 Weight (Ounces): 0.0 Precautions Precautions/Isolations: Fall Prevention, Standard Precautions Referral Physician: Madelaine Referral Reason: Evaluation/Treatment Medical History Pertinent Medical History: Atrial Fib, CAD, HTN Current History Pt arrived to ER with weakness and GI issues. Found to have UTI/sepsis. Per patient, he lives with in a single story home. He was indep with adls and his completed all the IADLs. He uses a walking stick or walker when out in the community. No AD inside the home. Reviewed History: Yes Social History Home: Single Level Current Living Status: Spouse Entry Into Home: Stairs With Railing Steps Into Home: 3 ADL-Prior Level of Function SCALE: Activities may be completed with or without assistive devices. 1-Qihsbhyjyt-yonhkdb completes the activity by him/herself with no assistance from a helper. 5-Set-up or Clean-up Assistance-helper sets up or cleans up; patient completes activity. [place] assists only prior to or following the activity. 4-Supervision or Touching Assistance-helper provides verbal cues and/or touching/steadying and/or contact guard assistance as patient completes activity. Assistance may be provided throughout the activity or intermittently. 3-Partial/Moderate Assistance-helper does LESS THAN HALF the effort. [place] lifts, holds or supports trunk or limbs, but provides less than half the effort. 2-Substantial/Maximal Assistance-helper does MORE THAN HALF the effort. [place] lifts or holds trunk or limbs and provides more than half the effort. 3-Hwfnjaamk-pwdjwc does ALL the effort. Patient does none of the effort to complete the activity. Or, the assistance of 2 or more helpers is required for the patient to complete the activity. If activity was not attempted, code reason: 7-Patient Refused. 9-Not Applicable-not attempted and the patient did not perform the activity before the current illness, exacerbation or injury. 10-Not Attempted due to Environmental Limitations-(lack of equipment, weather restraints, etc.). 88-Not Attempted due to Medical Conditions or Safety Concerns. Self Care: Independent Functional Cognition: Independent DME/Equipment: Bath Bench, Grab Bars, Shower Drive Self: No OT Current Status Subjective Pt denies pain, reports doctor told him he walked too far this morning and that he is not supposed to walk anymore today. Daughters in room and in agreement. Appearance Pt returned to supine in bed, all needs within reach. Mental Status/Objective Patient Orientation: Person, Place Attachments: Telemetry Current Glasses/Contacts: Yes Hearing Aids: No Hand Dominance: Right Upper Extremity ROM WNL Upper Extremity Strength L shoulder 3/5 RUE and L elbow-soft water mechanic: 4/5 throughout ADL-Treatment Eating (QC): 6 Lower Body Dressing (QC): 4 (per clinical judgment) On/Off Footwear (QC): 4 Supine<>sit: SBA. Extra/effort exhibited when donning/doffing socks but no assistance required. Following desat to 86%, OT educated pt on compensatory methods such as bringing leg onto side of bed, however no follow through when completing second foot. Cues for PLB and re-education on compensatory strategies. He was able to stand with SBA. Pt demonstrated ability to maintain balance and reach in multiple planes with zero UE support for ~1 minute without any unsteadiness. Anticipate no assist needed for clothing management. HR increased to 130's with minimal activity. Pt returned to supine, recovers quickly to 102 bpm. Education OT Patient Education: Correct positioning, Energy conservation, Modified ADL techniques, Purpose of tx/functional activities, Safety issues Teaching Recipient: Patient, Family Teaching Methods: Demonstration, Discussion Response to Teaching: Verbalize Understanding, Reinforcement Needed OT Halfway Goals Halfway Goals Time Frame: Jul 01, 2021 Oral Hygiene (QC): 6 Toileting Hygiene (QC): 6 Upper Body Dressing (QC): 5 Lower Body Dressing (QC): 5 On/Off Footwear (QC): 5 1=Demonstrate adherence to instructed precautions during ADL tasks. 2=Patient will verbalize/demonstrate understanding of assistive d evices/modifications for ADL. 3=Patient will improve strength/tolerance for activity to enable patient to perform ADL's. OT Education/Plan Problem List/Assessment Assessment: Decreased Activ Tolerance, Decreased Safety Aware, Decreased UE Strength, Impaired Self-Care Skills Discharge Recommendations Plan/Recommendations: Continue POC Therapy Discharge Recommendati: Home & Family Target Placement anticipate home with family pending progress Treatment Plan/Plan of Care Treatment,Training & Education: Yes Patient would benefit from OT for education, treatment and training to promote independence in ADL's, mobility, safety and/or upper extremity function for ADL's. Plan of Care: ADL Retraining, Functional Mobility, Group Exercise/Act as Ind, UE Funct Exercise/Act Treatment Duration: Jul 01, 2021 Frequency: 3 times per week (3-5x/week) Estimated Hrs Per Day: .25 hour per day Rehab Potential: Fair Time/GCodes Start Time: 11:22 Stop Time: 11:36 Total Time Billed (hr/min): 14 Billed Treatment Time 1 visit Brenda Otero OT Jun 24, 2021 11:44
[2021-06-24] MEDS: DIGOXIN 0.125 MG (LANOXIN) TAB PO SCH (12:28)
[2021-06-24] MEDS ORDERED: hydrALAZINE (APESOLINE) 20 MG/ML VIAL IV PRN (16:30)
[2021-06-24] MEDS: TAMSULOSIN 0.4 MG (FLOMAX) CAP PO SCH (16:57)
[2021-06-24] MEDS: warFARin 5 MG (COUMADIN) TAB PO SCH (18:33)
[2021-06-25 05:37] LABS: BASOPHILS # (AUTO) 0.1 10^3/uL (0.0-0.1); BASOPHILS % (AUTO) 1 % (0-10); EOSINOPHILS # (AUTO) 0.2 10^3/uL (0.0-0.3); EOSINOPHILS % (AUTO) 2 % (0-10); HEMATOCRIT 43 % (40-54); HEMOGLOBIN 14.3 g/dL (13.3-17.7); LYMPHOCYTES # (AUTO) 1.5 10^3/uL (1.0-4.0); LYMPHOCYTES % (AUTO) 14 % (12-44); MEAN CORPUSCULAR HEMOGLOBIN 34 pg (25-34); MEAN CORPUSCULAR HGB CONC 33 g/dL (32-36); MEAN CORPUSCULAR VOLUME 102 fL (80-99); MEAN PLATELET VOLUME 11.2 fL (9.0-12.2); MONOCYTES # (AUTO) 1.7 10^3/uL (0.0-1.0); MONOCYTES % (AUTO) 16 % (0-12); NEUTROPHILS # (AUTO) 6.3 10^3/uL (1.8-7.8); NEUTROPHILS % (AUTO) 61 % (42-75); PLATELET COUNT 211 10^3/uL (130-400); WHITE BLOOD COUNT 10.3 10^3/uL (4.3-11.0)
[2021-06-25 05:42] LABS: ALBUMIN 3.1 GM/DL (3.2-4.5); POTASSIUM 4.5 MMOL/L (3.6-5.0)
[2021-06-25 05:43] LABS: CALCIUM 8.9 MG/DL (8.5-10.1)
[2021-06-25 05:45] LABS: TOTAL PROTEIN 6.2 GM/DL (6.4-8.2)
[2021-06-25 05:46] LABS: BILIRUBIN,TOTAL 0.6 MG/DL (0.1-1.0)
[2021-06-25 05:48] LABS: CREATININE SERUM 0.8 MG/DL (0.60-1.30); PHOSPHORUS 2.9 MG/DL (2.3-4.7)
[2021-06-25 05:49] LABS: INR 1.8 (0.8-1.4); PROTHROMBIN TIME PATIENT 21.2 SEC (12.2-14.7)
[2021-06-25 05:51] LABS: MAGNESIUM 2.1 MG/DL (1.6-2.4)
[2021-06-25] MEDS: POTASSIUM CL 10MEQ/50ML IVPB 50 ML IV SCH (05:58)
[2021-06-25] MEDS: MAGNESIUM 1 GM/100 ML IVPB 100 ML IV SCH (05:58)
[2021-06-25] MEDS: KCL 20 MEQ TAB (K-DUR) PO SCH (05:58)
[2021-06-25] MEDS: inSUlin ASPART (NovoLOG) 1 UNIT/0.01 ML (CHARGE PER UNIT) SC SCH ×4 (06:00→20:26)
--- NOTE | 2021-06-25 08:07 | Tele-ICU Progress Note ---
Subjective Date Seen by a Provider: Jun 25, 2021 Subjective/Events-last exam On Rocephin for E Coli UTI, on coumadin, dig and Cardizem for a fib doing better Sepsis Event Evaluation Height, Weight, BMI Height: 5'8.00" Weight: 226lbs. 0.0oz. 102.777540to; 34.14 BMI Method:Stated Exam Exam Patient acknowledged, consented, and participated in this virtual visit which was conducted using real time audio/video Vital Signs Date Time Temp Pulse Resp B/P (MAP) Pulse Ox O2 Delivery O2 Flow Rate FiO2 06/25/21 07:46 Room Air 06/25/21 07:00 99 06/25/21 07:00 98 14 171/60 94 Room Air 06/25/21 06:00 89 16 149/79 86 Room Air 06/25/21 05:00 101 130/68 Room Air 06/25/21 04:07 93 NIV CPAP 06/25/21 04:00 84 15 154/46 95 Room Air 06/25/21 03:00 97 16 156/76 91 Room Air 06/25/21 02:00 96 17 152/69 94 Room Air 06/25/21 01:00 85 06/25/21 01:00 94 12 144/87 94 Room Air 06/25/21 00:00 94 18 155/63 93 Room Air 06/24/21 23:59 93 NIV CPAP 06/24/21 23:00 82 13 158/67 93 Room Air 06/24/21 22:00 99 16 146/76 91 Room Air 06/24/21 21:54 91 NIV CPAP 0.00 06/24/21 21:00 96 21 187/94 93 Room Air 06/24/21 20:00 110 7 149/77 Room Air 06/24/21 20:00 Room Air 06/24/21 19:00 111 21 132/71 Room Air 06/24/21 19:00 133 06/24/21 18:00 107 12 172/108 93 Room Air 06/24/21 17:00 85 21 177/134 92 Room Air 06/24/21 16:00 80 16 180/79 91 Room Air 06/24/21 15:58 Room Air 06/24/21 15:00 85 20 169/69 93 Room Air 06/24/21 14:00 83 17 165/74 94 Room Air 06/24/21 13:00 128 06/24/21 13:00 84 21 144/66 94 Room Air 06/24/21 12:00 80 17 138/67 94 Room Air 06/24/21 12:00 Room Air 06/24/21 11:00 90 22 144/108 96 Room Air 06/24/21 09:38 146 22 149/91 93 Room Air 06/24/21 08:11 Room Air I & O 06/25/21 07:00 Intake Total 1650 ml Output Total 3350 ml Balance -1700 ml Height & Weight Height: 5'8.00" Weight: 226lbs. 0.0oz. 102.336945ye; 34.14 BMI Method:Stated General Appearance: No Apparent Distress, WD/WN HEENT: PERRL/EOMI Neck: Full Range of Motion, Non Tender, Supple Respiratory: Chest Non Tender, Lungs Clear, No Accessory Muscle Use, No Respiratory Distress, Decreased Breath Sounds (IN BASES) Cardiovascular: Irregularly Irregular, Other (V rate 90 to100) Capillary Refill: Less Than 3 Seconds Peripheral Pulses: 2+ Radial Pulses (R), 2+ Radial Pulses (L) Gastrointestinal: normal bowel sounds (Active bowel sounds), non tender, soft Extremity: Non Tender, Pedal Edema (CHRONIC), Other (2+ chronic leg edema) Neurologic/Psychiatric: Alert, Oriented x3, No Motor/Sensory Deficits, Normal Mood/Affect, marketing operations coordinator II-XII Norm as Tested Skin: Normal Color, Warm/Dry Lymphatic: No Adenopathy Results Lab Laboratory Tests 06/24/21 05:07 06/25/21 04:45 Assessment/Plan Assessment/Plan Assessment/Plan A/P: 85 y/o M admitted with confusion-now much better, diarrhea also gone, admitted for severe sepsis (source likely Ecoli-UTI). Severe sepsis possibly due to UTI- Improved. VSS. -Currently on Ceftriaxone for richardson susceptible Ecoli. Ok to transition to PO for completion of 5 day course. A fib RVR- Currently remains in Afib on cardizem po -Would obtain formal Cards consult to transition to PO cardizem -Consider f/u TTE. -Cont AC with coumadin HTN- Cont cardizem Endo: Hx of DM, Start home meds Lines : (Central Line Necessity Reviewed) now has midline Saini: + - ? to be removed soon OG: Plan is to go to medical floor Critical Care: Critically Ill Patient Time spent with patient (mins): 25 MESAH SINGLETARY MD Jun 25, 2021 08:07
[2021-06-25] MEDS: ALOGLIPTIN BENZOATE 25 MG PO SCH (08:17)
[2021-06-25] MEDS: cefTRIAXone 1 GM/50 ML (PRE-MIX) IV SCH (08:17)
[2021-06-25] MEDS: PANTOPRAZOLE 40 MG (PROTONIX) TAB PO SCH (08:18)
[2021-06-25] MEDS: HYDROXYCHLOROQUINE 200 MG (PLAQUENIL) TAB PO SCH (08:18)
[2021-06-25] MEDS: DIGOXIN 0.125 MG (LANOXIN) TAB PO SCH (08:18)
[2021-06-25] MEDS: GABAPENTIN 100 MG (NEURONTIN) CAP PO SCH ×2 (08:18→20:40)
[2021-06-25] MEDS: ASPIRIN E.C. 81 MG (ECOTRIN) TAB PO SCH (08:18)
--- NOTE | 2021-06-25 08:26 | Progress Note ---
Subjective Subjective Date Seen by Provider: Jun 25, 2021 Time Seen by Provider: 08:40 PT REPORTS THAT HE IS FEELING BETTER TODAY. HIS REPORTS THAT HIS ATTITUDE IS BETTER TODAY WELL. HE STILL IS HAVING ISSUES WITH URINATION - AND HAD A MEN'S LIBERTY CATHETER PLACED LAST NIGHT. HE DENIES CHEST PAIN, SHORTNESS OF BREATH, ABDOMINAL PAIN, NAUSEA. HE HAD A BOWEL MOVEMENT YESTERDAY Review of Systems General: No Chills, No Night Sweats; Fatigue, Malaise; No Appetite, No Other HEENT: No Head Aches, No Visual Changes, No Eye Pain, No Ear Pain, No Dysphasia, No Sinus Congestion, No Post Nasal Drip, No Sore Throat, No Other Pulmonary: No Dyspnea, No Cough, No Pleuritic Chest Pain, No Other Cardiovascular: No: Chest Pain, Palpitations, Orthopnea, Paroxysmal Noc. Dyspnea, Edema, Lt Headedness, Other Gastrointestinal: Constipation; No: Nausea, Vomiting, Abdominal Pain, Diarrhea, Melena Genitourinary: Other (NIELSEN IN PLACE) Musculoskeletal: back pain Neurological: Weakness; No: Confusion All Other Systems Reviewed All Other Systems Reviewed: Yes Objective Exam Vital Signs Vital Signs Date Time Temp Pulse Resp B/P (MAP) Pulse Ox O2 Delivery O2 Flow Rate FiO2 06/25/21 08:00 36.7 06/25/21 08:00 99 22 138/81 91 Room Air 06/25/21 07:46 Room Air 06/25/21 07:00 99 06/25/21 07:00 98 14 171/60 94 Room Air 06/25/21 06:00 89 16 149/79 86 Room Air 06/25/21 05:00 101 130/68 Room Air 06/25/21 04:07 93 NIV CPAP 06/25/21 04:00 84 15 154/46 95 Room Air 06/25/21 03:00 97 16 156/76 91 Room Air 06/25/21 02:00 96 17 152/69 94 Room Air 06/25/21 01:00 85 06/25/21 01:00 94 12 144/87 94 Room Air 06/25/21 00:00 94 18 155/63 93 Room Air 06/24/21 23:59 93 NIV CPAP 06/24/21 23:00 82 13 158/67 93 Room Air 06/24/21 22:00 99 16 146/76 91 Room Air 06/24/21 21:54 91 NIV CPAP 0.00 06/24/21 21:00 96 21 187/94 93 Room Air 06/24/21 20:00 110 7 149/77 Room Air 06/24/21 20:00 Room Air 06/24/21 19:00 111 21 132/71 Room Air 06/24/21 19:00 133 06/24/21 18:00 107 12 172/108 93 Room Air 06/24/21 17:00 85 21 177/134 92 Room Air 06/24/21 16:00 80 16 180/79 91 Room Air 06/24/21 15:58 Room Air 06/24/21 15:00 85 20 169/69 93 Room Air 06/24/21 14:00 83 17 165/74 94 Room Air 06/24/21 13:00 128 06/24/21 13:00 84 21 144/66 94 Room Air 06/24/21 12:00 80 17 138/67 94 Room Air 06/24/21 12:00 Room Air 06/24/21 11:00 90 22 144/108 96 Room Air 06/24/21 09:38 146 22 149/91 93 Room Air I & O 06/25/21 06:59 Intake Total 1650 ml Output Total 3350 ml Balance -1700 ml General Appearance: No Apparent Distress, WD/WN HEENT: PERRL/EOMI Neck: Full Range of Motion, Non Tender, Supple Respiratory: Chest Non Tender, Lungs Clear, Normal Breath Sounds, No Accessory Muscle Use, No Respiratory Distress Cardiovascular: Irregularly Irregular Gastrointestinal: Normal Bowel Sounds, Non Tender, Soft Rectal: Deferred Extremity: Non Tender, Pedal Edema (CHRONIC) Neurologic/Psychiatric: Alert, Oriented x3, No Motor/Sensory Deficits, Normal Mood/Affect, pricing director II-XII Norm as Tested Skin: Normal Color, Warm/Dry Lymphatic: No Adenopathy Results Lab Laboratory Tests 06/24/21 12:13: Glucometer 224H 06/24/21 16:10: Glucometer 133H 06/24/21 20:26: Glucometer 182H 06/25/21 04:45: White Blood Count 10.3, Red Blood Count 4.26L, Hemoglobin 14.3, Hematocrit 43, Mean Corpuscular Volume 102H, Mean Corpuscular Hemoglobin 34, Mean Corpuscular Hemoglobin Concent 33, Red Cell Distribution Width 13.2, Platelet Count 211, Mean Platelet Volume 11.2, Immature Granulocyte % (Auto) 6, Neutrophils (%) (Auto) 61, Lymphocytes (%) (Auto) 14, Monocytes (%) (Auto) 16H, Eosinophils (%) (Auto) 2, Basophils (%) (Auto) 1, Neutrophils # (Auto) 6.3, Lymphocytes # (Auto) 1.5, Monocytes # (Auto) 1.7H, Eosinophils # (Auto) 0.2, Basophils # (Auto) 0.1, Immature Granulocyte # (Auto) 0.6H, Prothrombin Time 21.2H, INR Comment 1.8H, Sodium Level 136, Potassium Level 4.5, Chloride Level 101, Carbon Dioxide Level 22, Anion Gap 13, Blood Urea Nitrogen 20H, Creatinine 0.80, Estimat Glomerular Filtration Rate 87, BUN/Creatinine Ratio 25, Glucose Level 145H, Calcium Level 8.9, Corrected Calcium 9.6, Phosphorus Level 2.9, Magnesium Level 2.1, Total Bilirubin 0.6, Aspartate Amino Transf (AST/SGOT) 43H, Alanine Aminotransferase (ALT/SGPT) 52, Alkaline Phosphatase 63, Total Protein 6.2L, Albumin 3.1L Microbiology 06/20/21 MRSA Screen - Final, Complete MRSA not isolated 06/20/21 Blood Culture - Preliminary, Resulted No growth 06/20/21 Urine Culture - Final, Complete Escherichia coli Mixed Bacterial Saumya Assessment/Plan Assessment/Plan Admission Dx SEPSIS URINARY TRACT INFECTION UNCONTROLLED ATRIAL FIBRILLATION LEUKOCYTOSIS CHRONIC ANTICOAGULATION USE - COUMADIN (WARFARIN) CHRONIC HYPERTENSION CHRONIC DIABETES MELLITUS ESOPHAGEAL REFLUX HX OF HIATAL HERNIA REPAIR CHRONIC ARTHRITIS OSTEOPOROSIS GENERALIZED WEAKNESS Assessment and Plan SEPSIS URINARY TRACT INFECTION - ECOLI UNCONTROLLED ATRIAL FIBRILLATION LEUKOCYTOSIS CHRONIC ANTICOAGULATION USE - COUMADIN (WARFARIN) CHRONIC HYPERTENSION CHRONIC DIABETES MELLITUS ESOPHAGEAL REFLUX HX OF HIATAL HERNIA REPAIR CHRONIC ARTHRITIS OSTEOPOROSIS GENERALIZED WEAKNESS HX OF BPH SEPSIS WITH LEUKOCYTOSIS DUE TO URINARY TRACT INFECTION - ECOLI - PT ON IV ROCEPHIN - WILL STOP IV AND START ON ORAL ANTIBIOTICS. - LEUKOCYTOSIS RESOLVED - ECOLI IS CAMPOS-SENSITIVE PER CULTURE REPORT - WILL BE ABLE TO TRANSITION TO ORAL ANTIBIOTICS IN THE NEXT FEW DAYS UNCONTROLLED ATRIAL FIBRILLATION - PT WAS ON CARDIZEM IV - HE WAS WEANED OFF OF CARDIZEM DRIP, PLACED ON ORAL CARDIZEM 360MG AND ORAL DIGOXIN. -OK TO TRANSITION TO 4TH FLOOR WITH ANTICIPATION OF DC TO HOME ON 06/26 OR 06/27 WITH HOME HEALTH TO BE SET UP BY INTERLOCKING AND SIGNAL MECHANIC CHRONIC ANTICOAGULATION USE - COUMADIN (WARFARIN) - SERIAL INR'S - EXTRA DOSE OF 1MG GIVEN YESTERDAY WITH SLIGHT INCREASE IN INR - REPEAT INR IN MORNING CHRONIC HYPERTENSION - PT ON CARDIZEM - MONITOR BP RESPONSE CHRONIC DIABETES MELLITUS -CHECK FSBS ESOPHAGEAL REFLUX - RESTARTED PPI THERAPY (PROTONIX 40MG DAILY) HX OF HIATAL HERNIA REPAIR CHRONIC ARTHRITIS - PT ON PLAQUENIL OUTPATIENT - RESTARTED OSTEOPOROSIS BPH - PT ON FLOMAX- HX OF ISSUES WITH PROSTATE AFTER NIELSEN REMOVED. GENERALIZED WEAKNESS - STARTED PHYSICAL THERAPY - PT TOO GOOD FOR ARU DUE TO HIS IMPROVED PHYSICAL STATUS AND AMBULATION AROUND THE ICU POD X 2-3 TIMES THIS MORNING. WILL REQUEST HOME HEALTH EVAL. DVT PROPHYLAXIS WITH COUMADIN AND SCD'S GI PROPHYLAXIS WITH PPI THERAPY Admission Dx SEPSIS URINARY TRACT INFECTION UNCONTROLLED ATRIAL FIBRILLATION LEUKOCYTOSIS CHRONIC ANTICOAGULATION USE - COUMADIN (WARFARIN) CHRONIC HYPERTENSION CHRONIC DIABETES MELLITUS ESOPHAGEAL REFLUX HX OF HIATAL HERNIA REPAIR CHRONIC ARTHRITIS OSTEOPOROSIS GENERALIZED WEAKNESS Clinical Quality Measures Admission Status Admission Dx SEPSIS URINARY TRACT INFECTION UNCONTROLLED ATRIAL FIBRILLATION LEUKOCYTOSIS CHRONIC ANTICOAGULATION USE - COUMADIN (WARFARIN) CHRONIC HYPERTENSION CHRONIC DIABETES MELLITUS ESOPHAGEAL REFLUX HX OF HIATAL HERNIA REPAIR CHRONIC ARTHRITIS OSTEOPOROSIS GENERALIZED WEAKNESS RON VICK MD Jun 25, 2021 08:25
--- NOTE | 2021-06-25 09:51 | Physical Therapy Daily Note ---
PT Daily Note-Current Subjective Patient agrees to PT. Mental Status Patient Orientation: Normal For Age Transfers SCALE: Activities may be completed with or without assistive devices. 3-Hvbhhgzqmv-cdahrnj completes the activity by him/herself with no assistance from a helper. 5-Set-up or Clean-up Assistance-helper sets up or cleans up; patient completes activity. [place] assists only prior to or following the activity. 4-Supervision or Touching Assistance-helper provides verbal cues and/or touching/steadying and/or contact guard assistance as patient completes activity. Assistance may be provided throughout the activity or intermittently. 3-Partial/Moderate Assistance-helper does LESS THAN HALF the effort. [place] lifts, holds or supports trunk or limbs, but provides less than half the effort. 2-Substantial/Maximal Assistance-helper does MORE THAN HALF the effort. [place] lifts or holds trunk or limbs and provides more than half the effort. 2-Lreivqesl-dqyhas does ALL the effort. Patient does none of the effort to complete the activity. Or, the assistance of 2 or more helpers is required for the patient to complete the activity. If activity was not attempted, code reason: 7-Patient Refused. 9-Not Applicable-not attempted and the patient did not perform the activity befo re the current illness, exacerbation or injury. 10-Not Attempted due to Environmental Limitations-(lack of equipment, weather re straints, etc.). 88-Not Attempted due to Medical Conditions or Safety Concerns. Lying to Sitting/Side of Bed(Q: 4 Sit to Stand (QC): 4 Chair/Asd-ok-Qeebs Xfer(QC): 4 Gait Training Distance: 275' Walk 10 feet (QC): 4 Walk 50 ft with 2 Turns(QC): 4 Walk 150 ft (QC): 4 Gait Assistive Device: FWW slow, steady, functional gait sequence Exercises Seated Therapy Exercises: Ankle pumps, Long arc quads Seated Reps: 15 Assessment Patient tolerated treatment well and is up in recliner with needs met. Continue to increase activity as tolerated by patient. PT Conditioning Coach Goals Assisted Goals PT Conditioning Coach Goals Time Frame: Jul 03, 2021 Roll Left & Right (QC): 6 Sit to Lying (QC): 6 Lying-Sitting on Side/Bed(QC): 6 Sit to Stand (QC): 6 Chair/Ggw-pl-[place] Xfer(QC): 6 Toilet Transfer (QC): 6 Walk 10 feet (QC): 6 Walk 50ft with 2 Turns (QC): 6 Walk 150 ft (QC): 6 PT Plan Treatment/Plan Treatment Plan: Continue Plan of Care Treatment Plan: Bed Mobility, Education, Functional Activity Tara, Functional Strength, Gait, Safety, Therapeutic Exercise, Transfers Treatment Duration: Jul 03, 2021 Frequency: 6 times per week Estimated Hrs Per Day: .25 hour per day Patient and/or Family Agrees t: Yes Time/GCodes Time In: 735 Time Out: 748 Total Billed Treatment Time: 13 Total Billed Treatment 1 visit FA 13 min CHARLEY ZUNIGA PT Jun 25, 2021 09:51
[2021-06-25] MEDS ORDERED: CLOPIDOGREL 300 MG (PLAVIX) TABLET PO ONE (10:45)
[2021-06-25] MEDS ORDERED: ASPIRIN 325 MG (5 GR) TABLET PO ONE (10:45)
--- NOTE | 2021-06-25 11:37 | Occupational Ther Daily Note ---
OT Current Status-Daily Note Subjective and pt verbalize that pt's HR just went back down after hours of being elevated. They request to stay in the bed. Appearance Pt left supine in bed, all needs within reach. ADL-Treatment Therapy Code Descriptions/Definitions Functional [place] Measure: 0=Not Assessed/NA 4=Minimal Assistance 1=Total Assistance 5=Supervision or Setup 2=Maximal Assistance 6=Modified [facility] 3=Moderate Assistance 7=Complete IndependenceSCALE: Activities may be completed with or without assistive devices. 0-Mfqhcgfini-dytbkrc completes the activity by him/herself with no assistance from a helper. 5-Set-up or Clean-up Assistance-helper sets up or cleans up; patient completes activity. [place] assists only prior to or following the activity. 4-Supervision or Touching Assistance-helper provides verbal cues and/or touching/steadying and/or contact guard assistance as patient completes activity. Assistance may be provided throughout the activity or intermittently. 3-Partial/Moderate Assistance-helper does LESS THAN HALF the effort. [place] lifts, holds or supports trunk or limbs, but provides less than half the effort. 2-Substantial/Maximal Assistance-helper does MORE THAN HALF the effort. [place] lifts or holds trunk or limbs and provides more than half the effort. 3-Lzyhtooes-jsfaog does ALL the effort. Patient does none of the effort to complete the activity. Or, the assistance of 2 or more helpers is required for the patient to complete the activity. If activity was not attempted, code reason: 7-Patient Refused. 9-Not Applicable-not attempted and the patient did not perform the activity before the current illness, exacerbation or injury. 10-Not Attempted due to Environmental Limitations-(lack of equipment, weather restraints, etc.). 88-Not Attempted due to Medical Conditions or Safety Concerns. Other Treatment While supine, Pt participated in UE AROM exercises, all planes 8x1. Focus on improving strength and endurance needed for functional tasks. Manual Stretching (trapezius and levator scapulae) and scapula mobilizations facilitated by OT secondary to tightness. Pt tolerates well, HR increases from 80's to 90's during exercises. Education on gentle stretches and gravity eliminated exercises to perform on own time. Education OT Patient Education: Correct positioning, Exercise program, Modified ADL techniques, Purpose of tx/functional activities Teaching Recipient: Patient, Family Teaching Methods: Demonstration, Discussion Response to Teaching: Verbalize Understanding, Return Demonstration, Reinforcement Needed OT Loan Review Officer Goals Custodial Goals Time Frame: Jul 01, 2021 Oral Hygiene (QC): 6 Toileting Hygiene (QC): 6 Upper Body Dressing (QC): 5 Lower Body Dressing (QC): 5 On/Off Footwear (QC): 5 1=Demonstrate adherence to instructed precautions during ADL tasks. 2=Patient will verbalize/demonstrate understanding of assistive devices/modifications for ADL. 3=Patient will improve strength/tolerance for activity to enable patient to perform ADL's. OT Education/Plan Problem List/Assessment Assessment: Decreased Activ Tolerance, Decreased UE Strength, Impaired Self- Care Skills, Restricted Funct UE ROM Discharge Recommendations Plan/Recommendations: Continue POC Treatment Plan/Plan of Care Treatment,Training & Education: Yes Patient would benefit from OT for education, treatment and training to promote independence in ADL's, mobility, safety and/or upper extremity function for ADL's. Plan of Care: ADL Retraining, Functional Mobility, Group Exercise/Act as Ind, UE Funct Exercise/Act Treatment Duration: Jul 01, 2021 Frequency: 3 times per week (3-5x/week) Estimated Hrs Per Day: .25 hour per day Rehab Potential: Fair Time/GCodes Start Time: 11:03 Stop Time: 11:18 Total Time Billed (hr/min): 15 Billed Treatment Time 1 visit EX Brenda Rowe OT Jun 25, 2021 11:37
[2021-06-25] MEDS: AUGMENTIN 875 MG TAB (AMOXICILLIN/CLAVULANATE) PO SCH ×2 (11:39→17:02)
--- NOTE | 2021-06-25 14:37 | Cardiology Progress Note ---
Subjective Date Seen by Provider: Jun 25, 2021 Time Seen by Provider: 14:36 Subjective/Events-last exam Patient was seen at bedside, laying down comfortably, feeling better. Heart rate is better. Review of Systems General: No Chills, No Night Sweats, No Fatigue, No Malaise, No Appetite, No Other HEENT: No Head Aches, No Visual Changes, No Eye Pain, No Ear Pain, No Dysphasia, No Sinus Congestion, No Post Nasal Drip, No Sore Throat, No Other Pulmonary: No Dyspnea, No Cough, No Pleuritic Chest Pain, No Other Cardiovascular: No: Chest Pain, Palpitations, Orthopnea, Paroxysmal Noc. Dyspnea, Edema, Lt Headedness, Other Objective-Cardiology Exam Last Set of Vital Signs Vital Signs 06/24/21 06/25/21 21:54 13:00 Temp 37.1 Pulse 73 Resp 20 B/P (MAP) 151/86 Pulse Ox 97 O2 Delivery Room Air O2 Flow Rate 0.00 I&O Intake and Output 06/25/21 00:00 Intake Total 1450 ml Output Total 3100 ml Balance -1650 ml Intake Oral 1450 ml Output Urine Total 3100 ml # Voids 2 # Bowel Movements 1 General: Alert, Oriented X3, Cooperative HEENT: Atraumatic, PERRLA Neck: Supple, No JVD, No Thyromegaly Lungs: Clear to Auscultation, Normal Air Movement Heart: Normal S1, Normal S2, No Murmurs, Other (Atrial fibrillation) Abdomen: Normal Bowel Sounds, Soft, No Tenderness, No Hepatosplenomegaly, No Masses Extremities: No Clubbing, No Cyanosis, No Edema, Normal Pulses, No Tenderness/Swelling Skin: No Rashes, No Breakdown, No Significant Lesion Neuro: Normal Gait, Normal Speech, Strength at 5/5 X4 Ext, Normal Tone, Sensation Intact Psych/Mental Status: Mental Status NL, Mood NL Results Lab Laboratory Tests 06/25/21 04:45 A/P-Cardiology Admission Diagnosis UTI Sepsis Atrial fibrillation Tachycardia Assessment/Plan UTI, sepsis, improved, currently asymptomatic, managed by primary care physician Atrial fibrillation with rapid ventricular response, History of persistent atrial fibrillation, has been maintained on aspirin and Coumadin with therapeutic INR. He was seen and evaluated by Dr. Ramos at [facility] recommended rate controlling with accepting atrial fibrillation as a permanent Heart rate is better controlled on digoxin and Cardizem 360 daily. Continue to monitor Coronary artery disease, History of triple stents in the past, Cardiac catheterization was done in May 20, 2016 which showed severe ostial and proximal right coronary artery stenosis, underwent complex intervention with deployment of 323 mm Xience Alpine stent to the ostium of the right coronary artery with good results, patent stent in the proximal circumflex artery with 50 percent stenosis at the ostium of the first obtuse marginal branch, mild to moderate disease in the mid LAD, small vessel disease. Maintained on ASA. Lexiscan stress test done on June 10, 2020 showing baseline atrial fibrillation, no significant ischemia or infarction, EF 55%. Continue to monitor Generalized fatigue, slight improvement compared to initial complaint, still having fatigue and loss of energy. Echocardiogram done in August 2019 showing ejection fraction 40 to 45%, left atrium 6.42 cm, prominent right atrium, moderate MR, moderate AR, PA pressure 35 to 40 mmHg. Continue to monitor [id number] score is 3, yearly risk of stroke without oral anticoagulation is 3.2 percent, was on Xarelto and it was switched to Coumadin due to the fact that he needed aspirin and Plavix. Currently maintained on Coumadin and aspirin and tolerating it well, Monitor INR after adding Coumadin, today's INR is 1.7 Moderate carotid stenosis on the right, mild on the left, repeat carotid ultra sound in May 2020 showed mild bilateral disease nonobstructive disease. Hypertension, controlled on current medication, continue to monitor Hyperlipidemia, last lipid profile was done in October 2020 showing total cholesterol 158, triglyceride 102, HDL 49, LDL 89. Continue to monitor Lower extremity swelling and weakness, ORA was nondiagnostic bilaterally, TBI was mildly reduced bilaterally, waveforms are acceptable, no significant change compared to the study of 2019. 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 Polymyalgia rheumatica. Low back pain, significant deterioration recently, now using cane. Reports weakness in his legs. Currently undergoing workup with Dr. Hagan Peripheral edema, better at this time, still having mild edema. Increasing memory loss, I will defer the management to the primary care physician SP BISHOP MD Jun 25, 2021 14:37
[2021-06-25] MEDS: warFARin 5 MG (COUMADIN) TAB PO SCH (17:02)
[2021-06-25] MEDS: TAMSULOSIN 0.4 MG (FLOMAX) CAP PO SCH (17:08)
[2021-06-25] MEDS: MEMANTINE 10 MG (NAMENDA) TABLET PO SCH (20:39)
[2021-06-26] MEDS: inSUlin ASPART (NovoLOG) 1 UNIT/0.01 ML (CHARGE PER UNIT) SC SCH ×4 (05:30→20:27)
[2021-06-26 05:52] LABS: BASOPHILS % (AUTO) 0 % (0-10); EOSINOPHILS # (AUTO) 0.2 10^3/uL (0.0-0.3); EOSINOPHILS % (AUTO) 2 % (0-10); HEMATOCRIT 45 % (40-54); LYMPHOCYTES # (AUTO) 1.8 10^3/uL (1.0-4.0); LYMPHOCYTES % (AUTO) 17 % (12-44); MEAN CORPUSCULAR HEMOGLOBIN 34 pg (25-34); MEAN CORPUSCULAR HGB CONC 34 g/dL (32-36); MEAN CORPUSCULAR VOLUME 102 fL (80-99); MEAN PLATELET VOLUME 11.1 fL (9.0-12.2); MONOCYTES # (AUTO) 1.5 10^3/uL (0.0-1.0); MONOCYTES % (AUTO) 14 % (0-12); NEUTROPHILS # (AUTO) 6.3 10^3/uL (1.8-7.8); NEUTROPHILS % (AUTO) 59 % (42-75); PLATELET COUNT 261 10^3/uL (130-400); WHITE BLOOD COUNT 10.7 10^3/uL (4.3-11.0)
[2021-06-26 06:02] LABS: ALBUMIN 3.2 GM/DL (3.2-4.5)
[2021-06-26 06:03] LABS: POTASSIUM 4.4 MMOL/L (3.6-5.0)
[2021-06-26 06:05] LABS: INR 1.9 (0.8-1.4); PROTHROMBIN TIME PATIENT 22.1 SEC (12.2-14.7); TOTAL PROTEIN 6.5 GM/DL (6.4-8.2)
[2021-06-26 06:07] LABS: BILIRUBIN,TOTAL 0.6 MG/DL (0.1-1.0)
[2021-06-26 06:08] LABS: PHOSPHORUS 2.7 MG/DL (2.3-4.7)
[2021-06-26 06:09] LABS: CREATININE SERUM 0.8 MG/DL (0.60-1.30)
[2021-06-26 06:12] LABS: MAGNESIUM 2.2 MG/DL (1.6-2.4)
[2021-06-26] MEDS: MAGNESIUM 1 GM/100 ML IVPB 100 ML IV SCH (06:35)
[2021-06-26] MEDS: POTASSIUM CL 10MEQ/50ML IVPB 50 ML IV SCH (06:35)
[2021-06-26] MEDS: KCL 20 MEQ TAB (K-DUR) PO SCH (06:35)
[2021-06-26] MEDS: MULTIVIT W/MINERALS TAB (THERAGRAN M) PO SCH (06:38)
[2021-06-26] MEDS: AUGMENTIN 875 MG TAB (AMOXICILLIN/CLAVULANATE) PO SCH ×2 (08:07→17:26)
[2021-06-26] MEDS: ASPIRIN E.C. 81 MG (ECOTRIN) TAB PO SCH (08:07)
[2021-06-26] MEDS: HYDROXYCHLOROQUINE 200 MG (PLAQUENIL) TAB PO SCH (08:07)
[2021-06-26] MEDS: GABAPENTIN 100 MG (NEURONTIN) CAP PO SCH ×2 (08:07→20:27)
[2021-06-26] MEDS: MEMANTINE 10 MG (NAMENDA) TABLET PO SCH ×2 (08:07→20:27)
[2021-06-26] MEDS: DIGOXIN 0.125 MG (LANOXIN) TAB PO SCH (08:08)
[2021-06-26] MEDS: ALOGLIPTIN BENZOATE 25 MG PO SCH (08:08)
[2021-06-26] MEDS: PANTOPRAZOLE 40 MG (PROTONIX) TAB PO SCH (08:08)
--- NOTE | 2021-06-26 08:32 | Progress Note ---
Subjective Subjective Date Seen by Provider: Jun 26, 2021 Time Seen by Provider: 08:45 Pt feeling good today. Stated that he "had a good bowel movement, a shower, and I want to go home." Currently in no pain. Has a good appetite and has been eating/drinking regularly. Urine output is good, though catheter may be leaking. Denies CP, SOB, fever, and chills. Review of Systems General: No Chills, No Malaise HEENT: No Head Aches, No Visual Changes Pulmonary: No Dyspnea; Cough Cardiovascular: No: Chest Pain, Palpitations Gastrointestinal: No: Nausea, Vomiting, Abdominal Pain Genitourinary: No Dysuria; Other (Catheter in place) Musculoskeletal: No: neck pain, leg pain Neurological: No: Weakness, Change in speech All Other Systems Reviewed All Other Systems Reviewed: Yes Objective Exam Vital Signs Vital Signs Date Time Temp Pulse Resp B/P (MAP) Pulse Ox O2 Delivery O2 Flow Rate FiO2 06/26/21 07:00 98 06/26/21 04:13 37.0 87 18 166/80 97 NIV CPAP 06/26/21 01:00 91 06/26/21 00:13 NIV CPAP 21 06/26/21 00:00 37.3 67 19 170/71 98 NIV CPAP 06/25/21 19:26 37.0 95 20 168/76 95 Room Air 06/25/21 19:00 134 06/25/21 16:00 36.7 71 20 152/65 95 Room Air 06/25/21 13:00 37.1 73 20 151/86 97 Room Air 06/25/21 12:58 86 06/25/21 09:00 112 20 128/92 97 Room Air I & O 06/26/21 07:00 Intake Total 1850 ml Output Total 3155 ml Balance -1305 ml General Appearance: No Apparent Distress, Obese Respiratory: Lungs Clear, Normal Breath Sounds, No Accessory Muscle Use, No Respiratory Distress Cardiovascular: Irregularly Irregular Gastrointestinal: Non Tender, Soft Rectal: Deferred Extremity: Non Tender, Pedal Edema (chronic bilateral) Neurologic/Psychiatric: Alert, Oriented x3, Normal Mood/Affect Skin: Warm/Dry, Mottled Results Lab Laboratory Tests 06/25/21 10:47: Glucometer 216H 06/25/21 17:01: Glucometer 139H 06/25/21 20:25: Glucometer 167H 06/26/21 05:26: Glucometer 150H 06/26/21 05:28: White Blood Count 10.7, Red Blood Count 4.40, Hemoglobin 15.0, Hematocrit 45, Mean Corpuscular Volume 102H, Mean Corpuscular Hemoglobin 34, Mean Corpuscular Hemoglobin Concent 34, Red Cell Distribution Width 13.0, Platelet Count 261, Mean Platelet Volume 11.1, Immature Granulocyte % (Auto) 7, Neutrophils (%) (Auto) 59, Lymphocytes (%) (Auto) 17, Monocytes (%) (Auto) 14H, Eosinophils (%) (Auto) 2, Basophils (%) (Auto) 0, Neutrophils # (Auto) 6.3, Lymphocytes # (Auto) 1.8, Monocytes # (Auto) 1.5H, Eosinophils # (Auto) 0.2, Basophils # (Auto) 0.0, Immature Granulocyte # (Auto) 0.8H, Prothrombin Time 22.1H, INR Comment 1.9H, Sodium Level 137, Potassium Level 4.4, Chloride Level 103, Carbon Dioxide Level 21, Anion Gap 13, Blood Urea Nitrogen 19H, Creatinine 0.80, Estimat Glomerular Filtration Rate 87, BUN/Creatinine Ratio 24, Glucose Level 144H, Calcium Level 9.0, Corrected Calcium 9.6, Phosphorus Level 2.7, Magnesium Level 2.2, Total Bilirubin 0.6, Aspartate Amino Transf (AST/SGOT) 48H, Alanine Aminotransferase (ALT/SGPT) 67H, Alkaline Phosphatase 70, Total Protein 6.5, Albumin 3.2, Digoxin Level 0.55L Microbiology 06/20/21 MRSA Screen - Final, Complete MRSA not isolated 06/20/21 Blood Culture - Final, Complete No growth 06/20/21 Urine Culture - Final, Complete Escherichia coli Mixed Bacterial Saum[place] Assessment/Plan Assessment/Plan Admission Dx Sepsis due to UTI, AFib, HTN, Chronic anticoagulation, DM, GERD, Chronic arthritis, Osteoporosis, BPH Assessment and Plan Sepsis due to UTI (E. Coli)- resolved (WBC 10.7 today) AFib HTN Anticoagulated with Coumadin (INR 1.9 today) DM GERD Chronic arthritis Osteoporosis BPH Oral augmentin Oral Cardizem and oral digoxin (0.55 today) SS insulin Protonix Plaquenil Flomax, Catheter May D/C today with home health Supervisory-Addendum Brief Verification & Attestation Participated in pt care: history, physical Personally performed: exam, supervision of care Care discussed with: Medical Student Procedures: n/a Results interpretation: Verified all documentation Patient seen and evaluated. Wants to go home but still with urinary incontinence issues and BP still mildly elevated with HR still getting up to 90s. Will focus today on bladder training--DC catheter and try to go every 2hrs during the day to empty bladder. May need to adjust or add meds for BP and pulse--on Cardizem and has hydralazine prn so may need to consider low dose clonidine since is allergic to beta blockers and already on flomax. Plan DC home tomorrow then HH will start Monday. AXEL PARKER Jun 26, 2021 08:32 UCHE GRUBBS DO Jun 26, 2021 11:38
--- NOTE | 2021-06-26 08:34 | Physical Therapy Daily Note ---
PT Daily Note-Current Subjective Patient agrees to PT. Mental Status Patient Orientation: Normal For Age condom catheter Transfers SCALE: Activities may be completed with or without assistive devices. 5-Zrlxyzkjcs-vdbahtc completes the activity by him/herself with no assistance from a helper. 5-Set-up or Clean-up Assistance-helper sets up or cleans up; patient completes activity. [place] assists only prior to or following the activity. 4-Supervision or Touching Assistance-helper provides verbal cues and/or touching/steadying and/or contact guard assistance as patient completes activity. Assistance may be provided throughout the activity or intermittently. 3-Partial/Moderate Assistance-helper does LESS THAN HALF the effort. [place] lifts, holds or supports trunk or limbs, but provides less than half the effort. 2-Substantial/Maximal Assistance-helper does MORE THAN HALF the effort. [place] lifts or holds trunk or limbs and provides more than half the effort. 4-Ietxugesx-jvnetq does ALL the effort. Patient does none of the effort to complete the activity. Or, the assistance of 2 or more helpers is required for the patient to complete the activity. If activity was not attempted, code reason: 7-Patient Refused. 9-Not Applicable-not attempted and the patient did not perform the activity before the current illness, exacerbation or injury. 10-Not Attempted due to Environmental Limitations-(lack of equipment, weather restraints, etc.). 88-Not Attempted due to Medical Conditions or Safety Concerns. Lying to Sitting/Side of Bed(Q: 4 Sit to Stand (QC): 4 Chair/Foh-xy-Lhnvt Xfer(QC): 4 Gait Training Distance: 400' Walk 10 feet (QC): 4 Walk 50 ft with 2 Turns(QC): 4 Walk 150 ft (QC): 4 Gait Assistive Device: FWW safe and functional with no deviation Assessment Patient up in recliner with needs met. Continue to increase activity as patient tolerates. PT Correction Goals Correction Goals PT Area Field Worker Goals Time Frame: Jul 03, 2021 Roll Left & Right (QC): 6 Sit to Lying (QC): 6 Lying-Sitting on Side/Bed(QC): 6 Sit to Stand (QC): 6 Chair/Klr-mq-Szvwl Xfer(QC): 6 Toilet Transfer (QC): 6 Walk 10 feet (QC): 6 Walk 50ft with 2 Turns (QC): 6 Walk 150 ft (QC): 6 PT Plan Treatment/Plan Treatment Plan: Continue Plan of Care Treatment Plan: Bed Mobility, Education, Functional Activity Tara, Functional Strength, Gait, Safety, Therapeutic Exercise, Transfers Treatment Duration: Jul 03, 2021 Frequency: 6 times per week Estimated Hrs Per Day: .25 hour per day Patient and/or Family Agrees t: Yes Time/GCodes Time In: 725 Time Out: 739 Total Billed Treatment Time: 14 Total Billed Treatment 1 visit FA 14 min CHARLEY ZUNIGA PT Jun 26, 2021 08:34
--- NOTE | 2021-06-26 16:13 | Progress Note - Cardiology ---
Cardiology SOAP Progress Note Subjective: No cp or palp or syncope or shortness of breath No focal weakness Gen weakness and malaise are improving No n/v/d Objective: I&O/Vital Signs 06/26/21 06/26/21 06/26/21 06/26/21 04:13 07:00 08:00 08:00 Temp 37.0 36.7 Pulse 87 98 80 Resp 18 18 B/P (MAP) 166/80 166/72 Pulse Ox 97 94 94 O2 Delivery NIV CPAP Room Air Room Air O2 Flow Rate 0.00 06/26/21 06/26/21 06/26/21 12:00 12:54 15:46 Temp 36.7 36.7 Pulse 80 110 70 Resp 18 18 B/P (MAP) 166/72 138/61 Pulse Ox 94 96 O2 Delivery Room Air Room Air O2 Flow Rate 0.00 0.00 06/25/21 23:59 Intake Total 1050 ml Output Total 1400 ml Balance -350 ml Weight (Pounds): 226 Weight (Ounces): 0.0 Weight (Calculated Kilograms): 102.700413 Constitutional: AAO x 3, well-developed, well-nourished Respiratory: No accessory muscle use; other (good, bilat air entry) Cardiovascular: irregularly irregular, S1 and S2, systolic murmur (soft ERICK at card base) Gastrointestional: No tender; soft; No guarding, No rebound; audible bowel sounds Extremities: No clubbing, No cyanosis, No significant edema Neurologic/Psychiatric: oriented x 3, other (moves all limbs equally) Skin: No rash on exposed areas, No ulcerations on exposed areas Results/Procedures: Labs Laboratory Tests 06/25/21 17:01: Glucometer 139H 06/25/21 20:25: Glucometer 167H 06/26/21 05:26: Glucometer 150H 06/26/21 05:28: White Blood Count 10.7, Red Blood Count 4.40, Hemoglobin 15.0, Hematocrit 45, Mean Corpuscular Volume 102H, Mean Corpuscular Hemoglobin 34, Mean Corpuscular Hemoglobin Concent 34, Red Cell Distribution Width 13.0, Platelet Count 261, Mean Platelet Volume 11.1, Immature Granulocyte % (Auto) 7, Neutrophils (%) (Auto) 59, Lymphocytes (%) (Auto) 17, Monocytes (%) (Auto) 14H, Eosinophils (%) (Auto) 2, Basophils (%) (Auto) 0, Neutrophils # (Auto) 6.3, Lymphocytes # (Auto) 1.8, Monocytes # (Auto) 1.5H, Eosinophils # (Auto) 0.2, Basophils # (Auto) 0.0, Immature Granulocyte # (Auto) 0.8H, Prothrombin Time 22.1H, INR Comment 1.9H, Sodium Level 137, Potassium Level 4.4, Chloride Level 103, Carbon Dioxide Level 21, Anion Gap 13, Blood Urea Nitrogen 19H, Creatinine 0.80, Estimat Glomerular F iltration Rate 87, BUN/Creatinine Ratio 24, Glucose Level 144H, Calcium Level 9 .0, Corrected Calcium 9.6, Phosphorus Level 2.7, Magnesium Level 2.2, Total Bilirubin 0.6, Aspartate Amino Transf (AST/SGOT) 48H, Alanine Aminotransferase (ALT/SGPT) 67H, Alkaline Phosphatase 70, Total Protein 6.5, Albumin 3.2, Digoxin Level 0.55L 06/26/21 11:32: Glucometer 179H 06/26/21 15:33: Glucometer 176H Microbiology 06/20/21 MRSA Screen - Final, Complete MRSA not isolated 06/20/21 Blood Culture - Final, Complete No growth 06/20/21 Urine Culture - Final, Complete Escherichia coli Mixed Bacterial Saumya Laboratory Tests 06/25/21 04:45 06/26/21 05:28 A/P: Assessment: UTI and sepsis, improved - managed by the Med svce Perm A Fib - warfarin anticoag for stroke prophylaxis (managed by Dr Shine) Coronary artery disease, - History of cor stents - Cardiac cath05/20/16: evere ostial and proximal right coronary artery stenosis, underwent complex intervention with deployment of 323 mm Xience Alpine stent to the ostium of the RCA, patent stent in the proximal circumflex artery with 50 percent stenosis at the ostium of the first obtuse marginal branch, mild to moderate disease in the mid LAD, small vessel disease. - chronically on ASA. - Lexiscan stress test done on June 10, 2020 showing baseline atrial fibrillation, no significant ischemia or infarction Echo August 2019 showing ejection fraction 40 to 45%, left atrium 6.42 cm, prominent right atrium, moderate MR, moderate AR, PA pressure 35 to [address] Shine Moderate carotid stenosis on the right, mild on the left, repeat carotid ultrasound in May 2020 showed mild bilateral disease nonobstructive disease. Hypertension - controlled on current medication Hyperlipidemia Low back pain and chronic lower extremity swelling and weakness, chronic - followed by Dr Shine: ORA was nondiagnostic bilaterally, TBI was mildly reduced bilaterally, waveforms are acceptable, no significant change compared to the study of 2019 COPD/obstructive sleep apnea - using C Pap at night. Polymyalgia rheumatica. Mild leg edema, mild, intermittent, chronic Increasing memory loss - managemet is by the primary care physician Plan: * I interviewed and examined him, and examined his records * I discussed his CV issues with him and answered questions * Ok to d/c from cardiac standpoint * F/u with Dr Shine in 1-2 weeks JU NORIEGA MD FACP [facility] Jun 26, 2021 16:13
[2021-06-26] MEDS: TAMSULOSIN 0.4 MG (FLOMAX) CAP PO SCH (17:26)
[2021-06-26] MEDS: warFARin 5 MG (COUMADIN) TAB PO SCH (17:32)
[2021-06-27] MEDS: inSUlin ASPART (NovoLOG) 1 UNIT/0.01 ML (CHARGE PER UNIT) SC SCH ×2 (05:42→11:28)
[2021-06-27 06:07] LABS: BASOPHILS # (AUTO) 0.2 10^3/uL (0.0-0.1); BASOPHILS % (AUTO) 1 % (0-10); EOSINOPHILS # (AUTO) 0.3 10^3/uL (0.0-0.3); EOSINOPHILS % (AUTO) 2 % (0-10); HEMATOCRIT 45 % (40-54); LYMPHOCYTES # (AUTO) 1.7 10^3/uL (1.0-4.0); LYMPHOCYTES % (AUTO) 12 % (12-44); MEAN CORPUSCULAR HEMOGLOBIN 34 pg (25-34); MEAN CORPUSCULAR HGB CONC 33 g/dL (32-36); MEAN CORPUSCULAR VOLUME 102 fL (80-99); MEAN PLATELET VOLUME 11.2 fL (9.0-12.2); MONOCYTES # (AUTO) 1.7 10^3/uL (0.0-1.0); MONOCYTES % (AUTO) 12 % (0-12); NEUTROPHILS # (AUTO) 9.5 10^3/uL (1.8-7.8); NEUTROPHILS % (AUTO) 66 % (42-75); PLATELET COUNT 300 10^3/uL (130-400); WHITE BLOOD COUNT 14.4 10^3/uL (4.3-11.0)
[2021-06-27 06:18] LABS: INR 1.9 (0.8-1.4); PROTHROMBIN TIME PATIENT 22.2 SEC (12.2-14.7)
[2021-06-27 06:21] LABS: ALBUMIN 3.2 GM/DL (3.2-4.5); POTASSIUM 4.5 MMOL/L (3.6-5.0)
[2021-06-27 06:23] LABS: TOTAL PROTEIN 6.5 GM/DL (6.4-8.2)
[2021-06-27 06:25] LABS: BILIRUBIN,TOTAL 0.6 MG/DL (0.1-1.0)
[2021-06-27 06:27] LABS: CREATININE SERUM 0.85 MG/DL (0.60-1.30); PHOSPHORUS 2.9 MG/DL (2.3-4.7)
[2021-06-27 06:30] LABS: MAGNESIUM 2.2 MG/DL (1.6-2.4)
[2021-06-27] MEDS: MAGNESIUM 1 GM/100 ML IVPB 100 ML IV SCH (06:34)
[2021-06-27] MEDS: KCL 20 MEQ TAB (K-DUR) PO SCH (06:34)
[2021-06-27] MEDS: POTASSIUM CL 10MEQ/50ML IVPB 50 ML IV SCH (06:34)
[2021-06-27] MEDS: MULTIVIT W/MINERALS TAB (THERAGRAN M) PO SCH (06:35)
[2021-06-27] MEDS: ALOGLIPTIN BENZOATE 25 MG PO SCH (08:38)
[2021-06-27] MEDS: AUGMENTIN 875 MG TAB (AMOXICILLIN/CLAVULANATE) PO SCH (08:38)
[2021-06-27] MEDS: GABAPENTIN 100 MG (NEURONTIN) CAP PO SCH (08:39)
[2021-06-27] MEDS: HYDROXYCHLOROQUINE 200 MG (PLAQUENIL) TAB PO SCH (08:39)
[2021-06-27] MEDS: MEMANTINE 10 MG (NAMENDA) TABLET PO SCH (08:39)
[2021-06-27] MEDS: DIGOXIN 0.125 MG (LANOXIN) TAB PO SCH (08:39)
[2021-06-27] MEDS: ASPIRIN E.C. 81 MG (ECOTRIN) TAB PO SCH (08:39)
[2021-06-27] MEDS: PANTOPRAZOLE 40 MG (PROTONIX) TAB PO SCH (08:39)
--- NOTE | 2021-06-27 08:48 | Progress Note ---
Subjective Subjective Date Seen by Provider: Jun 27, 2021 Time Seen by Provider: 08:40 Pt feeling good today, states he is anxious to go home. Has pain in his R hip that he says happens occasionally, and when it does he increases his gabapentin. His nurse reports that he urinated well overnight without his catheter. Denies CP, SOB, fever, and chills. Review of Systems General: No Chills, No Malaise HEENT: No Head Aches, No Visual Changes Pulmonary: No Dyspnea; Cough Cardiovascular: No: Chest Pain, Palpitations Gastrointestinal: No: Nausea, Vomiting, Abdominal Pain Genitourinary: No Dysuria; Frequency Musculoskeletal: other (R hip pain; not new); No: neck pain Neurological: No: Weakness, Change in speech All Other Systems Reviewed All Other Systems Reviewed: Yes Objective Exam Vital Signs Vital Signs Date Time Temp Pulse Resp B/P (MAP) Pulse Ox O2 Delivery O2 Flow Rate FiO2 06/27/21 08:12 36.5 90 18 132/62 96 Room Air 06/27/21 08:09 Room Air 06/27/21 07:13 157 06/27/21 03:34 36.9 76 18 154/78 97 NIV CPAP 06/27/21 01:00 87 06/26/21 23:48 36.5 67 18 152/83 96 NIV CPAP 06/26/21 20:00 Room Air 06/26/21 19:34 36.8 93 18 110/54 96 Room Air 06/26/21 19:00 119 06/26/21 18:20 Room Air 06/26/21 15:46 36.7 70 18 138/61 96 Room Air 06/26/21 12:54 110 06/26/21 12:00 36.7 80 18 166/72 94 Room Air 0.00 0.00 I & O 06/27/21 07:00 Intake Total 1610 ml Output Total 900 ml Balance 710 ml General Appearance: No Apparent Distress, Obese Respiratory: No Accessory Muscle Use, No Respiratory Distress, Crackles Cardiovascular: Irregularly Irregular Gastrointestinal: Non Tender, Soft Rectal: Deferred Extremity: Non Tender, Pedal Edema (chronic bilateral) Neurologic/Psychiatric: Alert, Oriented x3, Normal Mood/Affect Skin: Warm/Dry, Mottled Results Lab Laboratory Tests 06/26/21 11:32: Glucometer 179H 06/26/21 15:33: Glucometer 176H 06/26/21 20:08: Glucometer 183H 06/27/21 05:30: White Blood Count 14.4H, Red Blood Count 4.47, Hemoglobin 15.0, Hematocrit 45, Mean Corpuscular Volume 102H, Mean Corpuscular Hemoglobin 34, Mean Corpuscular Hemoglobin Concent 33, Red Cell Distribution Width 12.9, Platelet Count 300, Mean Platelet Volume 11.2, Immature Granulocyte % (Auto) 8, Neutrophils (%) (Auto) 66, Lymphocytes (%) (Auto) 12, Monocytes (%) (Auto) 12, Eosinophils (%) (Auto) 2, Basophils (%) (Auto) 1, Neutrophils # (Auto) 9.5H, Lymphocytes # (Auto) 1.7, Monocytes # (Auto) 1.7H, Eosinophils # (Auto) 0.3, Basophils # (Auto) 0.2H, Immature Granulocyte # (Auto) 1.1H, Prothrombin Time 22.2H, INR Comment 1.9H, Sodium Level 137, Potassium Level 4.5, Chloride Level 102, Carbon Dioxide Level 22, Anion Gap 13, Blood Urea Nitrogen 23H, Creatinine 0.85, Estimat Glomerular Filtration Rate 86, BUN/Creatinine Ratio 27, Glucose Level 153H, Calcium Level 9.0, Corrected Calcium 9.6, Phosphorus Level 2.9, Magnesium Level 2.2, Total Bilirubin 0.6, Aspartate Amino Transf (AST/SGOT) 63H, Alanine Aminotransferase (ALT/SGPT) 91H, Alkaline Phosphatase 67, Total Protein 6.5, Albumin 3.2 06/27/21 05:34: Glucometer 154H Microbiology 06/20/21 MRSA Screen - Final, Complete MRSA not isolated 06/20/21 Blood Culture - Final, Complete No growth 06/20/21 Urine Culture - Final, Complete Escherichia coli Mixed Bacterial Saumya Assessment/Plan Assessment/Plan Admission Dx Sepsis due to UTI, AFib, HTN, Chronic anticoagulation, DM, GERD, Chronic arthritis, Osteoporosis, BPH Assessment and Plan Sepsis due to UTI (E. Coli) AFib HTN Anticoagulated with Coumadin (INR 1.9 today) DM GERD Chronic arthritis Osteoporosis BPH WBC increased 14.4 from 10.7 today Consider CXR Oral augmentin Oral Cardizem and oral digoxin SS insulin Protonix Plaquenil Flomax, Catheter May D/C today with home health Admission Dx Sepsis due to UTI, AFib, HTN, Chronic anticoagulation, DM, GERD, Chronic arthritis, Osteoporosis, BPH Clinical Quality Measures Admission Status Admission Dx Sepsis due to UTI, AFib, HTN, Chronic anticoagulation, DM, GERD, Chronic arthritis, Osteoporosis, BPH Supervisory-Addendum Brief Verification & Attestation Participated in pt care: history, physical Personally performed: exam, history, supervision of care Care discussed with: Medical Student Procedures: n/a Results interpretation: Verified all documentation Patient seen and evaluated. Feels much better. Wants to go home. WBC count did increase today but afebrile and no new symptoms--lungs are clear. Will continue with DC home with homehealth starting tomorrow. Fwup with Dr. Burkett this week. AXEL PARKER Jun 27, 2021 08:48 UCHE GRUBBS DO Jun 27, 2021 10:47
[2021-06-27] MEDS ORDERED: DIGO125T18 PO (10:50)
[2021-06-27] MEDS ORDERED: CARV3.122 PO (10:50)
[2021-06-27] MEDS ORDERED: DILT180C85 PO (10:50)
[2021-06-27] MEDS ORDERED: POTA-51 PO (10:51)
--- NOTE | 2021-06-27 10:54 | D/C HH Face to Face Order ---
D/C Face to Face Orders Reconcile Patient Problems Problems Reviewed?: Yes Instructions for Patient Via [facility], Patient Instructions/FollowUp: Fwup with Dr. Burkett this week Physician to follow Patient: Madelaine Discharge Diet for Home: Cardiac Diet Patient Data-Allergies,Ht & Wt Patient Allergies: Coded Allergies: Beta-Blockers (Beta-Adrenergic Bloc (Verified Allergy, Unknown, Pt has rec Metoprolol and coreg in the past, 06/23/21) gluten (Verified Allergy, Unknown, Rash, 12/30/19) Height (Feet): 5 Height (Inches): 8.00 Weight (Pounds): 226 Weight (Ounces): 0.0 Home Health Need/Face to Face Date of Face to Face: Jun 27, 2021 Clinical Findings: Generalized weakness and fatigue, Muscle weakness, Unsteady gait I have seen Pt [id number]: Yes Discharged To: Home Diagnosis/Conditions: UTI with sepsis Atrial Fibrillation with RVR HTN Urinary Incontinence Patient is Homebound due to: CognItive deficits, Winnie fall risk due to instabilty, Muscle weakness Homebound Status Due to the above stated illness, injury or surgical procedure (medical condition or diagnosis) and associated clinical findings, the patient is homebound because of his/her inability to leave home except with aid of a supportive device and/or person AND leaving the home requires a considerable and taxing effort or is medically contraindicated. Pt req the following assistanc: Walker Home Health Nursing Orders Home Health Services Order: Nursing Services, Physical Therapy-Evaluate & Treat Home Health Infusion Therapy Line Start Date: Jun 22, 2021 Home Health Lab Orders Labs (specify type/freq): CBC and PT/INR in 2 days Certify Stmt I certify that this patient is under my care and that I, a nurse practitioner or a physician; a chef's assistant working with me, had a face to face encounter that - meets the physician face to face encounter requirements with this patient as dated. UCHE GRUBBS DO Jun 27, 2021 10:54
[2021-06-27] MEDS ORDERED: AMOX1TAB12 PO (11:00)
--- NOTE | 2021-06-27 11:15 | Discharge Summary ---
Diagnosis/Chief Complaint Date of Admission Jun 20, 2021 at 14:21 Date of Discharge Discharge Date: Jun 27, 2021 Discharge Diagnosis Sepsis due to UTI (E. Coli)--improved AFib--add back low dose Coreg HTN Anticoagulated with Coumadin (INR 1.9 today) DM GERD Chronic arthritis Osteoporosis BPH Urinary Incontinence Weakness Discharge Summary Hospital Course Was the Problem List Reviewed?: Yes Hospital Course This is a 85 year old male with a known history of chronic atrial fibrillation who was brought to the emergency room after a several day history of nausea/vomiting and diarrhea. He was found to be in atrial fibrillation with RVR as well as to have a UTI with sepsis. He was admitted to the ICU on IV cardizem and then was converted to oral cardizem. He was restarted on his warfarin and current INR is 1.9 on discharge. He was originally started on IV rocephin and the has been converted to oral augmentin. His urine culture grew out E. coli with broad spectrum antibiotic coverage. His hospital stay was delayed due to weakness and incontinence. He is currently getting up to the commode with a walker and standby assistance. He did require an external tan catheter but this has been discontinued and bladder training was initiated prior to discharge. His blood pressure and heart rate have been elevated so we will resume low dose carvedilol in addition to his cardizem on discharge and given him a dose of carvedilol prior to discharge. His WBC count did jump today to 14.4 but he is afebrile with no signs of infection including clear lung chin. He will be discharged to home with home health to start tomorrow. He will continue IS and a CBC and PT/INR will be drawn in 2 days. He will follow up with Dr. Burkett later this week. Labs Laboratory Tests 06/24/21 12:13: Glucometer 224H 06/24/21 16:10: Glucometer 133H 06/24/21 20:26: Glucometer 182H 06/25/21 04:45: Red Blood Count 4.26L, Mean Corpuscular Volume 102H, Monocytes (%) (Auto) 16H, Monocytes # (Auto) 1.7H, Immature Granulocyte # (Auto) 0.6H, Prothrombin Time 21.2H, INR Comment 1.8H, Blood Urea Nitrogen 20H, Glucose Level 145H, Aspartate Amino Transf (AST/SGOT) 43H, Total Protein 6.2L, Albumin 3.1L 06/25/21 10:47: Glucometer 216H 06/25/21 17:01: Glucometer 139H 06/25/21 20:25: Glucometer 167H 06/26/21 05:26: Glucometer 150H 06/26/21 05:28: Mean Corpuscular Volume 102H, Monocytes (%) (Auto) 14H, Monocytes # (Auto) 1.5H, Immature Granulocyte # (Auto) 0.8H, Prothrombin Time 22.1H, INR Comment 1.9H, Blood Urea Nitrogen 19H, Glucose Level 144H, Aspartate Amino Transf (AST/SGOT) 48H, Alanine Aminotransferase (ALT/SGPT) 67H, Digoxin Level 0.55L 06/26/21 11:32: Glucometer 179H 06/26/21 15:33: Glucometer 176H 06/26/21 20:08: Glucometer 183H 06/27/21 05:30: White Blood Count 14.4H, Mean Corpuscular Volume 102H, Neutrophils # (Auto) 9.5H , Monocytes # (Auto) 1.7H, Basophils # (Auto) 0.2H, Immature Granulocyte # (Auto) 1.1H, Prothrombin Time 22.2H, INR Comment 1.9H, Blood Urea Nitrogen 23H, Glucose Level 153H, Aspartate Amino Transf (AST/SGOT) 63H, Alanine Aminotransferase (ALT/SGPT) 91H 06/27/21 05:34: Glucometer 154H Procedures None. Consultations Cardiology Discharge Physical Examination Allergies: Coded Allergies: Beta-Blockers (Beta-Adrenergic Bloc (Verified Allergy, Unknown, Pt has rec Metoprolol and coreg in the past, 06/23/21) gluten (Verified Allergy, Unknown, Rash, 12/30/19) Vitals & I&Os Vital Signs Date Time Temp Pulse Resp B/P (MAP) Pulse Ox O2 Delivery O2 Flow Rate FiO2 06/27/21 08:12 36.5 90 18 132/62 96 Room Air 06/27/21 08:00 0.00 06/26/21 00:13 21 General Appearance: Alert, Oriented X3 Respiratory: Clear to Auscultation Cardiovascular: Other (irregularly irregular) Abdominal: Normal Bowel Sounds, Soft, No Tenderness Extremities: No Clubbing, No Cyanosis, No Edema Psych/Mental Status: Mental Status NL, Mood NL Discharge Home Medications Reviewed and agree with Discharge Medication list on patient's Discharge Instruction sheet Instructions to Patient/Family Please see electronic discharge instructions given to patient. UCHE GRUBBS DO Jun 27, 2021 11:15
[2021-06-27 12:20] VITALS: BP 122/82
== END 2021-06-27 12:30 | disposition home health service (06) | DRG 872 ==
LOC: EDUNIT# 11:29 → ER 11:31 → ICU 14:21 → 4TH 06-25 15:56
PROVIDERS: ADMIT Family Medicine; ATTEND Family Medicine
DX: A41.51 Sepsis due to Escherichia coli [E. coli] (principal); N30.01 Acute cystitis with hematuria; I48.21 Permanent atrial fibrillation; R65.20 Severe sepsis without septic shock; I10 Essential (primary) hypertension; K21.9 Gastro-esophageal reflux disease without esophagitis; J44.9 Chronic obstructive pulmonary disease, unspecified; G47.33 Obstructive sleep apnea (adult) (pediatric); M19.91 Primary osteoarthritis, unspecified site; M81.0 Age-related osteoporosis without current pathological fracture; E78.5 Hyperlipidemia, unspecified; M35.3 Polymyalgia rheumatica; N40.1 Benign prostatic hyperplasia with lower urinary tract symptoms; N39.498 Other specified urinary incontinence; I25.10 Atherosclerotic heart disease of native coronary artery without angina pectoris; Z79.01 Long term (current) use of anticoagulants; Z86.16 Personal history of COVID-19; Z95.5 Presence of coronary angioplasty implant and graft; Z88.8 Allergy status to other drugs, medicaments and biological substances; Z91.018 Allergy to other foods; Z79.82 Long term (current) use of aspirin
CPT/HCPCS: 36410; 36415; 51702; 71045; 72148; 76937; 80048; 80053; 80061; 80162; 81000; 82947; 83605; 83735; 84100; 84443; 85007; 85025; 85027; 85610; 85730; 86141; 87040; 87077; 87081; 87088; 87186; 93005; 94664

== ENCOUNTER 2021-07-29 11:40 | Inpatient (IN) | payer MEDICARE, OTHER ==
[~2021-07-29] VITALS: Ht 170 cm; Wt 91.3 kg
[~2021-07-29 11:40] MED LIST changes: +AMOX1TAB12 PO; +CARV12.53 PO; +CARV3.122 PO; +DIGO125T18 PO; +DILT180C85 PO; +MULT-1112 PO; +POTA-51 PO
[2021-07-29 12:00] LABS: BASOPHILS # (AUTO) 0.1 10^3/uL (0.0-0.1); BASOPHILS % (AUTO) 1 % (0-10); EOSINOPHILS # (AUTO) 0.7 10^3/uL (0.0-0.3); EOSINOPHILS % (AUTO) 4 % (0-10); HEMATOCRIT 49 % (40-54); HEMOGLOBIN 15.8 g/dL (13.3-17.7); LYMPHOCYTES # (AUTO) 1.9 10^3/uL (1.0-4.0); LYMPHOCYTES % (AUTO) 11 % (12-44); MEAN CORPUSCULAR HEMOGLOBIN 34 pg (25-34); MEAN CORPUSCULAR HGB CONC 33 g/dL (32-36); MEAN CORPUSCULAR VOLUME 105 fL (80-99); MEAN PLATELET VOLUME 11.3 fL (9.0-12.2); MONOCYTES # (AUTO) 1.5 10^3/uL (0.0-1.0); MONOCYTES % (AUTO) 9 % (0-12); NEUTROPHILS # (AUTO) 12.1 10^3/uL (1.8-7.8); NEUTROPHILS % (AUTO) 73 % (42-75); PLATELET COUNT 192 10^3/uL (130-400); WHITE BLOOD COUNT 16.7 10^3/uL (4.3-11.0)
[2021-07-29 12:08] LABS: ALBUMIN 3.8 GM/DL (3.2-4.5); POTASSIUM 4.7 MMOL/L (3.6-5.0)
[2021-07-29 12:09] LABS: CALCIUM 9.5 MG/DL (8.5-10.1)
[2021-07-29 12:11] LABS: TOTAL PROTEIN 7.1 GM/DL (6.4-8.2)
[2021-07-29 12:12] LABS: BILIRUBIN,TOTAL 0.9 MG/DL (0.1-1.0)
[2021-07-29 12:14] LABS: CREATININE SERUM 1.24 MG/DL (0.60-1.30)
[2021-07-29 12:29] LABS: BAND NEUTROPHILS 2 %; BASOPHILS % (MANUAL) 0 %; EOSINOPHILS % (MANUAL) 1 %; LYMPHOCYTES % (MANUAL) 13 %; METAMYELOCYTES % 1 %; MONOCYTES % (MANUAL) 9 %; NEUTROPHILS % (MANUAL) 74 %; RBC MORPH NORMAL
[2021-07-29 12:38] LABS: TSH (THYROID ANALYZER) 3.22 UIU/ML (0.35-4.94)
--- NOTE | 2021-07-29 12:50 | Diagnostic Imaging Report ---
CLINICAL INDICATIONS: Patient felt lightheaded with low pulse rate. No complaints of chest pain. EXAM: Portable chest x-ray upright view. COMPARISON: Chest x-ray dated 06/20/2021. FINDINGS: Stable mild cardiomegaly. There is no pleural effusion or pneumothorax. There is again seen increased lung markings throughout both lungs. There is mild bibasilar atelectasis and/or scarring (right side more than the left). There is stable mild prominence of the pulmonary vasculature centrally. There are degenerative spurs involving the spine. External pacers are seen overlying the chest. IMPRESSION: 1: Stable cardiomegaly with mild pulmonary vascular congestion centrally which may be seen with congestive heart failure. 2: There is mild bibasilar atelectasis versus scarring (right side more than the left). There is no definite lung infiltrate. 3: The remainder of this exam shows no significant interval change compared to the prior study of comparison. Dictated by: Dictated on workstation # [id number]
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
[2021-07-29] MEDS ORDERED: CALC GLUC 1 GM/100 ML IVPB 100 ML IV ONE (13:45)
--- NOTE | 2021-07-29 14:43 | Consultation-Cardiology ---
HPI-Cardiology Cardiology Consultation Date of Consultation 07/29/21 Date of Admission 07/29/21 Time Seen by Provider: 14:15 Indication: Bradycardia HPI Good is an 85yo M with a past medical history of 2 STEMIs, cardiac catheterization with 3 stents, permanent atrial fibrillation, CAD, HTN, hyperlipidemia, sleep apnea, and diabetes. Last hospitalization was this past June for a UTI and he had persistent tachycardia while in the hospital that was resistant to treatment. Patient has felt well since his last hospitalization. Patient was laying down in bed talking with to his at the beginning of the exam. Patient reports waking up this morning feeling short of breath, weak, and light headed. Denies chest pain or discomfort, nausea, and syncope. When he checked his heart rate at home it was 38. Patients reports that he has forgotten to take his Lasix the past two days. EKG done in the emergency room showed atrial fibrillation with slow ventricular response. Chest X-ray showed stable cardiomegaly with vascular congestion. Good is a patient of Dr. Brown and is being consulted due to concerns for bradycardia. Home Medications & Allergies Allergies: Coded Allergies: Beta-Blockers (Beta-Adrenergic Bloc (Verified Allergy, Unknown, Pt has rec Metoprolol and coreg in the past, 06/23/21) gluten (Verified Allergy, Unknown, Rash, 12/30/19) Home Medication List Reviewed: Yes [id number] Hx Patient Social History Marital Status: 2nd Hand Smoke Exposure: No Recent Hopitalizations: No Have you traveled recently?: No Alcohol Use?: No Immunizations Up To Date Date of Pneumonia Vaccine: May 20, 2012 Date of Influenza Vaccine: Nov 28, 2018 Past Medical History Discussed below Family Medical History Significant Family History: Hypertension Family Medical Hx Noncontributory to current condition Review of Systems-General Review of Systems Constitutional: see HPI; No chills, No fever; malaise, weakness EENTM: see HPI; No hearing loss, No blurred vision, No vision loss, No h oarseness, No throat pain Respiratory: see HPI; No cough; dyspnea on exertion; No phlegm; short of breath Cardiovascular: see HPI; No chest pain; edema; No palpitations, No syncope Gastrointestinal: see HPI; No abdominal pain, No constipation, No diarrhea, No nausea, No vomiting Genitourinary: see HPI; No decreased output, No dysuria, No frequency, No hesitancy, No incontinence, No pain Musculoskeletal: see HPI; No joint swelling, No muscle pain, No muscle stiffness Skin: no symptoms reported, see HPI Psychiatric/Neurological: See HPI; Denies Headache; Weakness Reviewed Test Results Reviewed Test Results Lab Laboratory Tests Test 07/29/21 11:51 Range/Units White Blood Count 16.7 H 4.3-11.0 10^3/uL Red Blood Count 4.63 4.30-5.52 10^6/uL Hemoglobin 15.8 13.3-17.7 g/dL Hematocrit 49 40-54 % Mean Corpuscular Volume 105 H 80-99 fL Mean Corpuscular Hemoglobin 34 25-34 pg Mean Corpuscular Hemoglobin Concent 33 32-36 g/dL Red Cell Distribution Width 14.2 10.0-14.5 % Platelet Count 192 130-400 10^3/uL Mean Platelet Volume 11.3 9.0-12.2 fL Immature Granulocyte % (Auto) 2 % Neutrophils (%) (Auto) 73 42-75 % Lymphocytes (%) (Auto) 11 L 12-44 % Monocytes (%) (Auto) 9 0-12 % Eosinophils (%) (Auto) 4 0-10 % Basophils (%) (Auto) 1 0-10 % Neutrophils # (Auto) 12.1 H 1.8-7.8 10^3/uL Lymphocytes # (Auto) 1.9 1.0-4.0 10^3/uL Monocytes # (Auto) 1.5 H 0.0-1.0 10^3/uL Eosinophils # (Auto) 0.7 H 0.0-0.3 10^3/uL Basophils # (Auto) 0.1 0.0-0.1 10^3/uL Immature Granulocyte # (Auto) 0.4 H 0.0-0.1 10^3/uL Neutrophils % (Manual) 74 % Lymphocytes % (Manual) 13 % Monocytes % (Manual) 9 % Eosinophils % (Manual) 1 % Basophils % (Manual) 0 % Metamyelocytes % 1 % Band Neutrophils 2 % Blood Morphology Comment NORMAL Sodium Level 140 135-145 MMOL/L Potassium Level 4.7 3.6-5.0 MMOL/L Chloride Level 105 98-107 MMOL/L Carbon Dioxide Level 23 21-32 MMOL/L Anion Gap 12 5-14 MMOL/L Blood Urea Nitrogen 34 H 7-18 MG/DL Creatinine 1.24 0.60-1.30 MG/DL Estimat Glomerular Filtration Rate 57 BUN/Creatinine Ratio 27 Glucose Level 174 H 70-105 MG/DL Calcium Level 9.5 8.5-10.1 MG/DL Corrected Calcium 9.7 8.5-10.1 MG/DL Magnesium Level 2.0 1.6-2.4 MG/DL Total Bilirubin 0.9 0.1-1.0 MG/DL Aspartate Amino Transf (AST/SGOT) 22 5-34 U/L Alanine Aminotransferase (ALT/SGPT) 35 0-55 U/L Alkaline Phosphatase 59 40-136 U/L C-Reactive Protein High Sensitivity 1.06 H 0.00-0.50 MG/DL Total Protein 7.1 6.4-8.2 GM/DL Albumin 3.8 3.2-4.5 GM/DL TSH Tama Testing 3.22 0.35-4.94 UIU/ML Digoxin Level 0.86 0.80-2.00 NG/ML ECG Impression ECG Initial ECG Impression Date: July 29, 2021 Initial ECG Impression Time: 14:15 Initial ECG Impression: Atrial Fibrillation (with slow ventricular response) Physical Exam Physical Exam Vital Signs Vital Signs - First Documented 07/29/21 11:45 Temp 35.8 Pulse 38 Resp 18 B/P (MAP) 136/65 (88) Pulse Ox 96 O2 Delivery Room Air Capillary Refill : Less Than 3 Seconds Height, Weight, BMI Height: 5'8.00" Weight: 226lbs. 0.0oz. 102.030547ug; 32.00 BMI Method:Stated General Appearance: No Apparent Distress, WD/WN HEENT: Normal ENT Inspection, Pharynx Normal Neck: Full Range of Motion, Normal Inspection, Non Tender Respiratory: Chest Non Tender, Lungs Clear, Normal Breath Sounds Cardiovascular: Bradycardia, Systolic Murmur, Irregularly Irregular Gastrointestinal: Normal Bowel Sounds, No Organomegaly, No Pulsatile Mass, Non Tender Back: Normal Inspection, No Vertebral Tenderness Extremity: Normal Inspection, Normal Range of Motion, Non Tender, Pedal Edema, Slow Capillary Refill (Capillary refill >3 seconds in bilateral hands) Neurologic/Psychiatric: Alert, Oriented x3, No Motor/Sensory Deficits, Normal Mood/Affect, 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 Tachybradycardia episodes. Was tachycardic earlier required multiple medication to slow down his heart rate. Withhold diltiazem, carvedilol, and digoxin like this Admit to ICU for surveillance of heart rate Permanent atrial fibrillation Withhold rate control medications until HR is within normal limits Will restart diltiazem and metoprolol once HR has improved Continue to give warfarin due to a [id number] score of 3 SARAH on May 21, 2016 showed a density suggestive of a thrombus in the left atrium CAD Resume home medication aspirin Cardiac catheterization done May 20, 2016 showed severe coronary artery stenosis and a Xience Alpine stent was placed in the right coronary artery. The re is a patent stent in the proximal circumflex artery with 50% stenosis. There is mold to moderate disease in the LAD and small vessel disease Lexiscan stress test on June 10, 2020 showed atrial fibrillation with no significant ischemia and an EF 55% 2D echo was done in May 2021 showing normal left ventricular size with ejection fraction 60%, dilated right heart chambers with severe pulmonary hypertension with PA pressure 50 to 55 mmHg, severe mitral regurgitation, calcified mitral valve, mild tricuspid regurgitation Cor pulmonale, significant peripheral edema. Probably secondary to severe mitral regurgitation. Currently borderline hypotensive, I am planning to start Lasix once his blood pressure more stable. Hypertension, currently borderline hypotensive. Continue to hold medication and monitor blood pressure closely. Sleep apnea Have patient on CPAP at night Diabetes Being managed by admitting hospitalist Supervisory-Addendum Brief Verification & Attestation Participated in pt care: history, MDM, physical Personally performed: exam, history, MDM, supervision of care Care discussed with: Medical Student Procedures: n/a Results interpretation: Verified all documentation Verification and Attestation of Medical Student E/M Service A medical student performed and documented this service in my presence. I reviewed and verified all information documented by the medical student and made modifications to such information, when appropriate. I personally performed the physical exam and medical decision making. Patient was seen at bedside, laying down comfortably, feeling better Heart rate is in the 40s. I will continue monitoring him closely. Monitor blood pressure and hold all his blood pressure medication, discontinue digoxin. If he became tachycardic, we can consider doing single-chamber pacemaker or leadless pacemaker and proceed with aggressive rate controlling medication Leopoldo Shine, July 29, 2021,16:09 SUDARSHAN ROSA July 29, 2021 14:43 LEOPOLDO SHINE MD July 29, 2021 16:07
[2021-07-29 14:45] VITALS: BP 119/65
[2021-07-29] MEDS ORDERED: CATHETER FLUSH 10 ML SYR IV PRN (15:15)
[2021-07-29] MEDS ORDERED: ONDANSETRON 4 MG/2 ML (SDV) Z0FRAN IV PRN (15:15)
[2021-07-29] MEDS ORDERED: ATROPINE INJECTION 1 MG/10 ML SYR (ABBOTT) ONE (16:31)
--- NOTE | 2021-07-29 17:15 | Tele-ICU Consult ---
History of Present Illness History of Present Illness Date Seen by Provider: July 29, 2021 Time Seen by Provider: 17:15 Date of Admission Reason for Visit: Bradycardia History of Present Illness (Tele-ICU Physician , consultation) Available chart/ vitals / labs / Images reviewed H&P is from ER notes Patient's information available about PMH, Shx, Fhx allergy reviewed in EMR. ROS as per chart and RN report Now in ICU, hemodynamically stable Video assessment done using teleICU camera, rest of exam as per RN Discussed with RN. Consultants: Hospital course: A/P Bradycardia underlying atrial fibrillation - as per cards (probably secondary to medications in addition to underlying sinus node dysfunction. - medications on hold - BP stable Permanent A fib - meds on hold - AC with coumadine? INR not done CAD -EF 55%, mod MR DM II - ISS , as per PCP Pulm HTN PA pressure 50 to 55 mmHg -suspected due to valv dx and OS A SANDIP -to cont CPAP at night Moderate carotid stenosis on the right, mild on the left Low back pain and chronic lower extremity swelling and weakness, chronic COPD? Polymyalgia rheumatica- Plaquenil Lines : (Central Line Necessity Reviewed) Saini: OG: Nutrition: Analgesia: Anxiety/ delirium VTE Prophylaxis: coumadn e Stress Ulcer Prophylaxis: na Plans in collaboration with bedside consultants and IM MDs. Discussed with RN to reach out if any questions or concerns A total of 25 minutes of critical care time was devoted to this patient today, required to treat and/or prevent further deterioration of critical care condition ( as above ) . Allergies and Home Medications Allergies Coded Allergies: Beta-Blockers (Beta-Adrenergic Bloc (Verified Allergy, Unknown, Pt has rec Metoprolol and coreg in the past, 06/23/21) gluten (Verified Allergy, Unknown, Rash, 12/30/19) Home Medications Alogliptin Benzoate 25 Mg Tablet, 25 MG PO DAILY, (Reported) Aspirin 81 Mg Tablet.dr, 81 MG PO DAILY, (Reported) Carvedilol 3.125 Mg Tablet, 3.125 MG PO BID, (Reported) Diltiazem HCl 360 Mg Cap.er.24h, 360 MG PO DAILY, (Reported) Furosemide 20 Mg Tablet, 20 MG PO DAILY, (Reported) Gabapentin 100 Mg Capsule, 200 MG PO TID, (Reported) TAKES 2 (100MG) CAPSULES Hydroxychloroquine Sulfate 200 Mg Tablet, 200 MG PO DAILY, (Reported) Memantine HCl 10 Mg Tablet, 10 MG PO BID, (Reported) Multivit-Min/Iron/Folic/Vit K1 1 Each Tab.chew, 1 EACH PO DAILY, (Reported) Pantoprazole Sodium 40 Mg Tablet.dr, 40 MG PO DAILY, (Reported) Potassium Chloride 20 Meq Tablet.er, 20 MEQ PO DAILY, (Reported) Vit A/C/E/Zinc/Co 14,320-226 Capsule, 1 CAP PO BID, (Reported) Warfarin Sodium 5 Mg Tablet, 5 MG PO GUAJARDO,TU,TH,SAT @HS, (Reported) Warfarin Sodium 5 Mg Tablet, 2.5 MG PO MO,WE,FR @HS, (Reported) TAKES OF A 5MG TAB Past Medical/Social/Family Hx Patient Social History Marrital Status: Tobacco Use?: No Substance use?: No Alcohol Use?: No Alcohol type: Hard Liquor Pt stated abuse/neglect: No Immunizations Up To Date First/Initial COVID19 Vaccinat: 06/2020 Second COVID19 Vaccination Yousuf: 06/2020 Tetanus Booster (TDap): More Than 5 Years Date of Pneumonia Vaccine: May 20, 2012 Current Status Advance Directives: Yes Advance Directive Location: Family to bring in copy Communicates: Verbally Primary Language: Palauan Preferred Spoken Language: Palauan Sensory deficits: Vision impairment Implanted or Applied Medical D: Stents Review of Systems Constitutional: see HPI Focused Exam Height, Weight, BMI Height: 5'8.00" Weight: 226lbs. 0.0oz. 102.417075cf; 33.01 BMI Method:Stated Exam Exam Patient acknowledged, consented, and participated in this virtual visit which was conducted using real time audio/video Vital Signs Date Time Temp Pulse Resp B/P (MAP) Pulse Ox O2 Delivery O2 Flow Rate FiO2 07/29/21 17:00 48 17 124/54 96 Room Air 07/29/21 16:20 36.0 07/29/21 16:00 43 16 104/70 98 Room Air 07/29/21 15:05 59 07/29/21 15:00 Room Air 07/29/21 15:00 85 22 131/71 95 Room Air 07/29/21 14:45 35.8 32 16 119/65 97 Room Air 07/29/21 11:45 35.8 38 18 136/65 (88) 96 Room Air Height & Weight Height: 5'8.00" Weight: 226lbs. 0.0oz. 102.504199ma; 33.01 BMI Method:Stated General Appearance: No Apparent Distress, WD/WN HEENT: Normal ENT Inspection, Pharynx Normal Neck: Full Range of Motion, Normal Inspection, Non Tender Respiratory: Chest Non Tender, Lungs Clear, Normal Breath Sounds Cardiovascular: Bradycardia, Systolic Murmur, Irregularly Irregular Capillary Refill: Less Than 3 Seconds Extremity: Normal Inspection, Normal Range of Motion, Non Tender, Pedal Edema, Slow Capillary Refill (Capillary refill >3 seconds in bilateral hands) Neurologic/Psychiatric: Alert, Oriented x3, No Motor/Sensory Deficits, Normal Mood/Affect, detail manager II-XII Norm as Tested Skin: Normal Color, Cool (Hands were cool to the touch) Results Lab Laboratory Tests 07/29/21 11:51 Assessment/Plan Assessment/Plan ` MOUSTAPHA LOU MD July 29, 2021 17:15
[2021-07-29 18:08] LABS: BILIRUBIN,URINE NEGATIVE (NEGATIVE); CLARITY,URINE CLEAR; COLOR,URINE AMBER; GLUCOSE, URINE (UA) NEGATIVE (NEGATIVE); KETONES,URINE TRACE (NEGATIVE); LEUKOCYTE ESTERASE ,URINE NEGATIVE (NEGATIVE); NITRITE,URINE NEGATIVE (NEGATIVE); PH,URINE 5.5 (5-9); PROTEIN,URINE NEGATIVE (NEGATIVE)
[2021-07-29 18:18] LABS: BACTERIA,URINE NEGATIVE /HPF; RBC,URINE RARE /HPF; RENAL EPITHELIAL CELLS,URINE 0-2 /HPF; SQUAMOUS EPITHELIAL CELL,UR 0-2 /HPF; WBC,URINE 0-2 /HPF
--- NOTE | 2021-07-29 21:10 | History & Physical ---
History of Present Illness History of Present Illness Reason for visit/HPI PT IS AN 85 Y/O MALE WHO IS KNOWN TO ME FROM CLINIC. THE PATIENT WAS AT HOME, FEELING FATIGUED, WITH HOME HEALTH THERAPY EVALUATING HIM AND NOTING A LOW HEART RATE. HE WAS DOCUMENTED TO HAVE A HEART RATE IN THE 30'S AND HIS FAMILY WAS ADVISED TO CALL DR. BISHOP OR GO TO THE ER. DR. BISHOP'S OFFICE INSTRUCTED THE PATIENT'S TO TAKE HIM TO THE ER AND HE WAS EVALUATED, FOUND TO HAVE A PRO FOUNDLY LOW HEART RATE AND ADMITTED TO THE ICU FOR FURTHER MONITORING/WORK-UP AND TREATMENT. THIS EVENING, OFELIA STATES THAT HE IS WONDERING IF HE WILL END UP WITH A PACEMAKER DUE TO HIS EXTREMELY LOW HEART RATE. Date of Admission July 29, 2021 at 12:13 Date Seen by a Provider: July 29, 2021 Time Seen by a Provider: 18:50 Attending Physician Ron Burkett MD Admitting Physician Admitting Physician: Ron Burkett MD Attending Physician: Ron Burkett MD Consult CARDIOLOGY Allergies and Home Medications Allergies Coded Allergies: Beta-Blockers (Beta-Adrenergic Bloc (Verified Allergy, Unknown, Pt has rec Metoprolol and coreg in the past, 06/23/21) gluten (Verified Allergy, Unknown, Rash, 12/30/19) Patient Home Medication List Home Medication List Reviewed: Yes Alogliptin Benzoate (Alogliptin) 25 Mg Tablet, 25 MG PO DAILY, (Reported) Entered as Reported by: NICANOR DALY on 12/30/191642 Last Action: Held Amoxicillin/Potassium Clav (Amox Tr-K Clv 875-125 mg Tab) 875 Mg-125 Mg Tablet, 875 MG PO BID WITH MEALS Prescribed by: UCHE GRUBBS on 06/27/21 1100 Last Action: Held Aspirin (Aspirin EC) 81 Mg Tablet.dr, 81 MG PO DAILY, (Reported) Entered as Reported by: NICANOR DALY on 12/30/191642 Last Action: Held Carvedilol (Carvedilol) 3.125 Mg Tablet, 3.125 MG PO BID Prescribed by: UCHE GRUBBS on 06/27/21 1050 Last Action: Held Digoxin (Digox) 125 Mcg (0.125 Mg) Tablet, 0.125 MG PO DAILY Prescribed by: UCHE GRUBBS on 06/27/211049 Last Action: Held Diltiazem HCl (Diltiazem 24Hr ER) 180 Mg Cap.er.24h, 360 MG PO DAILY Prescribed by: UCHE GRUBBS on 06/27/211049 Last Action: Held Gabapentin (Gabapentin) 100 Mg Capsule, 200 MG PO TID, (Reported) Entered as Reported by: NICANOR DALY on 12/30/191642 Last Action: Continued Hydroxychloroquine Sulfate (Hydroxychloroquine Sulfate) 200 Mg Tablet, 200 MG PO DAILY, (Reported) Entered as Reported by: BHASKAR SOLIS on 06/20/211835 Last Action: Held Memantine HCl (Memantine HCl) 10 Mg Tablet, 10 MG PO BID, (Reported) Entered as Reported by: NICANOR DALY on 12/30/191642 Last Action: Continued Multivit-Min/Iron/Folic/Vit K1 (Centrum Chewables Adults Tab) 1 Each Tab.chew, 1 EACH PO DAILY, (Reported) Entered as Reported by: KARINA FRIEDMAN on 06/21/211056 Last Action: Held Pantoprazole Sodium (Pantoprazole Sodium) 40 Mg Tablet.dr, 40 MG PO DAILY, (Reported) Entered as Reported by: NICANOR DALY on 12/30/191642 Last Action: Continued Potassium Chloride (Potassium Chloride) 20 Meq Tablet.er, 20 MEQ PO DAILY Prescribed by: UCHE GRUBBS on 06/27/211050 Last Action: Held Warfarin Sodium (Warfarin Sodium) 5 Mg Tablet, 5 MG PO GUAJARDO,,TH,SAT @HS, (Reported) Entered as Reported by: NICANOR DALY on 12/30/191642 Last Action: Held Warfarin Sodium (Warfarin Sodium) 5 Mg Tablet, 2.5 MG PO MO,WE,FR @HS, (Reported) Entered as Reported by: KARINA FRIEDMAN on 06/21/211056 Last Action: Held Past Jolvwrg-Zlficv-Kqmcka Hx Patient Social History Marrital Status: Living Status: LIVES AT HOME WITH HIS AXEL Employed/Student: retired Tobacco Use?: No Smoking Status: Former Smoker Use of E-Cig and/or Vaping dev: No Substance use?: No Alcohol Use?: Yes Alcohol type: Hard Liquor (OCCASIONAL) Alcohol Frequency: Once in a while Pt feels they are or have been: No Immunizations Up To Date Date of Influenza Vaccine: Nov 28, 2018 First/Initial COVID19 Vaccinat: 06/2020 Second COVID19 Vaccination Yousuf: 06/2020 Tetanus Booster (TDap): More Than 5 Years Date of Pneumonia Vaccine: May 20, 2012 Current Status Advance Directives: Yes Advance Directive Location: Family to bring in copy Communicates: Verbally Primary Language: American Preferred Spoken Language: American Sensory deficits: Vision impairment Implanted or Applied Medical D: Stents Past Medical History Surgeries: Abdominal, Coronary Stent, Orthopedic Sleep Apnea Atrial Fibrillation, Coronary Artery Disease, Hypertension Sexually Transmitted Disease: No HIV/AIDS: No Prostate Problems Hiatal Hernia Osteoporosis, Back Injury Diabetes, Non-Insulin dep Loss of Vision: Denies Hearing Impairment: Hard of Hearing Blood Disorders: No Family Medical History Reviewed and Corrections made Heart Disease, Hypertension Review of Systems Constitutional: No chills, No diaphoresis, No fever; malaise, weakness EENTM: hearing loss; No hoarseness, No throat pain Respiratory: No cough; dyspnea on exertion, short of breath Cardiovascular: No chest pain; edema, Hx of Intervention, vascular heart diseas Gastrointestinal: No abdominal pain, No constipation, No diarrhea, No nausea, No vomiting Genitourinary: incontinence Musculoskeletal: back pain, joint pain, muscle weakness Skin: no symptoms reported Psychiatric/Neurological: Anxiety, Depressed, Weakness All Other Systems Reviewed Negative Unless Noted: Yes Physical Exam Vital Signs Vital Signs - First Documented 07/29/21 11:45 Temp 35.8 Pulse 38 Resp 18 B/P (MAP) 136/65 (88) Pulse Ox 96 O2 Delivery Room Air Capillary Refill : Less Than 3 Seconds Height, Weight, BMI Height: 5'8.00" Weight: 226lbs. 0.0oz. 102.016358uo; 33.01 BMI Method:Stated General Appearance: No Apparent Distress, WD/WN HEENT: PERRL/EOMI, Pharynx Normal Neck: Full Range of Motion, Normal Inspection, Non Tender, Supple Respiratory: Chest Non Tender, Lungs Clear, Normal Breath Sounds, No Accessory Muscle Use, No Respiratory Distress Cardiovascular: Bradycardia, Irregularly Irregular Gastrointestinal: Normal Bowel Sounds, No Organomegaly, Non Tender, Soft Rectal: Deferred Extremity: Pedal Edema (2 TO 3+ AT ANKLES) Neurologic/Psychiatric: Alert, Oriented x3, No Motor/Sensory Deficits, Normal Mood/Affect Skin: Normal Color, Warm/Dry Lymphatic: No Adenopathy Assessment/Plan Assessment and Plan BRADYCARDIA HYPERTENSION CORONARY ARTERY DISEASE GENERALIZED WEAKNESS CHRONIC ATRIAL FIBRILLATION CHRONIC ANTICOAGULATION DIABETES MELLITUS PERIPHERAL NEUROPATHY ESOPHAGEAL REFLUX LEUKOCYTOSIS BRADYCARDIA - - DEFER TO CARDIOLOGY - MONITOR PT IS KEPT OFF OF DIG, CARDIZEM AND OTHER RATE CONTROLLING MEDICATIONS. - MAY END UP WITH PACEMAKER IF HIS HEART RATE DOES NOT RECOVER. HYPERTENSION - MONITOR PRESSURES, HOLD RATE CONTROLLING MEDICATIONS, MAY HAVE TO DOSE WITH ARB OR OTHER MEDICATION FOR BP CONTROL. CORONARY ARTERY DISEASE - MEDICAL MANAGEMENT. GENERALIZED WEAKNESS - WILL ORDER THERAPY TOMORROW. CHRONIC ATRIAL FIBRILLATION - RATE CONTROLLED (EXCESSIVELY) - DEFER TO CARDIOLOGY, MONITOR PT WITH TELEMETRY. CHRONIC ANTICOAGULATION - MONITOR INR SERIALLY DIABETES MELLITUS - HOLD HOME MEDICATION FOR NOW - MONITOR FSBS PERIPHERAL NEUROPATHY RESUME GABAPENTIN ESOPHAGEAL REFLUX - RESUME PPI THERAPY. LEUKOCYTOSIS - CHECK PERIPHERAL SMEAR, THERE IS NOT A CURRENT INFECTIOUS SOURCE. GI PROPHYLAXIS WITH PPI DVT PROPHYLAXIS WITH COUMADIN AND SCD'S Admission Diagnosis BRADYCARDIA HYPERTENSION CORONARY ARTERY DISEASE GENERALIZED WEAKNESS CHRONIC ATRIAL FIBRILLATION CHRONIC ANTICOAGULATION DIABETES MELLITUS PERIPHERAL NEUROPATHY ESOPHAGEAL REFLUX LEUKOCYTOSIS Admission Status: Inpatient Order (span 2 midnights) Reason for Inpatient Admission: INPATIENT ADMISSION TO [facility] - WILL REQUIRE AT LEAST 48 HOURS/TWO MIDNIGHTS FOR STABILIZATION AND TREATMENT RON BURKETT MD July 29, 2021 21:10
[2021-07-29 21:55] LABS: ABSOLUTE RETIC # 77 10e9/uL (24-90); BASOPHILS # (AUTO) 0.1 10^3/uL (0.0-0.1); BASOPHILS % (AUTO) 1 % (0-10); EOSINOPHILS # (AUTO) 0.7 10^3/uL (0.0-0.3); EOSINOPHILS % (AUTO) 5 % (0-10); HEMATOCRIT 46 % (40-54); HEMOGLOBIN 15.1 g/dL (13.3-17.7); LYMPHOCYTES # (AUTO) 1.7 10^3/uL (1.0-4.0); LYMPHOCYTES % (AUTO) 12 % (12-44); MEAN CORPUSCULAR HEMOGLOBIN 35 pg (25-34); MEAN CORPUSCULAR HGB CONC 33 g/dL (32-36); MEAN CORPUSCULAR VOLUME 105 fL (80-99); MEAN PLATELET VOLUME 11.4 fL (9.0-12.2); MONOCYTES # (AUTO) 1.5 10^3/uL (0.0-1.0); MONOCYTES % (AUTO) 10 % (0-12); NEUTROPHILS # (AUTO) 10.5 10^3/uL (1.8-7.8); NEUTROPHILS % (AUTO) 71 % (42-75); PLATELET COUNT 172 10^3/uL (130-400); RETICULOCYTE % 1.77 % (0.50-2.40); WHITE BLOOD COUNT 14.8 10^3/uL (4.3-11.0)
[2021-07-29 22:17] LABS: NEUTROPHILS % (MANUAL) 69 %
[2021-07-29] MEDS: MEMANTINE 10 MG (NAMENDA) TABLET PO SCH (22:17)
[2021-07-29 22:18] LABS: EOSINOPHILS % (MANUAL) 5 %; LYMPHOCYTES % (MANUAL) 11 %; MONOCYTES % (MANUAL) 15 %; RBC MORPH NORMAL
[2021-07-29] MEDS: GABAPENTIN 100 MG (NEURONTIN) CAP PO SCH (22:18)
[2021-07-29] MEDS: CATHETER FLUSH 10 ML SYR IV SCH (22:18)
[2021-07-29 22:37] LABS: INR 3.7 (0.8-1.4); PROTHROMBIN TIME PATIENT 37.2 SEC (12.2-14.7)
[2021-07-30 05:09] LABS: HEMATOCRIT 44 % (40-54); HEMOGLOBIN 14.5 g/dL (13.3-17.7); MEAN CORPUSCULAR HEMOGLOBIN 34 pg (25-34); MEAN CORPUSCULAR HGB CONC 33 g/dL (32-36); MEAN CORPUSCULAR VOLUME 103 fL (80-99); MEAN PLATELET VOLUME 12.2 fL (9.0-12.2); PLATELET COUNT 151 10^3/uL (130-400); WHITE BLOOD COUNT 15.7 10^3/uL (4.3-11.0)
[2021-07-30 05:22] LABS: INR 3.5 (0.8-1.4); PROTHROMBIN TIME PATIENT 35.4 SEC (12.2-14.7)
[2021-07-30 05:29] LABS: ALBUMIN 3.1 GM/DL (3.2-4.5); POTASSIUM 4.6 MMOL/L (3.6-5.0)
[2021-07-30 05:31] LABS: CALCIUM 9.2 MG/DL (8.5-10.1)
[2021-07-30 05:32] LABS: TOTAL PROTEIN 6.4 GM/DL (6.4-8.2)
[2021-07-30 05:34] LABS: BILIRUBIN,TOTAL 0.8 MG/DL (0.1-1.0)
[2021-07-30 05:35] LABS: CREATININE SERUM 0.86 MG/DL (0.60-1.30)
[2021-07-30] MEDS: CATHETER FLUSH 10 ML SYR IV SCH ×3 (06:11→22:04)
--- NOTE | 2021-07-30 06:48 | Progress Note ---
Subjective Subjective Date Seen by Provider: July 30, 2021 Time Seen by Provider: 06:30 Pt is doing well he denies any CP or SOB. He had a BM yesterday. His HR was fluctuating between 70-upper 80's at rest, with movement his HR increases to above 100. Review of Systems General: No Chills, No Night Sweats HEENT: No Head Aches, No Visual Changes Pulmonary: No Dyspnea, No Cough Cardiovascular: Lt Headedness; No: Chest Pain Gastrointestinal: No: Nausea, Vomiting, Abdominal Pain, Diarrhea, Constipation Genitourinary: No Dysuria, No Frequency Neurological: No: Numbness, Change in speech All Other Systems Reviewed All Other Systems Reviewed: Yes Objective Exam Vital Signs Vital Signs Date Time Temp Pulse Resp B/P (MAP) Pulse Ox O2 Delivery O2 Flow Rate FiO2 07/30/21 06:00 90 13 152/92 93 Room Air 07/30/21 05:00 144 14 135/84 98 Room Air 07/30/21 04:00 36.1 07/30/21 04:00 87 14 132/93 96 Room Air 07/30/21 04:00 94 Room Air 07/30/21 03:00 98 22 149/86 94 Room Air 07/30/21 02:00 122 12 91 Room Air 07/30/21 01:00 101 17 142/69 97 Room Air 07/30/21 01:00 11 07/30/21 00:00 94 Room Air 07/30/21 00:00 90 13 150/77 94 Room Air 07/30/21 00:00 36.0 07/29/21 23:00 85 13 95 Room Air 07/29/21 22:00 75 16 136/66 96 Room Air 07/29/21 22:00 36.3 07/29/21 21:00 61 15 139/68 95 Room Air 07/29/21 20:00 50 17 138/59 96 Room Air 07/29/21 20:00 94 Room Air 07/29/21 19:46 36.3 07/29/21 19:00 56 17 121/51 96 Room Air 07/29/21 19:00 56 07/29/21 18:00 47 16 137/51 94 Room Air 07/29/21 17:00 48 17 124/54 96 Room Air 07/29/21 16:20 36.0 07/29/21 16:00 43 16 104/70 98 Room Air 07/29/21 16:00 94 Room Air 07/29/21 15:05 59 07/29/21 15:00 Room Air 07/29/21 15:00 85 22 131/71 95 Room Air 07/29/21 14:45 35.8 32 16 119/65 97 Room Air 07/29/21 11:45 35.8 38 18 136/65 (88) 96 Room Air I & O0 07/30/21 07:00 Intake Total 900 ml Output Total 1625 ml Balance -725 ml General Appearance: No Apparent Distress, WD/WN HEENT: PERRL/EOMI, Normal ENT Inspection Neck: Normal Inspection Respiratory: Lungs Clear, Normal Breath Sounds, No Accessory Muscle Use Cardiovascular: No Murmur, Irregularly Irregular, Other (Pitting edema equal bilaterally) Gastrointestinal: Non Tender, Soft Rectal: Deferred Back: Normal Inspection, No Vertebral Tenderness Extremity: Non Tender, Swelling Neurologic/Psychiatric: Alert, Oriented x3, No Motor/Sensory Deficits, Normal Mood/Affect Skin: Normal Color, Warm/Dry Lymphatic: No Adenopathy Results Lab Laboratory Tests 07/29/21 11:51: White Blood Count 16.7H, Red Blood Count 4.63, Hemoglobin 15.8, Hematocrit 49, Mean Corpuscular Volume 105H, Mean Corpuscular Hemoglobin 34, Mean Corpuscular Hemoglobin Concent 33, Red Cell Distribution Width 14.2, Platelet Count 192, Mean Platelet Volume 11.3, Immature Granulocyte % (Auto) 2, Neutrophils (%) (Auto) 73, Lymphocytes (%) (Auto) 11L, Monocytes (%) (Auto) 9, Eosinophils (%) (Auto) 4, Basophils (%) (Auto) 1, Neutrophils # (Auto) 12.1H, Lymphocytes # (Auto) 1.9, Monocytes # (Auto) 1.5H, Eosinophils # (Auto) 0.7H, Basophils # (Auto) 0.1, Immature Granulocyte # (Auto) 0.4H, Neutrophils % (Manual) 74, Lymphocytes % (Manual) 13, Monocytes % (Manual) 9, Eosinophils % (Manual) 1, Basophils % (Manual) 0, Metamyelocytes % 1, Band Neutrophils 2, Blood Morphology Comment NORMAL, Sodium Level 140, Potassium Level 4.7, Chloride Level 105, Carbon Dioxide Level 23, Anion Gap 12, Blood Urea Nitrogen 34H, Creatinine 1.24, Estimat Glomerular Filtration Rate 57, BUN/Creatinine Ratio 27, Glucose Level 174H, Calcium Level 9.5, Corrected Calcium 9.7, Magnesium Level 2.0, Total Bilirubin 0.9, Aspartate Amino Transf (AST/SGOT) 22, Alanine Aminotransferase (ALT/SGPT) 35, Alkaline Phosphatase 59, C-Reactive Protein High Sensitivity 1.06H, B-Type Natriuretic Peptide 124.7H, Total Protein 7.1, Albumin 3.8, TSH [place] Testing 3.22, Digoxin Level 0.86 07/29/21 18:00: Urine Color AMBERH, Urine Clarity CLEAR, Urine pH 5.5, Urine Specific [place] >=1.030, Urine Protein NEGATIVE, Urine Glucose (UA) NEGATIVE, Urine Ketones TRACEH, Urine Nitrite NEGATIVE, Urine Bilirubin NEGATIVE, Urine Urobilinogen 0.2, Urine Leukocyte Esterase NEGATIVE, Urine RBC (Auto) NEGATIVE, Urine RBC RARE, Urine WBC 0-2, Urine Squamous Epithelial Cells 0-2, Urine Renal Epithelial Cells 0-2, Urine Crystals NONE, Urine Bacteria NEGATIVE, Urine Casts PRESENT, Urine Hyaline Casts 10-25H, Urine Mucus NEGATIVE, Urine Culture Indicated NO 07/29/21 21:40: White Blood Count 14.8H, Red Blood Count 4.36, Hemoglobin 15.1, Hematocrit 46, Mean Corpuscular Volume 105H, Mean Corpuscular Hemoglobin 35H, Mean Corpuscular Hemoglobin Concent 33, Red Cell Distribution Width 14.3, Platelet Count 172, Mean Platelet Volume 11.4, Immature Granulocyte % (Auto) 2, Neutrophils (%) (Auto) 71, Lymphocytes (%) (Auto) 12, Monocytes (%) (Auto) 10, Eosinophils (%) (Auto) 5, Basophils (%) (Auto) 1, Neutrophils # (Auto) 10.5H, Lymphocytes # (Auto) 1.7, Monocytes # (Auto) 1.5H, Eosinophils # (Auto) 0.7H, Basophils # (Auto) 0.1, Immature Granulocyte # (Auto) 0.3H, Neutrophils % (Manual) 69, Lymphocytes % (Manual) 11, Monocytes % (Manual) 15, Eosinophils % (Manual) 5, Blood Morphology Comment NORMAL, Absolute Reticulocyte Count 77, Percent Reticulocyte Count 1.77 07/29/21 22:17: Prothrombin Time 37.2H, INR Comment 3.7H 07/30/21 04:23: White Blood Count 15.7H, Red Blood Count 4.23L, Hemoglobin 14.5, Hematocrit 44, Mean Corpuscular Volume 103H, Mean Corpuscular Hemoglobin 34, Mean Corpuscular Hemoglobin Concent 33, Red Cell Distribution Width 14.1, Platelet Count 151, Mean Platelet Volume 12.2, Prothrombin Time 35.4H, INR Comment 3.5H, Sodium Level 139, Potassium Level 4.6, Chloride Level 106, Carbon Dioxide Level 21, Anion Gap 12, Blood Urea Nitrogen 28H, Creatinine 0.86, Estimat Glomerular Filtration Rate 85, BUN/Creatinine Ratio 33, Glucose Level 157H, Calcium Level 9.2, Corrected Calcium 9.9, Total Bilirubin 0.8, Aspartate Amino Transf (AST/SGOT) 21, Alanine Aminotransferase (ALT/SGPT) 30, Alkaline Phosphatase 62, Total Protein 6.4, Albumin 3.1L Assessment/Plan Assessment/Plan Admission Dx BRADYCARDIA HYPERTENSION CORONARY ARTERY DISEASE GENERALIZED WEAKNESS CHRONIC ATRIAL FIBRILLATION CHRONIC ANTICOAGULATION DIABETES MELLITUS PERIPHERAL NEUROPATHY ESOPHAGEAL REFLUX LEUKOCYTOSIS Assessment and Plan BRADYCARDIA HYPERTENSION CORONARY ARTERY DISEASE GENERALIZED WEAKNESS CHRONIC ATRIAL FIBRILLATION CHRONIC ANTICOAGULATION DIABETES MELLITUS PERIPHERAL NEUROPATHY ESOPHAGEAL REFLUX LEUKOCYTOSIS BRADYCARDIA - - DEFER TO CARDIOLOGY - MONITOR PT IS KEPT OFF OF DIG, CARDIZEM AND OTHER RATE CONTROLLING MEDICATIONS. - MAY END UP WITH PACEMAKER IF HIS HEART RATE DOES NOT RECOVER. HYPERTENSION - MONITOR PRESSURES, HOLD RATE CONTROLLING MEDICATIONS, MAY HAVE TO DOSE WITH ARB OR OTHER MEDICATION FOR BP CONTROL. CORONARY ARTERY DISEASE - MEDICAL MANAGEMENT. GENERALIZED WEAKNESS - WILL ORDER THERAPY TOMORROW. CHRONIC ATRIAL FIBRILLATION - RATE CONTROLLED (EXCESSIVELY) - DEFER TO CARDIOLOGY, MONITOR PT WITH TELEMETRY. CHRONIC ANTICOAGULATION - MONITOR INR SERIALLY. Warfarin 2.5mg Monday, Monday, and Monday. W arfarin 5mg Monday, , Monday, and Monday. DIABETES MELLITUS - HOLD HOME MEDICATION FOR NOW - MONITOR FSBS PERIPHERAL NEUROPATHY RESUME GABAPENTIN ESOPHAGEAL REFLUX - RESUME PPI THERAPY. LEUKOCYTOSIS - CHECK PERIPHERAL SMEAR, THERE IS NOT A CURRENT INFECTIOUS SOURCE. GI PROPHYLAXIS WITH PPI DVT PROPHYLAXIS WITH COUMADIN AND SCD'S Supervisory-Addendum Brief Verification & Attestation Participated in pt care: history, MDM, physical Personally performed: exam, history, MDM, supervision of care Care discussed with: Medical Student Procedures: n/a Results interpretation: Verified all documentation BRADYCARDIA HYPERTENSION CORONARY ARTERY DISEASE GENERALIZED WEAKNESS CHRONIC ATRIAL FIBRILLATION CHRONIC ANTICOAGULATION DIABETES MELLITUS PERIPHERAL NEUROPATHY ESOPHAGEAL REFLUX LEUKOCYTOSIS SEVERE SLEEP APNEA BRADYCARDIA - WITH CHRONIC ATRIAL FIBRILLATION - HEART RATE SIGNIFICANTLY INCREASED WITH HOLDING OF HIS HOME MEDICATIONS. - DEFER TO CARDIOLOGY - MONITOR HEART RATE - PT RESTARTED ON COREG AND CARDIZEM HYPERTENSION - MONITOR PRESSURES, HOME MEDICATION RESTARTED. CORONARY ARTERY DISEASE - MEDICAL MANAGEMENT. SEVERE SLEEP APNEA - PT'S CPAP RESUMED WITH PT'S HOME MACHINE. GENERALIZED WEAKNESS - WILL ORDER THERAPY TOMORROW. CHRONIC ATRIAL FIBRILLATION - RATE CONTROLLED (EXCESSIVELY) - DEFER TO CARDIOLOGY, MONITOR PT WITH TELEMETRY. CHRONIC ANTICOAGULATION - MONITOR INR SERIALLY DIABETES MELLITUS -RESUMED HOME REGIMEN, MONITOR FSBS PERIPHERAL NEUROPATHY RESUMED GABAPENTIN ESOPHAGEAL REFLUX - RESUMED PPI THERAPY. LEUKOCYTOSIS - CHECK PERIPHERAL SMEAR, THERE IS NOT A CURRENT INFECTIOUS SOURCE. - DISCUSSED WITH HIS AND DTR (ALBERTO) - THIS MAY BE CLL, MAY BE AN OCCULT INFECTION THAT HAS NOT YET BEEN DISCOVERED. - MONITOR FOR PATH REPORT. GI PROPHYLAXIS WITH PPI DVT PROPHYLAXIS WITH COUMADIN AND SCD'S FOUZIA LORENZO July 30, 2021 06:48 RON VICK MD July 30, 2021 13:15
--- NOTE | 2021-07-30 08:42 | Cardiology Progress Note ---
Subjective Date Seen by Provider: July 30, 2021 Time Seen by Provider: 08:38 Subjective/Events-last exam Patient was seen at bedside, laying down comfortably. Denied any chest pain. Heart rate is better Review of Systems General: No Chills, No Night Sweats, No Fatigue, No Malaise, No Appetite, No Other HEENT: No Head Aches, No Visual Changes, No Eye Pain, No Ear Pain, No Dysphasia, No Sinus Congestion, No Post Nasal Drip, No Sore Throat, No Other Pulmonary: No Dyspnea, No Cough, No Pleuritic Chest Pain, No Other Cardiovascular: No: Chest Pain, Palpitations, Orthopnea, Paroxysmal Noc. Dyspnea, Edema, Lt Headedness, Other Objective-Cardiology Exam Last Set of Vital Signs Vital Signs 07/30/21 07/30/21 07:30 08:00 Temp 36.5 Pulse 90 Resp 17 B/P (MAP) 148/82 Pulse Ox 96 O2 Delivery Room Air I&O Intake and Output 07/30/21 00:00 Intake Total 900 ml Output Total 675 ml Balance 225 ml Intake Oral 900 ml Output Urine Total 675 ml Daily Weight Change No General: Alert, Oriented X3, Cooperative HEENT: Atraumatic, PERRLA Neck: Supple, No JVD, No Thyromegaly Lungs: Clear to Auscultation, Normal Air Movement Heart: Normal S1, Normal S2, Other (Atrial fibrillation, systolic murmur) Abdomen: Normal Bowel Sounds, Soft, No Tenderness, No Hepatosplenomegaly, No Masses Extremities: No Clubbing, No Cyanosis, Normal Pulses, No Tenderness/Swelling, Other (Pedal edema) Skin: No Rashes, No Breakdown, No Significant Lesion, Other Neuro: Normal Speech, Strength at 5/5 X4 Ext, Normal Tone, Sensation Intact Psych/Mental Status: Mental Status NL, Mood NL Results Lab Laboratory Tests 07/29/21 11:51 07/29/21 21:40 07/30/21 04:23 A/P-Cardiology Admission Diagnosis Bradycardia Atrial fibrillation Cor pulmonale Hypotension Assessment/Plan Bradycardia underlying atrial fibrillation, probably secondary to medications in addition to underlying sinus node dysfunction. Tachybradycardia episodes. Was tachycardic earlier required multiple medication to slow down his heart rate. I restarted Cardizem 360 mg daily and Coreg 3.125 mg twice daily. Discontinued digoxin. Monitor tolerance and response Significant peripheral edema, cor pulmonale, severe mitral regurgitation. Blood pressure is better. We will give him Lasix 80 mg IV x1 and evaluate tolerance and response Permanent atrial fibrillation, difficult to control heart rate. Better at this time. Monitor tolerance and response. SARAH on May 21, 2016 showed a density suggestive of a thrombus in the left atrium [id number] score 3, maintained on Coumadin, recommended INR 2-3 Coronary artery disease, Cardiac catheterization done May 20, 2016 showed severe coronary artery stenosis and a Xience Alpine stent was placed in the right coronary artery. There is a patent stent in the proximal circumflex artery with 50% stenosis. There is mold to moderate disease in the LAD and small vessel disease Lexiscan stress test on June 10, 2020 showed atrial fibrillation with no significant ischemia and an EF 55% 2D echo was done in May 2021 showing normal left ventricular size with ejection fraction 60%, dilated right heart chambers with severe pulmonary hypertension with PA pressure 50 to 55 mmHg, severe mitral regurgitation, calcified mitral valve, mild tricuspid regurgitation Hypertension, monitor blood pressure. Continue on Cardizem and Coreg. Leukocytosis, was treated empirically with antibiotics, discussed the management plan with Dr. Burkett Sleep apnea Have patient on CPAP at night Diabetes Being managed by admitting hospitalist SP BISHOP MD July 30, 2021 08:42
[2021-07-30] MEDS ORDERED: FUROSEMIDE 40 MG/4 ML INJ (LASIX) IVP NR (08:45)
[2021-07-30] MEDS: ASPIRIN E.C. 81 MG (ECOTRIN) TAB PO SCH (08:46)
[2021-07-30] MEDS: PANTOPRAZOLE 40 MG (PROTONIX) TAB PO SCH (08:46)
[2021-07-30] MEDS: MEMANTINE 10 MG (NAMENDA) TABLET PO SCH ×2 (08:47→22:04)
[2021-07-30] MEDS: GABAPENTIN 100 MG (NEURONTIN) CAP PO SCH ×3 (08:56→22:04)
[2021-07-30] MEDS ORDERED: POTA-51 PO (11:18)
[2021-07-30] MEDS ORDERED: CARV3.122 PO (11:18)
[2021-07-30] MEDS ORDERED: DILT360C36 PO (11:18)
[2021-07-30] MEDS ORDERED: FURO20TA4 PO (11:18)
[2021-07-30] MEDS ORDERED: VIT1CAPS5 PO (11:18)
--- NOTE | 2021-07-30 11:53 | Tele-ICU Progress Note ---
Subjective Date Seen by a Provider: July 30, 2021 Time Seen by a Provider: 11:53 Subjective/Events-last exam (Tele-ICU Physician , Progress Note ) Available chart/ vitals / labs / Images reviewed Video assessment done using teleICU camera, rest of exam as per RN Discussed with RN , EXAM PER RN Events overnight : Afebrile FiO2 - I/O = Drips: Pressors: , hemodynamically stable Consultants: javier Hospital course: (07/29) 85 Y admitted with A-fib, Bradycardia A/P Bradycardia underlying atrial fibrillation - as per cards (probably secondary to medications in addition to underlying sinus node dysfunction. - medications on hold - BP stable Permanent A fib - meds on hold - AC with coumadine? INR not done CAD -EF 55%, mod MR DM II - ISS , as per PCP Pulm HTN PA pressure 50 to 55 mmHg -suspected due to valv dx and OS A SANDIP -to cont CPAP at night Moderate carotid stenosis on the right, mild on the left Low back pain and chronic lower extremity swelling and weakness, chronic COPD? Polymyalgia rheumatica- Plaquenil Lines : (Central Line Necessity Reviewed) Saini: OG: Nutrition: Analgesia: Anxiety/ delirium VTE Prophylaxis: coumadn e Stress Ulcer Prophylaxis: na Plans in collaboration with bedside consultants and IM MDs. Discussed with RN to reach out if any questions or concerns A total of 25 minutes of critical care time was devoted to this patient today, required to treat and/or prevent further deterioration of critical care condition ( as above ) . Sepsis Event Evaluation Height, Weight, BMI Height: 5'8.00" Weight: 226lbs. 0.0oz. [id number]; 33.01 BMI Method:Stated Exam Exam Patient acknowledged, consented, and participated in this virtual visit which was conducted using real time audio/video Vital Signs Date Time Temp Pulse Resp B/P (MAP) Pulse Ox O2 Delivery O2 Flow Rate FiO2 07/30/21 11:00 88 12 128/97 92 Room Air 07/30/21 09:00 123 17 131/85 96 Room Air 07/30/21 08:00 90 17 148/82 96 Room Air 07/30/21 07:30 36.5 07/30/21 07:00 128 13 170/90 97 Room Air 07/30/21 07:00 75 07/30/21 06:00 90 13 152/92 93 Room Air 07/30/21 05:00 144 14 135/84 98 Room Air 07/30/21 04:00 36.1 07/30/21 04:00 87 14 132/93 96 Room Air 07/30/21 04:00 94 Room Air 07/30/21 03:00 98 22 149/86 94 Room Air 07/30/21 02:00 122 12 91 Room Air 07/30/21 01:00 101 17 142/69 97 Room Air 07/30/21 01:00 11 07/30/21 00:00 94 Room Air 07/30/21 00:00 90 13 150/77 94 Room Air 07/30/21 00:00 36.0 07/29/21 23:00 85 13 95 Room Air 07/29/21 22:00 75 16 136/66 96 Room Air 07/29/21 22:00 36.3 07/29/21 21:00 61 15 139/68 95 Room Air 07/29/21 20:00 50 17 138/59 96 Room Air 07/29/21 20:00 94 Room Air 07/29/21 19:46 36.3 07/29/21 19:00 56 17 121/51 96 Room Air 07/29/21 19:00 56 07/29/21 18:00 47 16 137/51 94 Room Air 07/29/21 17:00 48 17 124/54 96 Room Air 07/29/21 16:20 36.0 07/29/21 16:00 43 16 104/70 98 Room Air 07/29/21 16:00 94 Room Air 07/29/21 15:05 59 07/29/21 15:00 Room Air 07/29/21 15:00 85 22 131/71 95 Room Air 07/29/21 14:45 35.8 32 16 119/65 97 Room Air I & O 07/30/21 07:00 Intake Total 900 ml Output Total 1625 ml Balance -725 ml Height & Weight Height: 5'8.00" Weight: 226lbs. 0.0oz. 102.477804tf; 33.01 BMI Method:Stated General Appearance: No Apparent Distress, WD/WN HEENT: PERRL/EOMI, Normal ENT Inspection Neck: Normal Inspection Respiratory: Lungs Clear, Normal Breath Sounds, No Accessory Muscle Use Cardiovascular: No Murmur, Irregularly Irregular, Other (Pitting edema equal bilaterally) Capillary Refill: Less Than 3 Seconds Extremity: Non Tender, Swelling Neurologic/Psychiatric: Alert, Oriented x3, No Motor/Sensory Deficits, Normal Mood/Affect Skin: Normal Color, Warm/Dry Lymphatic: No Adenopathy Results Lab Laboratory Tests 07/29/21 11:51 07/29/21 21:40 07/30/21 04:23 Assessment/Plan Assessment/Plan ` MOUSTAPHA LOU MD July 30, 2021 11:53
[2021-07-30] MEDS: ALOGLIPTIN 25 MG PO SCH (12:04)
--- NOTE | 2021-07-30 13:07 | Progress Note ---
Subjective Review of Systems General: No Chills, No Night Sweats, No Fatigue, No Malaise, No Appetite, No Other HEENT: No Head Aches, No Visual Changes, No Eye Pain, No Ear Pain, No Dysphas ia, No Sinus Congestion, No Post Nasal Drip, No Sore Throat, No Other Pulmonary: No Dyspnea, No Cough, No Pleuritic Chest Pain, No Other Cardiovascular: No: Chest Pain, Palpitations, Orthopnea, Paroxysmal Noc. Dy spnea, Edema, Lt Headedness, Other Gastrointestinal: No: Nausea, Vomiting, Abdominal Pain, Diarrhea, Constipation Genitourinary: No Dysuria, No Frequency Neurological: No: Numbness, Change in speech All Other Systems Reviewed All Other Systems Reviewed: Yes Objective Exam Vital Signs Vital Signs Date Time Temp Pulse Resp B/P (MAP) Pulse Ox O2 Delivery O2 Flow Rate FiO2 07/30/21 13:00 101 07/30/21 12:00 36.5 07/30/21 11:00 88 12 128/97 92 Room Air 07/30/21 09:00 123 17 131/85 96 Room Air 07/30/21 08:00 90 17 148/82 96 Room Air 07/30/21 07:30 36.5 07/30/21 07:00 128 13 170/90 97 Room Air 07/30/21 07:00 75 07/30/21 06:00 90 13 152/92 93 Room Air 07/30/21 05:00 144 14 135/84 98 Room Air 07/30/21 04:00 36.1 07/30/21 04:00 87 14 132/93 96 Room Air 07/30/21 04:00 94 Room Air 07/30/21 03:00 98 22 149/86 94 Room Air 07/30/21 02:00 122 12 91 Room Air 07/30/21 01:00 101 17 142/69 97 Room Air 07/30/21 01:00 11 07/30/21 00:00 94 Room Air 07/30/21 00:00 90 13 150/77 94 Room Air 07/30/21 00:00 36.0 07/29/21 23:00 85 13 95 Room Air 07/29/21 22:00 75 16 136/66 96 Room Air 07/29/21 22:00 36.3 07/29/21 21:00 61 15 139/68 95 Room Air 07/29/21 20:00 50 17 138/59 96 Room Air 07/29/21 20:00 94 Room Air 07/29/21 19:46 36.3 07/29/21 19:00 56 17 121/51 96 Room Air 07/29/21 19:00 56 07/29/21 18:00 47 16 137/51 94 Room Air 07/29/21 17:00 48 17 124/54 96 Room Air 07/29/21 16:20 36.0 07/29/21 16:00 43 16 104/70 98 Room Air 07/29/21 16:00 94 Room Air 07/29/21 15:05 59 07/29/21 15:00 Room Air 07/29/21 15:00 85 22 131/71 95 Room Air 07/29/21 14:45 35.8 32 16 119/65 97 Room Air I & O 07/30/21 07:00 Intake Total 900 ml Output Total 1625 ml Balance -725 ml General Appearance: No Apparent Distress, WD/WN HEENT: PERRL/EOMI, Normal ENT Inspection Neck: Normal Inspection Respiratory: Lungs Clear, Normal Breath Sounds, No Accessory Muscle Use Cardiovascular: No Murmur, Irregularly Irregular, Other (Pitting edema equal bilaterally) Gastrointestinal: Non Tender, Soft Rectal: Deferred Back: Normal Inspection, No Vertebral Tenderness Extremity: Non Tender, Swelling Neurologic/Psychiatric: Alert, Oriented x3, No Motor/Sensory Deficits, Normal Mood/Affect Skin: Normal Color, Warm/Dry Lymphatic: No Adenopathy Results Lab Laboratory Tests 07/29/21 18:00: Urine Color AMBERH, Urine Clarity CLEAR, Urine pH 5.5, Urine Specific [place] >=1.030, Urine Protein NEGATIVE, Urine Glucose (UA) NEGATIVE, Urine Ketones TRACEH, Urine Nitrite NEGATIVE, Urine Bilirubin NEGATIVE, Urine Urobilinogen 0.2, Urine Leukocyte Esterase NEGATIVE, Urine RBC (Auto) NEGATIVE, Urine RBC RARE, Urine WBC 0-2, Urine Squamous Epithelial Cells 0-2, Urine Renal Epithelial Cells 0-2, Urine Crystals NONE, Urine Bacteria NEGATIVE, Urine Casts PRESENT, Urine Hyaline Casts 10-25H, Urine Mucus NEGATIVE, Urine Culture Indicated NO 07/29/21 21:40: White Blood Count 14.8H, Red Blood Count 4.36, Hemoglobin 15.1, Hematocrit 46, Mean Corpuscular Volume 105H, Mean Corpuscular Hemoglobin 35H, Mean Corpuscular Hemoglobin Concent 33, Red Cell Distribution Width 14.3, Platelet Count 172, Mean Platelet Volume 11.4, Immature Granulocyte % (Auto) 2, Neutrophils (%) (Auto) 71, Lymphocytes (%) (Auto) 12, Monocytes (%) (Auto) 10, Eosinophils (%) (Auto) 5, Basophils (%) (Auto) 1, Neutrophils # (Auto) 10.5H, Lymphocytes # (Auto) 1.7, Monocytes # (Auto) 1.5H, Eosinophils # (Auto) 0.7H, Basophils # (Auto) 0.1, Immature Granulocyte # (Auto) 0.3H, Neutrophils % (Manual) 69, Lymphocytes % (Manual) 11, Monocytes % (Manual) 15, Eosinophils % (Manual) 5, Blood Morphology Comment NORMAL, Absolute Reticulocyte Count 77, Percent Reticulocyte Count 1.77 07/29/21 22:17: Prothrombin Time 37.2H, INR Comment 3.7H 07/30/21 04:23: White Blood Count 15.7H, Red Blood Count 4.23L, Hemoglobin 14.5, Hematocrit 44, Mean Corpuscular Volume 103H, Mean Corpuscular Hemoglobin 34, Mean Corpuscular Hemoglobin Concent 33, Red Cell Distribution Width 14.1, Platelet Count 151, Mean Platelet Volume 12.2, Prothrombin Time 35.4H, INR Comment 3.5H, Sodium Level 139, Potassium Level 4.6, Chloride Level 106, Carbon Dioxide Level 21, Anion Gap 12, Blood Urea Nitrogen 28H, Creatinine 0.86, Estimat Glomerular Filtration Rate 85, BUN/Creatinine Ratio 33, Glucose Level 157H, Calcium Level 9.2, Corrected Calcium 9.9, Total Bilirubin 0.8, Aspartate Amino Transf (AST /SGOT) 21, Alanine Aminotransferase (ALT/SGPT) 30, Alkaline Phosphatase 62, Total Protein 6.4, Albumin 3.1L Assessment/Plan Assessment/Plan Admission Dx BRADYCARDIA HYPERTENSION CORONARY ARTERY DISEASE GENERALIZED WEAKNESS CHRONIC ATRIAL FIBRILLATION CHRONIC ANTICOAGULATION DIABETES MELLITUS PERIPHERAL NEUROPATHY ESOPHAGEAL REFLUX LEUKOCYTOSIS Admission Dx BRADYCARDIA HYPERTENSION CORONARY ARTERY DISEASE GENERALIZED WEAKNESS CHRONIC ATRIAL FIBRILLATION CHRONIC ANTICOAGULATION DIABETES MELLITUS PERIPHERAL NEUROPATHY ESOPHAGEAL REFLUX LEUKOCYTOSIS Clinical Quality Measures Admission Status Admission Dx BRADYCARDIA HYPERTENSION CORONARY ARTERY DISEASE GENERALIZED WEAKNESS CHRONIC ATRIAL FIBRILLATION CHRONIC ANTICOAGULATION DIABETES MELLITUS PERIPHERAL NEUROPATHY ESOPHAGEAL REFLUX LEUKOCYTOSIS RON VICK MD July 30, 2021 13:07
[2021-07-30] MEDS ORDERED: CALC GLUC 1 GM/100 ML IVPB 100 ML IV ONE ×2 (15:23→15:30)
[2021-07-30] MEDS ORDERED: NS IV 500 ML 500 ML ONE (15:23)
[2021-07-30] MEDS ORDERED: NS IV 500 ML 500 ML IV SCH (15:30)
[2021-07-30] MEDS ORDERED: warFARin 5 MG (COUMADIN) TAB PO SCH (21:00)
[2021-07-31 05:47] LABS: BASOPHILS # (AUTO) 0.1 10^3/uL (0.0-0.1); BASOPHILS % (AUTO) 1 % (0-10); EOSINOPHILS # (AUTO) 0.7 10^3/uL (0.0-0.3); EOSINOPHILS % (AUTO) 6 % (0-10); HEMATOCRIT 44 % (40-54); HEMOGLOBIN 14.8 g/dL (13.3-17.7); LYMPHOCYTES # (AUTO) 1.9 10^3/uL (1.0-4.0); LYMPHOCYTES % (AUTO) 15 % (12-44); MEAN CORPUSCULAR HEMOGLOBIN 35 pg (25-34); MEAN CORPUSCULAR HGB CONC 33 g/dL (32-36); MEAN CORPUSCULAR VOLUME 103 fL (80-99); MEAN PLATELET VOLUME 11.6 fL (9.0-12.2); MONOCYTES # (AUTO) 1.6 10^3/uL (0.0-1.0); MONOCYTES % (AUTO) 13 % (0-12); NEUTROPHILS # (AUTO) 7.8 10^3/uL (1.8-7.8); NEUTROPHILS % (AUTO) 64 % (42-75); PLATELET COUNT 158 10^3/uL (130-400); WHITE BLOOD COUNT 12.2 10^3/uL (4.3-11.0)
[2021-07-31 06:02] LABS: POTASSIUM 4.3 MMOL/L (3.6-5.0)
[2021-07-31 06:04] LABS: CALCIUM 9.2 MG/DL (8.5-10.1)
[2021-07-31 06:08] LABS: CREATININE SERUM 0.87 MG/DL (0.60-1.30)
[2021-07-31] MEDS: CATHETER FLUSH 10 ML SYR IV SCH ×3 (06:08→21:30)
[2021-07-31 06:10] LABS: MAGNESIUM 1.8 MG/DL (1.6-2.4)
[2021-07-31] MEDS: ALOGLIPTIN 25 MG PO SCH (08:01)
[2021-07-31] MEDS: ASPIRIN E.C. 81 MG (ECOTRIN) TAB PO SCH (08:01)
[2021-07-31] MEDS: PANTOPRAZOLE 40 MG (PROTONIX) TAB PO SCH (08:01)
[2021-07-31] MEDS: GABAPENTIN 100 MG (NEURONTIN) CAP PO SCH ×3 (08:01→20:13)
[2021-07-31] MEDS: MEMANTINE 10 MG (NAMENDA) TABLET PO SCH ×2 (08:01→20:13)
--- NOTE | 2021-07-31 08:51 | Tele-ICU Progress Note ---
Progress Note video rounds completed 85 y/o admitted with bradycardia and a fib. Bradycardia resolved On Crdizem and coreg Anticoagulated with coumadin last INR 3.5 yesterday Cardiology following Focused Exam Height, Weight, BMI Height: 5'8.00" Weight: 226lbs. 0.0oz. 102.085972ah; 33.01 BMI Method:Stated Laboratory Tests 07/31/21 05:19 Review of Systems Constitutional: see HPI EENTM: no symptoms reported Respiratory: no symptoms reported Cardiovascular: see HPI Gastrointestinal: no symptoms reported Genitourinary: no symptoms reported Musculoskeletal: no symptoms reported Skin: no symptoms reported Psychiatric/Neurological: No Symptoms Reported All Other Systems Reviewed Negative Unless Noted: Yes Labs Labs Laboratory Tests 07/31/21 05:19: White Blood Count 12.2H, Red Blood Count 4.29L, Hemoglobin 14.8, Hematocrit 44, Mean Corpuscular Volume 103H, Mean Corpuscular Hemoglobin 35H, Mean Corpuscular Hemoglobin Concent 33, Red Cell Distribution Width 14.0, Platelet Count 158, Mean Platelet Volume 11.6, Immature Granulocyte % (Auto) 1, Neutrophils (%) (Auto) 64, Lymphocytes (%) (Auto) 15, Monocytes (%) (Auto) 13H, Eosinophils (%) (Auto) 6, Basophils (%) (Auto) 1, Neutrophils # (Auto) 7.8, Lymphocytes # (Auto) 1.9, Monocytes # (Auto) 1.6H, Eosinophils # (Auto) 0.7H, Basophils # (Auto) 0.1, Immature Granulocyte # (Auto) 0.2H, Sodium Level 140, Potassium Level 4.3, Chloride Level 103, Carbon Dioxide Level 24, Anion Gap 13, Blood Urea Nitrogen 22H, Creatinine 0.87, Estimat Glomerular Filtration Rate 85, BUN/Creatinine Ratio 25, Glucose Level 128H, Calcium Level 9.2, Magnesium Level 1.8 MESHA GIORDANO MD July 31, 2021 08:51
--- NOTE | 2021-07-31 09:26 | Cardiology Progress Note ---
Progress Note-Cardiology Events since last exam Date Seen by Provider: July 31, 2021 Time Seen by Provider: 09:20 Events since last exam We are following him due to permanent atrial fibrillation and now with inter mittent complete heart block. On 07/30 I stopped his diltiazem. He still had some bradycardia into the 30s overnight. He has been ambulating on the intensive care unit with assistance. He denies chest discomfort, dyspnea, palpitations, or syncope. His chronic ankle edema is unchanged. He wears compression stockings which helps. Certain portions of this document may have been dictated utilizing voice recognition technology. Inherent to this technology, typographical and grammatical errors may exist. As much as I am diligent to identify and correct these mistakes, some errors may remain in the document. Vitals Last set of Vitals Signs Vital Signs 07/31/21 07/31/21 07:42 08:00 Temp 36.3 Pulse 800 Resp 21 B/P (MAP) 136/69 Pulse Ox 93 O2 Delivery Room Air Labs Labs Laboratory Tests 07/31/21 05:19 Exam Vital Signs Vital Signs Date Time Temp Pulse Resp B/P (MAP) Pulse Ox O2 Delivery O2 Flow Rate FiO2 07/31/21 08:00 800 21 136/69 93 Room Air 07/31/21 07:42 36.3 Physical Exam General: Alert. No acute distress. Eye: No xanthelasma. HENT: Normocephalic. Neck: Jugular venous pressure does not appear elevated. Respiratory: Lungs are clear to auscultation. Respirations are non-labored. Breath sounds are equal. Symmetrical chest wall expansion. Cardiovascular: Normal rate. Irregular rhythm. No murmur. No gallop. 1+ bilateral pretibial edema with compression stockings in place. Gastrointestinal: Soft. Normal bowel sounds. Skin: Warm. Dry. Neurologic: Alert and oriented to person, place, time. Cranial nerves 3-11 grossly intact. Psychiatric: Cooperative. Appropriate mood & affect. Labs Laboratory Tests Test 07/31/21 05:19 Range/Units White Blood Count 12.2 H 4.3-11.0 10^3/uL Red Blood Count 4.29 L 4.30-5.52 10^6/uL Hemoglobin 14.8 13.3-17.7 g/dL Hematocrit 44 40-54 % Mean Corpuscular Volume 103 H 80-99 fL Mean Corpuscular Hemoglobin 35 H 25-34 pg Mean Corpuscular Hemoglobin Concent 33 32-36 g/dL Red Cell Distribution Width 14.0 10.0-14.5 % Platelet Count 158 130-400 10^3/uL Mean Platelet Volume 11.6 9.0-12.2 fL Immature Granulocyte % (Auto) 1 % Neutrophils (%) (Auto) 64 42-75 % Lymphocytes (%) (Auto) 15 12-44 % Monocytes (%) (Auto) 13 H 0-12 % Eosinophils (%) (Auto) 6 0-10 % Basophils (%) (Auto) 1 0-10 % Neutrophils # (Auto) 7.8 1.8-7.8 10^3/uL Lymphocytes # (Auto) 1.9 1.0-4.0 10^3/uL Monocytes # (Auto) 1.6 H 0.0-1.0 10^3/uL Eosinophils # (Auto) 0.7 H 0.0-0.3 10^3/uL Basophils # (Auto) 0.1 0.0-0.1 10^3/uL Immature Granulocyte # (Auto) 0.2 H 0.0-0.1 10^3/uL Sodium Level 140 135-145 MMOL/L Potassium Level 4.3 3.6-5.0 MMOL/L Chloride Level 103 98-107 MMOL/L Carbon Dioxide Level 24 21-32 MMOL/L Anion Gap 13 5-14 MMOL/L Blood Urea Nitrogen 22 H 7-18 MG/DL Creatinine 0.87 0.60-1.30 MG/DL Estimat Glomerular Filtration Rate 85 BUN/Creatinine Ratio 25 Glucose Level 128 H 70-105 MG/DL Calcium Level 9.2 8.5-10.1 MG/DL Magnesium Level 1.8 1.6-2.4 MG/DL Diagnosis/Problems Diagnosis/Problems (1) Complete heart block Assessment & Plan: He has been having profound bradycardia in the setting of permanent atrial fibrillation. This is consistent with intermittent complete heart block. However, he has been on both beta-hailey and diltiazem. The diltiazem has now been discontinued. He did also receive 1 dose of digoxin while here in the hospital. These findings could also be consistent with tachybradycardia syndrome. We will observe him overnight on telemetry as his diltiazem washes out. We will continue carvedilol. No more digoxin. If he develops tachycardia with carvedilol alone, then we may need to consider permanent pacemaker implantation. 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 We will proceed as above. He is on warfarin for stroke prophylaxis. If the bradycardia improves by tomorrow, he may be able to be discharged at that time. However, if he seems to develop tachycardia off the diltiazem, then we may need to consider permanent pacemaker implantation at some point in the future, possibly before discharge. (3) Coronary artery disease without angina pectoris Assessment & Plan: He has not been having any angina. Continue aspirin and beta-hailey. His LDL level has been quite low despite not being on statin medication. (4) Primary hypertension Assessment & Plan: We will need to watch his blood pressure closely now that the diltiazem has been discontinued. We could gingerly increase the carvedilol if needed. However, we will need to be very cautious with any AV carl blocking agents as noted above. MALLORY VILLANUEVA JR, MD July 31, 2021 09:26
--- NOTE | 2021-07-31 09:31 | Diagnostic Imaging Report ---
CLINICAL INDICATIONS: Patient with dyspnea and atelectasis. EXAM: Chest x-ray PA and lateral views. COMPARISON: Chest x-ray dated 08/13/2014. FINDINGS: There is interval development of mild subtle airspace opacification involving the right lung base which may represent atelectasis versus infiltrate. Otherwise, lungs are clear. There is no pleural effusion pneumothorax. Pulmonary vasculature and cardiac silhouette is within normal limits. There are hypertrophic spurs involving the thoracic spine. Again seen multiple old right rib fractures. IMPRESSION: Interval development of mild right lung base atelectasis versus infiltrate. Dictated by: Dictated on workstation # [id number]
--- NOTE | 2021-07-31 10:24 | Progress Note - Hospitalist ---
Subjective HPI/CC On Admission Date Seen by Provider: July 31, 2021 Subjective/Events-last exam Pt reports feeling well. At first he actually asks to be discharged but family reports heart rate dropped to 29 overnight and they are worried about him going home and don't think it's safe yet. Pt then asks to stay until Monday. Offered a nother night of observation to make sure with medication changes there would be no further issues with heart rate. Objective Exam Vital Signs Vital Signs Date Time Temp Pulse Resp B/P (MAP) Pulse Ox O2 Delivery O2 Flow Rate FiO2 07/31/21 08:00 800 21 136/69 93 Room Air 07/31/21 07:42 36.3 Capillary Refill : Less Than 3 Seconds General Appearance: No Apparent Distress, WD/WN Respiratory: Lungs Clear, No Respiratory Distress Cardiovascular: Regular Rate, Rhythm Gastrointestinal: Normal Bowel Sounds, Non Tender, Soft Neurologic/Psychiatric: Alert, Oriented x3 Results/Procedures Lab Laboratory Tests 07/31/21 05:19 Patient resulted labs reviewed. Assessment/Plan Assessment and Plan Assess & Plan/Chief Complaint BRADYCARDIA - WITH CHRONIC ATRIAL FIBRILLATION - Cardiology consulted, Mateo DC-ed - Continue coreg, monitor on telemetry - If heart rate stable today may be able to DC tomorrow - If further issues may need a pacemaker, defer that decision to cardiology - Continue home anticoagulation but hold today's dose as INR 3.5 - INRs ordered daily HYPERTENSION CAD - BP well controlled, trend - Continue home meds - MEDICAL MANAGEMENT. SEVERE SLEEP APNEA Home CPAP GENERALIZED WEAKNESS PT ordered DIABETES MELLITUS -Fasting BS 128 - Continue home meds PERIPHERAL NEUROPATHY Continue gabapentin ESOPHAGEAL REFLUX - Continue PPI LEUKOCYTOSIS Trending down, path report still pending from smear GI PROPHYLAXIS WITH PPI DVT PROPHYLAXIS WITH COUMADIN GALDINO MESSINA MD July 31, 2021 10:24
--- NOTE | 2021-07-31 11:19 | Physical Therapy Evaluation ---
PT Evaluation-General Medical Diagnosis Admission Date July 29, 2021 at 12:13 Medical Diagnosis: fatigue, bradycardia Onset Date: July 29, 2021 Therapy Diagnosis Therapy Diagnosis: weakness Height/Weight Height (Feet): 5 Height (Inches): 8.00 Weight (Pounds): 226 Weight (Ounces): 0.0 Precautions Precautions/Isolations: Fall Prevention, Standard Precautions Weight Bear Status Right Lower Extremity: Right Full Weight Bearing Left Lower Extremity: Left Full Weight Bearing Referral Physician: Emy Reason for Referral: Evaluation/Treatment Medical History Pertinent Medical History: Atrial Fib, CAD, HTN Additional Medical History SANDIP, coronary stent, a-fib, CAD, HTN, prostate problems, hiatal hernia, osteoporosis, back injury, NIDDM, [place] Current History Presented with fatigue and found to be bradycardic. Reviewed History: Yes Social History Home: Single Level Current Living Status: Spouse Entry Into Home: Stairs Without Railing (Daughter reports they are constructing a railing) Prior Prior Level of Function SCALE: Activities may be completed with or without assistive devices. 7-Xdoqdmijbv-imndzow completes the activity by him/herself with no assistance from a helper. 5-Set-up or Clean-up Assistance-helper sets up or cleans up; patient completes activity. Todd assists only prior to or following the activity. 4-Supervision or Touching Assistance-helper provides verbal cues and/or touching/steadying and/or contact guard assistance as patient completes activity. Assistance may be provided throughout the activity or intermittently. 3-Partial/Moderate Assistance-helper does LESS THAN HALF the effort. Todd lifts, holds or supports trunk or limbs, but provides less than half the effort. 2-Substantial/Maximal Assistance-helper does MORE THAN HALF the effort. Todd lifts or holds trunk or limbs and provides more than half the effort. 7-Bxbwsxhyx-cbgzdq does ALL the effort. Patient does none of the effort to complete the activity. Or, the assistance of 2 or more helpers is required for the patient to complete the activity. If activity was not attempted, code reason: 7-Patient Refused. 9-Not Applicable-not attempted and the patient did not perform the activity before the current illness, exacerbation or injury. 10-Not Attempted due to Environmental Limitations-(lack of equipment, weather restraints, etc.). 88-Not Attempted due to Medical Conditions or Safety Concerns. Bed Mobility: 6 Transfers (B,C,W/C): 6 Gait: 6 Stairs: 6 Wheelchair Mobility: 9 Indoor Mobility (Ambulation): Independent Stairs: Independent Prior Devices Use: Walker Prior Device Use: 4WW PT Evaluation-Current Subjective Pt in bed, agreeable. Reports ambulation and transfers are near PLOF. Reports he feels "a little wobbly" but that is why he began using 4WW a few weeks ago. Denies pain. Objective Patient Orientation: Person, Place, Time, Situation ROM/Strength ROM Upper Extremities Grossly WFL ROM Lower Extremities Grossly WFL Strength Upper Extremities Grossly WFL Strength Lower Extremities Grossly WFL Integumentary/Posture Integumentary see nurses' note Posture kyphotic Sensory Vision: Wears Glasses Hearing: Functional Transfers Roll Left to Right (QC): 6 Lying to Sitting/Side of Bed(Q: 6 Sit to Stand (QC): 6 Gait Does the Patient Walk?: Yes Mode of Locomotion: Walk Anticipated Mode of Locomotion: Walk Walk 10 feet (QC): 5 Walk 50 ft with 2 Turns(QC): 5 Walk 150 ft (QC): 5 Distance: 300 Gait Assistive Device: Walker 4 Wheeled Comments/Gait Description Slow, steady gait. Occasional VCS to stay close to walker but no jessica LOB. Wheelchair Training Does the Pt Use a Wheelchair?: No Type of Wheelchair: N/A Balance Sitting Static: Normal Sitting Dynamic: Normal Standing Static: Good Standing Dynamic: Fair Treatment Eval. Pt up on EOB with daughter present. Pt requesting to use urinal. Pt and family report they will assist him back to supine as needed. Assessment/Needs Pt is very near PLOF. May benefit from short term PT to improve functional strength, activity tolerance. Rehab Potential: Good PT Home Office Representative Goals Alf Goals PT Home Office Representative Goals Time Frame: Aug 04, 2021 Roll Left & Right (QC): 6 Sit to Lying (QC): 6 Lying-Sitting on Side/Bed(QC): 6 Sit to Stand (QC): 6 Chair/Hvl-zn-Cvfus Xfer(QC): 6 Toilet Transfer (QC): 6 Car Transfer (QC): 6 Does the Patient Walk: Yes Walk 10 feet (QC): 6 Walk 50ft with 2 Turns (QC): 6 Walk 150 ft (QC): 6 Walking 10ft on Uneven Surface: 6 1 Step (curb) (QC): 5 4 Steps (QC): 5 12 Steps (QC): 9 Picking up an Object (QC): 9 Does the Pt use WC or Scooter?: No Wheel 50 feet with 2 turns (QC: 9 Type: N/A Wheel 150 feet: 9 Type: N/A LTGs established to allow safe return home. PT Plan Problem List Problem List: Activity Tolerance, Functional Strength, Safety, Balance, Gait Treatment/Plan Treatment Plan: Continue Plan of Care Treatment Plan: Education, Functional Activity Tara, Functional Strength, Gait, Safety, Therapeutic Exercise, Transfers Treatment Duration: Aug 04, 2021 Frequency: 6 times per week Estimated Hrs Per Day: .25 hour per day Patient and/or Family Agrees t: Yes Time/GCodes Time In: 1051 Time Out: 1105 Total Billed Treatment Time: 14 Total Billed Treatment 1, KATHARINA ROJAS DPCookie July 31, 2021 11:19
[2021-07-31] MEDS ORDERED: warFARin 5 MG (COUMADIN) TAB PO SCH (18:00)
[2021-07-31] MEDS: warFARin 5 MG (COUMADIN) TAB PO SCH (20:07)
[2021-08-01 05:13] LABS: BASOPHILS # (AUTO) 0.1 10^3/uL (0.0-0.1); BASOPHILS % (AUTO) 1 % (0-10); EOSINOPHILS # (AUTO) 0.7 10^3/uL (0.0-0.3); EOSINOPHILS % (AUTO) 5 % (0-10); HEMATOCRIT 46 % (40-54); HEMOGLOBIN 15.2 g/dL (13.3-17.7); LYMPHOCYTES % (AUTO) 15 % (12-44); MEAN CORPUSCULAR HEMOGLOBIN 34 pg (25-34); MEAN CORPUSCULAR HGB CONC 33 g/dL (32-36); MEAN CORPUSCULAR VOLUME 103 fL (80-99); MEAN PLATELET VOLUME 11.8 fL (9.0-12.2); MONOCYTES # (AUTO) 1.7 10^3/uL (0.0-1.0); MONOCYTES % (AUTO) 13 % (0-12); NEUTROPHILS # (AUTO) 8.8 10^3/uL (1.8-7.8); NEUTROPHILS % (AUTO) 65 % (42-75); PLATELET COUNT 153 10^3/uL (130-400); WHITE BLOOD COUNT 13.5 10^3/uL (4.3-11.0)
[2021-08-01 05:22] LABS: POTASSIUM 4.2 MMOL/L (3.6-5.0)
[2021-08-01 05:24] LABS: CALCIUM 9.5 MG/DL (8.5-10.1)
[2021-08-01 05:28] LABS: CREATININE SERUM 0.89 MG/DL (0.60-1.30)
[2021-08-01 05:30] LABS: MAGNESIUM 1.9 MG/DL (1.6-2.4)
[2021-08-01 05:48] LABS: INR 1.7 (0.8-1.4); PROTHROMBIN TIME PATIENT 20.2 SEC (12.2-14.7)
[2021-08-01] MEDS: CATHETER FLUSH 10 ML SYR IV SCH ×3 (06:15→21:48)
[2021-08-01] MEDS: ALOGLIPTIN 25 MG PO SCH (08:30)
[2021-08-01] MEDS: GABAPENTIN 100 MG (NEURONTIN) CAP PO SCH ×3 (08:30→20:00)
[2021-08-01] MEDS: ASPIRIN E.C. 81 MG (ECOTRIN) TAB PO SCH (08:30)
[2021-08-01] MEDS: MEMANTINE 10 MG (NAMENDA) TABLET PO SCH ×2 (08:30→20:00)
[2021-08-01] MEDS: PANTOPRAZOLE 40 MG (PROTONIX) TAB PO SCH (08:30)
--- NOTE | 2021-08-01 09:13 | Cardiology Progress Note ---
Progress Note-Cardiology Events since last exam Date Seen by Provider: August 01, 2021 Time Seen by Provider: 09:08 Events since last exam We are following him due to permanent atrial fibrillation now with tachybrad ycardia syndrome. I discontinued his diltiazem on evening. Now he has tachycardia. He has been up ambulating in the [place] without difficulty. He denies chest pain, dyspnea, palpitations, syncope or change in his chronic, mild ankle edema. He continues to wear compression stockings. Certain portions of this document may have been dictated utilizing voice recognition technology. Inherent to this technology, typographical and grammatical errors may exist. As much as I am diligent to identify and correct these mistakes, some errors may remain in the document. Vitals Last set of Vitals Signs Vital Signs 08/01/21 07:57 Temp 36.3 Pulse 130 Resp 18 B/P (MAP) 110/95 Pulse Ox 97 O2 Delivery Room Air Labs Labs Laboratory Tests 08/01/21 04:40 Exam Vital Signs Vital Signs Date Time Temp Pulse Resp B/P (MAP) Pulse Ox O2 Delivery O2 Flow Rate FiO2 08/01/21 07:57 36.3 130 18 110/95 97 Room Air Physical Exam General: Alert. No acute distress. Eye: No xanthelasma. HENT: Normocephalic. Neck: Jugular venous pressure does not appear elevated. Respiratory: Lungs are clear to auscultation. Respirations are non-labored. Breath sounds are equal. Symmetrical chest wall expansion. Cardiovascular: Tachycardia with a regular rhythm. No murmur. No gallop. Trace bilateral pretibial edema with compression stockings in place. Gastrointestinal: Soft. Normal bowel sounds. Skin: Warm. Dry. Neurologic: Alert and oriented to person, place, time. Cranial nerves 3-11 grossly intact. Psychiatric: Cooperative. Appropriate mood & affect. Labs Laboratory Tests Test 08/01/21 04:40 Range/Units White Blood Count 13.5 H 4.3-11.0 10^3/uL Red Blood Count 4.45 4.30-5.52 10^6/uL Hemoglobin 15.2 13.3-17.7 g/dL Hematocrit 46 40-54 % Mean Corpuscular Volume 103 H 80-99 fL Mean Corpuscular Hemoglobin 34 25-34 pg Mean Corpuscular Hemoglobin Concent 33 32-36 g/dL Red Cell Distribution Width 13.8 10.0-14.5 % Platelet Count 153 130-400 10^3/uL Mean Platelet Volume 11.8 9.0-12.2 fL Immature Granulocyte % (Auto) 1 % Neutrophils (%) (Auto) 65 42-75 % Lymphocytes (%) (Auto) 15 12-44 % Monocytes (%) (Auto) 13 H 0-12 % Eosinophils (%) (Auto) 5 0-10 % Basophils (%) (Auto) 1 0-10 % Neutrophils # (Auto) 8.8 H 1.8-7.8 10^3/uL Lymphocytes # (Auto) 2.0 1.0-4.0 10^3/uL Monocytes # (Auto) 1.7 H 0.0-1.0 10^3/uL Eosinophils # (Auto) 0.7 H 0.0-0.3 10^3/uL Basophils # (Auto) 0.1 0.0-0.1 10^3/uL Immature Granulocyte # (Auto) 0.1 0.0-0.1 10^3/uL Prothrombin Time 20.2 H 12.2-14.7 SEC INR Comment 1.7 H 0.8-1.4 Sodium Level 139 135-145 MMOL/L Potassium Level 4.2 3.6-5.0 MMOL/L Chloride Level 104 98-107 MMOL/L Carbon Dioxide Level 22 21-32 MMOL/L Anion Gap 13 5-14 MMOL/L Blood Urea Nitrogen 29 H 7-18 MG/DL Creatinine 0.89 0.60-1.30 MG/DL Estimat Glomerular Filtration Rate 85 BUN/Creatinine Ratio 33 Glucose Level 155 H 70-105 MG/DL Calcium Level 9.5 8.5-10.1 MG/DL Magnesium Level 1.9 1.6-2.4 MG/DL Diagnosis/Problems Diagnosis/Problems (1) Complete heart block Assessment & Plan: He has been having profound bradycardia in the setting of permanent atrial fibrillation. This is consistent with intermittent complete heart block. However, he has been on both beta-hailey and diltiazem. The diltiazem has now been discontinued. He did also receive 1 dose of digoxin while here in the hospital. These findings could also be consistent with tachybradycardia syndrome. Now that the diltiazem is out of his system, he has tachycardia. I will change his carvedilol over to metoprolol succinate. This will have less of a tendency to cause hypotension and should allow us to treat him with a higher dose. He is going to need a permanent pacemaker implant prior to discharge. His regular vegetable grower, Dr. Shine, is out of town for the long weekend. We will plan on permanent pacemaker implantation on Monday. I will hold his warfarin in anticipation of the pacemaker. As per the most recent HRS guidelines regarding atrial fibrillation, bridging oral anticoagulation with low molecular weight heparin is not recommended. (2) Permanent atrial fibrillation Assessment & Plan: As above, he seems to have potentially developed t achybradycardia syndrome. We will proceed as above. (3) Coronary artery disease without angina pectoris Assessment & Plan: He has not been having any angina. Continue aspirin and beta-hailey. His LDL level has been quite low despite not being on statin medication. (4) Primary hypertension Assessment & Plan: We will need to watch his blood pressure closely now that the diltiazem has been discontinued. I will adjust the beta-hailey if needed. However, we will need to be very cautious with any AV carl blocking agents as noted above. MALLORY VILLANUEVA JR, MD August 01, 2021 09:13
--- NOTE | 2021-08-01 09:46 | Tele-ICU Progress Note ---
Progress Note video rounds completed Doing well Cardiology following Has developed tachy/ashvin syndrome awaiting pacemaker Focused Exam Height, Weight, BMI Height: 5'8.00" Weight: 226lbs. 0.0oz. 102.557403ti; 33.01 BMI Method:Stated Labs Laboratory Tests 08/01/21 04:40 MESHA GIORDANO MD August 01, 2021 09:46
--- NOTE | 2021-08-01 09:57 | Progress Note - Hospitalist ---
Subjective HPI/CC On Admission Date Seen by Provider: August 01, 2021 Subjective/Events-last exam P reports feeling ok today but frustrated with news regarding needing a pacemaker. Discussed plan for device placement on Monday per Dr Moser. Objective Exam Vital Signs Vital Signs Date Time Temp Pulse Resp B/P (MAP) Pulse Ox O2 Delivery O2 Flow Rate FiO2 08/01/21 07:57 36.3 130 18 110/95 97 Room Air Capillary Refill : Less Than 3 Seconds General Appearance: No Apparent Distress, WD/WN Respiratory: Lungs Clear, No Respiratory Distress Cardiovascular: No Murmur, Tachycardia Gastrointestinal: Normal Bowel Sounds, Non Tender, Soft Neurologic/Psychiatric: Alert, Oriented x3, Normal Mood/Affect Results/Procedures Lab Laboratory Tests 08/01/21 04:40 Patient resulted labs reviewed. Assessment/Plan Assessment and Plan Assess & Plan/Chief Complaint BRADYCARDIA - WITH CHRONIC ATRIAL FIBRILLATION, now tachycardiac - Cardiology consulted, Mateo DC-ed - Continue coreg, monitor on telemetry - Now having tachycardia, will need pacemaker per Cardiology - Hold anticoagulation for pacemaker placement per cardiology HYPERTENSION CAD - BP well controlled, trend - Continue home meds SEVERE SLEEP APNEA Home CPAP GENERALIZED WEAKNESS PT, doing well DIABETES MELLITUS -BS well controlled - Continue home meds PERIPHERAL NEUROPATHY Continue gabapentin ESOPHAGEAL REFLUX - Continue PPI LEUKOCYTOSIS Trending down, path report still pending from smear GI PROPHYLAXIS WITH PPI DVT PROPHYLAXIS WITH COUMADIN GALDINO MESSINA MD August 01, 2021 09:57
[2021-08-01] MEDS: dilTIAZem DRIP PRE-MIX 125 ML IV SCH (10:19)
[2021-08-01] MEDS ORDERED: ACETAMINOPHEN 500 MG TAB (TYLENOL) PO PRN (12:15)
[2021-08-01] MEDS: warFARin 5 MG (COUMADIN) TAB PO SCH (20:00)
[2021-08-02 05:04] LABS: BASOPHILS # (AUTO) 0.1 10^3/uL (0.0-0.1); BASOPHILS % (AUTO) 1 % (0-10); EOSINOPHILS # (AUTO) 0.7 10^3/uL (0.0-0.3); EOSINOPHILS % (AUTO) 5 % (0-10); HEMATOCRIT 45 % (40-54); HEMOGLOBIN 14.8 g/dL (13.3-17.7); LYMPHOCYTES # (AUTO) 2.2 10^3/uL (1.0-4.0); LYMPHOCYTES % (AUTO) 15 % (12-44); MEAN CORPUSCULAR HEMOGLOBIN 34 pg (25-34); MEAN CORPUSCULAR HGB CONC 33 g/dL (32-36); MEAN CORPUSCULAR VOLUME 104 fL (80-99); MEAN PLATELET VOLUME 11.5 fL (9.0-12.2); MONOCYTES % (AUTO) 14 % (0-12); NEUTROPHILS # (AUTO) 8.9 10^3/uL (1.8-7.8); NEUTROPHILS % (AUTO) 64 % (42-75); PLATELET COUNT 160 10^3/uL (130-400); WHITE BLOOD COUNT 13.9 10^3/uL (4.3-11.0)
[2021-08-02] MEDS: CATHETER FLUSH 10 ML SYR IV SCH ×3 (05:07→20:47)
[2021-08-02 05:16] LABS: POTASSIUM 4.4 MMOL/L (3.6-5.0)
[2021-08-02 05:21] LABS: CREATININE SERUM 0.94 MG/DL (0.60-1.30)
[2021-08-02 05:25] LABS: MAGNESIUM 1.8 MG/DL (1.6-2.4)
[2021-08-02] MEDS: ASPIRIN E.C. 81 MG (ECOTRIN) TAB PO SCH (08:03)
[2021-08-02] MEDS: GABAPENTIN 100 MG (NEURONTIN) CAP PO SCH ×3 (08:04→20:46)
[2021-08-02] MEDS: MEMANTINE 10 MG (NAMENDA) TABLET PO SCH ×2 (08:04→20:46)
[2021-08-02] MEDS: ALOGLIPTIN 25 MG PO SCH (08:04)
[2021-08-02] MEDS: PANTOPRAZOLE 40 MG (PROTONIX) TAB PO SCH (08:04)
[2021-08-02] MEDS: dilTIAZem DRIP PRE-MIX 125 ML IV SCH (08:06)
--- NOTE | 2021-08-02 08:37 | Cardiology Progress Note ---
Progress Note-Cardiology Events since last exam Date Seen by Provider: August 02, 2021 Time Seen by Provider: 08:33 Events since last exam We are following him due to atrial fibrillation with bradycardia and tachyca rdia. This morning he was sitting up in a chair. He denied chest discomfort, dyspnea, palpitations, syncope, or any change in his chronic ankle edema. Certain portions of this document may have been dictated utilizing voice recognition technology. Inherent to this technology, typographical and g rammatical errors may exist. As much as I am diligent to identify and correct these mistakes, some errors may remain in the document. Vitals Last set of Vitals Signs Vital Signs 08/02/21 08/02/21 08/02/21 04:30 06:00 08:00 Temp 36.4 Pulse 96 Resp 11 B/P (MAP) 121/71 Pulse Ox 90 O2 Delivery Room Air Labs Labs Laboratory Tests 08/02/21 04:48 Exam Vital Signs Vital Signs Date Time Temp Pulse Resp B/P (MAP) Pulse Ox O2 Delivery O2 Flow Rate FiO2 08/02/21 08:00 36.4 08/02/21 06:00 96 11 121/71 Room Air 08/02/21 04:30 90 Physical Exam General: Alert. No acute distress. He is obese. Eye: No xanthelasma. HENT: Normocephalic. Neck: Jugular venous pressure does not appear elevated. Respiratory: Lungs are clear to auscultation. Respirations are non-labored. Breath sounds are equal. Symmetrical chest wall expansion. Cardiovascular: Tachycardia with irregular rhythm. No murmur. No gallop. Trace bilateral pretibial edema with venous compression stockings in place. Gastrointestinal: Soft. Normal bowel sounds. Skin: Warm. Dry. Neurologic: Alert and oriented to person, place, time. Cranial nerves 3-11 grossly intact. Psychiatric: Cooperative. Appropriate mood & affect. Labs Laboratory Tests Test 08/02/21 04:48 Range/Units White Blood Count 13.9 H 4.3-11.0 10^3/uL Red Blood Count 4.32 4.30-5.52 10^6/uL Hemoglobin 14.8 13.3-17.7 g/dL Hematocrit 45 40-54 % Mean Corpuscular Volume 104 H 80-99 fL Mean Corpuscular Hemoglobin 34 25-34 pg Mean Corpuscular Hemoglobin Concent 33 32-36 g/dL Red Cell Distribution Width 13.7 10.0-14.5 % Platelet Count 160 130-400 10^3/uL Mean Platelet Volume 11.5 9.0-12.2 fL Immature Granulocyte % (Auto) 1 % Neutrophils (%) (Auto) 64 42-75 % Lymphocytes (%) (Auto) 15 12-44 % Monocytes (%) (Auto) 14 H 0-12 % Eosinophils (%) (Auto) 5 0-10 % Basophils (%) (Auto) 1 0-10 % Neutrophils # (Auto) 8.9 H 1.8-7.8 10^3/uL Lymphocytes # (Auto) 2.2 1.0-4.0 10^3/uL Monocytes # (Auto) 2.0 H 0.0-1.0 10^3/uL Eosinophils # (Auto) 0.7 H 0.0-0.3 10^3/uL Basophils # (Auto) 0.1 0.0-0.1 10^3/uL Immature Granulocyte # (Auto) 0.2 H 0.0-0.1 10^3/uL Sodium Level 139 135-145 MMOL/L Potassium Level 4.4 3.6-5.0 MMOL/L Chloride Level 102 98-107 MMOL/L Carbon Dioxide Level 26 21-32 MMOL/L Anion Gap 11 5-14 MMOL/L Blood Urea Nitrogen 25 H 7-18 MG/DL Creatinine 0.94 0.60-1.30 MG/DL Estimat Glomerular Filtration Rate 80 BUN/Creatinine Ratio 27 Glucose Level 136 H 70-105 MG/DL Calcium Level 9.0 8.5-10.1 MG/DL Magnesium Level 1.8 1.6-2.4 MG/DL Diagnosis/Problems Diagnosis/Problems (1) Complete heart block Assessment & Plan: He has been having profound bradycardia in the setting of permanent atrial fibrillation. This is consistent with intermittent complete heart block. However, he had been on both beta-hailey and diltiazem. He did also receive 1 dose of digoxin while here in the hospital. These findings could also be consistent with tachybradycardia syndrome. Now that the diltiazem is out of his system, he has tachycardia. I had changed his carvedilol over to metoprolol succinate. However, then he had recurrent tachycardia. 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 Shine, would like to try diltiazem CD 120 mg twice daily without any other AV carl blocking agents. I will start that this morning. We will see how his heart rate responds to this change and diltiazem. I will keep him n.p.o. after breakfast on 531 in the event he needs a pacemaker later in the day. Warfarin is currently on hold in the event he needs a pacemaker. As per the most recent update of the HRS guidelines for the management of atrial fibrillation, bridging oral anticoagulants with heparin agents is no longer recommended in most cases. 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 We will proceed as above. (3) Coronary artery disease without angina pectoris Assessment & Plan: He has not been having any angina. Continue aspirin and beta-hailey. His LDL level has been quite low despite not being on statin medication. (4) Primary hypertension Assessment & Plan: We will watch his blood pressure closely on this new regimen for the atrial fibrillation. MALLORY VILLANUEVA JR, MD August 02, 2021 08:37
--- NOTE | 2021-08-02 08:48 | Tele-ICU Progress Note ---
Subjective Date Seen by a Provider: August 02, 2021 Time Seen by a Provider: 07:15 Subjective/Events-last exam This virtual visit was conducted using real time audio/video. Thank you for asking us to see this patient for symptomatic bradycardia, tachy/ashvin synd. PE: VSS x HR 110 afib. O2 sat 93% on RA HEENT: No obvious masses, adenopathy or JVD. Chest: clear to auscultation. CV: Irreg. S1 S2 No murmur or added sounds. Abd: Non-tender. Bowel sounds Y. : Unremarkable. Saini Y. CPAS/psychiatric: Grossly intact. No obvious focal findings. Extremities: Trace edema. Capillary refill < 3 seconds. Skin: unremarkable. Results: Elevated wcc 13.9, bun 25, bg 136, inr 1.7. Available chart/ vitals / labs / images reviewed. Video assessment done using teleICU camera, rest of exam as per RN. A/P: Critical Care: critically ill patient. Cont.present Rx x would hold coumadin for possible pacemaker in AM Discussed with MARKOS Ocampo. Asked RN to reach out to eICU if any questions or concerns later. Time spent with patient/coordination of care with other health professionals (mins): 15. Sepsis Event Evaluation Height, Weight, BMI Height: 5'8.00" Weight: 226lbs. 0.0oz. [id number]; 33.01 BMI Method:Stated Exam Exam Patient acknowledged, consented, and participated in this virtual visit which was conducted using real time audio/video Vital Signs Date Time Temp Pulse Resp B/P (MAP) Pulse Ox O2 Delivery O2 Flow Rate FiO2 08/02/21 08:00 36.4 08/02/21 06:00 96 11 121/71 Room Air 08/02/21 05:15 98 14 146/84 Room Air 08/02/21 04:45 107 11 120/85 Room Air 08/02/21 04:30 133 14 122/81 90 Room Air 08/02/21 04:15 114 14 153/62 96 Room Air 08/02/21 04:01 36.2 08/02/21 04:00 100 14 104/68 95 Room Air 08/02/21 03:45 98 14 93/64 94 Room Air 08/02/21 03:30 115 16 124/64 96 Room Air 08/02/21 03:15 103 19 122/69 97 Room Air 08/02/21 02:45 113 16 130/116 92 Room Air 08/02/21 02:30 109 15 108/59 97 Room Air 08/02/21 02:15 101 12 140/75 96 Room Air 08/02/21 02:00 92 15 145/61 93 Room Air 08/02/21 01:45 91 14 136/64 93 Room Air 08/02/21 01:30 89 16 127/75 91 Room Air 08/02/21 01:18 108 14 120/87 93 Room Air 08/02/21 01:03 78 13 134/78 94 NIV CPAP 08/02/21 01:00 104 08/02/21 00:16 87 18 107/78 96 NIV CPAP 08/02/21 00:05 36.3 08/01/21 23:00 90 19 97 NIV CPAP 08/01/21 22:56 36.3 08/01/21 22:00 82 18 95 NIV CPAP 08/01/21 21:00 85 15 94 Room Air 08/01/21 21:00 Room Air 08/01/21 20:00 36.4 08/01/21 20:00 90 12 Room Air 08/01/21 19:22 84 15 139/68 Room Air 08/01/21 19:07 60 08/01/21 19:00 86 08/01/21 18:00 80 16 126/59 Room Air 08/01/21 17:00 82 14 116/67 Room Air 08/01/21 16:00 100 19 128/59 93 Room Air 08/01/21 16:00 36.0 82 19 122/63 95 08/01/21 15:01 70 138/73 08/01/21 14:39 82 124/66 08/01/21 14:00 101 14 119/63 Room Air 08/01/21 13:00 129 25 141/92 Room Air 08/01/21 12:50 106 08/01/21 12:00 36.6 08/01/21 12:00 112 23 125/71 Room Air 08/01/21 11:36 99 16 131/85 Room Air 08/01/21 09:00 Room Air I & O 08/02/21 07:00 Intake Total 2045 ml Output Total 2050 ml Balance -5 ml Height & Weight Height: 5'8.00" Weight: 226lbs. 0.0oz. 102.554999ur; 33.01 BMI Method:Stated General Appearance: No Apparent Distress, WD/WN HEENT: PERRL/EOMI, Normal ENT Inspection Neck: Normal Inspection Respiratory: Lungs Clear, No Respiratory Distress Cardiovascular: No Murmur, Tachycardia Capillary Refill: Less Than 3 Seconds Extremity: Non Tender, Swelling Neurologic/Psychiatric: Alert, Oriented x3, Normal Mood/Affect Skin: Normal Color, Warm/Dry Lymphatic: No Adenopathy Results Lab Laboratory Tests 08/01/21 04:40 08/02/21 04:48 Assessment/Plan Assessment/Plan See free text. Critical Care: Critically Ill Patient MIKEY YATES MD August 02, 2021 08:48
[2021-08-02] MEDS: dilTIAZem120 MG (CARDIZEM CD) CAP PO SCH ×2 (09:16→20:46)
--- NOTE | 2021-08-02 09:16 | Physical Therapy Daily Note ---
PT Daily Note-Current Subjective Patient in recliner pre tx, agrees to PT, has no complaints of pain. Appearance Patient in recliner post tx with nurse call, phone, tray, all needs met. Mental Status Patient Orientation: Person, Place, Situation Transfers SCALE: Activities may be completed with or without assistive devices. 6-Zwluvmzavz-obtqnxz completes the activity by him/herself with no assistance from a helper. 5-Set-up or Clean-up Assistance-helper sets up or cleans up; patient completes activity. Sultana assists only prior to or following the activity. 4-Supervision or Touching Assistance-helper provides verbal cues and/or kathryn jayme/steadying and/or contact guard assistance as patient completes activity. Assistance may be provided throughout the activity or intermittently. 3-Partial/Moderate Assistance-helper does LESS THAN HALF the effort. Sultana lifts, holds or supports trunk or limbs, but provides less than half the effort. 2-Substantial/Maximal Assistance-helper does MORE THAN HALF the effort. Sultana lifts or holds trunk or limbs and provides more than half the effort. 6-Tlgpnornl-uyqamq does ALL the effort. Patient does none of the effort to complete the activity. Or, the assistance of 2 or more helpers is required for the patient to complete the activity. If activity was not attempted, code reason: 7-Patient Refused. 9-Not Applicable-not attempted and the patient did not perform the activity before the current illness, exacerbation or injury. 10-Not Attempted due to Environmental Limitations-(lack of equipment, weather restraints, etc.). 88-Not Attempted due to Medical Conditions or Safety Concerns. 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 Correction Goals PT Correction Goals Time Frame: Aug 04, 2021 Roll Left & Right (QC): 6 Sit to Lying (QC): 6 Lying-Sitting on Side/Bed(QC): 6 Sit to Stand (QC): 6 Chair/Fnl-zh-Dtonn Xfer(QC): 6 Toilet Transfer (QC): 6 Car Transfer (QC): 6 Does the Patient Walk: Yes Walk 10 feet (QC): 6 Walk 50ft with 2 Turns (QC): 6 Walk 150 ft (QC): 6 Walking 10ft on Uneven Surface: 6 1 Step (curb) (QC): 5 4 Steps (QC): 5 12 Steps (QC): 9 Picking up an Object (QC): 9 Does the Pt use WC or Scooter?: No Wheel 50 feet with 2 turns (QC: 9 Type: N/A Wheel 150 feet: 9 Type: N/A PT Plan Problem List Problem List: Activity Tolerance, Functional Strength, Safety, Balance, Gait, Transfer, Bed Mobility, ROM Treatment/Plan Treatment Plan: Continue Plan of Care Treatment Plan: Education, Functional Activity Tara, Functional Strength, Gait, Safety, Therapeutic Exercise, Transfers Treatment Duration: Aug 04, 2021 Frequency: 6 times per week Estimated Hrs Per Day: .25 hour per day Patient and/or Family Agrees t: Yes Safety Risks/Education Patient Education: Gait Training, Transfer Techniques, Correct Positioning, Safety Issues Teaching Recipient: Patient Teaching Methods: Demonstration, Discussion Response to Teaching: Reinforcement Needed Time/GCodes Time In: 0832 Time Out: 0849 Total Billed Treatment Time: 17 Total Billed Treatment 1 visit GT POONAM MORALES PT August 02, 2021 09:16
--- NOTE | 2021-08-02 12:38 | Progress Note - Hospitalist ---
Subjective HPI/CC On Admission Date Seen by Provider: August 02, 2021 Subjective/Events-last exam Patient heart rate improved overnight and then earlier this morning increased into the 150s. Was shortly on a Cardizem drip. This was discontinued and he received oral metoprolol. Discussed with Dr. Moser and plan is to switch him to oral Cardizem. Patient expresses a lot of frustration regarding his heart rate going back and forth and unclear plan on whether or not he needs a pacemaker. He states he would just like to have a pacemaker and get it over with. We discussed the need to ensure that pacemaker is warranted before pu tting in a device he will need for the rest of his life. He expressed understanding but is frustrated with how long it is taking. Objective Exam Vital Signs Vital Signs Date Time Temp Pulse Resp B/P (MAP) Pulse Ox O2 Delivery O2 Flow Rate FiO2 08/02/21 11:00 131 13 89/65 95 Room Air 08/02/21 08:00 36.4 Capillary Refill : Less Than 3 Seconds General Appearance: No Apparent Distress, WD/WN Respiratory: Lungs Clear, No Respiratory Distress Cardiovascular: Irregularly Irregular, Tachycardia Neurologic/Psychiatric: Alert, Oriented x3 Results/Procedures Lab Laboratory Tests 08/02/21 04:48 Patient resulted labs reviewed. Assessment/Plan Assessment and Plan Assess & Plan/Chief Complaint BRADYCARDIA - WITH CHRONIC ATRIAL FIBRILLATION, now tachycardiac - Cardiology consulted, - heart rate erratic, now tachycardiac and starting back on rate controlling medications - Now having tachycardia, will need pacemaker per Cardiology - Hold anticoagulation for pacemaker placement per cardiology HYPERTENSION CAD - BP well controlled, trend - Continue home meds SEVERE SLEEP APNEA Home CPAP GENERALIZED WEAKNESS PT, doing well DIABETES MELLITUS -BS well controlled - Continue home meds PERIPHERAL NEUROPATHY Continue gabapentin ESOPHAGEAL REFLUX - Continue PPI LEUKOCYTOSIS Trending down, path report still pending from smear GI PROPHYLAXIS WITH PPI DVT PROPHYLAXIS WITH COUMADIN Critical Care Critically Ill Patient GALDINO MESSINA MD August 02, 2021 12:38
[2021-08-03 04:54] LABS: BASOPHILS # (AUTO) 0.1 10^3/uL (0.0-0.1); BASOPHILS % (AUTO) 1 % (0-10); EOSINOPHILS # (AUTO) 0.6 10^3/uL (0.0-0.3); EOSINOPHILS % (AUTO) 4 % (0-10); HEMATOCRIT 44 % (40-54); HEMOGLOBIN 14.3 g/dL (13.3-17.7); LYMPHOCYTES # (AUTO) 1.9 10^3/uL (1.0-4.0); LYMPHOCYTES % (AUTO) 14 % (12-44); MEAN CORPUSCULAR HEMOGLOBIN 34 pg (25-34); MEAN CORPUSCULAR HGB CONC 33 g/dL (32-36); MEAN CORPUSCULAR VOLUME 103 fL (80-99); MEAN PLATELET VOLUME 11.2 fL (9.0-12.2); MONOCYTES # (AUTO) 1.7 10^3/uL (0.0-1.0); MONOCYTES % (AUTO) 12 % (0-12); NEUTROPHILS # (AUTO) 9.4 10^3/uL (1.8-7.8); NEUTROPHILS % (AUTO) 68 % (42-75); PLATELET COUNT 172 10^3/uL (130-400); WHITE BLOOD COUNT 13.9 10^3/uL (4.3-11.0)
[2021-08-03 05:21] LABS: POTASSIUM 4.2 MMOL/L (3.6-5.0)
[2021-08-03 05:22] LABS: CALCIUM 8.9 MG/DL (8.5-10.1)
[2021-08-03 05:26] LABS: INR 1.5 (0.8-1.4); PROTHROMBIN TIME PATIENT 18.5 SEC (12.2-14.7)
[2021-08-03 05:27] LABS: CREATININE SERUM 0.86 MG/DL (0.60-1.30)
[2021-08-03] MEDS: CATHETER FLUSH 10 ML SYR IV SCH ×3 (05:37→21:08)
[2021-08-03 05:52] LABS: PHOSPHORUS 2.8 MG/DL (2.3-4.7)
[2021-08-03 05:54] LABS: MAGNESIUM 1.9 MG/DL (1.6-2.4)
[2021-08-03] MEDS ORDERED: LIDOCAINE 1% INJ 20 ML VIAL ONE (08:38)
[2021-08-03] MEDS ORDERED: HEParin (CATH LAB) 1,000 ML IV ONE (08:38)
[2021-08-03] MEDS ORDERED: meTOprolol TARTRATE 25 MG (LOPRESSOR) TABLET PO SCH (09:00)
[2021-08-03] MEDS: ASPIRIN E.C. 81 MG (ECOTRIN) TAB PO SCH (09:09)
[2021-08-03] MEDS: PANTOPRAZOLE 40 MG (PROTONIX) TAB PO SCH (09:09)
[2021-08-03] MEDS: MEMANTINE 10 MG (NAMENDA) TABLET PO SCH ×2 (09:09→21:08)
[2021-08-03] MEDS: dilTIAZem120 MG (CARDIZEM CD) CAP PO SCH ×2 (09:09→20:36)
[2021-08-03] MEDS: GABAPENTIN 100 MG (NEURONTIN) CAP PO SCH ×3 (09:09→21:08)
[2021-08-03] MEDS: ALOGLIPTIN 25 MG PO SCH (09:10)
--- NOTE | 2021-08-03 09:27 | Progress Note ---
Subjective Subjective Date Seen by Provider: August 03, 2021 Time Seen by Provider: 08:00 THE PATIENT REPORTS THAT HE HAD A ROUGH WEEKEND. HIS REPORTS THAT THEY WERE BACK AND FORTH AND UP AND DOWN FROM A HEART RATE STANDPOINT. HIS HEART RATE RANGED FROM THE 30'S TO THE 140'S. THEY WERE FRUSTRATED AT NOT GETTING THE PACEMAKER PLACED THIS WEEKEND, FELT LIKE THEY WERE SPINNING THEIR WHEELS. Review of Systems General: No Chills, No Night Sweats; Fatigue HEENT: No Head Aches, No Visual Changes Pulmonary: No Dyspnea, No Cough Cardiovascular: Palpitations, Lt Headedness; No: Chest Pain Gastrointestinal: No: Nausea, Vomiting, Abdominal Pain, Diarrhea, Constipation Genitourinary: No Dysuria, No Frequency Musculoskeletal: No: back pain Neurological: No: Weakness, Numbness, Change in speech All Other Systems Reviewed All Other Systems Reviewed: Yes Objective Exam Vital Signs Vital Signs Date Time Temp Pulse Resp B/P (MAP) Pulse Ox O2 Delivery O2 Flow Rate FiO2 08/03/21 09:00 156 16 112/79 100 Room Air 08/03/21 08:39 98 Room Air 08/03/21 08:00 115 9 134/109 98 Room Air 08/03/21 07:00 116 08/03/21 07:00 98 13 113/79 97 Room Air 08/03/21 06:00 104 15 129/76 97 Room Air 08/03/21 05:00 98 19 106/70 96 Room Air 08/03/21 04:02 36.5 08/03/21 04:00 100 13 126/95 97 Room Air 08/03/21 03:20 95 Room Air 08/03/21 03:00 101 17 124/88 98 Room Air 08/03/21 02:00 134 19 113/90 99 Room Air 08/03/21 01:59 Room Air 08/03/21 01:00 120 08/03/21 01:00 120 18 117/93 99 NIV CPAP 08/03/21 00:00 152 13 101/87 100 NIV CPAP 08/03/21 00:00 36.6 08/02/21 23:30 94 NIV CPAP 08/02/21 23:00 110 15 121/81 100 NIV CPAP 08/02/21 22:10 NIV CPAP 08/02/21 22:00 125 21 113/70 100 Room Air 08/02/21 21:00 102 16 132/71 100 Room Air 08/02/21 20:18 148 155/98 Room Air 08/02/21 20:00 36.7 08/02/21 19:15 96 Room Air 08/02/21 19:00 140 15 105/78 96 Room Air 08/02/21 19:00 119 08/02/21 17:00 102 12 126/70 95 Room Air 08/02/21 16:00 88 20 129/60 97 Room Air 08/02/21 16:00 36.7 08/02/21 16:00 Room Air 08/02/21 15:00 90 13 122/60 94 Room Air 08/02/21 14:00 116 11 114/69 86 Room Air 08/02/21 13:00 120 6 119/75 96 Room Air 08/02/21 12:40 94 08/02/21 12:00 36.3 124 22 110/60 99 Room Air 08/02/21 12:00 Room Air 08/02/21 11:00 131 13 89/65 95 Room Air 08/02/21 10:00 138 13 106/68 89 Room Air I & O 08/03/21 07:00 Intake Total 1725 ml Output Total 1901 ml Balance -176 ml General Appearance: No Apparent Distress, WD/WN HEENT: PERRL/EOMI, Normal ENT Inspection Neck: Normal Inspection Respiratory: Lungs Clear, No Respiratory Distress Cardiovascular: Irregularly Irregular, Tachycardia Gastrointestinal: Normal Bowel Sounds, Non Tender, Soft Rectal: Deferred Back: Normal Inspection, No Vertebral Tenderness Extremity: Non Tender, Swelling Neurologic/Psychiatric: Alert, Oriented x3 Skin: Normal Color, Warm/Dry Lymphatic: No Adenopathy Results Lab Laboratory Tests 08/03/21 04:30: White Blood Count 13.9H, Red Blood Count 4.24L, Hemoglobin 14.3, Hematocrit 44, Mean Corpuscular Volume 103H, Mean Corpuscular Hemoglobin 34, Mean Corpuscular Hemoglobin Concent 33, Red Cell Distribution Width 13.8, Platelet Count 172, Mean Platelet Volume 11.2, Immature Granulocyte % (Auto) 1, Neutrophils (%) (Auto) 68, Lymphocytes (%) (Auto) 14, Monocytes (%) (Auto) 12, Eosinophils (%) (Auto) 4, Basophils (%) (Auto) 1, Neutrophils # (Auto) 9.4H, Lymphocytes # (Auto) 1.9, Monocytes # (Auto) 1.7H, Eosinophils # (Auto) 0.6H, Basophils # (Auto) 0.1, Immature Granulocyte # (Auto) 0.2H, Prothrombin Time 18.5H, INR Comment 1.5H, Sodium Level 139, Potassium Level 4.2, Chloride Level 104, Carbon Dioxide Level 22, Anion Gap 13, Blood Urea Nitrogen 26H, Creatinine 0.86, E stimat Glomerular Filtration Rate 85, BUN/Creatinine Ratio 30, Glucose Level 134H, Calcium Level 8.9, Phosphorus Level 2.8, Magnesium Level 1.9 Assessment/Plan Assessment/Plan Admission Dx BRADYCARDIA HYPERTENSION CORONARY ARTERY DISEASE GENERALIZED WEAKNESS CHRONIC ATRIAL FIBRILLATION CHRONIC ANTICOAGULATION DIABETES MELLITUS PERIPHERAL NEUROPATHY ESOPHAGEAL REFLUX LEUKOCYTOSIS Assessment and Plan BRADYCARDIA HYPERTENSION CORONARY ARTERY DISEASE GENERALIZED WEAKNESS CHRONIC ATRIAL FIBRILLATION CHRONIC ANTICOAGULATION DIABETES MELLITUS PERIPHERAL NEUROPATHY ESOPHAGEAL REFLUX LEUKOCYTOSIS SEVERE SLEEP APNEA BRADYCARDIA - WITH CHRONIC ATRIAL FIBRILLATION - HEART RATE SIGNIFICANTLY INCREASED WITH HOLDING OF HIS HOME MEDICATIONS. - DISCUSSED WITH PATIENT AND HIS IN THE ICU AND, DTR ALBERTO, AND DR. BISHOP SEPARATELY - THE PLAN WILL BE FOR PACEMAKER PLACEMENT TODAY - EVERY TIME OFELIA IS GIVEN DOSING OF MEDICATION TO BRING DOWN HIS HEART RATE TO AN ACCEPTABLE RATE, HE WILL EVENTUALLY DROP HIS HEART RATE INTO THE 20-30 RANGE AND BE SYMPTOMATICALLY FATIGUED. HYPERTENSION - MONITOR PRESSURES, HOME MEDICATION RESTARTED. CORONARY ARTERY DISEASE - MEDICAL MANAGEMENT. SEVERE SLEEP APNEA - PT'S CPAP RESUMED WITH PT'S HOME MACHINE. GENERALIZED WEAKNESS - WILL ORDER THERAPY TOMORROW. CHRONIC ATRIAL FIBRILLATION - RATE CONTROLLED (EXCESSIVELY) - DEFER TO CARDIOLOGY, MONITOR PT WITH TELEMETRY. CHRONIC ANTICOAGULATION - MONITOR INR SERIALLY DIABETES MELLITUS -RESUMED HOME REGIMEN, MONITOR FSBS PERIPHERAL NEUROPATHY RESUMED GABAPENTIN ESOPHAGEAL REFLUX - RESUMED PPI THERAPY. LEUKOCYTOSIS - CHECK PERIPHERAL SMEAR, THERE IS NOT A CURRENT INFECTIOUS SOURCE. - DISCUSSED WITH HIS AND DTR (ALBERTO) - THIS MAY BE CLL, MAY BE AN OCCULT INFECTION THAT HAS NOT YET BEEN DISCOVERED. - MONITOR FOR PATH REPORT. GI PROPHYLAXIS WITH PPI DVT PROPHYLAXIS WITH COUMADIN AND SCD'S Admission Dx BRADYCARDIA HYPERTENSION CORONARY ARTERY DISEASE GENERALIZED WEAKNESS CHRONIC ATRIAL FIBRILLATION CHRONIC ANTICOAGULATION DIABETES MELLITUS PERIPHERAL NEUROPATHY ESOPHAGEAL REFLUX LEUKOCYTOSIS Clinical Quality Measures Admission Status Admission Dx BRADYCARDIA HYPERTENSION CORONARY ARTERY DISEASE GENERALIZED WEAKNESS CHRONIC ATRIAL FIBRILLATION CHRONIC ANTICOAGULATION DIABETES MELLITUS PERIPHERAL NEUROPATHY ESOPHAGEAL REFLUX LEUKOCYTOSIS RON VICK MD August 03, 2021 09:27
--- NOTE | 2021-08-03 09:59 | Cardiology Progress Note ---
Subjective Date Seen by Provider: August 03, 2021 Time Seen by Provider: 09:56 Subjective/Events-last exam Patient was seen at bedside, laying down comfortably Tachycardic, asymptomatic I had a long discussion with him and his , they were concerned about the episode of tachycardia and bradycardia and taking tomorrow to put the pacemaker. Review of Systems General: No Chills, No Night Sweats; Fatigue; No Malaise, No Appetite, No Other HEENT: No Head Aches, No Visual Changes, No Eye Pain, No Ear Pain, No Dysphasia, No Sinus Congestion, No Post Nasal Drip, No Sore Throat, No Other Pulmonary: No Dyspnea, No Cough, No Pleuritic Chest Pain, No Other Cardiovascular: Edema; No: Chest Pain, Palpitations, Orthopnea, Paroxysmal Noc. Dyspnea, Lt Headedness, Other Objective-Cardiology Exam Last Set of Vital Signs Vital Signs 08/03/21 08/03/21 04:02 09:00 Temp 36.5 Pulse 156 Resp 16 B/P (MAP) 112/79 Pulse Ox 100 O2 Delivery Room Air I&O Intake and Output 08/03/21 00:00 Intake Total 1600 ml Output Total 1901 ml Balance -301 ml Intake Oral 1600 ml Output Urine Total 1900 ml Stool Total 1 ml # Voids 3 General: Alert, Oriented X3, Cooperative HEENT: Atraumatic, PERRLA Neck: Supple, No JVD, No Thyromegaly Lungs: Clear to Auscultation, Normal Air Movement Heart: Normal S1, Normal S2, Other (Atrial fibrillation, systolic murmur) Abdomen: Normal Bowel Sounds, Soft, No Tenderness, No Hepatosplenomegaly, No Masses Extremities: No Clubbing, No Cyanosis, Normal Pulses, No Tenderness/Swelling, Other (Pedal edema) Skin: No Rashes, No Breakdown, No Significant Lesion, Other Neuro: Normal Speech, Strength at 5/5 X4 Ext, Normal Tone, Sensation Intact Psych/Mental Status: Mental Status NL, Mood NL Results Lab Laboratory Tests 08/03/21 04:30 A/P-Cardiology Admission Diagnosis Bradycardia Atrial fibrillation Cor pulmonale Hypotension Assessment/Plan Tachybradycardia episodes. Difficult to control heart rate. Admitted with severe bradycardia. Has been trying to adjust his medication without success, having mostly tachycardia and occasional severe bradycardic episode. I had a long discussion with the family, discussed the need to take time trying to adjust his medication slowly 20 Fátima of adequate heart rate control For the placement of a pacemaker and using aggressive calcium channel blockers and beta-blockers treatment. Patient had difficult heart rate to achieve control, he may probably require doses of calcium, blockers and beta-blockers Fátima Dyson for adequate heart rate control. Significant peripheral edema, cor pulmonale, severe mitral regurgitation. Improved at this time. Continue to monitor Permanent atrial fibrillation, difficult to control heart rate. Better at this time. Monitor tolerance and response. SARAH on May 21, 2016 showed a density suggestive of a thrombus in the left atrium [id number] score 3, maintained on Coumadin, recommended INR 2-3 Coronary artery disease, Cardiac catheterization done May 20, 2016 showed severe coronary artery stenosis and a Xience Alpine stent was placed in the right coronary artery. There is a patent stent in the proximal circumflex artery with 50% stenosis. There is mold to moderate disease in the LAD and small vessel disease Lexiscan stress test on June 10, 2020 showed atrial fibrillation with no significant ischemia and an EF 55% 2D echo was done in May showing normal left ventricular size with ejection fraction 60%, dilated right heart chambers with severe pulmonary hypertension with PA pressure 50 to 55 mmHg, severe mitral regurgitation, calcified mitral valve, mild tricuspid regurgitation Hypertension, monitor blood pressure. Continue on Cardizem and Coreg. Leukocytosis, was treated empirically with antibiotics, discussed the management plan with Dr. Burkett Sleep apnea Have patient on CPAP at night Diabetes Being managed by admitting hospitalist SP BISHOP MD August 03, 2021 09:59
--- NOTE | 2021-08-03 10:05 | Tele-ICU Consult ---
History of Present Illness History of Present Illness Date Seen by Provider: August 03, 2021 Time Seen by Provider: 10:05 Date of Admission (Tele-ICU Physician , Progress Note ) Available chart/ vitals / labs / Images reviewed Video assessment done using teleICU camera, rest of exam as per RN Discussed with RN , EXAM PER RN Events overnight : Afebrile FiO2 - ra I/O = even Drips: Pressors: , hemodynamically stable Consultants: javier Hospital course: (07/29) 85 Y admitted with A-fib, Bradycardia A/P Bradycardia underlying atrial fibrillation, now tachycardia = for pacemaker today - BP stable Permanent A fib - AC with coumadine, INR 1.5 - to cont , dose adjust as per cards CAD -EF 55%, mod MR DM II - ISS , as per PCP Pulm HTN PA pressure 50 to 55 mmHg -suspected due to valv dx and OS A SANDIP -to cont CPAP at night Moderate carotid stenosis on the right, mild on the left Low back pain and chronic lower extremity swelling and weakness, chronic COPD? Polymyalgia rheumatica- REPORTED ON MAY on Plaquenil - as per PCP to resume ? Lines : (Central Line Necessity Reviewed) Saini: OG: Nutrition: Analgesia: Anxiety/ delirium VTE Prophylaxis: coumadn e Stress Ulcer Prophylaxis: na Plans in collaboration with bedside consultants and IM MDs. Discussed with RN to reach out if any questions or concerns A total of 25 minutes of critical care time was devoted to this patient today, required to treat and/or prevent further deterioration of critical care condition ( as above ) . Reason for Visit: Bradycardia History of Present Illness (Tele-ICU Physician , consultation) Available chart/ vitals / labs / Images reviewed H&P is from ER notes Patient's information available about PMH, Shx, Fhx allergy reviewed in EMR. ROS as per chart and RN report Now in ICU, hemodynamically stable Video assessment done using teleICU camera, rest of exam as per RN Discussed with RN. Consultants: Hospital course: A/P Bradycardia underlying atrial fibrillation - as per cards (probably secondary to medications in addition to underlying sinus node dysfunction. - medications on hold - BP stable Permanent A fib - meds on hold - AC with coumadine? INR not done CAD -EF 55%, mod MR DM II - ISS , as per PCP Pulm HTN PA pressure 50 to 55 mmHg -suspected due to valv dx and OS A SANDIP -to cont CPAP at night Moderate carotid stenosis on the right, mild on the left Low back pain and chronic lower extremity swelling and weakness, chronic COPD? Polymyalgia rheumatica- Plaquenil Lines : (Central Line Necessity Reviewed) Saini: OG: Nutrition: Analgesia: Anxiety/ delirium VTE Prophylaxis: coumadn e Stress Ulcer Prophylaxis: na Plans in collaboration with bedside consultants and IM MDs. Discussed with RN to reach out if any questions or concerns A total of 25 minutes of critical care time was devoted to this patient today, required to treat and/or prevent further deterioration of critical care condition ( as above ) . Allergies and Home Medications Allergies Coded Allergies: Beta-Blockers (Beta-Adrenergic Bloc (Verified Allergy, Unknown, Pt has rec Metoprolol and coreg in the past, 06/23/21) gluten (Verified Allergy, Unknown, Rash, 12/30/19) Home Medications Alogliptin Benzoate 25 Mg Tablet, 25 MG PO DAILY, (Reported) Aspirin 81 Mg Tablet.dr, 81 MG PO DAILY, (Reported) Carvedilol 3.125 Mg Tablet, 3.125 MG PO BID, (Reported) Diltiazem HCl 360 Mg Cap.er.24h, 360 MG PO DAILY, (Reported) Furosemide 20 Mg Tablet, 20 MG PO DAILY, (Reported) Gabapentin 100 Mg Capsule, 200 MG PO TID, (Reported) TAKES 2 (100MG) CAPSULES Hydroxychloroquine Sulfate 200 Mg Tablet, 200 MG PO DAILY, (Reported) Memantine HCl 10 Mg Tablet, 10 MG PO BID, (Reported) Multivit-Min/Iron/Folic/Vit K1 1 Each Tab.chew, 1 EACH PO DAILY, (Reported) Pantoprazole Sodium 40 Mg Tablet.dr, 40 MG PO DAILY, (Reported) Potassium Chloride 20 Meq Tablet.er, 20 MEQ PO DAILY, (Reported) Vit A/C/E/Zinc/Co 14,320-226 Capsule, 1 CAP PO BID, (Reported) Warfarin Sodium 5 Mg Tablet, 5 MG PO ,,,SAT @[facility], (Reported) Warfarin Sodium 5 Mg Tablet, 2.5 MG PO ,,FR @[facility], (Reported) TAKES OF A 5MG TAB Past Medical/Social/Family Hx Patient Social History Marrital Status: Living Status: LIVES AT HOME WITH HIS AXEL Employed/Student: retired Tobacco Use?: No Smoking Status: Former Smoker Use of E-Cig and/or Vaping dev: No Substance use?: No Alcohol Use?: Yes Alcohol type: Hard Liquor (OCCASIONAL) Alcohol Frequency: Once in a while Pt stated abuse/neglect: No Immunizations Up To Date First/Initial COVID19 Vaccinat: 06/2020 Second COVID19 Vaccination Yousuf: 06/2020 Tetanus Booster (TDap): More Than 5 Years Date of Pneumonia Vaccine: May 20, 2012 Current Status Advance Directives: Yes Advance Directive Location: Family to bring in copy Communicates: Verbally Primary Language: [place] Preferred Spoken Language: [place] Sensory deficits: Vision impairment Implanted or Applied Medical D: Stents Review of Systems Constitutional: see HPI Focused Exam Height, Weight, BMI Height: 5'8.00" Weight: 226lbs. 0.0oz. 102.730055wn; 32.07 BMI Method:Stated Exam Exam Patient acknowledged, consented, and participated in this virtual visit which was conducted using real time audio/video Vital Signs Date Time Temp Pulse Resp B/P (MAP) Pulse Ox O2 Delivery O2 Flow Rate FiO2 08/03/21 09:00 156 16 112/79 100 Room Air 08/03/21 08:39 98 Room Air 08/03/21 08:00 115 9 134/109 98 Room Air 08/03/21 07:00 116 08/03/21 07:00 98 13 113/79 97 Room Air 08/03/21 06:00 104 15 129/76 97 Room Air 08/03/21 05:00 98 19 106/70 96 Room Air 08/03/21 04:02 36.5 08/03/21 04:00 100 13 126/95 97 Room Air 08/03/21 03:20 95 Room Air 08/03/21 03:00 101 17 124/88 98 Room Air 08/03/21 02:00 134 19 113/90 99 Room Air 08/03/21 01:59 Room Air 08/03/21 01:00 120 08/03/21 01:00 120 18 117/93 99 NIV CPAP 08/03/21 00:00 152 13 101/87 100 NIV CPAP 08/03/21 00:00 36.6 08/02/21 23:30 94 NIV CPAP 08/02/21 23:00 110 15 121/81 100 NIV CPAP 08/02/21 22:10 NIV CPAP 08/02/21 22:00 125 21 113/70 100 Room Air 08/02/21 21:00 102 16 132/71 100 Room Air 08/02/21 20:18 148 155/98 Room Air 08/02/21 20:00 36.7 08/02/21 19:15 96 Room Air 08/02/21 19:00 140 15 105/78 96 Room Air 08/02/21 19:00 119 08/02/21 17:00 102 12 126/70 95 Room Air 08/02/21 16:00 88 20 129/60 97 Room Air 08/02/21 16:00 36.7 08/02/21 16:00 Room Air 08/02/21 15:00 90 13 122/60 94 Room Air 08/02/21 14:00 116 11 114/69 86 Room Air 08/02/21 13:00 120 6 119/75 96 Room Air 08/02/21 12:40 94 08/02/21 12:00 36.3 124 22 110/60 99 Room Air 08/02/21 12:00 Room Air 08/02/21 11:00 131 13 89/65 95 Room Air I & O 08/03/21 07:00 Intake Total 1725 ml Output Total 1901 ml Balance -176 ml Height & Weight Height: 5'8.00" Weight: 226lbs. 0.0oz. 102.677221ai; 32.07 BMI Method:Stated General Appearance: No Apparent Distress, WD/WN HEENT: PERRL/EOMI, Normal ENT Inspection Neck: Normal Inspection Respiratory: Lungs Clear, No Respiratory Distress Cardiovascular: Irregularly Irregular, Tachycardia Capillary Refill: Less Than 3 Seconds Extremity: Non Tender, Swelling Neurologic/Psychiatric: Alert, Oriented x3 Skin: Normal Color, Warm/Dry Lymphatic: No Adenopathy Results Lab Laboratory Tests 08/02/21 04:48 08/03/21 04:30 Assessment/Plan Assessment/Plan ` MOUSTAPHA LOU MD August 03, 2021 10:05
--- NOTE | 2021-08-03 10:19 | Physical Therapy Daily Note ---
PT Daily Note-Current Subjective Patient in recliner pre tx, agrees to PT, has no complaints of pain, put on portable telemetry before ambulation. Patient is getting a pacemaker this afternoon. Appearance Patient in recliner post tx with nurse call, phone, tray, all needs met. Mental Status Patient Orientation: Person, Place, Situation Transfers SCALE: Activities may be completed with or without assistive devices. 3-Vezlggmatr-hmknvsg completes the activity by him/herself with no assistance from a helper. 5-Set-up or Clean-up Assistance-helper sets up or cleans up; patient completes activity. [place] assists only prior to or following the activity. 4-Supervision or Touching Assistance-helper provides verbal cues and/or touching/steadying and/or contact guard assistance as patient completes activity. Assistance may be provided throughout the activity or intermittently. 3-Partial/Moderate Assistance-helper does LESS THAN HALF the effort. [place] lifts, holds or supports trunk or limbs, but provides less than half the effort. 2-Substantial/Maximal Assistance-helper does MORE THAN HALF the effort. [place] lifts or holds trunk or limbs and provides more than half the effort. 2-Dtluullgo-oxktxy does ALL the effort. Patient does none of the effort to complete the activity. Or, the assistance of 2 or more helpers is required for the patient to complete the activity. If activity was not attempted, code reason: 7-Patient Refused. 9-Not Applicable-not attempted and the patient did not perform the activity befo re the current illness, exacerbation or injury. 10-Not Attempted due to Environmental Limitations-(lack of equipment, weather re straints, etc.). 88-Not Attempted due to Medical Conditions or Safety Concerns. Sit to Stand (QC): 4 Chair/Dqk-wt-Lbhfj Xfer(QC): 4 Weight Bearing Right Lower Extremity: Right Full Weight Bearing Left Lower Extremity: Left Full Weight Bearing Gait Training Distance: 400' Walk 10 feet (QC): 4 Walk 150 ft (QC): 4 Gait Assistive Device: Walker 4 Wheeled SBA, occasional cue for patient to get closer to his walker, slow but steady ambulation Exercises Standing: Heel/toe raises, 3 way Ex=Flex, Abd, Ext (not flexion), Mini squats Standing Reps: 15 Treatments transfers, ambulation, LE strengthening Assessment Current Status: Fair Progress improving endurance PT Residential Goals Residential Goals PT Residential Goals Time Frame: Aug 04, 2021 Roll Left & Right (QC): 6 Sit to Lying (QC): 6 Lying-Sitting on Side/Bed(QC): 6 Sit to Stand (QC): 6 Chair/Phe-mj-Upfve Xfer(QC): 6 Toilet Transfer (QC): 6 Car Transfer (QC): 6 Does the Patient Walk: Yes Walk 10 feet (QC): 6 Walk 50ft with 2 Turns (QC): 6 Walk 150 ft (QC): 6 Walking 10ft on Uneven Surface: 6 1 Step (curb) (QC): 5 4 Steps (QC): 5 12 Steps (QC): 9 Picking up an Object (QC): 9 Does the Pt use WC or Scooter?: No Wheel 50 feet with 2 turns (QC: 9 Type: N/A Wheel 150 feet: 9 Type: N/A PT Plan Problem List Problem List: Activity Tolerance, Functional Strength, Safety, Balance, Gait, Transfer, ROM Treatment/Plan Treatment Plan: Continue Plan of Care Treatment Plan: Education, Functional Activity Tara, Functional Strength, Gait, Safety, Therapeutic Exercise, Transfers Treatment Duration: Aug 04, 2021 Frequency: 6 times per week Estimated Hrs Per Day: .25 hour per day Patient and/or Family Agrees t: Yes Safety Risks/Education Patient Education: Gait Training, Transfer Techniques, Correct Positioning, Safety Issues Teaching Recipient: Patient Teaching Methods: Demonstration, Discussion Response to Teaching: Reinforcement Needed Time/GCodes Time In: 0948 Time Out: 1007 Total Billed Treatment Time: 19 Total Billed Treatment 1 visit FA Eunice' POONAM HECTOR PT August 03, 2021 10:19
[2021-08-03] MEDS ORDERED: fentaNYL INJ 100 MCG/2 ML AMP ONE (17:54)
[2021-08-03] MEDS ORDERED: MIDAZOLAM 5 MG/5 ML (VERSED) VIAL ONE (17:54)
[2021-08-03] MEDS ORDERED: NS IV 500 ML 500 ML ONE (18:25)
[2021-08-03] MEDS ORDERED: ceFAZolin INJECTION 0 MG ONE (18:27)
[2021-08-03] MEDS ORDERED: NS IV 1000 ML 1,000 ML ONE ×2 (18:28→21:01)
[2021-08-03] MEDS ORDERED: PATIENT MAY USE OWN MEDS, ALL PO SCH (19:15)
--- NOTE | 2021-08-03 19:19 | Permanent Pacemaker Implant ---
Dual Chamber Pacemaker Implant PROCEDURE PHYSICIAN: Leopoldo Shine DUAL CHAMBER PACEMAKER IMPLANTATION: DATE OF PROCEDURE: 08/03/21 REFERRING PHYSICIAN: Dr. Selene Burkett ATTENDING PHYSICIAN: Dr. Selene Burkett INDICATION: Complete heart block PREOPERATIVE DIAGNOSIS: Complete heart block POSTOPERATIVE DIAGNOSIS: Complete heart block HISTORY: Dual-chamber permanent pacemaker was recommended. PROCEDURE PERFORMED: 1. Single-chamber permanent pacemaker implantation. 2. Fluoroscopy. 3. Central venous access. ANESTHESIA: Local anesthesia, conscious sedation. COMPLICATIONS: None. ESTIMATED BLOOD LOSS:20 mL. SPECIMENS: None. ORAL ANTICOAGULATION: None. FLUOROSCOPY TIME: FLUOROSCOPY DOSE: CONTRAST DOSE: PROCEDURE DETAILS: The patient is a 85 male and after all of the patients questions were answered, the patient was brought to the EP Lab. The patient's left chest was prepped and draped in sterile fashion. A 2 inch horizontal incision was made 1 cm below the clavicle and dissection carried down to the pectoralis fascia. Using the modified Seldinger technique and under fluoroscopy guidance, the anterior aspect of the left axillary vein was accessed 2 times. The J wires were secured to the drapes with a mosquito clamp. A 7-Swedish sheath was introduced over one of the J-wires. The RV lead was then inserted. The RV lead was directed across the tricuspid valve to the apical septal portion of the right ventricle. The position was checked in NAINA and LEE views. The screw was deployed and the lead connected to the analyst programmer. Close sensing and pacing thresholds were obtained. Diaphragmatic pacing was ruled out. The lead was secured with 2-0 silk ties to the underlying muscle and fascia. The lead was connected to a pacemaker generator device. Pocket was irrigated with saline. Then direct patch was used and the generator was placed in the pocket and it was closed on 2 layers of sutures. The wound was then closed using 2 layers. The first layer was interrupted 2-0 absorbable Vicryl suture. The last layer was a single subcuticular layer with 4- 0 Vicryl suture. Half inch Steri-Strips and a small dressing were then applied to the wound. The patient tolerated the procedure well and was returned to the recovery room in stable condition with stable vital signs. DEVICE INFORMATION: LAVON XT SR MRI [id number] RV LEAD: [id number] PER-OPERATIVE DEVICE INTERROGATION: Good sensing and capture activity IMMEDIATE POSTOPERATIVE DEVICE INTERROGATION: Pacing threshold pulse width of 0.4 ms at 1 V. Impedance 740 ohms, R waves 16 mV. PLAN: The patient transferred to the ICU. We will continue with two more doses of IV antibiotics. We will check a chest x-ray and interrogate the device in the morning. The patient will continue on oral antibiotics for 5 days. CONCLUSION: Successful single-chamber pacemaker implantation with no complication LEOOPLDO SHINE MD August 03, 2021 19:19
[2021-08-03] MEDS: NS IV 1000 ML 1,000 ML IV SCH ×2 (19:59→21:07)
--- NOTE | 2021-08-03 20:05 | Conscious Sedation/ASA ---
Conscious Sedation Pre-Proced Time 09:00 ASA Score 3 For ASA 3 and 4: Consider anesthesia and medical clearance. Also, for patients with a history of failed moderate sedation consider anesthesia. Airway Lungs Heart ASA score ASA 1: a normal healthy patient ASA 2: a patient with a mild systemic disease (mid diabetes, controlled hypertension, obesity x ASA 3: a patient with a severe systemic disease that limits activity (angina, COPD, prior Myocardial infarction) ASA 4: a patient with an incapacitating disease that is a constant threat to life (CHF, renal failure) ASA 5: a moribund patient not expected to survive 24 hrs. (ruptured aneurysm) ASA 6: a declared brain- patient whose organs are being harvested. For emergent operations, add the letter E after the classification Mallampati Classification Grade 3 Sedation Plan Analgesia, Amnesia, Plan communicated to team members, Discussed options with patient/fam, Discussed risks with patient/fam The patient is an appropriate candidate to undergo the planned procedure, sedation, and anesthesia. The patient immediately re-assessed prior to indication. SP BISHOP MD August 03, 2021 20:05
[2021-08-03] MEDS ORDERED: ENOXAPARIN 100 MG/1 ML (LOVENOX) SYR ONE (20:31)
[2021-08-03] MEDS: warFARin 5 MG (COUMADIN) TAB PO SCH (21:07)
--- NOTE | 2021-08-03 21:09 | Diagnostic Imaging Report ---
CHEST 1 VIEW, AP/PA ONLY Indication: Pacemaker placement Comparison: 07/31/2021 Findings: Left-sided transvenous single chamber pacemaker has electrode projecting over the left ventricle. The lead is intact. Implanted generator pack is normal in appearance. Stable basilar pulmonary opacities that are most likely due to atelectasis. No pneumothorax. Impression: 1. No pneumothorax status post pacemaker placement. Dictated by: Dictated on workstation # [id number]
[2021-08-03] MEDS: ENOXAPARIN 100 MG/1 ML (LOVENOX) SYR SC SCH (22:07)
[2021-08-04 04:31] LABS: HEMATOCRIT 42 % (40-54); HEMOGLOBIN 13.9 g/dL (13.3-17.7); MEAN CORPUSCULAR HEMOGLOBIN 34 pg (25-34); MEAN CORPUSCULAR HGB CONC 33 g/dL (32-36); MEAN CORPUSCULAR VOLUME 104 fL (80-99); MEAN PLATELET VOLUME 11.4 fL (9.0-12.2); PLATELET COUNT 160 10^3/uL (130-400); WHITE BLOOD COUNT 9.1 10^3/uL (4.3-11.0)
[2021-08-04 04:41] LABS: POTASSIUM 4.1 MMOL/L (3.6-5.0)
[2021-08-04 04:42] LABS: CALCIUM 8.2 MG/DL (8.5-10.1)
[2021-08-04 04:43] LABS: TOTAL PROTEIN 5.9 GM/DL (6.4-8.2)
[2021-08-04 04:45] LABS: BILIRUBIN,TOTAL 0.8 MG/DL (0.1-1.0)
[2021-08-04 04:47] LABS: CREATININE SERUM 0.74 MG/DL (0.60-1.30)
[2021-08-04 05:05] LABS: PHOSPHORUS 2.6 MG/DL (2.3-4.7)
[2021-08-04 05:07] LABS: MAGNESIUM 1.9 MG/DL (1.6-2.4)
[2021-08-04] MEDS: ceFAZolin INJECTION 1,000 MG in NS (IVPB) 50 ML IV SCH ×3 (06:00→20:57)
[2021-08-04] MEDS: CATHETER FLUSH 10 ML SYR IV SCH ×3 (06:00→20:57)
--- NOTE | 2021-08-04 08:05 | Cardiology Progress Note ---
Subjective Date Seen by Provider: Aug 04, 2021 Time Seen by Provider: 08:03 Subjective/Events-last exam Patient is sitting in a recliner, feeling better. No new complaint Review of Systems General: No Chills, No Night Sweats, No Fatigue, No Malaise, No Appetite, No Other HEENT: No Head Aches, No Visual Changes, No Eye Pain, No Ear Pain, No Dysphasia, No Sinus Congestion, No Post Nasal Drip, No Sore Throat, No Other Pulmonary: No Dyspnea, No Cough, No Pleuritic Chest Pain, No Other Cardiovascular: No: Chest Pain, Palpitations, Orthopnea, Paroxysmal Noc. Dyspnea, Edema, Lt Headedness, Other Objective-Cardiology Exam Last Set of Vital Signs Vital Signs 08/04/21 06:00 Pulse 104 Resp 17 B/P (MAP) 135/93 Pulse Ox 100 O2 Delivery Room Air I&O Intake and Output 08/04/21 00:00 Intake Total 2725 ml Output Total 1800 ml Balance 925 ml Intake Oral 1725 ml IV Total 1000 ml Output Urine Total 1800 ml # Bowel Movements 1 General: Alert, Oriented X3, Cooperative HEENT: Atraumatic, PERRLA Neck: Supple, No JVD, No Thyromegaly Lungs: Clear to Auscultation, Normal Air Movement Heart: Normal S1, Normal S2, Other (Atrial fibrillation, systolic murmur) Abdomen: Normal Bowel Sounds, Soft, No Tenderness, No Hepatosplenomegaly, No Masses Extremities: No Clubbing, No Cyanosis, Normal Pulses, No Tenderness/Swelling, Other (Pedal edema) Skin: No Rashes, No Breakdown, No Significant Lesion, Other Neuro: Normal Speech, Strength at 5/5 X4 Ext, Normal Tone, Sensation Intact Psych/Mental Status: Mental Status NL, Mood NL Results Lab Laboratory Tests 08/04/21 04:08 A/P-Cardiology Admission Diagnosis Bradycardia Atrial fibrillation Cor pulmonale Hypotension Assessment/Plan Tachybradycardia episodes. Difficult to control heart rate. Admitted with severe bradycardia. Status post single-chamber pacemaker implantation on August 03, 2021. Still tachycardic, I changed diltiazem back to 360 mg daily and Coreg 3.125 mg twice daily I will start digoxin back and monitor tolerance and response. Significant peripheral edema, cor pulmonale, severe mitral regurgitation. I mproved at this time. Continue to monitor Permanent atrial fibrillation, difficult to control heart rate. Better at this time. Monitor tolerance and response. SARAH on May 21, 2016 showed a density suggestive of a thrombus in the left atrium [id number] score 3, maintained on Coumadin, recommended INR 2-3 Coronary artery disease, Cardiac catheterization done May 20, 2016 showed severe coronary artery stenosis and a Xience Alpine stent was placed in the right coronary artery. There is a patent stent in the proximal circumflex artery with 50% stenosis. There is mold to moderate disease in the LAD and small vessel disease Lexiscan stress test on June 10, 2020 showed atrial fibrillation with no significant ischemia and an EF 55% 2D echo was done in May showing normal left ventricular size with ejection fraction 60%, dilated right heart chambers with severe pulmonary hypertension with PA pressure 50 to 55 mmHg, severe mitral regurgitation, calcified mitral valve, mild tricuspid regurgitation Hypertension, monitor blood pressure. Continue on Cardizem and Coreg. Leukocytosis, was treated empirically with antibiotics, discussed the management plan with Dr. Burkett Sleep apnea Have patient on CPAP at night Diabetes Being managed by admitting hospitalist SP BISHOP MD Aug 04, 2021 08:05
--- NOTE | 2021-08-04 08:12 | Progress Note ---
Subjective Subjective Date Seen by Provider: Aug 04, 2021 Time Seen by Provider: 08:00 Pt reports that he was taken for his pacemaker yesterday evening. he is feeling "okay" and is not sure he wants to continue with home health on discharge, but his dtr reports that she is wanting to have him keep up with home health for therapy. Review of Systems General: No Chills, No Night Sweats; Fatigue HEENT: No Head Aches, No Visual Changes Pulmonary: No Dyspnea, No Cough Cardiovascular: Palpitations; No: Chest Pain, Lt Headedness Gastrointestinal: No: Nausea, Vomiting, Abdominal Pain, Diarrhea, Constipation Genitourinary: No Dysuria, No Frequency Musculoskeletal: No: back pain Neurological: No: Weakness, Numbness, Change in speech All Other Systems Reviewed All Other Systems Reviewed: Yes Objective Exam Vital Signs Vital Signs Date Time Temp Pulse Resp B/P (MAP) Pulse Ox O2 Delivery O2 Flow Rate FiO2 08/04/21 06:00 104 17 135/93 100 Room Air 08/04/21 05:00 80 20 141/82 99 Room Air 08/04/21 04:00 36.8 88 20 136/63 100 Room Air 08/04/21 04:00 100 Room Air 08/04/21 03:00 Room Air 08/04/21 03:00 69 17 130/57 100 Room Air 08/04/21 02:00 90 18 134/62 100 NIV CPAP 08/04/21 01:00 83 18 126/62 100 NIV CPAP 08/04/21 01:00 90 08/04/21 00:00 93 14 132/73 100 NIV CPAP 08/03/21 23:25 98 NIV CPAP 08/03/21 23:00 88 14 127/62 100 NIV CPAP 08/03/21 22:52 NIV CPAP 08/03/21 22:37 36.3 08/03/21 22:00 96 15 154/72 100 Room Air 08/03/21 21:00 98 17 144/71 98 Room Air 08/03/21 20:00 86 13 136/75 100 Room Air 08/03/21 20:00 36.3 08/03/21 19:55 99 Room Air 08/03/21 19:45 90 08/03/21 19:45 36.6 89 18 141/98 100 Room Air 08/03/21 18:00 79 15 145/86 97 Room Air 08/03/21 17:00 81 19 121/56 98 Room Air 08/03/21 16:00 80 14 134/72 99 Room Air 08/03/21 15:57 96 Room Air 08/03/21 15:49 36.6 08/03/21 15:00 97 14 120/75 99 Room Air 08/03/21 14:00 104 16 125/72 98 Room Air 08/03/21 13:00 81 15 139/72 96 Room Air 08/03/21 12:45 93 08/03/21 12:28 96 Room Air 08/03/21 12:00 86 18 116/96 98 Room Air 08/03/21 11:00 101 19 105/83 100 Room Air 08/03/21 10:00 135 12 100 Room Air 08/03/21 09:00 156 16 112/79 100 Room Air 08/03/21 08:39 98 Room Air I & O 08/04/21 07:00 Intake Total 3675 ml Output Total 1750 ml Balance 1925 ml General Appearance: No Apparent Distress, WD/WN HEENT: PERRL/EOMI, Normal ENT Inspection Neck: Normal Inspection Respiratory: Lungs Clear, No Respiratory Distress Cardiovascular: Irregularly Irregular, Tachycardia, Other (surgical site with dressing in place, no erythema around the site) Gastrointestinal: Normal Bowel Sounds, Non Tender, Soft Rectal: Deferred Back: Normal Inspection, No Vertebral Tenderness Extremity: Non Tender, Swelling Neurologic/Psychiatric: Alert, Oriented x3 Skin: Normal Color, Warm/Dry Lymphatic: No Adenopathy Results Lab Laboratory Tests 08/03/21 11:54: Glucometer 148H 08/03/21 15:36: Glucometer 99 08/03/21 20:19: Glucometer 101 08/04/21 04:08: White Blood Count 9.1, Red Blood Count 4.05L, Hemoglobin 13.9, Hematocrit 42, Mean Corpuscular Volume 104H, Mean Corpuscular Hemoglobin 34, Mean Corpuscular Hemoglobin Concent 33, Red Cell Distribution Width 13.6, Platelet Count 160, Mean Platelet Volume 11.4, Sodium Level 141, Potassium Level 4.1, Chloride Level 107, Carbon Dioxide Level 21, Anion Gap 13, Blood Urea Nitrogen 17, Creatinine 0.74, Estimat Glomerular Filtration Rate 89, BUN/Creatinine Ratio 23, Glucose Level 113H, Calcium Level 8.2L, Corrected Calcium 9.0, Phosphorus Level 2.6, Magnesium Level 1.9, Total Bilirubin 0.8, Aspartate Amino Transf (AST/SGOT) 16, Alanine Aminotransferase (ALT/SGPT) 20, Alkaline Phosphatase 45, Total Protein 5.9L, Albumin 3.0L Assessment/Plan Assessment/Plan Admission Dx BRADYCARDIA HYPERTENSION CORONARY ARTERY DISEASE GENERALIZED WEAKNESS CHRONIC ATRIAL FIBRILLATION CHRONIC ANTICOAGULATION DIABETES MELLITUS PERIPHERAL NEUROPATHY ESOPHAGEAL REFLUX LEUKOCYTOSIS Assessment and Plan BRADYCARDIA HYPERTENSION CORONARY ARTERY DISEASE GENERALIZED WEAKNESS CHRONIC ATRIAL FIBRILLATION CHRONIC ANTICOAGULATION DIABETES MELLITUS PERIPHERAL NEUROPATHY ESOPHAGEAL REFLUX LEUKOCYTOSIS SEVERE SLEEP APNEA BRADYCARDIA - WITH CHRONIC ATRIAL FIBRILLATION - HEART RATE SIGNIFICANTLY INCREASED WITH HOLDING OF HIS HOME MEDICATIONS. - DISCUSSED WITH PATIENT AND HIS IN THE ICU AND, DTR ALBERTO, AND DR. BISHOP SEPARATELY - pt is status post pacemaker placement on 08/03/21 HYPERTENSION - MONITOR PRESSURES, HOME MEDICATION RESTARTED. CORONARY ARTERY DISEASE - MEDICAL MANAGEMENT. SEVERE SLEEP APNEA - PT'S CPAP RESUMED WITH PT'S HOME MACHINE. GENERALIZED WEAKNESS - WILL ORDER THERAPY TOMORROW. CHRONIC ATRIAL FIBRILLATION -DEFER TO CARDIOLOGY CHRONIC ANTICOAGULATION - MONITOR INR SERIALLY DIABETES MELLITUS -RESUMED HOME REGIMEN, MONITOR FSBS PERIPHERAL NEUROPATHY RESUMED GABAPENTIN ESOPHAGEAL REFLUX - RESUMED PPI THERAPY. LEUKOCYTOSIS - CHECK PERIPHERAL SMEAR, THERE IS NOT A CURRENT INFECTIOUS SOURCE. - DISCUSSED WITH HIS AND DTR (ALBERTO) - THIS MAY BE CLL, MAY BE AN OCCULT INFECTION THAT HAS NOT YET BEEN DISCOVERED. - MONITOR FOR PATH REPORT. GI PROPHYLAXIS WITH PPI DVT PROPHYLAXIS WITH COUMADIN AND SCD'S Admission Dx BRADYCARDIA HYPERTENSION CORONARY ARTERY DISEASE GENERALIZED WEAKNESS CHRONIC ATRIAL FIBRILLATION CHRONIC ANTICOAGULATION DIABETES MELLITUS PERIPHERAL NEUROPATHY ESOPHAGEAL REFLUX LEUKOCYTOSIS Clinical Quality Measures Admission Status Admission Dx BRADYCARDIA HYPERTENSION CORONARY ARTERY DISEASE GENERALIZED WEAKNESS CHRONIC ATRIAL FIBRILLATION CHRONIC ANTICOAGULATION DIABETES MELLITUS PERIPHERAL NEUROPATHY ESOPHAGEAL REFLUX LEUKOCYTOSIS RON VICK MD Aug 04, 2021 08:12
[2021-08-04] MEDS ORDERED: DIGOXIN 0.25 MG/ML (LANOXIN) 2 ML AMP IV NR (08:24)
[2021-08-04] MEDS: ASPIRIN E.C. 81 MG (ECOTRIN) TAB PO SCH (09:30)
[2021-08-04] MEDS: ENOXAPARIN 100 MG/1 ML (LOVENOX) SYR SC SCH ×2 (09:30→20:57)
[2021-08-04] MEDS: GABAPENTIN 100 MG (NEURONTIN) CAP PO SCH ×3 (09:31→20:56)
[2021-08-04] MEDS: MEMANTINE 10 MG (NAMENDA) TABLET PO SCH ×2 (09:31→20:57)
[2021-08-04] MEDS: PANTOPRAZOLE 40 MG (PROTONIX) TAB PO SCH (09:31)
[2021-08-04] MEDS: ALOGLIPTIN 25 MG PO SCH (09:33)
--- NOTE | 2021-08-04 11:12 | Physical Therapy Daily Note ---
PT Daily Note-Current Subjective Pt. in bed, agrees to Rx. Pt. on telemetry. communication with nursing reveals pt. needs to stay on it with new pacemaker as of yesterday. No c/o pain etc. Pain Location: No Pain Reported Mental Status Patient Orientation: Normal For Age Attachments: Other-See Comments (O2 sat monitor, telemetry) Transfers SCALE: Activities may be completed with or without assistive devices. 3-Lekrieeymh-qqikrfr completes the activity by him/herself with no assistance from a helper. 5-Set-up or Clean-up Assistance-helper sets up or cleans up; patient completes activity. [employer] assists only prior to or following the activity. 4-Supervision or Touching Assistance-helper provides verbal cues and/or touching/steadying and/or contact guard assistance as patient completes activity. Assistance may be provided throughout the activity or intermittently. 3-Partial/Moderate Assistance-helper does LESS THAN HALF the effort. [employer] [place] lifts, holds or supports trunk or limbs, but provides less than half the effort. 2-Substantial/Maximal Assistance-helper does MORE THAN HALF the effort. [employer] [place] lifts or holds trunk or limbs and provides more than half the effort. 0-Qudqoolzp-ttgtmb does ALL the effort. Patient does none of the effort to complete the activity. Or, the assistance of 2 or more helpers is required for the patient to complete the activity. If activity was not attempted, code reason: 7-Patient Refused. 9-Not Applicable-not attempted and the patient did not perform the activity before the current illness, exacerbation or injury. 10-Not Attempted due to Environmental Limitations-(lack of equipment, weather restraints, etc.). 88-Not Attempted due to Medical Conditions or Safety Concerns. in out bed with min assist as pt. not to use R arm, sit to stand CGA. Weight Bearing Right Lower Extremity: Right Full Weight Bearing Left Lower Extremity: Left Full Weight Bearing Gait Training Does the Patient Walk?: Yes 75 ft in room around bed multiple times as tethered by telemetry cord. no LOB, slow, good use of 4WW. Exercises Standing: Hip Abduction, Heel/toe raises, Marching Standing Reps: 15 During standing ex pts HR increased to 154 and this SPIRITUAL ADVISOR discontinued standing ex. pt. then walked around foot of bed and sat down on bed Treatments TRFs, gait with 4WW, standing ex as above, pt. seated at EOB after Rx as he requested, O2 sat mon and telemetry all insitu, call patterson at and, daughter at pt. side Assessment Current Status: Good Progress HR at 154 with standing , decreased to 120s when seated and resting PT Lock Assembler Goals Shelter Goals PT Shelter Goals Time Frame: Aug 04, 2021 Roll Left & Right (QC): 6 Sit to Lying (QC): 6 Lying-Sitting on Side/Bed(QC): 6 Sit to Stand (QC): 6 Chair/Oqc-ym-Gynrx Xfer(QC): 6 Toilet Transfer (QC): 6 Car Transfer (QC): 6 Does the Patient Walk: Yes Walk 10 feet (QC): 6 Walk 50ft with 2 Turns (QC): 6 Walk 150 ft (QC): 6 Walking 10ft on Uneven Surface: 6 1 Step (curb) (QC): 5 4 Steps (QC): 5 12 Steps (QC): 9 Picking up an Object (QC): 9 Does the Pt use WC or Scooter?: No Wheel 50 feet with 2 turns (QC: 9 Type: N/A Wheel 150 feet: 9 Type: N/A PT Plan Treatment/Plan Treatment Plan: Continue Plan of Care Treatment Plan: Education, Functional Activity Tara, Functional Strength, Gait, Safety, Therapeutic Exercise, Transfers Treatment Duration: Aug 04, 2021 Frequency: 6 times per week Estimated Hrs Per Day: .25 hour per day Patient and/or Family Agrees t: Yes Safety Risks/Education Patient Education: Gait Training, Transfer Techniques, Correct Positioning, Safety Issues Teaching Recipient: Patient Teaching Methods: Demonstration, Discussion Response to Teaching: Verbalize Understanding, Return Demonstration, Reinforcement Needed Time/GCodes Time In: 1040 Time Out: 1105 Total Billed Treatment Time: 25 Total Billed Treatment 1,GT13m,EX12m JELANI BONE SPIRITUAL ADVISOR Aug 04, 2021 11:12
--- NOTE | 2021-08-04 12:03 | Tele-ICU Progress Note ---
Subjective Date Seen by a Provider: Aug 04, 2021 Time Seen by a Provider: 12:03 Subjective/Events-last exam (Tele-ICU Physician , Progress Note ) Available chart/ vitals / labs / Images reviewed Video assessment done using teleICU camera, rest of exam as per RN Discussed with RN , EXAM PER RN Events overnight : Afebrile FiO2 - ra I/O = pos 900 Drips: Pressors: , hemodynamically stable Consultants: javier Hospital course: (07/29) 85 Y admitted with A-fib, Bradycardia 08/03- Status post single-chamber pacemaker implantation on August 03, 2021. A/P Bradycardia underlying atrial fibrillation, now tachycardia =Status post single-chamber pacemaker implantation on August 03, 2021. - cards follow , dig , cardizem - BP stable Permanent A fib - AC with coumadine, INR 1.5 08/03 - to cont , dose adjust as per cards CAD -EF 55%, mod MR DM II - ISS , as per PCP Pulm HTN PA pressure 50 to 55 mmHg -suspected due to valv dx and OS A SANDIP -to cont CPAP at night Moderate carotid stenosis on the right, mild on the left Low back pain and chronic lower extremity swelling and weakness, chronic COPD? Polymyalgia rheumatica- REPORTED ON MAY on [place] - as per PCP Lines : (Central Line Necessity Reviewed) Saini: OG: Nutrition: Analgesia: Anxiety/ delirium VTE Prophylaxis: coumadn e Stress Ulcer Prophylaxis: na Plans in collaboration with bedside consultants and IM MDs. Discussed with RN to reach out if any questions or concerns A total of 25 minutes of critical care time was devoted to this patient today, required to treat and/or prevent further deterioration of critical care condition ( as above ) . Sepsis Event Evaluation Height, Weight, BMI Height: 5'8.00" Weight: 226lbs. 0.0oz. 102.095054py; 32.24 BMI Method:Stated Exam Exam Patient acknowledged, consented, and participated in this virtual visit which was conducted using real time audio/video Vital Signs Date Time Temp Pulse Resp B/P (MAP) Pulse Ox O2 Delivery O2 Flow Rate FiO2 08/04/21 11:00 131 18 98 Room Air 08/04/21 10:00 131 10 113/59 100 Room Air 08/04/21 09:00 130 17 90/83 99 Room Air 08/04/21 08:30 100 Room Air 08/04/21 08:00 116 19 120/67 100 Room Air 08/04/21 07:00 135 08/04/21 07:00 147 22 116/84 100 Room Air 08/04/21 06:00 104 17 135/93 100 Room Air 08/04/21 05:00 80 20 141/82 99 Room Air 08/04/21 04:00 36.8 88 20 136/63 100 Room Air 08/04/21 04:00 100 Room Air 08/04/21 03:00 Room Air 08/04/21 03:00 69 17 130/57 100 Room Air 08/04/21 02:00 90 18 134/62 100 NIV CPAP 08/04/21 01:00 83 18 126/62 100 NIV CPAP 08/04/21 01:00 90 08/04/21 00:00 93 14 132/73 100 NIV CPAP 08/03/21 23:25 98 NIV CPAP 08/03/21 23:00 88 14 127/62 100 NIV CPAP 08/03/21 22:52 NIV CPAP 08/03/21 22:37 36.3 08/03/21 22:00 96 15 154/72 100 Room Air 08/03/21 21:00 98 17 144/71 98 Room Air 08/03/21 20:00 86 13 136/75 100 Room Air 08/03/21 20:00 36.3 08/03/21 19:55 99 Room Air 08/03/21 19:45 90 08/03/21 19:45 36.6 89 18 141/98 100 Room Air 08/03/21 18:00 79 15 145/86 97 Room Air 08/03/21 17:00 81 19 121/56 98 Room Air 08/03/21 16:00 80 14 134/72 99 Room Air 08/03/21 15:57 96 Room Air 08/03/21 15:49 36.6 08/03/21 15:00 97 14 120/75 99 Room Air 08/03/21 14:00 104 16 125/72 98 Room Air 08/03/21 13:00 81 15 139/72 96 Room Air 08/03/21 12:45 93 08/03/21 12:28 96 Room Air I & O 08/04/21 07:00 Intake Total 3675 ml Output Total 1750 ml Balance 1925 ml Height & Weight Height: 5'8.00" Weight: 226lbs. 0.0oz. 102.252285uq; 32.24 BMI Method:Stated General Appearance: No Apparent Distress, WD/WN HEENT: PERRL/EOMI, Normal ENT Inspection Neck: Normal Inspection Respiratory: Lungs Clear, No Respiratory Distress Cardiovascular: Irregularly Irregular, Tachycardia Capillary Refill: Less Than 3 Seconds Extremity: Non Tender, Swelling Neurologic/Psychiatric: Alert, Oriented x3 Skin: Normal Color, Warm/Dry Lymphatic: No Adenopathy Results Lab Laboratory Tests 08/03/21 04:30 08/04/21 04:08 Assessment/Plan Assessment/Plan 1 MOUSTAPHA LOU MD Aug 04, 2021 12:03
[2021-08-04] MEDS: DIGOXIN 0.125 MG (LANOXIN) TAB PO SCH (14:24)
[2021-08-04] MEDS ORDERED: warFARin 5 MG (COUMADIN) TAB PO SCH (18:00)
[2021-08-04] MEDS ORDERED: NS (IVPB) 50 ML ONE (21:34)
[2021-08-04] MEDS ORDERED: ceFAZolin INJECTION 1,000 MG ONE (21:34)
[2021-08-05 05:09] LABS: INR 1.6 (0.8-1.4); PROTHROMBIN TIME PATIENT 19.3 SEC (12.2-14.7)
[2021-08-05] MEDS: CATHETER FLUSH 10 ML SYR IV SCH (06:03)
[2021-08-05] MEDS ORDERED: DIGO125T18 PO (06:19)
--- NOTE | 2021-08-05 07:56 | Cardiology Progress Note ---
Subjective Date Seen by Provider: Aug 05, 2021 Time Seen by Provider: 07:55 Subjective/Events-last exam Patient was seen at bedside laying down comfortably Denied any chest pain Heart rate is better controlled. Objective-Cardiology Exam Last Set of Vital Signs Vital Signs 08/05/21 07:33 Temp 36.7 I&O Intake and Output 08/05/21 00:00 Intake Total 2695 ml Output Total 875 ml Balance 1820 ml Intake Oral 1595 ml IV Total 1100 ml Output Urine Total 875 ml # Voids 6 # Urine Diapers 2 # Bowel Movements 2 General: Alert, Oriented X3, Cooperative HEENT: Atraumatic, PERRLA Neck: Supple, No JVD, No Thyromegaly Lungs: Clear to Auscultation, Normal Air Movement Heart: Normal S1, Normal S2, Other (Atrial fibrillation, systolic murmur) Abdomen: Normal Bowel Sounds, Soft, No Tenderness, No Hepatosplenomegaly, No Masses Extremities: No Clubbing, No Cyanosis, Normal Pulses, No Tenderness/Swelling, Other (Pedal edema) Skin: No Rashes, No Breakdown, No Significant Lesion, Other Neuro: Normal Speech, Strength at 5/5 X4 Ext, Normal Tone, Sensation Intact Psych/Mental Status: Mental Status NL, Mood NL A/P-Cardiology Admission Diagnosis Bradycardia Atrial fibrillation Cor pulmonale Hypotension Assessment/Plan Tachybradycardia episodes. Difficult to control heart rate. Admitted with severe bradycardia. Status post single-chamber pacemaker implantation on August 03, 2021. Still tachycardic, I changed diltiazem back to 360 mg daily and Coreg 3.125 mg twice daily and digoxin 0.125 mg daily Heart rate is better controlled. Tolerating medication well. Significant peripheral edema, cor pulmonale, severe mitral regurgitation. Improved at this time. Continue to monitor Permanent atrial fibrillation, difficult to control heart rate. Better at this time. Monitor tolerance and response. SARAH on May 21, 2016 showed a density suggestive of a thrombus in the left atrium [id number] score 3, maintained on Coumadin, recommended INR 2-3 Coronary artery disease, Cardiac catheterization done May 20, 2016 showed severe coronary artery stenosis and a Xience Alpine stent was placed in the right coronary artery. There is a patent stent in the proximal circumflex artery with 50% stenosis. There is mold to moderate disease in the LAD and small vessel disease Lexiscan stress test on June 10, 2020 showed atrial fibrillation with no significant ischemia and an EF 55% 2D echo was done in May showing normal left ventricular size with ejection fraction 60%, dilated right heart chambers with severe pulmonary hypertension with PA pressure 50 to 55 mmHg, severe mitral regurgitation, calcified mitral valve, mild tricuspid regurgitation Hypertension, monitor blood pressure. Continue on Cardizem and Coreg. Leukocytosis, was treated empirically with antibiotics, discussed the management plan with Dr. Burkett Sleep apnea Have patient on CPAP at night Diabetes Being managed by admitting hospitalist Jaja for discharge and follow-up as an outpatient SP BISHOP MD Aug 05, 2021 07:56
--- NOTE | 2021-08-05 07:57 | Discharge Inst-Post CATH ---
Discharge Inst-CATH/EP Problems Reviewed?: Yes Post Cardiac Cath/EP D/C Inst Follow Up/Plan Appointment with Dr. Shine's office in 1 week <b>CARDIAC CATH/EP PROCEDURE DISCHARGE INSTRUCTIONS</b> ACTIVITY * Go Home directly and rest. * Limit activity of the leg (or wrist if it was used) for 7 days including aerobics, swimming, jogging, bicycling, etc. * Restrict stair-climbing for 7 days if possible, if not, climb up with your non-cath leg, then bring together on the same step. * Avoid lifting, pushing, pulling or excessive movement of the affected extremity for 7 days. * Customary sexual activity may be resumed after 2 days-use caution not to use a position that strains or causes pain to the affected extremity. * No driving for 24 hours. * NO SMOKING. * Avoid straining for bowel movements for 7 days. * Gentle walking on level ground is allowed. * Returning to work will depend on the type of procedure and the results. Your doctor will discuss this with you. CALL YOUR DOCTOR FOR ANY OF THE FOLLOWING: *If bleeding from the puncture site occurs- Apply gentle pressure to site with clean cloth and call your doctor or EMS. * If a knot or lump forms under the skin, increases in size, or causes pain. * If bruising appears to be worsening or moving further down your leg instead of disappearing. * Temperature above 101 F. CARE OF YOUR GROIN INCISION; * Bruising or purple discoloration of the skin near the puncture site is common. * You may shower only, no bathtub bathing for 5 days. Be careful to avoid slipping as your leg may feel stiff. * If a closure device was used on your femoral artery, please see the attached guide regarding care of the device and your leg. * Leave dressing on FOR 24 hours. CARE OF YOUR WRIST INCISION; * Bruising or purple discoloration of the skin near the puncture site is common. * You may shower. * DO NOT submerge wrist. * Leave dressing on FOR 24 hours. SP SHINE MD Aug 05, 2021 07:57
[2021-08-05] MEDS: ASPIRIN E.C. 81 MG (ECOTRIN) TAB PO SCH (08:09)
[2021-08-05] MEDS: DIGOXIN 0.125 MG (LANOXIN) TAB PO SCH (08:09)
[2021-08-05] MEDS: MEMANTINE 10 MG (NAMENDA) TABLET PO SCH (08:09)
[2021-08-05] MEDS: PANTOPRAZOLE 40 MG (PROTONIX) TAB PO SCH (08:09)
[2021-08-05] MEDS: GABAPENTIN 100 MG (NEURONTIN) CAP PO SCH (08:10)
[2021-08-05] MEDS: ALOGLIPTIN 25 MG PO SCH (08:11)
[2021-08-05] MEDS: ENOXAPARIN 100 MG/1 ML (LOVENOX) SYR SC SCH (08:11)
--- NOTE | 2021-08-05 08:39 | Discharge Summary ---
Diagnosis/Chief Complaint Date of Admission August 03, 2021 at 09:10 Date of Discharge Discharge Date: Aug 05, 2021 Reason Hospital Visit PT IS AN 85 Y/O MALE WHO IS KNOWN TO ME FROM CLINIC. THE PATIENT WAS AT HOME, FEELING FATIGUED, WITH HOME HEALTH THERAPY EVALUATING HIM AND NOTING A LOW HEART RATE. HE WAS DOCUMENTED TO HAVE A HEART RATE IN THE 30'S AND HIS FAMILY WAS ADVISED TO CALL DR. BISHOP OR GO TO THE ER. DR. BISHOP'S OFFICE INSTRUCTED THE PATIENT'S TO TAKE HIM TO THE ER AND HE WAS EVALUATED, FOUND TO HAVE A PROFOUNDLY LOW HEART RATE AND ADMITTED TO THE ICU FOR FURTHER MONITORING/WORK-UP AND TREATMENT. THIS EVENING, OFELIA STATES THAT HE IS WONDERING IF HE WILL END UP WITH A PACEMAKER DUE TO HIS EXTREMELY LOW HEART RATE. Discharge Summary Discharge Physical Examination Allergies: Coded Allergies: Beta-Blockers (Beta-Adrenergic Bloc (Verified Allergy, Unknown, Pt has rec Metoprolol and coreg in the past, 06/23/21) gluten (Verified Allergy, Unknown, Rash, 12/30/19) Vitals & I&Os Vital Signs Date Time Temp Pulse Resp B/P (MAP) Pulse Ox O2 Delivery O2 Flow Rate FiO2 08/05/21 08:00 111 20 96 Room Air 08/05/21 07:33 36.7 08/05/21 07:00 134/62 Hospital Course Pending Labs Laboratory Tests 08/05/21 04:11: Prothrombin Time 19.3, INR Comment 1.6 08/05/21 06:00: Glucometer 107 Discharge Instructions to patient/family Please see electronic discharge instructions given to patient. Discharge Medications Reviewed and agree with Discharge Medication list on patient's Discharge Instruction sheet RON VICK MD Aug 05, 2021 08:39
--- NOTE | 2021-08-05 08:43 | D/C HH Face to Face Order ---
D/C Face to Face Orders Reconcile Patient Problems Problems Reviewed?: Yes Instructions for Patient RESUME PREVIOUS HOME HEALTH SERVICES Patient Instructions/FollowUp: [facility] 1[facility] BISHOP Physician to follow Patient: [facility] Discharge Diet for Home: ADA Diet Patient Problems: BRADYCARDIA HYPERTENSION CORONARY ARTERY DISEASE GENERALIZED WEAKNESS CHRONIC ATRIAL FIBRILLATION CHRONIC ANTICOAGULATION DIABETES MELLITUS PERIPHERAL NEUROPATHY ESOPHAGEAL REFLUX LEUKOCYTOSIS SEVERE SLEEP APNEA Patient Data-Allergies,Ht & Wt Patient Allergies: Coded Allergies: Beta-Blockers (Beta-Adrenergic Bloc (Verified Allergy, Unknown, Pt has rec Metoprolol and coreg in the past, 06/23/21) gluten (Verified Allergy, Unknown, Rash, 12/30/19) Height (Feet): 5 Height (Inches): 8.00 Weight (Pounds): 226 Weight (Ounces): 0.0 Home Health Need/Face to Face Date of Face to Face: Aug 05, 2021 Clinical Findings: Muscle weakness, Unsteady gait I have seen Pt vjkl-[id number]: Yes Discharged To: Home Diagnosis/Conditions: BRADYCARDIA HYPERTENSION CORONARY ARTERY DISEASE GENERALIZED WEAKNESS CHRONIC ATRIAL FIBRILLATION CHRONIC ANTICOAGULATION DIABETES MELLITUS PERIPHERAL NEUROPATHY ESOPHAGEAL REFLUX LEUKOCYTOSIS SEVERE SLEEP APNEA Patient is Homebound due to: Muscle weakness Homebound Status Due to the above stated illness, injury or surgical procedure (medical condition or diagnosis) and associated clinical findings, the patient is homebound because of his/her inability to leave home except with aid of a supportive device and/or person AND leaving the home requires a considerable and taxing effort or is medically contraindicated. Pt req the following assistanc: [facility] Health Nursing Orders Home Health Services Order: Nursing Services, Physical Therapy-Evaluate & Treat PT HAS NEW PACEMAKER PLACED IN LEFT UPPER CHEST, ASSESS WOUND/SKIN AND CALL PHYSICIAN FOR ANY SIGNS/SX OF INFECTION. HAVE PT ASSESS FOR OCC THERAPY DUE TO PT HAVING SHORT TERM LIMITED ROM OF LEFT UPPER ARM UNTIL PACEMAKER HEALS Home Health Infusion Therapy Line Start Date: July 29, 2021 Therapy Orders Therapy Orders: PT to assess for OT Therapy Specific Orders: Eval assistive deivces, Teach laxmiiro m odifications/safety, Increase strength/endurance Certify Stmt I certify that this patient is under my care and that I, a nurse practitioner or a physician; a behavioral modification assistant working with me, had a face to face encounter that - meets the physician face to face encounter requirements with this patient as dated. RON VICK MD Aug 05, 2021 08:43
== END 2021-08-05 10:48 | disposition home health service (06) | DRG 244 ==
LOC: EDUNIT# 11:40 → ER 11:41 → INTOOBSV 12:13 → EDLOC 12:13 → ICU 12:13 → OBSVTOIN 08-03 09:10
PROVIDERS: ADMIT Family Medicine; ATTEND Family Medicine
PROC: 02HK3JZ Insertion of Pacemaker Lead into Right Ventricle, Percutaneous Approach (ICD-10-PCS; principal; 2021-08-03)
PROC: 0JH604Z Insertion of Pacemaker, Single Chamber into Chest Subcutaneous Tissue and Fascia, Open Approach (ICD-10-PCS; 2021-08-03)
DX: I44.2 Atrioventricular block, complete (principal); I48.21 Permanent atrial fibrillation; I49.5 Sick sinus syndrome; I25.10 Atherosclerotic heart disease of native coronary artery without angina pectoris; I34.0 Nonrheumatic mitral (valve) insufficiency; I10 Essential (primary) hypertension; G47.33 Obstructive sleep apnea (adult) (pediatric); E11.42 Type 2 diabetes mellitus with diabetic polyneuropathy; Z66 Do not resuscitate; E78.5 Hyperlipidemia, unspecified; I27.20 Pulmonary hypertension, unspecified; I27.81 Cor pulmonale (chronic); I65.23 Occlusion and stenosis of bilateral carotid arteries; M35.3 Polymyalgia rheumatica; H54.7 Unspecified visual loss; H91.90 Unspecified hearing loss, unspecified ear; M81.0 Age-related osteoporosis without current pathological fracture; K44.9 Diaphragmatic hernia without obstruction or gangrene; I25.2 Old myocardial infarction; Z79.01 Long term (current) use of anticoagulants; Z95.5 Presence of coronary angioplasty implant and graft; Z86.718 Personal history of other venous thrombosis and embolism; Z86.16 Personal history of COVID-19; Z79.82 Long term (current) use of aspirin; Z88.8 Allergy status to other drugs, medicaments and biological substances
CPT/HCPCS: 33207; 36415; 71045; 71046; 80048; 80053; 80162; 81000; 82607; 82746; 82947; 83735; 83880; 84100; 84443; 85007; 85025; 85027; 85045; 85055; 85610; 86141; 93005; 93041; G0378

== ENCOUNTER → 2021-09-21 | Outpatient (CLI) | payer MEDICARE, OTHER ==
[~2021-09-21] MED LIST changes: +DILT360C36 PO; +VIT1CAPS5 PO
--- NOTE | 2021-09-21 14:39 | Diagnostic Imaging Report ---
INDICATION: Osteoporosis, prior vertebral body fractures. COMPARISON: 05/08/2018. FINDINGS: The bone mineral density of the spine, hips, and femoral necks was measured. The total T-score for the spine is 1.3. On the prior exam, the T-score was -0.2. This does represent a 12.7% increase from the prior exam. The T-score for the left hip is -1.2 and for the right hip -1.1. On the prior exam, the respective T-scores were -1.7 and -1.4. Today's values do represent a 6.5% increase in the bone mineral density. The T-score for the left femoral neck is -1.6 and for the right -1.1. On the prior exam, the respective T-scores were -2.0 and -1.4. AP Spine L1-L4: [BMD (g/cm2): 1.392] [T-Score: 1.3] [Z-Score: 1.5] [BMD Previous: 1.235] [BMD % Change: 12.7] LT Hip Neck: [BMD (g/cm2): 0.865] [T-Score: -1.6] [Z-Score: -0.3] LT Hip Total: [BMD (g/cm2):0.924] [T-Score:-1.2] [Z-Score: -0.2] [BMD Previous: 0.855] [BMD % Change: 8.1] RT Hip Neck: [BMD (g/cm2):0.922] [T-Score:-1.1] [Z-Score:0.2] RT Hip Total: [BMD (g/cm2):0.942] [T-score:-1.1] [Z-Score:-0.1] [BMD Previous:0.897] [BMD % Change:5.0] *Indicates significant change from prior examination based on 95% confidence level. World Health Organization criteria for BMD interpretation classify patients as Normal (T-score at or above -1.0), Osteopenic (T-score between -1.0 and -2.5) or Osteoporotic (T-score at or below -2.5). LIMITATIONS AND MODIFICATION: None. FRACTURE RISK (FRAX SCORE): The ten year probability of (%): Major Osteoporotic Fracture: [10.3] Hip Fracture: [3.5] IMPRESSION: 1. The bone mineral density of the spine has increased, and the T-score is now well within normal limits. 2. There has also been an increase in the bone mineral density of the hips and the femoral necks but to a lesser extent. The T-score values for the hips and the femoral necks remain within the range of osteopenia. 3. See below National Osteoporosis Foundation guidelines on when to potentially initiate pharmacologic therapy. Based on the National Osteoporosis Foundation Guidelines, pharmacologic treatment should be initiated in any of the following, unless clinical conditions suggest otherwise: * Any patient with prior fragility fracture of the hip or vertebrae. A spine fracture indicates 5X risk for subsequent spine fracture and 2X risk for subsequent hip fracture. * Osteoporosis (T-score <-2.5). * Postmenopausal women and men age 50 and older with low bone mass/osteopenia (T-score between -1.0 and -2.5) by DXA and 10-year major osteoporotic fracture greater than 20% or a 10-year probability of hip fracture greater than 3%. These fracture risks are supplied above in the FRAX score, if applicable. * Clinician judgement and/or patient preferences may indicate treatment for people with 10-year fracture probabilities above or below these levels. Dictated by: Dictated on workstation # [id number]
== END ==
LOC: RAD 10:33
PROVIDERS: ATTEND Family Medicine
DX: M81.0 Age-related osteoporosis without current pathological fracture (principal); Z87.311 Personal history of (healed) other pathological fracture
CPT/HCPCS: 77080

== ENCOUNTER 2021-12-06 15:37 | Emergency (ER) | payer MEDICARE, OTHER ==
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
--- NOTE | 2021-12-06 16:18 | Diagnostic Imaging Report ---
CLINICAL INDICATION: Patient fell hitting right posterior aspect of the head. EXAM: Axial Head CT without IV contrast. Coronal and sagittal reformations were created. Auto Exposure Controls were utilized during the CT exam to meet ALARA standards for radiation dose reduction. COMPARISON: MRI of the brain with and without contrast dated 08/24/2020. FINDINGS: There is no evidence of acute cerebral infarct, intracranial hemorrhage, or gross mass effect. The brain parenchymal volume appears appropriate for patient's age. There are diffuse focal and patchy areas of low-attenuation white matter changes involving both cerebral hemispheres, likely representing chronic small vessel ischemic disease and leukoaraiosis. There is normal romano-white matter distinction. There is no significant midline shift or herniation. There is no evidence of hydrocephalus. The basal cisterns are unremarkable. The skull, extracranial soft tissue, and orbits are unremarkable. There is minimal mucosal thickening involving the ethmoid sinus. Temporal bones show no significant abnormality. IMPRESSION: 1: There is no CT evidence of acute intracranial process. There is no intracranial hemorrhage or skull fracture. 2: Chronic small vessel ischemic disease and leukoaraiosis. Dictated by: Dictated on workstation # [id number]
[2021-12-06] MEDS ORDERED: TETANUS,DIPTH,PERTUSS P/F (BOOSTRIX) 0.5 ML VIAL IM ONE (17:00)
[2021-12-06 17:06] VITALS: BP 128/59
== END 2021-12-06 17:06 | disposition home or self-care (01) ==
LOC: EDUNIT# 15:37 → ER 15:38
DX: S09.90XA Unspecified injury of head, initial encounter (principal); S00.03XA Contusion of scalp, initial encounter; I48.91 Unspecified atrial fibrillation; Z79.01 Long term (current) use of anticoagulants; W22.8XXA Striking against or struck by other objects, initial encounter; Y92.009 Unspecified place in unspecified non-institutional (private) residence as the place of occurrence of the external cause
CPT/HCPCS: 70450; 90471; 90715

== ENCOUNTER → 2021-12-28 | Outpatient (CLI) | payer MEDICARE, OTHER ==
[~2021-12-28] MED LIST changes: +DENOSUMAB 60 MG/1 ML (PROLIA) SQ ONE
[2021-12-28 12:50] VITALS: BP 123/74
== END ==
LOC: SDC 12:30
PROVIDERS: ATTEND Nurse Practitioner Family
DX: M81.0 Age-related osteoporosis without current pathological fracture (principal)
CPT/HCPCS: 96372

== ENCOUNTER → 2022-01-29 | Outpatient (CLI) | payer MEDICARE, OTHER ==
[~2022-01-29] MED LIST changes: -DENOSUMAB 60 MG/1 ML (PROLIA) SQ ONE
[2022-01-29 17:01] LABS: BILIRUBIN,URINE NEGATIVE (NEGATIVE); CLARITY,URINE CLEAR; COLOR,URINE YELLOW; GLUCOSE, URINE (UA) NEGATIVE (NEGATIVE); KETONES,URINE NEGATIVE (NEGATIVE); LEUKOCYTE ESTERASE ,URINE NEGATIVE (NEGATIVE); NITRITE,URINE NEGATIVE (NEGATIVE); PROTEIN,URINE NEGATIVE (NEGATIVE)
[2022-01-29 17:15] LABS: BACTERIA,URINE NEGATIVE /HPF
== END ==
LOC: LABNPT 16:57
PROVIDERS: ATTEND Family Medicine
DX: Z01.89 Encounter for other specified special examinations (principal)
CPT/HCPCS: 81000

== ENCOUNTER → 2023-01-03 | Outpatient (CLI) | payer MEDICARE ==
[~2023-01-03] MED LIST changes: +DILT240C74 PO; -DILT240C87 PO; +HYDR200T71 PO; +POTA-185 PO; +POTA-330 PO; -POTA-51 PO; -POTA10TA PO
== END ==
LOC: CARD 13:16
PROVIDERS: ATTEND Internal Medicine Cardiovascular Disease
DX: I11.9 Hypertensive heart disease without heart failure (principal); I08.0 Rheumatic disorders of both mitral and aortic valves
CPT/HCPCS: 93306